=== PATIENT | female | born 1970 | race Caucasian/White ===

== ENCOUNTER 2020-10-09 19:38 | Emergency (ER) | payer MEDICAID ==
[2020-10-09 19:48] VITALS: BP 118/73
[2020-10-09] MEDS ORDERED: SULFAMETH/TRIMETH DS 800/160 MG TABLET PO STA (20:32)
[2020-10-09] MEDS ORDERED: CEPHALEXIN 250 MG Prepack 8 CAP BOTTLE PO STA (20:32)
[2020-10-09] MEDS ORDERED: HYDROcod/ACET 5/325 Prepack 4 PO STA (20:32)
--- NOTE | 2020-10-09 20:33 | ED Physician Documentation ---
PD HPI SKIN - Stated complaint Stated Complaint: OOZE/ITCH/PX/LT SIDE FACE - Chief complaint Chief Complaint: Wound - History obtained from History obtained from: Patient (50-year-old woman with history of eczema presents with 2 days of painful rash mostly on the head. 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 - Past Surgical History Past Surgical History: Yes General: Cholecystectomy, Other - Present Medications Home Medications: Ambulatory Orders Medication Instructions Recorded Confirmed Amitriptyline HCl 50 mg PO TID 10/09/20 10/09/20 Azelastine HCl 137 mcg NS TID 10/09/20 10/09/20 Fluticasone/Salmeterol [Advair 1 spr FABRICIO TID PRN 10/09/20 10/09/20 500-50 Diskus] Gabapentin [Neurontin] 800 mg PO TID 10/09/20 10/09/20 HYDROcod/ACETAM 5/325 [[place] 5/325] 1 - 2 tab PO Q6H PRN #15 tablet 10/09/20 Levothyroxine [Synthroid] 100 mcg PO QDAC 10/09/20 10/09/20 Loratadine/Pseudoephedrine 1 each PO DAILY 10/09/20 10/09/20 [Loratadine-D 24Hr Tablet] Montelukast [Singulair] 10 mg PO QPM 10/09/20 10/09/20 Sulfamethox/Trimeth 800/160 1 each PO BID #14 tablet 10/09/20 [Bactrim Ds 800/160] Tiotropium [place] [Spiriva] 1 puffs INH DAILY 10/09/20 10/09/20 Triamcinolone 0.1% Cream [Kenalog 1 applic TOP BID 10/09/20 10/09/20 0.1% Cream] cephALEXin [Keflex] 500 mg PO Q6H #28 cap 10/09/20 - Allergies Allergies/Adverse Reactions: Allergies Allergy/AdvReac Type Severity Reaction Status Date / Time Penicillins Allergy Unknown Verified 10/09/20 19:46 - Social History Does the pt smoke?: No Smoking Status: Never smoker Does the pt drink ETOH?: No Does the pt have substance abuse?: No - Immunizations Immunizations are current?: Yes - POLST Patient has POLST: No PD ED PE NORMAL - Vitals Vital signs reviewed: Yes - General General: Alert and oriented X 3, No acute distress - HEENT HEENT: PERRL, EOMI - Derm Derm: Other (She has diffuse impetiginous changes of the face with some pustular lesions. One on the right side of the neck was expressed and sent for culture.) - Neuro Neuro: Alert and oriented X 3, Normal speech Results - Vitals Vitals: Vital Signs - 24 hr 10/09/20 19:44 Temperature 36.6 C Heart Rate 113 H Respiratory 16 Rate Blood Pressure 118/73 O2 Saturation 92 Oxygen O2 Source Room air Departure - Departure Disposition: 01 Home, Self Care Clinical Impression: Impetigo Condition: Good Record reviewed to determine appropriate education?: Yes Instructions: ED Staph Infec Abx Tx Only Prescriptions: Sulfamethox/Trimeth 800/160 [Bactrim Ds 800/160] 1 each PO BID #14 tablet cephALEXin [Keflex] 500 mg PO Q6H #28 cap HYDROcod/ACETAM 5/325 [[place] 5/325] 1 - 2 tab PO Q6H PRN #15 tablet PRN Reason: Pain Comments: We are performing a wound culture, the results should be done in 48-72 hours. If antibiotic change is necessary we will call you. Return if worse in the meantime, especially if you develop increased pain, fevers, cannot keep down the medication. Otherwise follow-up with your physician in approximately 2-3 days.
== END 2020-10-09 20:47 | disposition home or self-care (01) ==
LOC: ED 19:38
DX: L01.00 Impetigo, unspecified (principal)
CPT/HCPCS: 87070; 87077; 87205; 99283; A9270

== ENCOUNTER 2021-10-01 06:21 | Observation (INO) | payer MEDICARE, MEDICAID ==
[2021-10-01] MEDS ORDERED: IPRATROPIUM/ALBUTEROL 3 ML NEB INH STA ×2 (06:43→08:34)
--- NOTE | 2021-10-01 06:44 | ED Physician Documentation ---
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 HEENT: None Psych: Depression, Anxiety, Panic attacks Musculoskeletal: None Derm: Eczema - Past Surgical History Past Surgical History: Yes General: Cholecystectomy, Other - Present Medications Home Medications: Ambulatory Orders Medication Instructions Recorded Confirmed Amitriptyline HCl 50 mg PO TID 10/09/20 10/09/20 Azelastine HCl 137 mcg NS TID 10/09/20 10/09/20 Fluticasone/Salmeterol [Advair 1 spr FABRICIO TID PRN 10/09/20 10/09/20 500-50 Diskus] Gabapentin [Neurontin] 800 mg PO TID 10/09/20 10/09/20 HYDROcod/ACETAM 5/325 [[place] 5/325] 1 - 2 tab PO Q6H PRN #15 tablet 10/09/20 Levothyroxine [Synthroid] 100 mcg PO QDAC 10/09/20 10/09/20 Loratadine/Pseudoephedrine 1 each PO DAILY 10/09/20 10/09/20 [Loratadine-D 24Hr Tablet] Montelukast [Singulair] 10 mg PO QPM 10/09/20 10/09/20 Sulfamethox/Trimeth 800/160 1 each PO BID #14 tablet 10/09/20 [Bactrim Ds 800/160] Tiotropium [place] [Spiriva] 1 puffs INH DAILY 10/09/20 10/09/20 Triamcinolone 0.1% Cream [Kenalog 1 applic TOP BID 10/09/20 10/09/20 0.1% Cream] cephALEXin [Keflex] 500 mg PO Q6H #28 cap 10/09/20 - Allergies Allergies/Adverse Reactions: Allergies Allergy/AdvReac Type Severity Reaction Status Date / Time Penicillins Allergy Unknown Verified 10/01/21 06:35 - Social History Does the pt smoke?: No Smoking Status: Never smoker Does the pt drink ETOH?: No Does the pt have substance abuse?: No - Immunizations Immunizations are current?: Yes - POLST Patient has POLST: No Results - Vitals Vitals: Vital Signs - 24 hr 10/01/21 06:32 Temperature 36.4 C L Heart Rate 96 Respiratory 18 Rate Blood Pressure 124/92 H O2 Saturation 89 L Oxygen O2 Source Room air
--- NOTE | 2021-10-01 07:28 | ED Physician Documentation ---
PD HPI DYSPNEA - Stated complaint Stated Complaint: SOA - Chief complaint Chief Complaint: Resp - History obtained from History obtained from: Patient - History of Present Illness Timing - onset: How many days ago (4-5) Timing - onset during: Rest (for the past day), Light activity Timing - duration: Days (4-5) Timing - details: Abrupt onset, Still present, Waxing and waning Inciting event(s): Exposure (ie smoke) (she states she was around her daughters new pet dog and developed wheezing and dyspnea that has not improved, but actually worse despite home albuterol MDI use.). No: Out of meds, URI Improved by: No: Inhaler/neb Worsened by: Exertion, Coughing Associated symptoms: Cough, Wheezing, Chest pain / discomfort (tightness). No: Fever, Hemoptysis, Palpitations, Bilateral edema Similar symptoms before: Diagnosis (COPD and asthma. No history of CHF.) Recently seen: Not recently seen Review of Systems Constitutional: reports: Myalgias. denies: Fever, Chills Nose: reports: Congestion. denies: Rhinorrhea / runny nose Throat: denies: Sore throat Respiratory: reports: Dyspnea, Cough GI: denies: Abdominal Pain, Nausea, Vomiting, Diarrhea : denies: Dysuria, Frequency Skin: denies: Rash, Lesions Musculoskeletal: denies: Extremity swelling Neurologic: reports: Generalized weakness. 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 : None HEENT: None Psych: Depression, Anxiety, Panic attacks Musculoskeletal: None Derm: Eczema - Past Surgical History Past Surgical History: Yes General: Cholecystectomy, Other - Present Medications Home Medications: Ambulatory Orders Medication Instructions Recorded Confirmed Amitriptyline HCl 50 mg PO BID 10/09/20 10/01/21 Azelastine HCl 2 sprays NS BID 10/09/20 10/01/21 Gabapentin [Neurontin] 600 mg PO BID 10/09/20 10/01/21 Levothyroxine [Synthroid] 100 mcg PO QDAC 10/09/20 10/01/21 Montelukast [Singulair] 10 mg PO QPM 10/09/20 10/01/21 Triamcinolone 0.1% Cream [Kenalog 1 applic TOP BID 10/09/20 10/01/21 0.1% Cream] Albuterol Sulfate [Proair 1 - 2 puffs INH QID PRN 10/01/21 10/01/21 Respiclick] Budesonide/Formoterol Fumarate 2 puffs IH BID 10/01/21 10/01/21 [Symbicort 160-4.5 Mcg Inhaler] Ferrous Gluconate 324 mg PO DAILY 10/01/21 10/01/21 Loratadine [Claritin] 20 mg PO BID 10/01/21 10/01/21 Tiotropium [place] [Spiriva] 18 mcg INH DAILY 10/01/21 10/01/21 Triamcinolone Acetonide [Nasacort] 2 spr NS BID 10/01/21 10/01/21 hydrOXYzine HCL [Hydroxyzine HCl] 50 mg PO BID 10/01/21 10/01/21 - Allergies Allergies/Adverse Reactions: Allergies Allergy/AdvReac Type Severity Reaction Status Date / Time peanut Allergy Severe Anaphylaxis Verified 10/01/21 15:13 shellfish derived Allergy Severe Anaphylaxis Verified 10/01/21 15:14 Penicillins Allergy Unknown Verified 10/01/21 06:35 - Living Situation Living Situation: reports: Alone Living Arrangement: reports: At home - Social History Does the pt smoke?: No Smoking Status: Never smoker Does the pt drink ETOH?: No Does the pt have substance abuse?: No - Immunizations Immunizations are current?: Yes - POLST Patient has POLST: No PD ED PE NORMAL - Vitals Vital signs reviewed: Yes (sats 87% RA) - General General: Alert and oriented X 3, Well developed/nourished - HEENT HEENT: Ears normal, Moist mucous membranes, Pharynx benign - Neck Neck: Supple, no meningeal sign, No adenopathy - Cardiac Cardiac: RRR, No murmur - Respiratory Respiratory: No: No respiratory distress (some partial sentence dyspnea. ), Clear bilaterally (difffuse moderate wheezes and decreased tidal volume. no coarse sounds nor fine crackles. ) - Abdomen Abdomen: Soft, Non tender - Back Back: No CVA TTP - Derm Derm: Normal color, Warm and dry - Extremities Extremities: Normal ROM s pain, No edema, No calf tenderness / cord - Neuro Neuro: Alert and oriented X 3, No motor deficit, Normal speech Eye Opening: Spontaneous Motor: Obeys Commands Verbal: Oriented GCS Score: 15 Results - Vitals Vitals: Vital Signs - 24 hr 10/01/21 10/01/21 10/01/21 06:32 07:06 07:20 Temperature 36.4 C L Heart Rate 96 90 86 Respiratory 18 24 18 Rate Blood Pressure 124/92 H 109/82 H O2 Saturation 89 L 86 L 10/01/21 10/01/21 10/01/21 07:21 07:52 09:00 Temperature Heart Rate 87 80 80 Respiratory 19 12 13 Rate Blood Pressure 109/82 H 111/71 O2 Saturation 92 94 10/01/21 10/01/21 09:13 10:10 Temperature 36.7 C Heart Rate 81 85 Respiratory 14 14 Rate Blood Pressure O2 Saturation 93 97 Oxygen O2 Source Nasal cannula Oxygen Flow Rate 2 - Labs Labs: Laboratory Tests 10/01/21 10/01/21 10/01/21 08:03 08:03 08:03 WBC 6.3 RBC 4.30 Hgb 13.4 Hct 41.7 MCV 97.0 MCH 31.2 H MCHC 32.1 RDW 13.5 Plt Count 296 MPV 9.6 Neut # (Auto) 3.8 Lymph # (Auto) 0.9 L O'Brien # (Auto) 0.6 Eos # (Auto) 0.8 H Baso # (Auto) 0.1 Absolute Nucleated RBC 0.00 Nucleated RBC % 0.0 Sodium 136 Potassium 3.6 Chloride 99 L Carbon Dioxide 27 Anion Gap 10.0 BUN 12 Creatinine 0.7 Estimated GFR (MDRD) 88 L Glucose 103 H Calcium 8.9 Total Bilirubin 0.5 AST 20 ALT 23 Alkaline Phosphatase 79 B-Natriuretic Peptide 9 Total Protein 6.8 Albumin 3.7 Globulin 3.1 Albumin/Globulin Ratio 1.2 Lipase 25 TSH Nasal Adenovirus (PCR) Nasal B. parapertussis DNA (PCR) Nasal Coronavir 229E PCR Nasal Coronavir HKU1 PCR Nasal Coronavir NL63 PCR Nasal Coronavir OC43 PCR Nasal Enterovir/Rhinovir PCR Nasal Influenza B PCR Nasal Influenza A PCR Nasal Parainfluen 1 PCR Nasal Parainfluen 2 PCR Nasal Parainfluen 3 PCR Nasal Parainfluen 4 PCR Nasal RSV (PCR) Nasal B.pertussis DNA PCR Nasal C.pneumoniae (PCR) Cleve Human Metapneumo PCR Nasal M.pneumoniae (PCR) Nasal SARS-CoV-2 (PCR) 10/01/21 10/01/21 08:03 08:10 WBC RBC Hgb Hct MCV MCH MCHC RDW Plt Count MPV Neut # (Auto) Lymph # (Auto) O'Brien # (Auto) Eos # (Auto) Baso # (Auto) Absolute Nucleated RBC Nucleated RBC % Sodium Potassium Chloride Carbon Dioxide Anion Gap BUN Creatinine Estimated GFR (MDRD) Glucose Calcium Total Bilirubin AST ALT Alkaline Phosphatase B-Natriuretic Peptide Total Protein Albumin Globulin Albumin/Globulin Ratio Lipase TSH 21.08 H Nasal Adenovirus (PCR) NOT DETECTED Nasal B. parapertussis DNA (PCR) NOT DETECTED Nasal Coronavir 229E PCR NOT DETECTED Nasal Coronavir HKU1 PCR NOT DETECTED Nasal Coronavir NL63 PCR NOT DETECTED Nasal Coronavir OC43 PCR NOT DETECTED Nasal Enterovir/Rhinovir PCR NOT DETECTED Nasal Influenza B PCR NOT DETECTED Nasal Influenza A PCR NOT DETECTED Nasal Parainfluen 1 PCR NOT DETECTED Nasal Parainfluen 2 PCR NOT DETECTED Nasal Parainfluen 3 PCR NOT DETECTED Nasal Parainfluen 4 PCR NOT DETECTED Nasal RSV (PCR) NOT DETECTED Nasal B.pertussis DNA PCR NOT DETECTED Nasal C.pneumoniae (PCR) NOT DETECTED Cleve Human Metapneumo PCR NOT DETECTED Nasal M.pneumoniae (PCR) NOT DETECTED Nasal SARS-CoV-2 (PCR) NOT DETECTED - Rads (name of study) chest xray Radiology: Prelim report reviewed (no acute cardiopulmonary abnormality), EMP read contemporaneously (hyperinflated c/w COPD. ), See rad report PD MEDICAL DECISION MAKING - ED course Complexity details: reviewed results (cxr without infiltrates nor CHF. ), re- evaluated patient (feeling improved breathing, but still dyspnea with slight activity to bathroom. In cart, without oxygen, still down to 87-88% RA, good sats 95% with just 2 lpm NC. ), considered differential (seems COPD exac due to exposure to daughters new dog. Not having infectious symptoms per se. ), d/w patient, d/w internal audit consultant (hospitalist) Departure - Departure Disposition: ED Place in Observation Clinical Impression: Acute exacerbation of COPD with asthma, Hypoxia Condition: Stable Discharge Date/Time: 10/01/21 11:14
[2021-10-01] MEDS ORDERED: ALBUTEROL NEB 2.5 MG/3 ML INH STA ×2 (07:38→11:01)
[2021-10-01] MEDS ORDERED: DEXAMETHASONE 10 MG/ML VIAL IVP STA (07:38)
[2021-10-01] MEDS ORDERED: SODIUM CHLORIDE 0.9% 1,000 ML IV STA (07:38)
[2021-10-01 08:13] LABS: BASOPHILS # (AUTO) 0.1 10^3/uL (0.0-0.1); BASOPHILS % (AUTO) 0.8 %; EOSINOPHILS # (AUTO) 0.8 10^3/uL (0.0-0.7); EOSINOPHILS % (AUTO) 12.8 %; HCT - HEMATOCRIT 41.7 % (37.0-47.0); HGB - HEMOGLOBIN 13.4 g/dL (12.0-16.0); LYMPHOCYTES # (AUTO) 0.9 10^3/uL (1.5-3.5); MEAN CORPUSCULAR HEMOGLOBIN 31.2 pg (27.0-31.0); MEAN CORPUSCULAR HGB CONC 32.1 g/dL (32.0-36.0); MEAN PLATELET VOLUME 9.6 fL (7.9-10.8); MONOCYTES # (AUTO) 0.6 10^3/uL (0.0-1.0); MONOCYTES % (AUTO) 9.3 %; NEUTROPHILS # (AUTO) 3.8 10^3/uL (1.5-6.6); NEUTROPHILS % (AUTO) 61.3 %; PLT - PLATELET COUNT 296 10^3/uL (130-450); RED CELL DISTRIBUTION WIDTH 13.5 % (12.0-15.0); WHITE BLOOD COUNT 6.3 x10^3/uL (4.8-10.8)
[2021-10-01 08:30] LABS: ALBUMIN 3.7 g/dL (3.2-5.5); ALBUMIN/GLOBULIN RATIO 1.2 (1.0-2.2); BILIRUBIN,TOTAL 0.5 mg/dL (0.2-1.0); CALCIUM 8.9 mg/dL (8.5-10.3); CREATININE 0.7 mg/dL (0.4-1.0); POTASSIUM 3.6 mmol/L (3.5-5.0); TOTAL PROTEIN 6.8 g/dL (6.7-8.2)
--- NOTE | 2021-10-01 09:14 | XRAY Report ---
PROCEDURE: Chest 1 View X-Ray INDICATIONS: dyspnea/wheezing TECHNIQUE: One view of the chest was acquired. COMPARISON: None. FINDINGS: SUPPORT DEVICES: None. LUNGS/PLEURA: Bibasilar atelectasis/scarring. Coarsened interstitial markings. No focal consolidation , pleural effusion or space-occupying pneumothorax. MEDIASTINUM: The cardiomediastinal silhouette is within normal limits. BONES/SOFT TISSUES: No acute abnormality. IMPRESSION: 1.No acute cardiopulmonary abnormality. Reviewed by: Zhang Mckoy MD on 10/01/2021 9:12 AM PDT Approved by: Zhang Mckoy MD on 10/01/2021 9:12 AM PDT Station ID: [id number]
[2021-10-01 09:33] LABS: B. PARAPERTUSSIS- RESP PCR PAN NOT DETECTED; B. PERTUSSIS- RESP PCR PANEL NOT DETECTED; C. PNEUMONIAE- RESP PCR PANEL NOT DETECTED; CORONAVIRUS 229E-RESP PCR NOT DETECTED; CORONAVIRUS HKU1-RESP PCR NOT DETECTED; CORONAVIRUS NL63-RESP PCR NOT DETECTED; CORONAVIRUS OC43-RESP PCR NOT DETECTED; HUMAN METAPNEUMOVIRUS NOT DETECTED; INFLUENZA A- RESP PCR PANEL NOT DETECTED; INFLUENZA B - RESP PCR PANEL NOT DETECTED; M. PNEUMONIAE- RESP PCR PANEL NOT DETECTED; PARAINFLUENZA VIRUS 1 NOT DETECTED; PARAINFLUENZA VIRUS 2 NOT DETECTED; PARAINFLUENZA VIRUS 3 NOT DETECTED; PARAINFLUENZA VIRUS 4 NOT DETECTED; RHINOVIRUS/ENTEROVIRUS NOT DETECTED; RSV- RESP PCR PANEL NOT DETECTED; SARS-CoV-2 -RESP PCR PANEL NOT DETECTED
[2021-10-01] MEDS ORDERED: ONDANSETRON 4 MG/2 ML VIAL IVP PRN (10:40)
--- NOTE | 2021-10-01 10:48 | HISTORY & PHYSICAL EXAMINATION ---
Chief Complaint - Chief Complaint Chief Complaint: shortness of breath History of Present Illness - Admitted From Admitted From:: medical floor - History Obtained From Records Reviewed: [facility], ER notes History obtained from: pt Exam Limitations: no - History of Present Illness HPI Comment/Other: This is a 51-years old female with a past medical history significant for asthma, COPD, hypothyroidism, anxiety, depression, panic attack, who present ER complain of shortness of breath. Pt reports her shortness of breath has increased since last Thursday. Neb for breathing treatment at her home was ineffective on today morning. she usually did not take O2 at home.Pt Denies CP and sick exposure, fever, chill. She denies smoking history. she report she had COVID19 vaccinated. Chest x-ray show no cardiopulmonary abnormality. D-dimer is at normal range. Routine laboratory tests show her test was unremarkable. COVID- 19 test is negative. Patient was afebrile, patient had 86% oxygen saturation on room air in the ER. Given above pt's medical conditions, Medical team was consulted for admission. 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 : reports: None HEENT: reports: None Psych: reports: Depression, Anxiety, Panic attacks Musculoskeletal: reports: None Derm: reports: Eczema MRSA Hx?: No - Past Surgical History General: reports: Cholecystectomy, Other - Family & Social History Family History: Mother: , Father: Family History Comment/Other: Per patient report, her father from lung cancer, her mother from skin cancer at age 50 Social History Notes: pt denies history of cigarette smoking, alcohol and drug issue - POLST Patient has POLST: No Meds/Allgy - Home Medications Home Medications: Ambulatory Orders Medication Instructions Recorded Confirmed Amitriptyline HCl 50 mg PO BID 10/09/20 10/01/21 Azelastine HCl 2 sprays NS BID 10/09/20 10/01/21 Gabapentin [Neurontin] 600 mg PO BID 10/09/20 10/01/21 Levothyroxine [Synthroid] 100 mcg PO QDAC 10/09/20 10/01/21 Montelukast [Singulair] 10 mg PO QPM 10/09/20 10/01/21 Triamcinolone 0.1% Cream [Kenalog 1 applic TOP BID 10/09/20 10/01/21 0.1% Cream] Albuterol Sulfate [Proair 1 - 2 puffs INH QID PRN 10/01/21 10/01/21 Respiclick] Budesonide/Formoterol Fumarate 2 puffs IH BID 10/01/21 10/01/21 [Symbicort 160-4.5 Mcg Inhaler] Ferrous Gluconate 324 mg PO DAILY 10/01/21 10/01/21 Loratadine [Claritin] 20 mg PO BID 10/01/21 10/01/21 Tiotropium [place] [Spiriva] 18 mcg INH DAILY 10/01/21 10/01/21 Triamcinolone Acetonide [Nasacort] 2 spr NS BID 10/01/21 10/01/21 hydrOXYzine HCL [Hydroxyzine HCl] 50 mg PO BID 10/01/21 10/01/21 - Allergies Allergies/Adverse Reactions: Allergies Allergy/AdvReac Type Severity Reaction Status Date / Time Penicillins Allergy Unknown Verified 10/01/21 06:35 Review of Systems - Constitutional Constitutional: denies: Fever, Chills - Eyes Eyes: denies: Pain - Cardiovascular Cariovascular: reports: Exertional dyspnea, Decr. exercise tolerance. denies: Palpitations, Chest pain - Respiratory Respiratory: reports: Wheezing, SOB with exertion. denies: Cough, Sputum production, SOB at rest - Gastrointestinal Gastrointestinal: denies: Abdominal pain, Diarrhea, Nausea, Vomiting - Neurological Neurological: denies: General weakness, Focal weakness, Dizziness, Numbness, Abnormal gait, Seizures, Incoordination, Slurred speech Exam - Vital Signs Vital Signs: Vital Signs x48h Temp Pulse Resp BP Pulse Ox 10/01/21 10:10 36.7 C 85 14 97 10/01/21 09:13 81 14 93 10/01/21 09:00 80 13 111/71 94 10/01/21 07:52 77 12 10/01/21 07:21 87 19 109/82 H 92 10/01/21 07:20 86 18 109/82 H 86 L 10/01/21 07:06 90 24 10/01/21 06:32 36.4 C L 96 18 124/92 H 89 L - Physical Exam General Appearance: positive: Alert, Mild distress. negative: Lethargic Eyes Bilateral: positive: Normal inspection, No lid inflammation ENT: positive: ENT inspection nml, No signs of dehydration. negative: Purulent nasal drainage Neck: positive: Nml inspection, Trachea midline. negative: Tracheal deviation Respiratory: positive: Chest non-tender, Wheezes (at left upper lobe of lung) Cardiovascular: positive: Regular rate & rhythm. negative: Tachycardia, Bradycardia, Systolic murmur Peripheral Pulses: positive: 2+ Abdomen: positive: Non-tender, Nml bowel sounds, No distention. negative: Te nderness Back: positive: Nml inspection Skin: positive: Color nml, Warm, Dry. negative: Cyanosis Extremities: positive: Non-tender, Full ROM, Nml appearance Neurologic/Psychiatric: positive: Oriented x3, Motor nml, Sensation nml. negative: Weakness, Sensory loss, Facial droop, Slurred/abnml speech, Depressed mood/affect Sepsis Event Note (H) - Evaluation Current Stage of Sepsis: Ruled out Conclusion/Plan - Problem List (1) Hypoxia Conclusion/Plan: Patient had 86% oxygen saturation on room air at ER. Now patient had 93% oxygen saturation on 2 L of oxygen. Patient did not take oxygen in the home. Patient has history of asthma and COPD. Patient has no fever or chill. , COVID-19 test is negative. Chest x-ray is unremarkable, WBCs are normal range. D-dimer is at normal arrange. It is likely secondary to the patient's COPD with asthma on exacerbation. Supplemental oxygen for patient, we will treat for COPD and asthma on exacerbation (2) Acute exacerbation of COPD with asthma Conclusion/Plan: It is likely the cause for patient's acute hypoxia and shortness breathing. We will order albuterol, Duoneb schedule, Pulmicort schedule for pt, and order patient for Solu-Medrol, Supplemental oxygen as needed. (3) Hypothyroidism Conclusion/Plan: TSH is elevated, we will test free T4. We will resume patient home Synthroid. (4) Anxiety Conclusion/Plan: Patient has a history of anxiety, patient present some anxiety, we will order Ativan as needed, morphine as needed. - Lab Results Fish Bones: 10/01/21 08:03 10/01/21 08:03 Core Measures - Anticipated LOS I expect patient to be DC'd or transferred within 96 hours.: Yes - DVT/VTE - Prophylaxis VTE/DVT Device ordered at admit?: Yes VTE/DVT Prophylaxis med ordered at admit?: Yes
[2021-10-01] MEDS: BUDESONIDE 0.5 MG/2 ML NEB INH SCH ×2 (10:54→17:35)
[2021-10-01] MEDS: ALBUTEROL NEB 2.5 MG/3 ML INH PRN (11:47)
[2021-10-01] MEDS: IPRATROPIUM/ALBUTEROL 3 ML NEB INH SCH ×3 (11:47→17:35)
--- NOTE | 2021-10-01 12:45 | PHARMACY PROGRESS NOTE ---
- Best Possible Medication History Admit Date and Time: 10/01/21 1040 Processed by: Pharmacy Medication History completed: Yes Patient Interview: Completed Secondary Source(s): Prescription bottles, Pharmacy records, Insurance records As the person ultimately responsible for medication therapy, providers are able to order a medication from an existing home medication list in [facility] via the "Reconcile Routine" prior to Confirmation of that medication by cad application support specialist. Such practice is discouraged except when the physician, in their clinical judgment, deems that a medical need exists for a medication without regard to previous use.
[2021-10-01] MEDS: GABAPENTIN 300 MG CAPSULE PO SCH ×2 (13:27→21:37)
[2021-10-01] MEDS: AMITRIPTYLINE 25 MG TABLET PO SCH ×2 (13:27→21:38)
[2021-10-01] MEDS: methylPREDNISolone SUCCINATE 40 MG/ML VIAL IVP SCH ×2 (13:28→21:38)
[2021-10-01] MEDS: LORATADINE 10 MG TABLET PO SCH (13:28)
[2021-10-01] MEDS: AZELASTINE HCL 137 MCG/0.137 ML NAS SCH ×2 (13:28→21:34)
[2021-10-01] MEDS: PUMP NAS SCH ×2 (13:28→21:34)
[2021-10-01] MEDS ORDERED: GABAPENTIN 400 MG CAPSULE PO SCH (14:00)
[2021-10-01] MEDS ORDERED: MORPHINE 2 MG/ML CARPUJECT IVP PRN (14:12)
[2021-10-01] MEDS ORDERED: diphenhydrAMINE 25 MG CAPSULE PO PRN (14:13)
[2021-10-01] MEDS: LORazepam 0.5 MG TABLET PO PRN (14:24)
[2021-10-01 19:53] LABS: MUDS CUTOFF CONCENTRATIONS CUTOFF CONC BELOW:
[2021-10-01 20:18] LABS: AMPHETAMINE SCREEN,URINE NEGATIVE (NEGATIVE); BARBITURATE SCREEN,UR NEGATIVE (NEGATIVE); BENZODIAZEPINES SCREEN, URINE NEGATIVE (NEGATIVE); COCAINE SCREEN URINE NEGATIVE (NEGATIVE); METHADONE SCREEN, URINE NEGATIVE (NEGATIVE); METHAMPHETAMINES SCREEN, URINE NEGATIVE (NEGATIVE); OPIATE SCREEN, URINE NEGATIVE (NEGATIVE); OXYCODONE SCREEN, URINE NEGATIVE (NEGATIVE); PROPOXYPHENE SCREEN, URINE NEGATIVE (NEGATIVE); THC CANNABINOID SCREEN, URINE NEGATIVE (NEGATIVE); TRICYCLIC ANTIDEPRESSANT,URINE POSITIVE (NEGATIVE)
[2021-10-01] MEDS: SODIUM CHLORIDE FLUSH 0.9% 10 ML SYRINGE IVP SCH ×2 (21:00→23:42)
[2021-10-01] MEDS: ACETAMINOPHEN 325 MG TABLET PO PRN (21:36)
[2021-10-01] MEDS: MONTELUKAST 10 MG TABLET PO SCH (21:37)
[2021-10-01] MEDS: SODIUM CHLORIDE FLUSH 0.9% 10 ML SYRINGE IVP PRN (21:37)
[2021-10-02] MEDS: ACETAMINOPHEN 325 MG TABLET PO PRN (05:19)
[2021-10-02] MEDS: methylPREDNISolone SUCCINATE 40 MG/ML VIAL IVP SCH ×3 (05:19→21:35)
[2021-10-02] MEDS ORDERED: PSEUDOEPHEDRINE 30 MG TABLET PO SCH (06:00)
[2021-10-02 06:11] LABS: BASOPHILS % (AUTO) 0.2 %; HCT - HEMATOCRIT 40.5 % (37.0-47.0); HGB - HEMOGLOBIN 12.9 g/dL (12.0-16.0); LYMPHOCYTES # (AUTO) 0.6 10^3/uL (1.5-3.5); LYMPHOCYTES % (AUTO) 4.9 %; MEAN CORPUSCULAR HEMOGLOBIN 31.3 pg (27.0-31.0); MEAN CORPUSCULAR HGB CONC 31.9 g/dL (32.0-36.0); MEAN CORPUSCULAR VOLUME 98.3 fL (81.0-99.0); MONOCYTES # (AUTO) 0.6 10^3/uL (0.0-1.0); MONOCYTES % (AUTO) 5.1 %; NEUTROPHILS # (AUTO) 10.8 10^3/uL (1.5-6.6); NEUTROPHILS % (AUTO) 89.1 %; PLT - PLATELET COUNT 337 10^3/uL (130-450); RED BLOOD COUNT 4.12 10^6/uL (4.20-5.40); RED CELL DISTRIBUTION WIDTH 13.7 % (12.0-15.0); WHITE BLOOD COUNT 12.2 x10^3/uL (4.8-10.8)
[2021-10-02 06:15] LABS: CALCIUM 8.7 mg/dL (8.5-10.3); CREATININE 0.6 mg/dL (0.4-1.0); POTASSIUM 4.2 mmol/L (3.5-5.0)
[2021-10-02] MEDS ORDERED: LEVOTHYROXINE 100 MCG TABLET PO SCH (07:00)
[2021-10-02] MEDS: BUDESONIDE 0.5 MG/2 ML NEB INH SCH ×2 (07:46→20:34)
[2021-10-02] MEDS: IPRATROPIUM/ALBUTEROL 3 ML NEB INH SCH ×4 (07:46→20:34)
[2021-10-02] MEDS: AMITRIPTYLINE 25 MG TABLET PO SCH ×2 (08:56→21:26)
[2021-10-02] MEDS: ENOXAPARIN 40 MG/0.4 ML SYRINGE SUBQ SCH (08:56)
[2021-10-02] MEDS: PUMP NAS SCH ×2 (08:56→21:27)
[2021-10-02] MEDS: AZELASTINE HCL 137 MCG/0.137 ML NAS SCH ×2 (08:56→21:27)
[2021-10-02] MEDS: LORATADINE 10 MG TABLET PO SCH (08:56)
[2021-10-02] MEDS: GABAPENTIN 300 MG CAPSULE PO SCH ×2 (08:56→21:26)
[2021-10-02] MEDS: SODIUM CHLORIDE FLUSH 0.9% 10 ML SYRINGE IVP SCH ×3 (08:57→23:21)
[2021-10-02] MEDS ORDERED: LORATADINE 10 MG TABLET PO SCH (09:00)
--- NOTE | 2021-10-02 11:00 | PROVIDER PROGRESS NOTE ---
Assessment/Plan - Problem List (1) Hypoxia Assessment/Plan: 10/02 pt report she feel better for her breathing. she had 91% O2 sat on one liter of O2 now. pt has not taken O2 at home and we just started treatment on yesterday. we will continue treatment for her exacerbation of Asthma and COPD with IV steroid, albuterol, Duoneb, Pulmicort. Patient had 86% oxygen saturation on room air at ER. Now patient had 93% oxygen saturation on 2 L of oxygen. Patient did not take oxygen in the home. Patient has history of asthma and COPD. Patient has no fever or chill. , COVID-19 test is negative. Chest x-ray is unremarkable, WBCs are normal range. D-dimer is at normal arrange. It is likely secondary to the patient's COPD with asthma on exacerbation. Supplemental oxygen for patient, we will treat for COPD and asthma on exacerbation (2) Acute exacerbation of COPD with asthma Conclusion/Plan: 10/02 improved. we IV steroid, albuterol, Duoneb, Pulmicort. resume home Singular and claritin It is likely the cause for patient's acute hypoxia and shortness breathing. We w ill order albuterol, Duoneb schedule, Pulmicort schedule for pt, and order patient for Solu-Medrol, Supplemental oxygen as needed. (3) Hypothyroidism Conclusion/Plan: 10/02 slight increased synthroid dosage and followup with her PCP management. TSH is elevated, we will test free T4. We will resume patient home Synthroid. (4) Anxiety Conclusion/Plan: 10/02 improved. continue Ativan as needed, morphine PRN Patient has a history of anxiety, patient present some anxiety, we will order Ativan as needed, morphine as needed. - Current Meds Current Meds: Current Medications Generic Name Dose Route Start Last Admin Trade Name Freq PRN Reason Stop Dose Admin Acetaminophen 650 mg 10/01/21 10:40 10/02/21 05:19 Acetaminophen 325 Mg Tablet PO 650 mg Q4HR PRN Administration Pain 1 to 4 Albuterol 2.5 mg 10/01/21 10:43 10/01/21 11:47 Albuterol Neb 2.5 Mg/3 Ml INH 2.5 mg RTQ4H PRN Administration Wheezing Albuterol/Ipratropium 3 ml 10/01/21 11:00 10/02/21 07:46 Ipratropium/Albuterol 3 Ml Neb INH 3 ml RTQID DEBBI Administration Amitriptyline HCl 50 mg 10/01/21 14:00 10/02/21 08:56 Amitriptyline 25 Mg Tablet PO 50 mg BID DEBBI Administration Budesonide 0.5 mg 10/01/21 10:44 10/02/21 07:46 Budesonide 0.5 Mg/2 Ml Neb INH 0.5 mg RTBID DEBBI Administration Enoxaparin Sodium 40 mg 10/02/21 09:00 10/02/21 08:56 Enoxaparin 40 Mg/0.4 Ml Syringe SUBQ 40 mg DAILY DEBBI Administration Gabapentin 600 mg 10/01/21 14:00 10/02/21 08:56 Gabapentin 300 Mg Capsule PO 600 mg BID DEBBI Administration Loratadine 10 mg 10/01/21 14:00 10/02/21 08:56 Loratadine 10 Mg Tablet PO 10 mg DAILY DEBBI Administration Lorazepam 0.5 mg 10/01/21 14:12 10/01/21 14:24 Lorazepam 0.5 Mg Tablet PO 0.5 mg Q12H PRN Administration Anxiety Methylprednisolone 40 mg 10/01/21 14:00 10/02/21 05:19 Methylprednisolone Succinate 40 Mg/Ml Vial IVP 40 mg TID DEBBI Administration Montelukast Sodium 10 mg 10/01/21 21:00 10/01/21 21:37 Montelukast 10 Mg Tablet PO 10 mg QPM DEBBI Administration Azelastine Hcl [ 2 each 10/01/21 14:00 10/02/21 08:56 Azelastine Hcl] 137 FABRICIO 2 each Mcg/0.137 Ml [place]. BID DEBBI Administration Pump Sodium Chloride 10 ml 10/01/21 10:40 10/01/21 21:37 Sodium Chloride Flush 0.9% 10 Ml Syringe IVP 10 ml PRN PRN Administration NEEDED PER PROVIDER ORDERS Sodium Chloride 10 ml 10/01/21 17:00 10/02/21 08:57 Sodium Chloride Flush 0.9% 10 Ml Syringe IVP 10 ml 0100,0900,1700 DEBBI Administration - Lab Result [place] Diagrams: 10/02/21 05:28 10/02/21 05:28 - Additional Planning My Orders: My Active Orders 10/01/21 10:40 Activity Orders [RC] Q2HR IO [RC] IOSHIFT Initiate Bowel Care Protocol [RC] .protocol Initiate Line Care Protocol [RC] QSHIFT Initiate Personal Care Protoco [RC] .protocol Vital Signs [RC] Q4HR Acetaminophen [Tylenol] 650 mg PO Q4HR PRN Ondansetron Inj [Zofran Inj] 4 mg IVP Q6HR PRN Sodium Chloride Flush 0.9% [Normal Saline Flush 0.9%] 10 ml IVP PRN PRN Code Status [OTHERS] Routine Condition of Patient [OTHERS] Routine DVT Prophylaxis [OTHERS] Routine 10/01/21 10:41 IV Insert [RC] .ONCE 10/01/21 10:42 SCDs [RC] QSHIFT 10/01/21 10:43 Albuterol 2.5 mg INH RTQ4H PRN 10/01/21 10:44 Budesonide [Pulmicort] 0.5 mg INH RTBID 10/01/21 11:00 Ipratropium/Albuterol [Duoneb] 3 ml INH RTQID 10/01/21 Lunch Regular Diet [DIET] 10/01/21 11:51 RT [Nebulizer/MDI Tx.] [RC] .QID 10/01/21 14:00 Amitriptyline [Elavil] 50 mg PO BID Gabapentin [Neurontin] 600 mg PO BID Loratadine [Claritin] 10 mg PO DAILY Patient Own Med [Patient Own Medication] 2 each FABRICIO BID methylPREDNISolone SUCCINATE [SOLU-Medrol (40MG VIAL)] 40 mg IVP TID 10/01/21 14:12 LORazepam [Ativan] 0.5 mg PO Q12H PRN Morphine Inj (Carpuject) [Morphine (Carpuject)] 2 mg IVP Q2HR PRN 10/01/21 14:13 diphenhydrAMINE [Benadryl] 25 mg PO Q4HR PRN 10/01/21 17:00 Sodium Chloride Flush 0.9% [Normal Saline Flush 0.9%] 10 ml IVP 0100,0900,1700 10/01/21 18:25 RT [Oxygen Therapy] [RC] .PRN 10/01/21 21:00 Montelukast [Singulair] 10 mg PO QPM 10/02/21 09:00 Enoxaparin [Lovenox] 40 mg SUBQ DAILY 10/03/21 05:00 BMP - BASIC METABOLIC PANEL [CHEM] DAILYLAB CBC - COMP BLD CT W/AUTO DIFF [HEME] DAILYLAB 10/03/21 07:00 Levothyroxine [Synthroid] 125 mcg PO QDAC 10/04/21 05:00 BMP - BASIC METABOLIC PANEL [CHEM] DAILYLAB CBC - COMP BLD CT W/AUTO DIFF [HEME] DAILYLAB 10/05/21 05:00 BMP - BASIC METABOLIC PANEL [CHEM] DAILYLAB CBC - COMP BLD CT W/AUTO DIFF [HEME] DAILYLAB 10/06/21 05:00 BMP - BASIC METABOLIC PANEL [CHEM] DAILYLAB CBC - COMP BLD CT W/AUTO DIFF [HEME] DAILYLAB 10/07/21 05:00 BMP - BASIC METABOLIC PANEL [CHEM] DAILYLAB CBC - COMP BLD CT W/AUTO DIFF [HEME] DAILYLAB Subjective - Subjective Patient Reports: Feeling Better, Resting Comfortably Objective Vital Signs: Vital Signs - 24 hr 10/01/21 10/01/21 10/01/21 11:20 11:52 14:18 Temperature 36.4 C L Heart Rate 85 100 Heart Rate [ 94 Brachial] Respiratory 18 14 16 Rate Blood Pressure 119/73 [Left Brachial artery] Blood Pressure [Right Brachial artery] O2 Saturation 93 10/01/21 10/01/21 10/01/21 15:28 17:36 20:07 Temperature 36.4 C L 36.3 C L Heart Rate 90 Heart Rate [ 94 85 Brachial] Respiratory 16 14 15 Rate Blood Pressure [Left Brachial artery] Blood Pressure 98/63 102/58 L [Right Brachial artery] O2 Saturation 92 92 10/01/21 10/02/21 10/02/21 23:15 05:13 07:40 Temperature 36.7 C 36.6 C 36.2 C L Heart Rate Heart Rate [ 75 80 80 Brachial] Respiratory 16 16 16 Rate Blood Pressure [Left Brachial artery] Blood Pressure 109/59 L 110/68 103/60 [Right Brachial artery] O2 Saturation 94 96 90 L 10/02/21 10/02/21 10/02/21 07:45 08:59 09:00 Temperature Heart Rate 90 Heart Rate [ Brachial] Respiratory 16 18 Rate Blood Pressure [Left Brachial artery] Blood Pressure [Right Brachial artery] O2 Saturation 96 86 L 10/02/21 09:15 Temperature Heart Rate Heart Rate [ Brachial] Respiratory Rate Blood Pressure [Left Brachial artery] Blood Pressure [Right Brachial artery] O2 Saturation 91 L Oxygen O2 Source Nasal cannula Oxygen Flow Rate 2 I&O (Last 24 Hrs): Intake and Output Totals x24h 09/30/21 10/01/21 10/02/21 23:59 23:59 23:59 Intake Total 2060 240 Output Total 350 Balance 1710 240 General: Alert, Oriented x3, Cooperative, No acute distress HEENT: Atraumatic Neck: Supple Lymphatic: no adenopathy Neuro: Alert, Non Focal, Oriented Times 3 Cardiovascular: Regular rate, Normal S1, Normal S2 Respiratory: Chest non-tender, No respiratory distress, Wheezes (left upper lobe wheezes is reduced.) Abdomen: Normal bowel sounds, Soft Extremities: Normal pulses - Results Results: Laboratory Results WBC 12.2 x10^3/uL (4.8-10.8) H 10/02/21 05:28 RBC 4.12 10^6/uL (4.20-5.40) L 10/02/21 05:28 Hgb 12.9 g/dL (12.0-16.0) 10/02/21 05:28 Hct 40.5 % (37.0-47.0) 10/02/21 05:28 MCV 98.3 fL (81.0-99.0) 10/02/21 05:28 MCH 31.3 pg (27.0-31.0) H 10/02/21 05:28 MCHC 31.9 g/dL (32.0-36.0) L 10/02/21 05:28 RDW 13.7 % (12.0-15.0) 10/02/21 05:28 Plt Count 337 10^3/uL (130-450) 10/02/21 05:28 MPV 10.0 fL (7.9-10.8) 10/02/21 05:28 Neut # (Auto) 10.8 10^3/uL (1.5-6.6) H 10/02/21 05:28 Lymph # (Auto) 0.6 10^3/uL (1.5-3.5) L 10/02/21 05:28 [place] # (Auto) 0.6 10^3/uL (0.0-1.0) 10/02/21 05:28 Eos # (Auto) 0.0 10^3/uL (0.0-0.7) 10/02/21 05:28 Baso # (Auto) 0.0 10^3/uL (0.0-0.1) 10/02/21 05:28 Absolute Nucleated RBC 0.00 x10^3/uL 10/02/21 05:28 Nucleated RBC % 0.0 /100WBC 10/02/21 05:28 D-Dimer 242.7 ng/mL (200.0-255.0) 10/01/21 13:24 Sodium 140 mmol/L (135-145) 10/02/21 05:28 Potassium 4.2 mmol/L (3.5-5.0) 10/02/21 05:28 Chloride 103 mmol/L (101-111) 10/02/21 05:28 Carbon Dioxide 25 mmol/L (21-32) 10/02/21 05:28 Anion Gap 12.0 (6-13) 10/02/21 05:28 BUN 15 mg/dL (6-20) 10/02/21 05:28 Creatinine 0.6 mg/dL (0.4-1.0) 10/02/21 05:28 Estimated GFR (MDRD) 105 (>89) 10/02/21 05:28 Glucose 141 mg/dL (70-100) H 10/02/21 05:28 Calcium 8.7 mg/dL (8.5-10.3) 10/02/21 05:28 Total Bilirubin 0.5 mg/dL (0.2-1.0) 10/01/21 08:03 AST 20 IU/L (10-42) 10/01/21 08:03 ALT 23 IU/L (10-60) 10/01/21 08:03 Alkaline Phosphatase 79 IU/L (42-121) 10/01/21 08:03 B-Natriuretic Peptide 9 pg/mL (5-100) 10/01/21 08:03 Total Protein 6.8 g/dL (6.7-8.2) 10/01/21 08:03 Albumin 3.7 g/dL (3.2-5.5) 10/01/21 08:03 Globulin 3.1 g/dL (2.1-4.2) 10/01/21 08:03 Albumin/Globulin Ratio 1.2 (1.0-2.2) 10/01/21 08:03 Lipase 25 U/L (22-51) 10/01/21 08:03 TSH 21.08 uIU/mL (0.34-5.60) H 10/01/21 08:03 Free T4 0.89 ng/dL (0.58-1.64) 10/01/21 10:46 Nasal Adenovirus (PCR) NOT DETECTED 10/01/21 08:10 Nasal B. parapertussis DNA (PCR) NOT DETECTED 10/01/21 08:10 Nasal Coronavir 229E PCR NOT DETECTED 10/01/21 08:10 Nasal Coronavir HKU1 PCR NOT DETECTED 10/01/21 08:10 Nasal Coronavir NL63 PCR NOT DETECTED 10/01/21 08:10 Nasal Coronavir OC43 PCR NOT DETECTED 10/01/21 08:10 Nasal Enterovir/Rhinovir PCR NOT DETECTED 10/01/21 08:10 Nasal Influenza B PCR NOT DETECTED 10/01/21 08:10 Nasal Influenza A PCR NOT DETECTED 10/01/21 08:10 Nasal Parainfluen 1 PCR NOT DETECTED 10/01/21 08:10 Nasal Parainfluen 2 PCR NOT DETECTED 10/01/21 08:10 Nasal Parainfluen 3 PCR NOT DETECTED 10/01/21 08:10 Nasal Parainfluen 4 PCR NOT DETECTED 10/01/21 08:10 Nasal RSV (PCR) NOT DETECTED 10/01/21 08:10 Nasal B.pertussis DNA PCR NOT DETECTED 10/01/21 08:10 Nasal C.pneumoniae (PCR) NOT DETECTED 10/01/21 08:10 Fabricio Human Metapneumo PCR NOT DETECTED 10/01/21 08:10 Nasal M.pneumoniae (PCR) NOT DETECTED 10/01/21 08:10 Nasal SARS-CoV-2 (PCR) NOT DETECTED 10/01/21 08:10 Urine Opiates Screen NEGATIVE (NEGATIVE) 10/01/21 19:48 Ur Oxycodone Screen NEGATIVE (NEGATIVE) 10/01/21 19:48 Urine Methadone Screen NEGATIVE (NEGATIVE) 10/01/21 19:48 Ur Propoxyphene Screen NEGATIVE (NEGATIVE) 10/01/21 19:48 Ur Barbiturates Screen NEGATIVE (NEGATIVE) 10/01/21 19:48 Ur Tricyclics Screen POSITIVE (NEGATIVE) H 10/01/21 19:48 Ur Phencyclidine Scrn NEGATIVE (NEGATIVE) 10/01/21 19:48 Ur Amphetamine Screen NEGATIVE (NEGATIVE) 10/01/21 19:48 U Methamphetamines Scrn NEGATIVE (NEGATIVE) 10/01/21 19:48 U Benzodiazepines Scrn NEGATIVE (NEGATIVE) 10/01/21 19:48 Urine Cocaine Screen NEGATIVE (NEGATIVE) 10/01/21 19:48 U Cannabinoids Screen NEGATIVE (NEGATIVE) 10/01/21 19:48 Sepsis Event Note (H) - Evaluation Current Stage of Sepsis: Ruled out ABX Reporting Has patient been on IV antibiotics over the past 48 hours?: No Current Medications - Current Medications Current Medications: Active Medications Acetaminophen (Acetaminophen 325 Mg Tablet) 650 mg PO Q4HR PRN PRN Reason: Pain 1 to 4 Last Admin: 10/02/21 05:19 Dose: 650 mg Albuterol (Albuterol Neb 2.5 Mg/3 Ml) 2.5 mg INH RTQ4H PRN PRN Reason: Wheezing Last Admin: 10/01/21 11:47 Dose: 2.5 mg Albuterol/Ipratropium (Ipratropium/Albuterol 3 Ml Neb) 3 ml INH RTQID [facility] Last Admin: 10/02/21 11:04 Dose: 3 ml Amitriptyline HCl (Amitriptyline 25 Mg Tablet) 50 mg PO BID [facility] Last Admin: 10/02/21 08:56 Dose: 50 mg Budesonide (Budesonide 0.5 Mg/2 Ml Neb) 0.5 mg INH RTBID [facility] Last Admin: 10/02/21 07:46 Dose: 0.5 mg Diphenhydramine HCl (Diphenhydramine 25 Mg Capsule) 25 mg PO Q4HR PRN PRN Reason: Allergy Symptoms Enoxaparin Sodium (Enoxaparin 40 Mg/0.4 Ml Syringe) 40 mg SUBQ DAILY [facility] Last Admin: 10/02/21 08:56 Dose: 40 mg Gabapentin (Gabapentin 300 Mg Capsule) 600 mg PO BID [facility] Last Admin: 10/02/21 08:56 Dose: 600 mg Levothyroxine Sodium (Levothyroxine 125 Mcg Tablet) 125 mcg PO QDAC [facility] Loratadine (Loratadine 10 Mg Tablet) 10 mg PO DAILY [facility] Last Admin: 10/02/21 08:56 Dose: 10 mg Lorazepam (Lorazepam 0.5 Mg Tablet) 0.5 mg PO Q12H PRN PRN Reason: Anxiety Last Admin: 10/01/21 14:24 Dose: 0.5 mg Methylprednisolone (Methylprednisolone Succinate 40 Mg/Ml Vial) 40 mg IVP TID [facility] Last Admin: 10/02/21 05:19 Dose: 40 mg Montelukast Sodium (Montelukast 10 Mg Tablet) 10 mg PO QPM [facility] Last Admin: 10/01/21 21:37 Dose: 10 mg Morphine Sulfate (Morphine 2 Mg/Ml Carpuject) 2 mg IVP Q2HR PRN PRN Reason: PAIN Ondansetron HCl (Ondansetron 4 Mg/2 Ml Vial) 4 mg IVP Q6HR PRN PRN Reason: Nausea / Vomiting Azelastine Hcl [ Azelastine Hcl] 137 Mcg/0.137 Ml [place]. Pump 2 each FABRICIO BID [facility] Last Admin: 10/02/21 08:56 Dose: 2 each Sodium Chloride (Sodium Chloride Flush 0.9% 10 Ml Syringe) 10 ml IVP PRN PRN PRN Reason: NEEDED PER PROVIDER ORDERS Last Admin: 10/01/21 21:37 Dose: 10 ml Sodium Chloride (Sodium Chloride Flush 0.9% 10 Ml Syringe) 10 ml IVP 0100,0900,1700 [facility] Last Admin: 10/02/21 08:57 Dose: 10 ml Amitriptyline HCl 50 mg PO BID 10/09/20 Azelastine HCl 2 sprays NS BID 10/09/20 Gabapentin [Neurontin] 600 mg PO BID 10/09/20 Levothyroxine [Synthroid] 100 mcg PO QDAC 10/09/20 Montelukast [Singulair] 10 mg PO QPM 10/09/20 Triamcinolone 0.1% Cream [Kenalog 0.1% Cream] 1 applic TOP BID 10/09/20 Albuterol Sulfate [Proair [place]] 1 - 2 puffs INH QID PRN 10/01/21 Budesonide/Formoterol Fumarate [Symbicort 160-4.5 Mcg Inhaler] 2 puffs IH BID 10/01/21 Ferrous Gluconate 324 mg PO DAILY 10/01/21 Loratadine [Claritin] 20 mg PO BID 10/01/21 Tiotropium [place] [Spiriva] 18 mcg INH DAILY 10/01/21 Triamcinolone Acetonide [Nasacort] 2 spr NS BID 10/01/21 hydrOXYzine HCL [Hydroxyzine HCl] 50 mg PO BID 10/01/21
[2021-10-02] MEDS ORDERED: PETROLATUM WHITE 5 GM PACKET TOP PRN (11:50)
[2021-10-02] MEDS: SODIUM CHLORIDE FLUSH 0.9% 10 ML SYRINGE IVP PRN (13:12)
[2021-10-02] MEDS: LORazepam 0.5 MG TABLET PO PRN ×2 (13:12→21:35)
[2021-10-02] MEDS: ALBUTEROL NEB 2.5 MG/3 ML INH PRN (20:35)
[2021-10-02] MEDS: MONTELUKAST 10 MG TABLET PO SCH (21:26)
[2021-10-03] MEDS: ALBUTEROL NEB 2.5 MG/3 ML INH PRN (04:25)
[2021-10-03] MEDS: methylPREDNISolone SUCCINATE 40 MG/ML VIAL IVP SCH ×2 (06:04→13:13)
[2021-10-03 06:10] LABS: BASOPHILS % (AUTO) 0.2 %; HCT - HEMATOCRIT 39.7 % (37.0-47.0); HGB - HEMOGLOBIN 12.7 g/dL (12.0-16.0); LYMPHOCYTES # (AUTO) 0.6 10^3/uL (1.5-3.5); LYMPHOCYTES % (AUTO) 5.5 %; MEAN CORPUSCULAR HEMOGLOBIN 31.4 pg (27.0-31.0); MEAN PLATELET VOLUME 10.1 fL (7.9-10.8); MONOCYTES # (AUTO) 0.5 10^3/uL (0.0-1.0); MONOCYTES % (AUTO) 4.5 %; NEUTROPHILS # (AUTO) 10.3 10^3/uL (1.5-6.6); PLT - PLATELET COUNT 335 10^3/uL (130-450); RED BLOOD COUNT 4.05 10^6/uL (4.20-5.40); RED CELL DISTRIBUTION WIDTH 14.1 % (12.0-15.0); WHITE BLOOD COUNT 11.6 x10^3/uL (4.8-10.8)
[2021-10-03 06:23] LABS: CREATININE 0.7 mg/dL (0.4-1.0); POTASSIUM 4.2 mmol/L (3.5-5.0)
[2021-10-03] MEDS ORDERED: LEVOTHYROXINE 125 MCG TABLET PO SCH (07:00)
[2021-10-03] MEDS: ENOXAPARIN 40 MG/0.4 ML SYRINGE SUBQ SCH (08:52)
[2021-10-03] MEDS: PUMP NAS SCH (08:53)
[2021-10-03] MEDS: AZELASTINE HCL 137 MCG/0.137 ML NAS SCH (08:53)
[2021-10-03] MEDS: LORATADINE 10 MG TABLET PO SCH (08:53)
[2021-10-03] MEDS: AMITRIPTYLINE 25 MG TABLET PO SCH (08:53)
[2021-10-03] MEDS: SODIUM CHLORIDE FLUSH 0.9% 10 ML SYRINGE IVP SCH (08:53)
[2021-10-03] MEDS: GABAPENTIN 300 MG CAPSULE PO SCH (08:53)
[2021-10-03] MEDS: IPRATROPIUM/ALBUTEROL 3 ML NEB INH SCH (09:03)
[2021-10-03] MEDS: BUDESONIDE 0.5 MG/2 ML NEB INH SCH (09:03)
--- NOTE | 2021-10-03 09:12 | Discharge Plan ---
Discharge Plan Problem Reviewed?: Yes Disposition: Home, Self Care Condition: Stable Prescriptions: predniSONE [Deltasone] 20 mg PO [id number] #11 tab Levothyroxine [Synthroid] 125 mcg PO QDAC #30 tablet Benzonatate [Tessalon] 100 mg PO TID PRN #10 cap PRN Reason: Cough Diet: Regular Activity Restrictions: Activity as Tolerated Shower Restrictions: No (fall precaution) Instruction Topics: Prednisone tablets, Asthma, COPD, ED Hypothyroidism, Oxygen Home Use Health Concerns: COPD/Asthma exacerbation, home O2 usage Plan of Treatment: After you are treated in hospital, You are hemodynamic stable, he has no respiratory distress. You are prescribed taper of prednisone. At this time you need home oxygen to support your oxygen saturation. You are prescribed 2 LPM of O2 for your rest and exertion. Please follow-up with respiratory therapist instruction for safely usage of oxygen at home. Your TSH is high, Your synthroid dosage increased now, you may followup with your PCP management of your hypothyroidism. You may resume your home medications. Care Goals: Stabilization and improvement of your medical conditions Assessment: Discussed the care plan with you, answered your questions, you understood and agreed Additional Instructions or Follow Up instructions: You may Follow-up with your PCP in 1 week, you may followup with volleyball assembler As outpatient. should your symptoms return or worse, you may present to the ER or call 911 for help. No Smoking: If you smoke, Please STOP! Call for help. Follow-up with: Provider,Other [Primary Care Provider] -
[2021-10-03] MEDS: BENZONATATE 100 MG CAPSULE PO PRN ×2 (10:29→13:13)
--- NOTE | 2021-10-03 12:25 | DISCHARGE SUMMARY ---
Discharge Summary Admit Date: 10/01/21 Discharge Date: 10/03/21 Discharging Provider: Dominick Mckinnon Condition at Discharge: Stable Discharge Disposition: 01 Home, Self Care Discharge Facility Name: home - DIAGNOSES Discharge Diagnoses with Status of Each Condition: (1) Hypoxia Patient has no acute respiratory distress. she report she feel much better. pt Had oxygen desaturation study. On rest, patient had 87% oxygen saturation, On 1 LPM of O2, patient had 88% sats. 2 LPM of oxygen, patient had 91% oxygen saturation. Patient had 90% oxygen saturation on 2 LPM of oxygen with ambulation. I am ordering 2 LPM of oxygen for patient at rest and ambulation. (2) Acute exacerbation of COPD with asthma pt has no acute respiratory distress and resolved on acute exacerbation of COPD/Asthma. Patient is prescribed taper of prednisone and home oxygen. (3) Hypothyroidism Patient's TSH is high, patient home Synthroid dosage increases to 125 mcg daily, patient may follow-up her PCP to continue management of her patient's hypothyroidism - HPI History of Present Illness: This is a 51-years old female with a past medical history significant for asthma, COPD, hypothyroidism, anxiety, depression, panic attack, who present ER complain of shortness of breath. Pt reports her shortness of breath has increased since last Thursday. Neb for breathing treatment at her home was ineffective on today morning. she usually did not take O2 at home.Pt Denies CP and sick exposure, fever, chill. She denies smoking history. she report she had COVID19 vaccinated. Chest x-ray show no cardiopulmonary abnormality. D-dimer is at normal range. Routine laboratory tests show her test was unremarkable. COVID- 19 test is negative. Patient was afebrile, patient had 86% oxygen saturation on room air in the ER. Given above pt's medical conditions, Medical team was consulted for admission. Discussed the care goal with the patient, patient hope to have full code - ALLERGIES Allergies/Adverse Reactions: Allergies Allergy/AdvReac Type Severity Reaction Status Date / Time cephalexin Allergy Severe Rash Verified 10/02/21 08:57 peanut Allergy Severe Anaphylaxis Verified 10/01/21 15:13 shellfish derived Allergy Severe Anaphylaxis Verified 10/01/21 15:14 Penicillins Allergy Unknown Verified 10/01/21 06:35 - MEDICATIONS Home Medications: Ambulatory Orders Medication Instructions Recorded Confirmed Amitriptyline HCl 50 mg PO BID 10/09/20 10/01/21 Azelastine HCl 2 sprays NS BID 10/09/20 10/01/21 Gabapentin [Neurontin] 600 mg PO BID 10/09/20 10/01/21 Montelukast [Singulair] 10 mg PO QPM 10/09/20 10/01/21 Triamcinolone 0.1% Cream [Kenalog 1 applic TOP BID 10/09/20 10/01/21 0.1% Cream] Albuterol Sulfate [Proair 1 - 2 puffs INH QID PRN 10/01/21 10/01/21 Respiclick] Budesonide/Formoterol Fumarate 2 puffs IH BID 10/01/21 10/01/21 [Symbicort 160-4.5 Mcg Inhaler] Ferrous Gluconate 324 mg PO DAILY 10/01/21 10/01/21 Loratadine [Claritin] 20 mg PO BID 10/01/21 10/01/21 Tiotropium [place] [Spiriva] 18 mcg INH DAILY 10/01/21 10/01/21 Triamcinolone Acetonide [Nasacort] 2 spr NS BID 10/01/21 10/01/21 hydrOXYzine HCL [Hydroxyzine HCl] 50 mg PO BID 10/01/21 10/01/21 Benzonatate [Tessalon] 100 mg PO TID PRN #10 cap 10/03/21 Levothyroxine [Synthroid] 125 mcg PO QDAC #30 tablet 10/03/21 predniSONE [Deltasone] 20 mg PO [id number] #[id number] tab 10/03/21 - PHYSICAL EXAM AT DISCHARGE General Appearance: positive: No acute distress, Alert. negative: Lethargic Eyes Bilateral: positive: Normal inspection, No lid inflammation ENT: positive: ENT inspection nml, No signs of dehydration. negative: Purulent nasal drainage Neck: positive: Nml inspection, Trachea midline. negative: Tracheal deviation Respiratory: positive: Chest non-tender, No respiratory distress. negative: Wheezes Cardiovascular: positive: Regular rate & rhythm. negative: Tachycardia, Bradycardia, Systolic murmur Peripheral Pulses: positive: 2+ Abdomen: positive: Non-tender, Nml bowel sounds, No distention. negative: Tenderness Back: positive: Nml inspection Skin: positive: Color nml, Warm, Dry. negative: Cyanosis Extremities: positive: Non-tender, Full ROM, Nml appearance Neurologic/Psychiatric: positive: Oriented x3, Motor nml, Sensation nml, Mood/ affect nml. negative: Weakness, Sensory loss, Facial droop, Slurred/abnml speech, Depressed mood/affect - LABS Result Diagrams: 10/03/21 05:13 10/03/21 05:13 - SEPSIS Current Stage of Sepsis: Ruled out - FOLLOW UP Follow Up: After you are treated in hospital, You are hemodynamic stable, he has no respiratory distress. You are prescribed taper of prednisone. At this time you need home oxygen to support your oxygen saturation. You are prescribed 2 LPM of O2 for your rest and exertion. Please follow-up with respiratory therapist instruction for safely usage of oxygen at home. Your TSH is high, Your synthroid dosage increased now, you may followup with your PCP management of your hypothyroidism. You may resume your home medications. You may Follow-up with your PCP in 1 week, you may followup with utilization review nurse As outpatient. should your symptoms return or worse, you may present to the ER or call 911 for help. - TIME SPENT Time Spent in Discharge (Minutes): 30
[2021-10-03 13:25] VITALS: BP 118/54
== END 2021-10-03 13:56 | disposition home or self-care (01) ==
LOC: ED 06:21 → MS2 10:40
PROVIDERS: ADMIT Nurse Practitioner Gerontology; ATTEND Nurse Practitioner Gerontology
DX: J44.1 Chronic obstructive pulmonary disease with (acute) exacerbation (principal); E03.9 Hypothyroidism, unspecified; F32.A Depression, unspecified; F41.9 Anxiety disorder, unspecified; L30.9 Dermatitis, unspecified; R09.02 Hypoxemia; Z20.822 Contact with and (suspected) exposure to COVID-19; Z79.52 Long term (current) use of systemic steroids; Z79.890 Hormone replacement therapy; Z79.899 Other long term (current) drug therapy; Z80.1 Family history of malignant neoplasm of trachea, bronchus and lung; Z80.8 Family history of malignant neoplasm of other organs or systems; Z88.0 Allergy status to penicillin; Z88.8 Allergy status to other drugs, medicaments and biological substances; Z90.49 Acquired absence of other specified parts of digestive tract; Z91.010 Allergy to peanuts; Z91.013 Allergy to seafood; Z99.81 Dependence on supplemental oxygen
CPT/HCPCS: 36415; 71045; 80048; 80053; 80306; 83690; 83880; 84439; 84443; 85025; 85379; 87631; 94640; 94761; 96372; 96374; 96375; 96376; 99284; 99285; A9270; G0378; J1650; J7626; 0202U

== ENCOUNTER 2022-03-15 08:20 | Outpatient (CLI) | payer MEDICARE, MEDICAID | END 2022-03-15 08:21 | disposition critical access hospital (66) | LOC: EMS 08:20 | DX: J44.1 Chronic obstructive pulmonary disease with (acute) exacerbation (principal) | CPT/HCPCS: A0425; A0427 ==

== ENCOUNTER 2022-03-15 08:29 | Inpatient (IN) | payer MEDICARE, MEDICAID ==
[2022-03-15] MEDS ORDERED: ALBUTEROL NEB 2.5 MG/3 ML INH STA ×2 (08:41→08:44)
[2022-03-15] MEDS ORDERED: methylPREDNISolone SUCCINATE 125 MG/2 ML VIAL IVP STA (08:41)
--- NOTE | 2022-03-15 08:42 | ED Physician Documentation ---
PD HPI DYSPNEA - Stated complaint Stated Complaint: COPD - History obtained from History obtained from: Patient - History of Present Illness Timing - duration: Days (2) Timing - details: Gradual onset Pain level max: 0 Pain level now: 0 - Additional information Additional information: Patient is a 51-year-old female who presents to the emergency department with dyspnea. Has a longstanding history of COPD. She is on 50 mg of prednisone daily at home. She is on 5 L of home oxygen. Uses nebulizers 3 times per day. Increased dyspnea over the past 2 days. Received 2 DuoNeb treatments with EMS. Patient states she has had gradually increasing shortness of breath over the past 2 days. No fevers. No cough. No chills. She is scheduled for pulmonary rehab. Sees Dr. Azra Rehman, pulmonology in [place]. 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 : None HEENT: None Psych: Depression, Anxiety, Panic attacks Musculoskeletal: None Derm: Eczema - Past Surgical History Past Surgical History: Yes General: Cholecystectomy, Other - Present Medications Home Medications: Ambulatory Orders Medication Instructions Recorded Confirmed Amitriptyline HCl 50 mg PO BID 10/09/20 10/01/21 Azelastine HCl 2 sprays NS BID 10/09/20 10/01/21 Montelukast [Singulair] 10 mg PO QPM 10/09/20 10/01/21 Albuterol Sulfate [Proair 1 - 2 puffs INH QID PRN 10/01/21 10/01/21 Respiclick] Tiotropium Turner [Spiriva 18 mcg INH DAILY 10/01/21 10/01/21 Handihaler] hydrOXYzine HCL [Hydroxyzine HCl] 50 mg PO BID 10/01/21 10/01/21 Alendronate [Fosamax] 70 mg PO Q7D 03/15/22 Budesonide [Pulmicort] 1 mg INH BID 03/15/22 Budesonide/Formoterol Fumarate 2 puffs INH BID 03/15/22 [Symbicort 160-4.5 Mcg Inhaler] DULoxetine [Cymbalta] 60 mg PO DAILY 03/15/22 Levothyroxine [Synthroid] 100 mcg PO QDAC 03/15/22 Mepolizumab [Nucala] 300 mg SUBQ Q28D 03/15/22 PARoxetine HCl [Paxil] 30 mg PO DAILY 03/15/22 predniSONE [Deltasone] 30 mg PO DAILY 03/15/22 - Allergies Allergies/Adverse Reactions: Allergies Allergy/AdvReac Type Severity Reaction Status Date / Time cephalexin Allergy Severe Rash Verified 03/15/22 08:41 peanut Allergy Severe Anaphylaxis Verified 03/15/22 08:41 shellfish derived Allergy Severe Anaphylaxis Verified 03/15/22 08:41 Penicillins Allergy Unknown Verified 03/15/22 08:41 - Social History Does the pt smoke?: No Smoking Status: Never smoker Does the pt drink ETOH?: No Does the pt have substance abuse?: No - Immunizations Immunizations are current?: Yes - POLST Patient has POLST: No PD ED PE NORMAL - Vitals Vital signs reviewed: Yes - General General: Alert and oriented X 3, Other (Respiratory distress, tripoding, nonrebreather on the patient's face) - HEENT HEENT: Moist mucous membranes - Neck Neck: Supple, no meningeal sign - Cardiac Cardiac: Other (Tachycardic) - Respiratory Respiratory: Other (Tachypneic, very diminished breath sounds bilaterally) - Abdomen Abdomen: Soft, Non tender, Non distended - Derm Derm: Warm and dry - Extremities Extremities: No edema, No calf tenderness / cord - Neuro Neuro: Alert and oriented X 3 Results - Vitals Vitals: Vital Signs - 24 hr 03/15/22 03/15/22 03/15/22 08:42 08:57 09:14 Temperature 37.2 C Heart Rate 124 H 126 H 128 H Respiratory 31 H 30 H 36 H Rate Blood Pressure 148/101 H 184/94 H O2 Saturation 100 99 03/15/22 03/15/22 03/15/22 09:30 09:31 09:43 Temperature Heart Rate 131 H 126 H 128 H Respiratory 34 H 30 H Rate Blood Pressure 160/97 H O2 Saturation 96 03/15/22 03/15/22 03/15/22 10:00 10:30 10:54 Temperature Heart Rate 130 H 124 H 126 H Respiratory 31 H 31 H 30 H Rate Blood Pressure 158/73 H 156/83 H O2 Saturation 97 97 03/15/22 03/15/22 11:00 11:30 Temperature 37.9 C Heart Rate 117 H 115 H Respiratory 29 H 29 H Rate Blood Pressure 139/77 H 122/88 H O2 Saturation 98 97 Oxygen O2 Source BIPAP - Labs Labs: Laboratory Tests 03/15/22 03/15/22 03/15/22 08:57 08:57 09:11 WBC 10.2 RBC 4.29 Hgb 13.7 Hct 43.2 MCV 100.7 H MCH 31.9 H MCHC 31.7 L RDW 12.9 Plt Count 289 MPV 10.4 Neut # (Auto) 7.5 H Lymph # (Auto) 1.2 L [place]atham # (Auto) 1.2 H Eos # (Auto) 0.1 Baso # (Auto) 0.0 Absolute Nucleated RBC 0.00 Nucleated RBC % 0.0 Manual Slide Review Indicated WBC Morphology Platelet Estimate NORMAL (130-450,000) Platelet Morphology NORMAL APPEARANCE RBC Morph Micro Appear NORMAL APPEARANCE Bld Gas Analysis Time Sample Site ABG pH ABG pCO2 ABG pO2 ABG HCO3 ABG Total CO2 ABG O2 Saturation ABG Base Excess Flo Test O2 Delivery Device FiO2 EPAP IPAP Sodium 140 Potassium 4.0 Chloride 99 L Carbon Dioxide 30 Anion Gap 11.0 BUN 12 Creatinine 0.7 Estimated GFR (MDRD) 88 L Glucose 127 H Calcium 9.3 Total Bilirubin 0.6 AST 37 ALT 41 Alkaline Phosphatase 72 Total Protein 7.0 Albumin 3.4 Globulin 3.6 Albumin/Globulin Ratio 0.9 L Lipase 22 Nasal Adenovirus (PCR) NOT DETECTED Nasal B. parapertussis DNA (PCR) NOT DETECTED Nasal Coronavir 229E PCR NOT DETECTED Nasal Coronavir HKU1 PCR NOT DETECTED Nasal Coronavir NL63 PCR NOT DETECTED Nasal Coronavir OC43 PCR NOT DETECTED Nasal Enterovir/Rhinovir PCR NOT DETECTED Nasal Influenza B PCR NOT DETECTED Nasal Influenza A PCR NOT DETECTED Nasal Parainfluen 1 PCR NOT DETECTED Nasal Parainfluen 2 PCR NOT DETECTED Nasal Parainfluen 3 PCR NOT DETECTED Nasal Parainfluen 4 PCR NOT DETECTED Nasal RSV (PCR) NOT DETECTED Nasal B.pertussis DNA PCR NOT DETECTED Nasal C.pneumoniae (PCR) NOT DETECTED Cleve Human Metapneumo PCR NOT DETECTED Nasal M.pneumoniae (PCR) NOT DETECTED Nasal SARS-CoV-2 (PCR) NOT DETECTED 03/15/22 10:00 WBC RBC Hgb Hct MCV MCH MCHC RDW Plt Count MPV Neut # (Auto) Lymph # (Auto) Cheatham # (Auto) Eos # (Auto) Baso # (Auto) Absolute Nucleated RBC Nucleated RBC % Manual Slide Review WBC Morphology Platelet Estimate Platelet Morphology RBC Morph Micro Appear Bld Gas Analysis Time 1000 Sample Site RIGHT RADIAL ABG pH 7.42 ABG pCO2 50 H ABG pO2 133 H ABG HCO3 32.2 H ABG Total CO2 34.0 H ABG O2 Saturation 99 H ABG Base Excess 8.0 H Flo Test POSITIVE O2 Delivery Device BiPAP FiO2 35.00 EPAP 5 IPAP 16 Sodium Potassium Chloride Carbon Dioxide Anion Gap BUN Creatinine Estimated GFR (MDRD) Glucose Calcium Total Bilirubin AST ALT Alkaline Phosphatase Total Protein Albumin Globulin Albumin/Globulin Ratio Lipase Nasal Adenovirus (PCR) Nasal B. parapertussis DNA (PCR) Nasal Coronavir 229E PCR Nasal Coronavir HKU1 PCR Nasal Coronavir NL63 PCR Nasal Coronavir OC43 PCR Nasal Enterovir/Rhinovir PCR Nasal Influenza B PCR Nasal Influenza A PCR Nasal Parainfluen 1 PCR Nasal Parainfluen 2 PCR Nasal Parainfluen 3 PCR Nasal Parainfluen 4 PCR Nasal RSV (PCR) Nasal B.pertussis DNA PCR Nasal C.pneumoniae (PCR) Cleve Human Metapneumo PCR Nasal M.pneumoniae (PCR) Nasal SARS-CoV-2 (PCR) - Rads (name of study) cxr Radiology: Final report received, EMP read contemporaneously, See rad report (Hyperexpansion consistent with COPD. No effusions or consolidations. ) PD MEDICAL DECISION MAKING - ED course Complexity details: reviewed results, re-evaluated patient, considered bg julio, d/w patient, d/w surgical consultant ED course: 51-year-old female with a severe COPD exacerbation. Came in actively tripoding, sweaty, diaphoretic. She had received 2 DuoNeb treatments with EMS. She felt that she was still declining. Given Solu-Medrol here as well as Ativan to help with anxiety and air hunger. The patient continued to decompensate despite a continuous albuterol nebulizer. The patient received a subdissociative dose of ketamine as well as epinephrine and magnesium. This did seem to help her symptoms. She was placed on BiPAP. After about an hour on BiPAP, her respiratory rate has decreased, she is able to speak in short sentences. Her heart rate has decreased as well. Discussed the case at length with her family. The patient was not on any oxygen less than 6 months ago and is now requiring 5 L of home oxygen as well as 50 mg of prednisone and is still having severe exacerbations. I recommend strongly that they discuss her prognosis with her vegetable tester to get a realistic expectation of her disease course. Appears to have severe and rapidly progressing COPD. The patient will be admitted to the ICU for further care. Discussed the case with Dr. Willams, hospitalist who accepts This document was made in part using voice recognition software. While efforts are made to proofread this document, sound alike and grammatical errors may occur. - Critical Care Time(min): 65 Time Includes: Direct patient care, Review records, Reassess patient, Document care, Coordinate care, See progress note Data interpretation: See progress note Procedures included in critical care time: See progress note Procedures excluded from critical care time: See progress note Departure - Departure Disposition: 66 [facility] DC/Xfer Clinical Impression: Hypoxia, COPD with acute exacerbation, COPD, severe Condition: Serious Discharge Date/Time: 03/15/22 12:22
[2022-03-15] MEDS ORDERED: PROMETHAZINE INJ 25 MG in SODIUM CHLORIDE 0.9% 50 ML IV STA (08:58)
[2022-03-15] MEDS ORDERED: LORazepam 2 MG/ML VIAL IVP STA (08:58)
[2022-03-15 09:04] LABS: BASOPHILS % (AUTO) 0.4 %; EOSINOPHILS # (AUTO) 0.1 10^3/uL (0.0-0.7); EOSINOPHILS % (AUTO) 0.6 %; HCT - HEMATOCRIT 43.2 % (37.0-47.0); HGB - HEMOGLOBIN 13.7 g/dL (12.0-16.0); LYMPHOCYTES # (AUTO) 1.2 10^3/uL (1.5-3.5); LYMPHOCYTES % (AUTO) 12.1 %; MEAN CORPUSCULAR HEMOGLOBIN 31.9 pg (27.0-31.0); MEAN CORPUSCULAR HGB CONC 31.7 g/dL (32.0-36.0); MEAN CORPUSCULAR VOLUME 100.7 fL (81.0-99.0); MEAN PLATELET VOLUME 10.4 fL (7.9-10.8); MONOCYTES # (AUTO) 1.2 10^3/uL (0.0-1.0); MONOCYTES % (AUTO) 11.7 %; NEUTROPHILS # (AUTO) 7.5 10^3/uL (1.5-6.6); NEUTROPHILS % (AUTO) 73.8 %; PLT - PLATELET COUNT 289 10^3/uL (130-450); RED BLOOD COUNT 4.29 10^6/uL (4.20-5.40); RED CELL DISTRIBUTION WIDTH 12.9 % (12.0-15.0); WHITE BLOOD COUNT 10.2 x10^3/uL (4.8-10.8)
[2022-03-15] MEDS ORDERED: MAGNESIUM SULFATE 2 GRAM 2 GM/50 ML BAG IV ONE (09:06)
[2022-03-15] MEDS ORDERED: SODIUM CHLORIDE INHALATION 3 ML NEB INH STA (09:10)
[2022-03-15] MEDS ORDERED: RACEPINEPHRINE 2.25% NEB INH STA (09:10)
--- NOTE | 2022-03-15 09:14 | XRAY Report ---
PROCEDURE: Chest 1 View X-Ray INDICATIONS: dyspnea,copd TECHNIQUE: One view of the chest was acquired. COMPARISON: Chest x-ray 10/01/2021 FINDINGS: Surgical changes and devices: None. Lungs and pleura: No pleural effusions or pneumothorax. Lungs are clear. Lungs are hyperexpanded s uggestive COPD. Mediastinum: Mediastinal contours appear normal. Heart size is normal. Bones and chest wall: No suspicious bony lesions. Overlying soft tissues appear unremarkable. IMPRESSION: Hyperexpansion consistent with COPD. No effusions or consolidations. Reviewed by: Jaclyn Lundberg MD on 03/15/2022 9:13 AM PDT Approved by: Jaclyn Lundberg MD on 03/15/2022 9:13 AM PDT Station ID: [id number]
[2022-03-15] MEDS ORDERED: KETAMINE 500 MG/10 ML VIAL IV STA (09:19)
[2022-03-15 09:20] LABS: ALBUMIN 3.4 g/dL (3.2-5.5); ALBUMIN/GLOBULIN RATIO 0.9 (1.0-2.2); BILIRUBIN,TOTAL 0.6 mg/dL (0.2-1.0); CALCIUM 9.3 mg/dL (8.5-10.3); CREATININE 0.7 mg/dL (0.4-1.0)
[2022-03-15] MEDS ORDERED: EPINEPHrine 1 MG/ML AMP IM STA (09:21)
[2022-03-15 09:23] LABS: PLATELET ESTIMATE, MANUAL NORMAL (130-450,000) (NORMAL); PLATELET MORPHOLOGY NORMAL APPEARANCE (NORMAL); RBC MORPHOLOGY (MULTIPLE) NORMAL APPEARANCE (NORMAL); SLIDE REVIEW? Indicated
[2022-03-15] MEDS ORDERED: EPINEPHrine 1 MG/ML AMP ONE (09:36)
[2022-03-15] MEDS ORDERED: MORPHINE 2 MG/ML CARPUJECT IVP STA (10:06)
[2022-03-15 10:15] LABS: ABG PH 7.42 (7.35-7.45)
[2022-03-15 10:15] LABS: B. PARAPERTUSSIS- RESP PCR PAN NOT DETECTED; B. PERTUSSIS- RESP PCR PANEL NOT DETECTED; C. PNEUMONIAE- RESP PCR PANEL NOT DETECTED; CORONAVIRUS 229E-RESP PCR NOT DETECTED; CORONAVIRUS HKU1-RESP PCR NOT DETECTED; CORONAVIRUS NL63-RESP PCR NOT DETECTED; CORONAVIRUS OC43-RESP PCR NOT DETECTED; HUMAN METAPNEUMOVIRUS NOT DETECTED; INFLUENZA A- RESP PCR PANEL NOT DETECTED; INFLUENZA B - RESP PCR PANEL NOT DETECTED; M. PNEUMONIAE- RESP PCR PANEL NOT DETECTED; PARAINFLUENZA VIRUS 1 NOT DETECTED; PARAINFLUENZA VIRUS 2 NOT DETECTED; PARAINFLUENZA VIRUS 3 NOT DETECTED; PARAINFLUENZA VIRUS 4 NOT DETECTED; RHINOVIRUS/ENTEROVIRUS NOT DETECTED; RSV- RESP PCR PANEL NOT DETECTED; SARS-CoV-2 -RESP PCR PANEL NOT DETECTED
[2022-03-15 10:16] LABS: ABG HCO3 32.2 mmol/L (22.0-26.0); ABG OXYGEN SATURATION 99 % (94-98); ABG PCO2 50 mmHg (34-45); ABG PO2 133 mmHg (80-100); ALLEN TEST POSITIVE
[2022-03-15] MEDS ORDERED: IPRATROPIUM/ALBUTEROL 3 ML NEB INH STA (10:38)
[2022-03-15] MEDS ORDERED: ONDANSETRON 4 MG/2 ML VIAL IVP PRN (11:33)
[2022-03-15] MEDS ORDERED: ZOLPIDEM 5 MG TABLET PO PRN (11:33)
[2022-03-15] MEDS ORDERED: ONDANSETRON ODT 4 MG TABLET TL PRN (11:33)
[2022-03-15] MEDS ORDERED: SODIUM CHLORIDE 0.9% 1,000 ML IV SCH (12:00)
[2022-03-15] MEDS: ACETAMINOPHEN 325 MG TABLET PO PRN ×2 (12:40→19:55)
[2022-03-15] MEDS: SODIUM CHLORIDE FLUSH 0.9% 10 ML SYRINGE IVP PRN (12:47)
[2022-03-15] MEDS: ENOXAPARIN 40 MG/0.4 ML SYRINGE SUBQ SCH (12:54)
--- NOTE | 2022-03-15 13:55 | HISTORY & PHYSICAL EXAMINATION ---
Chief Complaint - Chief Complaint Chief Complaint: severe sob and wheezing History of Present Illness - Admitted From Admitted From:: home - History Obtained From Records Reviewed: [facility] History obtained from: and Sister Exam Limitations: she is on BiPAP - History of Present Illness HPI Comment/Other: She has had asthma and eczema all of her life. Since childhood. She is never really been free of it and she has been on high-dose steroids for very long time. She cannot be around pets. 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 Nevertheless they moved into houses over 100 years old and the previous owners has tremendous amount of pets. In September of this year her had cleaned out their fireplace and turned around the blower full power. A lot of dust flew into the house and she became ill. She came to our emergency room and was admitted with COPD exacerbation. Ever since then, she is never really improved. She was discharged on 2 L nasal cannula. She is followed by Azra Rehman MD pulmonology at [facility], [place]. She is currently on 50 mg of steroids that are being tapered. Slowly she has increased her oxygen requirement to 5 L from the 2 L we discharged her on. She has also been on mepolizumab/Nucala for about 5 months without improvement. In the last month, her daughter, that lives with her, got a new kitten as a service animal. And about a week ago the patient decided to do "spring cleaning" in her house. Lots of dust, lots of rugs and floor cleaning. Her asthma, which was already tenuous at best, became much worse. Increased wheezing, shortness of breath, increased use of nebulizers. The and his sister both state that there is been no fever, no chills. No one else is sick in the house. The patient is vaccinated for COVID. The patient does not have birds in the house. She does not work around farm animals or in an outdoor setting such as a barn. She is not around logging areas that cut wood. Today, this morning, she was so bad in trying to breathe that they called EMS. The patient presented to the emergency room tripoding, diffuse sweats with her effort to breathe, drooling and unable to swallow her own secretions. She was pale, tachypneic with severe respiratory distress. She was immediately placed on BiPAP, given steroids, nebulizers. She also received ketamine, morphine, magnesium, epinephrine. Blood gas after all of this showed a pH of 7.42, PCO2 5 0, PO2 133, bicarb 32, base excess 8. This is an FiO2 of 35%. Chest x-ray is without infiltrate. White cell count is normal. She is slightly macrocytic at 100. Chemistries are essentially normal except for mildly elevated glucose of 127. It is noted that in September of this year her TSH was 21. She is on 100 mcg of Synthroid. The patient is now placed in observation in the ICU to see if she will improve overnight. History - Past Medical History Cardiovascular: reports: None Respiratory: reports: Asthma, COPD Neuro: reports: Tremors, Other (Right upper quadrant neuropathic pain which is resulted in the gallbladder being taken out, and being seen by neurology for possible ablation) Endocrine/Autoimmune: reports: HyPOthyroidism GI: reports: None ICT SUPPORT AND TEST ENGINEERS: reports: Other () : reports: None HEENT: reports: None Psych: reports: Depression, Anxiety, Panic attacks, Obsessive compulsive disorder Musculoskeletal: reports: None Derm: reports: Eczema MRSA Hx?: No - Past Surgical History General: reports: Cholecystectomy, Other - Family & Social History Family History: Mother: , Father: Family History Comment/Other: Father from lung cancer. Mother from skin cancer at age 50, also had severe allergies and asthma. 5 sibs: 1 dies of complication of trisomy 21, one of MVA, others healthy. 2 children: no allergies and asthma Living arrangement: At home Living Situation: With spouse/s.o., With family Social History Notes: From the [facility]. 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 On disability because of the right upper quadrant neuropathic pain and asthma. . 2 children. 1 child still lives with them and is moving up because of the cat. No history of recreational substance abuse. Never smoked, rarely drank alcohol. She and her have been living on [facility] about 3 years. - Substance History Use: Uses substance without health or social issues: NONE Abuse: Recurrent use of substance despite neg consequences: NONE Dependence: Experiences withdrawal or developed tolerances: NONE - POLST Patient has POLST: No POLST Status: Full Code Meds/Allgy - Home Medications Home Medications: Ambulatory Orders Medication Instructions Recorded Confirmed Amitriptyline HCl 50 mg PO BID 10/09/20 10/01/21 Azelastine HCl 2 sprays NS BID 10/09/20 10/01/21 Montelukast [Singulair] 10 mg PO QPM 10/09/20 10/01/21 Albuterol Sulfate [Proair 1 - 2 puffs INH QID PRN 10/01/21 10/01/21 Respiclick] Tiotropium Jewell [Spiriva 18 mcg INH DAILY 10/01/21 10/01/21 Handihaler] hydrOXYzine HCL [Hydroxyzine HCl] 50 mg PO BID 10/01/21 10/01/21 Alendronate [Fosamax] 70 mg PO Q7D 03/15/22 Budesonide [Pulmicort] 1 mg INH BID 03/15/22 Budesonide/Formoterol Fumarate 2 puffs INH BID 03/15/22 [Symbicort 160-4.5 Mcg Inhaler] DULoxetine [Cymbalta] 60 mg PO DAILY 03/15/22 Levothyroxine [Synthroid] 100 mcg PO QDAC 03/15/22 Mepolizumab [Nucala] 300 mg SUBQ Q28D 03/15/22 PARoxetine HCl [Paxil] 30 mg PO DAILY 03/15/22 predniSONE [Deltasone] 30 mg PO DAILY 03/15/22 - Allergies Allergies/Adverse Reactions: Allergies Allergy/AdvReac Type Severity Reaction Status Date / Time cephalexin Allergy Severe Rash Verified 03/15/22 08:41 peanut Allergy Severe Anaphylaxis Verified 03/15/22 08:41 shellfish derived Allergy Severe Anaphylaxis Verified 03/15/22 08:41 Penicillins Allergy Unknown Verified 03/15/22 08:41 Review of Systems - Other Findings Other Findings: She is on BiPAP, and even removing the mask for simple things such as drinking a glass of water dropped her O2 sats, unable to do complete review of systems. 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, and no use of durable medical equipment except for her nebulizer machine and oxygen equipment Exam - Vital Signs Reviewed Vital Signs: Yes Vital Signs: Vital Signs x48h Temp Pulse Pulse Resp BP BP Pulse Ox 03/15/22 13:04 36.3 C L 105 H 27 H 124/83 H 96 03/15/22 12:21 112 H 03/15/22 11:30 37.9 C 115 H 29 H 122/88 H 97 03/15/22 11:00 117 H 29 H 139/77 H 98 03/15/22 10:54 126 H 30 H 03/15/22 10:30 124 H 31 H 156/83 H 97 03/15/22 10:00 130 H 31 H 158/73 H 97 03/15/22 09:43 128 H 30 H 03/15/22 09:31 126 H 03/15/22 09:30 131 H 34 H 160/97 H 96 03/15/22 09:14 128 H 36 H 184/94 H 99 03/15/22 08:57 126 H 30 H 03/15/22 08:42 37.2 C 124 H 31 H 148/101 H 100 - Physical Exam General Appearance: positive: Lethargic, Other (Morbidly obese white female, sleepy and exhausted, head tilted over to right shoulder with BiPAP mask on. Able to lay back at about 40 degrees and is comfortable) Eyes Bilateral: positive: PERRL, EOMI ENT: positive: No signs of dehydration Neck: positive: No JVD. negative: Stiff neck Respiratory: positive: Wheezes (But very faint, and that an exhalation. Overall lung exam is in a very, very quiet lungs), Rhonchi. negative: Rales Cardiovascular: positive: Regular rate & rhythm. negative: Gallop/S4, Friction rub Peripheral Pulses: positive: 1+ Abdomen: positive: Non-tender, Nml bowel sounds, No distention Skin: positive: Warm, Dry, Diaphoresis Extremities: positive: Full ROM, No pedal edema Neurologic/Psychiatric: positive: Oriented x3, CN's nml (2-12), Motor nml, Other (Very tired and sleepy) Conclusion/Plan - Problem List (1) Acute exacerbation of COPD with asthma Conclusion/Plan: Placed in observation status and continue IV steroids, nebulizers, BiPAP. Transition to high flow nasal cannula in the next few hours if she is able to tolerate it and keep her O2 sats up. No empiric antibiotic at this time since chest x-ray is clear. She is a full code and they do wish intubation if necessary (2) Anxiety Conclusion/Plan: A predominant component of her everyday life according to sister and . At home she is on amitriptyline, Cymbalta, Paxil but no benzodiazepine. Will have pharmacy verify these medications and resume them. I still may order a benzodiazepine as needed while she is here. (3) Hypothyroidism Conclusion/Plan: On Synthroid. Recheck TSH since last visit. - Lab Results Lab results reviewed: Yes Fish Bones: 03/15/22 08:57 03/15/22 08:57
[2022-03-15] MEDS: methylPREDNISolone SUCCINATE 40 MG/ML VIAL IVP SCH ×2 (14:53→21:16)
[2022-03-15] MEDS: IPRATROPIUM/ALBUTEROL 3 ML NEB INH SCH ×2 (15:27→19:50)
[2022-03-15] MEDS: LORazepam 2 MG/ML VIAL IVP PRN (15:46)
[2022-03-15] MEDS: SODIUM CHLORIDE FLUSH 0.9% 10 ML SYRINGE IVP SCH ×2 (16:04→23:58)
[2022-03-15] MEDS: oxyCODONE 5 MG TABLET PO PRN ×2 (16:07→19:55)
[2022-03-15] MEDS: MONTELUKAST 10 MG TABLET PO SCH (21:12)
[2022-03-15] MEDS: CHLORHEXIDINE GLUCONATE 15 ML UDC PO SCH (21:12)
[2022-03-16] MEDS: ALBUTEROL NEB 2.5 MG/3 ML INH PRN ×2 (04:28→13:45)
[2022-03-16 04:50] LABS: BASOPHILS % (AUTO) 0.7 %; HCT - HEMATOCRIT 38.2 % (37.0-47.0); LYMPHOCYTES % (AUTO) 6.2 %; MEAN CORPUSCULAR HEMOGLOBIN 31.9 pg (27.0-31.0); MEAN CORPUSCULAR HGB CONC 31.4 g/dL (32.0-36.0); MEAN CORPUSCULAR VOLUME 101.6 fL (81.0-99.0); MEAN PLATELET VOLUME 10.5 fL (7.9-10.8); MONOCYTES % (AUTO) 12.2 %; NEUTROPHILS % (AUTO) 79.7 %; PLT - PLATELET COUNT 232 10^3/uL (130-450); RED BLOOD COUNT 3.76 10^6/uL (4.20-5.40); RED CELL DISTRIBUTION WIDTH 13.1 % (12.0-15.0); WHITE BLOOD COUNT 5.7 x10^3/uL (4.8-10.8)
[2022-03-16 04:55] LABS: ABNORMAL LYMPHS % (MANUAL) 0 %
[2022-03-16 05:02] LABS: CALCIUM 8.6 mg/dL (8.5-10.3); CREATININE 0.5 mg/dL (0.4-1.0); POTASSIUM 4.6 mmol/L (3.5-5.0)
[2022-03-16 05:10] LABS: BAND NEUTROPHILS % (MANUAL) 23 %; DIFFERENTIAL COMMENT MANUAL DIFFERENTIAL; LYMPHOCYTES # (MANUAL) 0.3 10^3/uL (1.5-3.5); LYMPHOCYTES % (MANUAL) 6 %; MONOCYTES # (MANUAL) 0.2 10^3/uL (0.0-1.0); NEUTROPHILS # (MANUAL) 5.2 10^3/uL (1.5-6.6); PLATELET ESTIMATE, MANUAL NORMAL (130-450,000) (NORMAL); RBC MORPHOLOGY (MULTIPLE) NORMAL APPEARANCE (NORMAL)
[2022-03-16] MEDS: SODIUM CHLORIDE FLUSH 0.9% 10 ML SYRINGE IVP PRN (06:24)
[2022-03-16] MEDS: methylPREDNISolone SUCCINATE 40 MG/ML VIAL IVP SCH ×3 (06:24→21:10)
[2022-03-16] MEDS: ACETAMINOPHEN 325 MG TABLET PO PRN ×3 (06:31→21:39)
[2022-03-16] MEDS: oxyCODONE 5 MG TABLET PO PRN ×3 (06:31→21:38)
[2022-03-16] MEDS: IPRATROPIUM/ALBUTEROL 3 ML NEB INH SCH ×4 (07:25→20:48)
[2022-03-16] MEDS: CHLORHEXIDINE GLUCONATE 15 ML UDC PO SCH ×2 (09:10→21:09)
[2022-03-16] MEDS: ENOXAPARIN 40 MG/0.4 ML SYRINGE SUBQ SCH (09:11)
[2022-03-16] MEDS: SODIUM CHLORIDE FLUSH 0.9% 10 ML SYRINGE IVP SCH ×3 (09:11→21:17)
--- NOTE | 2022-03-16 09:15 | PROVIDER PROGRESS NOTE ---
Subjective - Prog Note Date Prog Note Date: 03/16/22 Prog Note Time: 09:14 - Subjective Pt reports feeling: Improved Subjective: She has been able to come off the BiPAP and is on high flow nasal cannula and maintaining O2 sats. Significant anxiety yesterday requiring Ativan but is doing well. She is still using accessory muscles and struggling by observation of her rib cage status. But she is not tripoding. Is laying back at about 45 or 50 degrees. Able to eat her breakfast. Nursing reports that she has a left pupil that is dilated minimally reactive. Patient is slow, slightly lethargic but there is no focal deficits. Current Medications - Current Medications Current Medications: Active Medications Acetaminophen (Acetaminophen 325 Mg Tablet) 650 mg PO Q4HR PRN PRN Reason: Pain 1 to 4, or Fever Last Admin: 03/16/22 06:31 Dose: 650 mg Albuterol (Albuterol Neb 2.5 Mg/3 Ml) 2.5 mg INH RTQ4H PRN PRN Reason: Wheezing Last Admin: 03/16/22 04:28 Dose: 2.5 mg Albuterol/Ipratropium (Ipratropium/Albuterol 3 Ml Neb) 3 ml INH RTQID DEBBI Last Admin: 03/16/22 07:25 Dose: 3 ml Budesonide (Budesonide 0.5 Mg/2 Ml Neb) 0.5 mg INH RTBID [facility] Chlorhexidine Gluconate (Chlorhexidine Gluconate 15 Ml Udc) 15 ml PO BID [facility] Last Admin: 03/16/22 09:10 Dose: 15 ml Duloxetine HCl (Duloxetine 30 Mg Capsule) 60 mg PO DAILY [facility] Enoxaparin Sodium (Enoxaparin 40 Mg/0.4 Ml Syringe) 40 mg SUBQ DAILY [facility] Last Admin: 03/16/22 09:11 Dose: 40 mg Formoterol Fumarate (Formoterol Fumarate Neb 20 Mcg/2 Ml) 20 mcg INH RTBID [facility] Loratadine (Loratadine 10 Mg Tablet) 40 mg PO BID [facility] Lorazepam (Lorazepam 2 Mg/Ml Vial) 0.5 mg IVP Q2H PRN PRN Reason: Anxiety Last Admin: 03/15/22 15:46 Dose: 0.5 mg Methylprednisolone (Methylprednisolone Succinate 40 Mg/Ml Vial) 40 mg IVP TID [facility] Last Admin: 03/16/22 06:24 Dose: 40 mg Montelukast Sodium (Montelukast 10 Mg Tablet) 10 mg PO QPM [facility] Last Admin: 03/15/22 21:12 Dose: 10 mg Non-Formulary Medication (Calcium Carbonate/Vitamin D3) 1 each PO DAILY [facility] Non-Formulary Medication (Gabapentin [Neurontin]) 600 mg PO BID [facility] Ondansetron HCl (Ondansetron Odt 4 Mg Tablet) 4 mg TL Q6HR PRN PRN Reason: Nausea / Vomiting Ondansetron HCl (Ondansetron 4 Mg/2 Ml Vial) 4 mg IVP Q6HR PRN PRN Reason: Nausea / Vomiting Oxycodone HCl (Oxycodone 5 Mg Tablet) 5 mg PO Q4HR PRN PRN Reason: Pain 5 to 7 Last Admin: 03/16/22 06:31 Dose: 5 mg Sodium Chloride (Sodium Chloride Flush 0.9% 10 Ml Syringe) 10 ml IVP PRN PRN PRN Reason: NEEDED PER PROVIDER ORDERS Last Admin: 03/16/22 06:24 Dose: 10 ml Sodium Chloride (Sodium Chloride Flush 0.9% 10 Ml Syringe) 10 ml IVP 0100,0900,1700 [facility] Last Admin: 03/16/22 09:11 Dose: 10 ml Zolpidem Tartrate (Zolpidem 5 Mg Tablet) 5 mg PO QPM PRN PRN Reason: Insomnia Azelastine HCl 2 sprays NS BID 10/09/20 Montelukast [Singulair] 10 mg PO QPM 10/09/20 Albuterol Sulfate [Proair Respiclick] 1 - 2 puffs INH QID PRN 10/01/21 Tiotropium Liberal [Spiriva Handihaler] 18 mcg INH DAILY 10/01/21 Alendronate [Fosamax] 70 mg PO Q7D 03/15/22 Budesonide/Formoterol Fumarate [Symbicort 160-4.5 Mcg Inhaler] 2 puffs INH BID 03/15/22 Calcium Carbonate/Vitamin D3 [Caltrate 600 Plus D3 Tablet] 1 each PO DAILY 03/15/22 DULoxetine [Cymbalta] 60 mg PO DAILY 03/15/22 Gabapentin [Neurontin] 600 mg PO BID 03/15/22 Levothyroxine [Synthroid] 125 mcg PO QDAC 03/15/22 Loratadine [Claritin] 40 mg PO BID 03/15/22 Mepolizumab [Nucala] 300 mg SUBQ Q28D 03/15/22 SULFAM/TRIM 800/160 Prepack 2 [BACTRIM DS 800/160 Prepack 2] 1 tab PO MOWEFR 03/15/22 predniSONE [Deltasone] 50 mg PO DAILY 03/15/22 Objective - Vital Signs/Intake & Output Reviewed Vital Signs: Yes Vital Signs: Vital Signs x48h Temp Pulse Pulse Resp BP Pulse Ox 03/16/22 09:00 103 H 19 123/78 95 03/16/22 08:00 36.8 C 103 H 18 118/86 H 98 03/16/22 07:26 88 20 03/16/22 07:00 103 H 23 134/88 H 97 03/16/22 06:00 102 H 21 129/89 H 96 03/16/22 05:00 101 H 22 127/88 H 96 03/16/22 04:47 98 03/16/22 04:00 36.3 C L 74 23 113/76 97 03/16/22 03:00 72 18 116/71 98 03/16/22 02:00 96 03/16/22 01:58 81 19 114/72 98 Intake & Output: Intake & Output 03/13/22 03/14/22 03/15/22 03/16/22 23:59 23:59 23:59 23:59 Intake Total 1100.000 250 Output Total 300 225 Balance 800.000 25 - Objective General Appearance: positive: No acute distress, Lethargic, Other (Daughter is at bedside and spent the night. is just leaving the room. She is upright, slight use of accessory muscles for rib cage but no tripod, no drooling and able to answer yes no) Eyes Bilateral: positive: EOMI, Other (Left is dilated) ENT: positive: No signs of dehydration Neck: positive: No JVD. negative: Stiff neck Respiratory: positive: Other (Respiratory rate is 18 this morning. Very quiet lung sounds almost inaudible. Use of accessory muscles is mild. No wheezing, and rhonchi has improved from yesterday) Cardiovascular: positive: Regular rate & rhythm (Tachycardia to 103. Has been present all morning long since getting off BiPAP. Prior to that, overnight, she was in the 70s). negative: Gallop/S4 Abdomen: positive: No organomegaly, Nml bowel sounds, No distention Skin: positive: Warm, Dry Extremities: positive: Full ROM, Pedal edema Neurologic/Psychiatric: positive: CN's nml (2-12), Motor nml, Disoriented to time - Lab Results Fish Bones: 03/16/22 04:15 03/16/22 04:15 Other Labs: Lab Results x24hrs 03/16/22 03/16/22 03/16/22 Range/Units 04:15 04:15 04:15 WBC 5.7 (4.8-10.8) x10^3/uL RBC 3.76 L (4.20-5.40) 10^6/uL Hgb 12.0 (12.0-16.0) g/dL Hct 38.2 (37.0-47.0) % MCV 101.6 H (81.0-99.0) fL MCH 31.9 H (27.0-31.0) pg MCHC 31.4 L (32.0-36.0) g/dL RDW 13.1 (12.0-15.0) % Plt Count 232 (130-450) 10^3/uL MPV 10.5 (7.9-10.8) fL Neut # (Auto) Not Reportable Lymph # (Auto) Not Reportable [place] # (Auto) Not Reportable Eos # (Auto) Not Reportable Baso # (Auto) Not Reportable Absolute Nucleated RBC Not Reportable Total Counted 100 Band Neuts % (Manual) 23 H (0 - 10) % Abnorm Lymph % (Manual) 0 % Nucleated RBC % Not Reportable Neutrophils # (Manual) 5.2 (1.5-6.6) 10^3/uL Lymphocytes # (Manual) 0.3 L (1.5-3.5) 10^3/uL Monocytes # (Manual) 0.2 (0.0-1.0) 10^3/uL Eosinophils # (Manual) 0.0 (0-0.7) 10^3/uL Basophils # (Manual) 0.0 (0-0.1) 10^3/uL Differential Comment MANUAL DIFFERENTIAL Manual Slide Review WBC Morphology (NORMAL) Platelet Estimate NORMAL (130-450,000) (NORMAL) Platelet Morphology (NORMAL) RBC Morph Micro Appear NORMAL APPEARANCE (NORMAL) Bld Gas Analysis Time Sample Site ABG pH (7.35-7.45) ABG pCO2 (34-45) mmHg ABG pO2 (80-100) mmHg ABG HCO3 (22.0-26.0) mmol/L ABG Total CO2 (21.0-29.0) MMOL/L ABG O2 Saturation (94-98) % ABG Base Excess (-2.0-3.0) mmol/L Flo Test O2 Delivery Device FiO2 EPAP cmH2O IPAP cmH2O Sodium 142 (135-145) mmol/L Potassium 4.6 (3.5-5.0) mmol/L Chloride 102 (101-111) mmol/L Carbon Dioxide 29 (21-32) mmol/L Anion Gap 11.0 (6-13) BUN 17 (6-20) mg/dL Creatinine 0.5 (0.4-1.0) mg/dL Estimated GFR (MDRD) 130 (>89) Glucose 121 H (70-100) mg/dL Calcium 8.6 (8.5-10.3) mg/dL Total Bilirubin (0.2-1.0) mg/dL AST (10-42) IU/L ALT (10-60) IU/L Alkaline Phosphatase (42-121) IU/L Total Protein (6.7-8.2) g/dL Albumin (3.2-5.5) g/dL Globulin (2.1-4.2) g/dL Albumin/Globulin Ratio (1.0-2.2) Lipase (22-51) U/L TSH 0.13 L (0.34-5.60) uIU/mL Nasal Adenovirus (PCR) Nasal B. parapertussis DNA (PCR) Nasal Coronavir 229E PCR Nasal Coronavir HKU1 PCR Nasal Coronavir NL63 PCR Nasal Coronavir OC43 PCR Nasal Enterovir/Rhinovir PCR Nasal Influenza B PCR Nasal Influenza A PCR Nasal Parainfluen 1 PCR Nasal Parainfluen 2 PCR Nasal Parainfluen 3 PCR Nasal Parainfluen 4 PCR Nasal RSV (PCR) Nasal Screen MRSA (PCR) (NEGATIVE) Nasal B.pertussis DNA PCR Nasal C.pneumoniae (PCR) Cleve Human Metapneumo PCR Nasal M.pneumoniae (PCR) Nasal SARS-CoV-2 (PCR) 03/15/22 03/15/22 03/15/22 Range/Units 14:00 10:00 09:11 WBC (4.8-10.8) x10^3/uL RBC (4.20-5.40) 10^6/uL Hgb (12.0-16.0) g/dL Hct (37.0-47.0) % MCV (81.0-99.0) fL MCH (27.0-31.0) pg MCHC (32.0-36.0) g/dL RDW (12.0-15.0) % Plt Count (130-450) 10^3/uL MPV (7.9-10.8) fL Neut # (Auto) Lymph # (Auto) [place] # (Auto) Eos # (Auto) Baso # (Auto) Absolute Nucleated RBC Total Counted Band Neuts % (Manual) (0 - 10) % Abnorm Lymph % (Manual) % Nucleated RBC % Neutrophils # (Manual) (1.5-6.6) 10^3/uL Lymphocytes # (Manual) (1.5-3.5) 10^3/uL Monocytes # (Manual) (0.0-1.0) 10^3/uL Eosinophils # (Manual) (0-0.7) 10^3/uL Basophils # (Manual) (0-0.1) 10^3/uL Differential Comment Manual Slide Review WBC Morphology (NORMAL) Platelet Estimate (NORMAL) Platelet Morphology (NORMAL) RBC Morph Micro Appear (NORMAL) Bld Gas Analysis Time 1000 Sample Site RIGHT RADIAL ABG pH 7.42 (7.35-7.45) ABG pCO2 50 H (34-45) mmHg ABG pO2 133 H (80-100) mmHg ABG HCO3 32.2 H (22.0-26.0) mmol/L ABG Total CO2 34.0 H (21.0-29.0) MMOL/L ABG O2 Saturation 99 H (94-98) % ABG Base Excess 8.0 H (-2.0-3.0) mmol/L Flo Test POSITIVE O2 Delivery Device BiPAP FiO2 35.00 EPAP 5 cmH2O IPAP 16 cmH2O Sodium (135-145) mmol/L Potassium (3.5-5.0) mmol/L Chloride (101-111) mmol/L Carbon Dioxide (21-32) mmol/L Anion Gap (6-13) BUN (6-20) mg/dL Creatinine (0.4-1.0) mg/dL Estimated GFR (MDRD) (>89) Glucose (70-100) mg/dL Calcium (8.5-10.3) mg/dL Total Bilirubin (0.2-1.0) mg/dL AST (10-42) IU/L ALT (10-60) IU/L Alkaline Phosphatase (42-121) IU/L Total Protein (6.7-8.2) g/dL Albumin (3.2-5.5) g/dL Globulin (2.1-4.2) g/dL Albumin/Globulin Ratio (1.0-2.2) Lipase (22-51) U/L TSH (0.34-5.60) uIU/mL Nasal Adenovirus (PCR) NOT DETECTED Nasal B. parapertussis DNA (PCR) NOT DETECTED Nasal Coronavir 229E PCR NOT DETECTED Nasal Coronavir HKU1 PCR NOT DETECTED Nasal Coronavir NL63 PCR NOT DETECTED Nasal Coronavir OC43 PCR NOT DETECTED Nasal Enterovir/Rhinovir PCR NOT DETECTED Nasal Influenza B PCR NOT DETECTED Nasal Influenza A PCR NOT DETECTED Nasal Parainfluen 1 PCR NOT DETECTED Nasal Parainfluen 2 PCR NOT DETECTED Nasal Parainfluen 3 PCR NOT DETECTED Nasal Parainfluen 4 PCR NOT DETECTED Nasal RSV (PCR) NOT DETECTED Nasal Screen MRSA (PCR) NEGATIVE (NEGATIVE) Nasal B.pertussis DNA PCR NOT DETECTED Nasal C.pneumoniae (PCR) NOT DETECTED Cleve Human Metapneumo PCR NOT DETECTED Nasal M.pneumoniae (PCR) NOT DETECTED Nasal SARS-CoV-2 (PCR) NOT DETECTED 03/15/22 03/15/22 Range/Units 08:57 08:57 WBC (4.8-10.8) x10^3/uL RBC (4.20-5.40) 10^6/uL Hgb (12.0-16.0) g/dL Hct (37.0-47.0) % MCV (81.0-99.0) fL MCH (27.0-31.0) pg MCHC (32.0-36.0) g/dL RDW (12.0-15.0) % Plt Count (130-450) 10^3/uL MPV (7.9-10.8) fL Neut # (Auto) Lymph # (Auto) [place] # (Auto) Eos # (Auto) Baso # (Auto) Absolute Nucleated RBC Total Counted Band Neuts % (Manual) (0 - 10) % Abnorm Lymph % (Manual) % Nucleated RBC % Neutrophils # (Manual) (1.5-6.6) 10^3/uL Lymphocytes # (Manual) (1.5-3.5) 10^3/uL Monocytes # (Manual) (0.0-1.0) 10^3/uL Eosinophils # (Manual) (0-0.7) 10^3/uL Basophils # (Manual) (0-0.1) 10^3/uL Differential Comment Manual Slide Review Indicated WBC Morphology (NORMAL) Platelet Estimate NORMAL (130-450,000) (NORMAL) Platelet Morphology NORMAL APPEARANCE (NORMAL) RBC Morph Micro Appear NORMAL APPEARANCE (NORMAL) Bld Gas Analysis Time Sample Site ABG pH (7.35-7.45) ABG pCO2 (34-45) mmHg ABG pO2 (80-100) mmHg ABG HCO3 (22.0-26.0) mmol/L ABG Total CO2 (21.0-29.0) MMOL/L ABG O2 Saturation (94-98) % ABG Base Excess (-2.0-3.0) mmol/L Flo Test O2 Delivery Device FiO2 EPAP cmH2O IPAP cmH2O Sodium 140 (135-145) mmol/L Potassium 4.0 (3.5-5.0) mmol/L Chloride 99 L (101-111) mmol/L Carbon Dioxide 30 (21-32) mmol/L Anion Gap 11.0 (6-13) BUN 12 (6-20) mg/dL Creatinine 0.7 (0.4-1.0) mg/dL Estimated GFR (MDRD) 88 L (>89) Glucose 127 H (70-100) mg/dL Calcium 9.3 (8.5-10.3) mg/dL Total Bilirubin 0.6 (0.2-1.0) mg/dL AST 37 (10-42) IU/L ALT 41 (10-60) IU/L Alkaline Phosphatase 72 (42-121) IU/L Total Protein 7.0 (6.7-8.2) g/dL Albumin 3.4 (3.2-5.5) g/dL Globulin 3.6 (2.1-4.2) g/dL Albumin/Globulin Ratio 0.9 L (1.0-2.2) Lipase 22 (22-51) U/L TSH (0.34-5.60) uIU/mL Nasal Adenovirus (PCR) Nasal B. parapertussis DNA (PCR) Nasal Coronavir 229E PCR Nasal Coronavir HKU1 PCR Nasal Coronavir NL63 PCR Nasal Coronavir OC43 PCR Nasal Enterovir/Rhinovir PCR Nasal Influenza B PCR Nasal Influenza A PCR Nasal Parainfluen 1 PCR Nasal Parainfluen 2 PCR Nasal Parainfluen 3 PCR Nasal Parainfluen 4 PCR Nasal RSV (PCR) Nasal Screen MRSA (PCR) (NEGATIVE) Nasal B.pertussis DNA PCR Nasal C.pneumoniae (PCR) Cleve Human Metapneumo PCR Nasal M.pneumoniae (PCR) Nasal SARS-CoV-2 (PCR) Assessment/Plan - Problem List (1) Anisocoria Impression: Not seen yesterday. Patient is lethargic. No discrete facial droop or hemiplegia. We will check CT head and CT angiogram of head (2) Acute on chronic respiratory failure with hypoxia and hypercapnia Impression: Is slowly appears to be improving on the BiPAP. We were able to take her off BiPAP this morning and she is now on high flow nasal cannula. We will do that during the day. At night she may need to go back on BiPAP or CPAP. She is awake, following commands, but still using her accessory muscles.She is tachycardic. Still tenuous stability. Plan: Keep her in ICU Changed to inpatient status (3) Acute exacerbation of COPD with asthma Impression: Changed to inpatient status and continue IV steroids, nebulizers,But change BiPAP To as needed. High flow nasal cannula For now and go back on BiPAP if she needs it. I am choosing not to give her empiric antibiotics since her chest x- ray is clear. She is a full code. Add budesonide and Perforomist from her home meds. (3) Anxiety Conclusion/Plan: A predominant component of her everyday life according to sister and . A t home she is on amitriptyline, Cymbalta, Paxil but no benzodiazepine. Pharmacy has verified her home med list and I will resume her usual home meds. I have also started Ativan 0.5 mg IV every 2 hours as needed that was started yesterday. (4) Hypothyroidism Conclusion/Plan: On Synthroid.On her current dose her TSH is over suppressed. We will hold Synthroid for couple of days and then reduce dose for the future.
[2022-03-16] MEDS ORDERED: diphenhydrAMINE INJ 50 MG/ML VIAL IVP STA (09:31)
--- NOTE | 2022-03-16 10:44 | CT Report ---
PROCEDURE: ANGIO HEAD W/WO INDICATIONS: LEFT PUPIL DILATED, RT IS RACTIVE CONTRAST: IV CONTRAST: Optiray 320 ml: 80 PO CONTRAST: *NO PO CONTRAST TECHNIQUE: Precontrast 4.5 mm thick angled axial sections acquired from the foramen magnum to the vertex. Afte r the administration of intravenous contrast, 1 mm thick sections acquired through the [place] of Will is. Postcontrast 4.5 mm thick sections then re-acquired from the foramen magnum to the vertex. 3-di mensional [id number] (MIP) and/or volume rendering reformats were acquired of the c entral intracranial vasculature. For radiation dose reduction, the following was used: automated ex posure control, adjustment of mA and/or kV according to patient size. COMPARISON: None FINDINGS: Image quality: Excellent. Anterior circulation: Intracranial internal carotid arteries are normal in size and flow. The flow within the paired anterior cerebral arteries is normal and symmetric. The flow within the middle cer ebral arteries is normal and symmetric. The anterior communicating artery is seen. No aneurysms are seen. Posterior circulation: There is a right vertebral artery dominance. Visualized portions of the verteb ral arteries demonstrate normal caliber, and join to form a normal appearing basilar artery. Flow wi thin the posterior cerebral arteries is normal and symmetric. No aneurysms are seen. CSF spaces: Ventricles are normal in size and shape. Basal cisterns are patent. No extra-axial flu id collections. Brain: No midline shift. There is a calcified mass within the anterior right frontal lobe measuring 1.8 x 1.8 cm. There is no mass effect.. Larry-white matter interface appears intact. Skull and face: Calvarium and facial bones appear intact, without suspicious lesions. Sinuses: Visualized sinuses and mastoids are clear. IMPRESSION: Calcified mass within the right frontal lobe. This could represent a large calcified meningioma. No p riors are available for comparison. Further evaluation with MRI is recommended. No areas of hemodynamically significant stenosis, vascular occlusion or aneurysmal dilation within th e anterior or posterior circulation. Reviewed by: Jaclyn Lundberg MD on 03/16/2022 10:43 AM PDT Approved by: Jaclyn Lundberg MD on 03/16/2022 10:43 AM PDT Station ID: [id number]
[2022-03-16] MEDS: LORazepam 2 MG/ML VIAL IVP PRN (10:45)
[2022-03-16] MEDS: GABAPENTIN 300 MG CAPSULE PO SCH ×2 (10:45→21:08)
[2022-03-16] MEDS: DULoxetine 30 MG CAPSULE PO SCH (10:45)
[2022-03-16 10:48] LABS: ESTIMATED AVERAGE GLUCOSE 154 mg/dL (70-100)
--- NOTE | 2022-03-16 11:10 | PHARMACY PROGRESS NOTE ---
- Best Possible Medication History Admit Date and Time: 03/16/22908 Processed by: Pharmacy Medication History completed: Yes Patient Interview: Pt unable to participate Secondary Source(s): Prescription bottles, Other family member, Pharmacy eunice rds, Insurance records As the person ultimately responsible for medication therapy, providers are able to order a medication from an existing home medication list in [facility] via the "Reconcile Routine" prior to Confirmation of that medication by collection support specialist. Such practice is discouraged except when the physician, in their clinical judgment, deems that a medical need exists for a medication without regard to previous use.
[2022-03-16] MEDS: INSULIN LISPRO 300 UNIT/3 ML PEN SUBQ SCH ×2 (16:48→21:18)
[2022-03-16] MEDS: FORMOTEROL FUMARATE NEB 20 MCG/2 ML INH SCH (20:49)
[2022-03-16] MEDS: BUDESONIDE 0.5 MG/2 ML NEB INH SCH (20:49)
[2022-03-16] MEDS: MONTELUKAST 10 MG TABLET PO SCH (21:08)
[2022-03-16] MEDS: LORATADINE 10 MG TABLET PO SCH (21:08)
[2022-03-17] MEDS: LORazepam 2 MG/ML VIAL IVP PRN (04:48)
[2022-03-17] MEDS: SODIUM CHLORIDE FLUSH 0.9% 10 ML SYRINGE IVP PRN ×3 (04:48→21:20)
[2022-03-17] MEDS: ALBUTEROL NEB 2.5 MG/3 ML INH PRN (04:48)
[2022-03-17] MEDS: ACETAMINOPHEN 325 MG TABLET PO PRN ×3 (04:54→19:27)
[2022-03-17] MEDS: oxyCODONE 5 MG TABLET PO PRN ×3 (04:54→19:27)
[2022-03-17] MEDS: methylPREDNISolone SUCCINATE 40 MG/ML VIAL IVP SCH ×3 (05:57→21:35)
[2022-03-17] MEDS: BUDESONIDE 0.5 MG/2 ML NEB INH SCH ×2 (07:31→19:11)
[2022-03-17] MEDS: IPRATROPIUM/ALBUTEROL 3 ML NEB INH SCH ×4 (07:31→19:11)
[2022-03-17] MEDS: FORMOTEROL FUMARATE NEB 20 MCG/2 ML INH SCH ×2 (07:31→19:11)
[2022-03-17] MEDS: INSULIN LISPRO 300 UNIT/3 ML PEN SUBQ SCH ×4 (08:00→21:19)
[2022-03-17] MEDS: CHLORHEXIDINE GLUCONATE 15 ML UDC PO SCH ×2 (08:01→21:18)
[2022-03-17] MEDS: GABAPENTIN 300 MG CAPSULE PO SCH ×2 (08:01→21:18)
[2022-03-17] MEDS: ENOXAPARIN 40 MG/0.4 ML SYRINGE SUBQ SCH (08:01)
[2022-03-17] MEDS: DULoxetine 30 MG CAPSULE PO SCH (08:01)
[2022-03-17] MEDS: CALCIUM CARBONATE CHEW 500 MG TABLET PO SCH (08:01)
[2022-03-17] MEDS: CHOLECALCIFEROL 400 UNIT TABLET PO SCH (08:02)
[2022-03-17] MEDS: LORATADINE 10 MG TABLET PO SCH ×2 (08:02→21:19)
[2022-03-17 08:13] LABS: BASOPHILS % (AUTO) 0.1 %; HCT - HEMATOCRIT 42.8 % (37.0-47.0); HGB - HEMOGLOBIN 13.2 g/dL (12.0-16.0); LYMPHOCYTES % (AUTO) 6.8 %; MEAN CORPUSCULAR HEMOGLOBIN 31.7 pg (27.0-31.0); MEAN CORPUSCULAR HGB CONC 30.8 g/dL (32.0-36.0); MEAN CORPUSCULAR VOLUME 102.9 fL (81.0-99.0); MEAN PLATELET VOLUME 10.1 fL (7.9-10.8); MONOCYTES % (AUTO) 10.8 %; NEUTROPHILS % (AUTO) 78.4 %; PLT - PLATELET COUNT 285 10^3/uL (130-450); RED BLOOD COUNT 4.16 10^6/uL (4.20-5.40); RED CELL DISTRIBUTION WIDTH 12.9 % (12.0-15.0); WHITE BLOOD COUNT 8.8 x10^3/uL (4.8-10.8)
[2022-03-17 08:19] LABS: ABSOLUTE RETICS # AUTO 0.059 10^6/uL (0.020-0.110); RED BLOOD COUNT 4.11 10^6/uL (4.20-5.40); RETICULOCYTE COUNT % (AUTO) 1.43 % (0.5-2.3)
[2022-03-17 08:20] LABS: ABNORMAL LYMPHS % (MANUAL) 0 %
[2022-03-17 08:22] LABS: CALCIUM 9.4 mg/dL (8.5-10.3); CREATININE 0.6 mg/dL (0.4-1.0); POTASSIUM 4.4 mmol/L (3.5-5.0)
[2022-03-17 08:46] LABS: FERRITIN 348.2 ng/mL (11.0-306.8)
[2022-03-17] MEDS: SODIUM CHLORIDE FLUSH 0.9% 10 ML SYRINGE IVP SCH ×2 (08:51→15:02)
[2022-03-17 08:58] LABS: BAND NEUTROPHILS % (MANUAL) 5 %; DIFFERENTIAL COMMENT MANUAL DIFFERENTIAL; EOSINOPHILS # (MANUAL) 0.1 10^3/uL (0-0.7); LYMPHOCYTES # (MANUAL) 0.7 10^3/uL (1.5-3.5); LYMPHOCYTES % (MANUAL) 8 %; MONOCYTES # (MANUAL) 1.1 10^3/uL (0.0-1.0); PLATELET ESTIMATE, MANUAL NORMAL (130-450,000) (NORMAL); PLATELET MORPHOLOGY NORMAL APPEARANCE (NORMAL); RBC MORPHOLOGY (MULTIPLE) NORMAL APPEARANCE (NORMAL)
[2022-03-17 09:00] LABS: % IRON SATURATION 18 % (20-50); IRON 45 ug/dL (28-170); TOTAL IRON BINDING CAPACITY 256 ug/dL (250-450); TRANSFERRIN 183 mg/dL (192-382)
[2022-03-17] MEDS ORDERED: CALCIUM CARB (OYSTER SHELL) 500 MG TABLET PO SCH (09:00)
--- NOTE | 2022-03-17 11:20 | PROVIDER PROGRESS NOTE ---
Subjective - Prog Note Date Prog Note Date: 03/17/22 Prog Note Time: 11:17 - Subjective Pt reports feeling: Improved Subjective: She had to go back on BiPAP by yesterday afternoon. Exhausted with all of her visitors. Was on BiPAP overnight and back down to nasal cannula. She is sitting up eating breakfast. has brought her some watermelon. and son at the bedside. She says she feels much better than even yesterday. Current Medications - Current Medications Current Medications: Active Medications Acetaminophen (Acetaminophen 325 Mg Tablet) 650 mg PO Q4HR PRN PRN Reason: Pain 1 to 4, or Fever Last Admin: 03/17/22 11:00 Dose: 650 mg Albuterol (Albuterol Neb 2.5 Mg/3 Ml) 2.5 mg INH RTQ4H PRN PRN Reason: Wheezing Last Admin: 03/17/22 04:48 Dose: 2.5 mg Albuterol/Ipratropium (Ipratropium/Albuterol 3 Ml Neb) 3 ml INH RTQID DEBBI Last Admin: 03/17/22 10:47 Dose: 3 ml Budesonide (Budesonide 0.5 Mg/2 Ml Neb) 0.5 mg INH RTBID DEBBI Last Admin: 03/17/22 07:31 Dose: 0.5 mg Calcium Carbonate/Glycine (Calcium Carbonate Chew 500 Mg Tablet) 500 mg PO DAILY [facility] Last Admin: 03/17/22 08:01 Dose: 500 mg Chlorhexidine Gluconate (Chlorhexidine Gluconate 15 Ml Udc) 15 ml PO BID DEBBI Last Admin: 03/17/22 08:01 Dose: 15 ml Cholecalciferol (Cholecalciferol 400 Unit Tablet) 400 unit PO DAILY DEBBI Last Admin: 03/17/22 08:02 Dose: 400 unit Duloxetine HCl (Duloxetine 30 Mg Capsule) 60 mg PO DAILY [facility] Last Admin: 03/17/22 08:01 Dose: 60 mg Enoxaparin Sodium (Enoxaparin 40 Mg/0.4 Ml Syringe) 40 mg SUBQ DAILY [facility] Last Admin: 03/17/22 08:01 Dose: 40 mg Formoterol Fumarate (Formoterol Fumarate Neb 20 Mcg/2 Ml) 20 mcg INH RTBID DEBBI Last Admin: 03/17/22 07:31 Dose: 20 mcg Gabapentin (Gabapentin 300 Mg Capsule) 600 mg PO BID [facility] Last Admin: 03/17/22 08:01 Dose: 600 mg Insulin Human Lispro (Insulin Lispro 300 Unit/3 Ml Pen) 1 - 9 unit SUBQ 0800,1200,1700,2100 [facility]; Protocol Last Admin: 03/17/22 08:00 Dose: 1 unit Loratadine (Loratadine 10 Mg Tablet) 40 mg PO BID [facility] Last Admin: 03/17/22 08:02 Dose: 40 mg Lorazepam (Lorazepam 0.5 Mg Tablet) 0.5 mg PO Q2H PRN PRN Reason: Anxiety Methylprednisolone (Methylprednisolone Succinate 40 Mg/Ml Vial) 40 mg IVP TID S Last Admin: 03/17/22 05:57 Dose: 40 mg Montelukast Sodium (Montelukast 10 Mg Tablet) 10 mg PO QPM [facility] Last Admin: 03/16/22 21:08 Dose: 10 mg Ondansetron HCl (Ondansetron Odt 4 Mg Tablet) 4 mg TL Q6HR PRN PRN Reason: Nausea / Vomiting Ondansetron HCl (Ondansetron 4 Mg/2 Ml Vial) 4 mg IVP Q6HR PRN PRN Reason: Nausea / Vomiting Oxycodone HCl (Oxycodone 5 Mg Tablet) 5 mg PO Q4HR PRN PRN Reason: Pain 5 to 7 Last Admin: 03/17/22 10:59 Dose: 5 mg Sodium Chloride (Sodium Chloride Flush 0.9% 10 Ml Syringe) 10 ml IVP PRN PRN PRN Reason: NEEDED PER PROVIDER ORDERS Last Admin: 03/17/22 05:57 Dose: 10 ml Sodium Chloride (Sodium Chloride Flush 0.9% 10 Ml Syringe) 10 ml IVP 0100,0900,1700 [facility] Last Admin: 03/17/22 08:51 Dose: 10 ml Zolpidem Tartrate (Zolpidem 5 Mg Tablet) 5 mg PO QPM PRN PRN Reason: Insomnia Azelastine HCl 2 sprays NS BID 10/09/20 Montelukast [Singulair] 10 mg PO QPM 10/09/20 Albuterol Sulfate [Proair Respiclick] 1 - 2 puffs INH QID PRN 10/01/21 Tiotropium [place] [Spiriva Handihaler] 18 mcg INH DAILY 10/01/21 Alendronate [Fosamax] 70 mg PO Q7D 03/15/22 Budesonide/Formoterol Fumarate [Symbicort 160-4.5 Mcg Inhaler] 2 puffs INH BID 03/15/22 Calcium Carbonate/Vitamin D3 [Caltrate 600 Plus D3 Tablet] 1 each PO DAILY 03/15/22 DULoxetine [Cymbalta] 60 mg PO DAILY 03/15/22 Gabapentin [Neurontin] 600 mg PO BID 03/15/22 Levothyroxine [Synthroid] 125 mcg PO QDAC 03/15/22 Loratadine [Claritin] 40 mg PO BID 03/15/22 Mepolizumab [Nucala] 300 mg SUBQ Q28D 03/15/22 SULFAM/TRIM 800/160 Prepack 2 [BACTRIM DS 800/160 Prepack 2] 1 tab PO MOWEFR 03/15/22 predniSONE [Deltasone] 50 mg PO DAILY 03/15/22 Objective - Vital Signs/Intake & Output Reviewed Vital Signs: Yes Vital Signs: Vital Signs x48h Temp Pulse Pulse Resp BP Pulse Ox 03/17/22 11:00 126 H 21 168/97 H 90 L 03/17/22 10:48 123 H 19 03/17/22 10:00 116 H 20 142/97 H 90 L 03/17/22 09:00 115 H 23 136/94 H 94 03/17/22 08:00 36.3 C L 125 H 21 149/91 H 90 L 03/17/22 07:33 104 H 23 03/17/22 07:28 101 H 03/17/22 07:00 96 17 141/91 H 95 03/17/22 06:00 104 H 22 134/87 H 97 03/17/22 05:58 93 03/17/22 05:00 94 119 H 23 142/103 H 96 03/17/22 04:00 36.1 C L 75 20 134/88 H 96 Intake & Output: Intake & Output 03/14/22 03/15/22 03/16/22 03/17/22 23:59 23:59 23:59 23:59 Intake Total 1100.000 930 Output Total 300 625 300 Balance 800.000 305 -300 - Objective General Appearance: positive: No acute distress, Alert, Other (Sitting up in bed, 90 degrees. Not tripoding. Able to eat a watermelon. I have asked her to please not to speak very much and she smiles and just nods her head yes) Eyes Bilateral: positive: EOMI ENT: positive: No signs of dehydration Neck: positive: No JVD. negative: Stiff neck Respiratory: positive: Wheezes (Better air movement. The last few days her lungs have been silent. Today I can actually hear faint wheezing), Other (RN reports coughing spasms and swallows phlegm since so hard to bring up). negative: Rales, Rhonchi Cardiovascular: positive: Regular rate & rhythm Abdomen: positive: Non-tender, No organomegaly, Nml bowel sounds, No distention Skin: positive: Warm, Dry Extremities: positive: Full ROM, No pedal edema Neurologic/Psychiatric: positive: Oriented x3, CN's nml (2-12), Motor nml - Lab Results Fish Bones: 03/17/22 08:06 03/17/22 08:06 Other Labs: Lab Results x24hrs 03/17/22 03/17/22 03/17/22 Range/Units 08:06 08:06 08:06 WBC (4.8-10.8) x10^3/uL RBC 4.11 L (4.20-5.40) 10^6/uL Hgb (12.0-16.0) g/dL Hct (37.0-47.0) % MCV (81.0-99.0) fL MCH (27.0-31.0) pg MCHC (32.0-36.0) g/dL RDW (12.0-15.0) % Plt Count (130-450) 10^3/uL MPV (7.9-10.8) fL Reticulocyte % (Auto) 1.43 (0.5-2.3) % Neut # (Auto) Lymph # (Auto) [place] # (Auto) Eos # (Auto) Baso # (Auto) Absolute Nucleated RBC Total Counted Band Neuts % (Manual) (0 - 10) % Abnorm Lymph % (Manual) % Nucleated RBC % Neutrophils # (Manual) (1.5-6.6) 10^3/uL Lymphocytes # (Manual) (1.5-3.5) 10^3/uL Monocytes # (Manual) (0.0-1.0) 10^3/uL Eosinophils # (Manual) (0-0.7) 10^3/uL Basophils # (Manual) (0-0.1) 10^3/uL Differential Comment Platelet Estimate (NORMAL) Platelet Morphology (NORMAL) RBC Morph Micro Appear (NORMAL) Absolute Retic 0.059 (0.020-0.110) 10^6/uL Sodium (135-145) mmol/L Potassium (3.5-5.0) mmol/L Chloride (101-111) mmol/L Carbon Dioxide (21-32) mmol/L Anion Gap (6-13) BUN (6-20) mg/dL Creatinine (0.4-1.0) mg/dL Estimated GFR (MDRD) (>89) Glucose (70-100) mg/dL Calcium (8.5-10.3) mg/dL Iron (28-170) ug/dL TIBC (250-450) ug/dL % Saturation (20-50) % Transferrin (192-382) mg/dL Ferritin 348.2 H (11.0-306.8) ng/mL Lactate Dehydrogenase 178 (91-225) IU/L Vitamin B12 1507 H (180-914) pg/mL 03/17/22 03/17/22 03/17/22 Range/Units 08:06 08:06 07:56 WBC 8.8 (4.8-10.8) x10^3/uL RBC 4.16 L (4.20-5.40) 10^6/uL Hgb 13.2 (12.0-16.0) g/dL Hct 42.8 (37.0-47.0) % MCV 102.9 H (81.0-99.0) fL MCH 31.7 H (27.0-31.0) pg MCHC 30.8 L (32.0-36.0) g/dL RDW 12.9 (12.0-15.0) % Plt Count 285 (130-450) 10^3/uL MPV 10.1 (7.9-10.8) fL Reticulocyte % (Auto) (0.5-2.3) % Neut # (Auto) Not Reportable Lymph # (Auto) Not Reportable [place] # (Auto) Not Reportable Eos # (Auto) Not Reportable Baso # (Auto) Not Reportable Absolute Nucleated RBC Not Reportable Total Counted 100 Band Neuts % (Manual) 5 (0 - 10) % Abnorm Lymph % (Manual) 0 % Nucleated RBC % Not Reportable Neutrophils # (Manual) 7.0 H (1.5-6.6) 10^3/uL Lymphocytes # (Manual) 0.7 L (1.5-3.5) 10^3/uL Monocytes # (Manual) 1.1 H (0.0-1.0) 10^3/uL Eosinophils # (Manual) 0.1 (0-0.7) 10^3/uL Basophils # (Manual) 0.0 (0-0.1) 10^3/uL Differential Comment MANUAL DIFFERENTIAL Platelet Estimate NORMAL (130-450,000) (NORMAL) Platelet Morphology NORMAL APPEARANCE (NORMAL) RBC Morph Micro Appear NORMAL APPEARANCE (NORMAL) Absolute Retic (0.020-0.110) 10^6/uL Sodium 143 (135-145) mmol/L Potassium 4.4 (3.5-5.0) mmol/L Chloride 102 (101-111) mmol/L Carbon Dioxide 31 (21-32) mmol/L Anion Gap 10.0 (6-13) BUN 28 H (6-20) mg/dL Creatinine 0.6 (0.4-1.0) mg/dL Estimated GFR (MDRD) 105 (>89) Glucose 160 H (70-100) mg/dL Calcium 9.4 (8.5-10.3) mg/dL Iron 45 (28-170) ug/dL TIBC 256 (250-450) ug/dL % Saturation 18 L (20-50) % Transferrin 183 L (192-382) mg/dL Ferritin (11.0-306.8) ng/mL Lactate Dehydrogenase (91-225) IU/L Vitamin B12 (180-914) pg/mL Assessment/Plan - Problem List (1) Anisocoria Impression: Head CT with angiogram was done yesterday for this. She has a calcified mass within the anterior right frontal lobe measuring 1.8 x 1.8 cm. No mass-effect. The jo-white matter interface appears intact. This is most likely a calcified meningioma. There were no other priors for evaluation. The rest of her CT of head is negative. (2) Acute on chronic respiratory failure with hypoxia and hypercapnia Impression: Still not completely at baseline. She has been on and off BiPAP for the last 2 days. Was exceedingly fatigued yesterday and had to go back on BiPAP overnight. This morning off BiPAP. I can hear wheezing today so that is an improvement. Plan: Keep her in ICU Changed to inpatient status (3) Acute exacerbation of COPD with asthma Impression: Changed to inpatient status and continue IV steroids, nebulizers,. Budesonide and Perforomist added March 16. No empiric antibiotics at this time. We will add Robitussin for expectorant. Patient is a full code. Slowly improving. Not nearly at baseline however. (3) Anxiety Conclusion/Plan: A predominant component of her everyday life according to sister and . At home she is on amitriptyline, Cymbalta, Paxil but no benzodiazepine. Pharmacy has verified her home med list and I resumed her usual home meds. There is a nationwide shortage of Ativan IV. As such pharmacy per policy change to p.o. yesterday. (4) Hypothyroidism Conclusion/Plan: On Synthroid.On her current dose her TSH is over suppressed. We will hold Synthroid for couple of days and then reduce dose for the future.
[2022-03-17] MEDS: guaiFENesin 100 MG/5 ML UDC PO PRN (15:02)
[2022-03-17] MEDS: MONTELUKAST 10 MG TABLET PO SCH (21:19)
[2022-03-18] MEDS: SODIUM CHLORIDE FLUSH 0.9% 10 ML SYRINGE IVP SCH ×4 (00:16→20:01)
[2022-03-18] MEDS: ALBUTEROL NEB 2.5 MG/3 ML INH PRN ×2 (00:52→09:43)
[2022-03-18] MEDS: ACETAMINOPHEN 325 MG TABLET PO PRN ×2 (00:57→12:49)
[2022-03-18] MEDS: oxyCODONE 5 MG TABLET PO PRN ×2 (00:57→12:48)
[2022-03-18] MEDS: LORazepam 0.5 MG TABLET PO PRN (00:57)
[2022-03-18] MEDS: SODIUM CHLORIDE FLUSH 0.9% 10 ML SYRINGE IVP PRN ×2 (02:26→21:15)
[2022-03-18] MEDS ORDERED: MORPHINE 2 MG/ML CARPUJECT IVP SCH (03:00)
[2022-03-18 04:53] LABS: BASOPHILS % (AUTO) 0.1 %; EOSINOPHILS % (AUTO) 0.1 %; HCT - HEMATOCRIT 38.5 % (37.0-47.0); LYMPHOCYTES % (AUTO) 7.2 %; MEAN CORPUSCULAR HEMOGLOBIN 31.6 pg (27.0-31.0); MEAN CORPUSCULAR HGB CONC 31.2 g/dL (32.0-36.0); MEAN CORPUSCULAR VOLUME 101.3 fL (81.0-99.0); MEAN PLATELET VOLUME 10.4 fL (7.9-10.8); MONOCYTES % (AUTO) 8.9 %; NEUTROPHILS % (AUTO) 76.5 %; PLT - PLATELET COUNT 260 10^3/uL (130-450); WHITE BLOOD COUNT 8.8 x10^3/uL (4.8-10.8)
[2022-03-18 04:56] LABS: ABNORMAL LYMPHS % (MANUAL) 0 %
[2022-03-18 05:02] LABS: CALCIUM 9.1 mg/dL (8.5-10.3); CREATININE 0.5 mg/dL (0.4-1.0); POTASSIUM 4.3 mmol/L (3.5-5.0)
[2022-03-18 05:18] LABS: BAND NEUTROPHILS % (MANUAL) 6 %; DIFFERENTIAL COMMENT MANUAL DIFFERENTIAL; LYMPHOCYTES # (MANUAL) 0.7 10^3/uL (1.5-3.5); LYMPHOCYTES % (MANUAL) 8 %; MONOCYTES # (MANUAL) 0.8 10^3/uL (0.0-1.0); MYELOCYTES % (MANUAL) 2 %; NEUTROPHILS # (MANUAL) 7.1 10^3/uL (1.5-6.6); PLATELET ESTIMATE, MANUAL NORMAL (130-450,000) (NORMAL); PLATELET MORPHOLOGY NORMAL APPEARANCE (NORMAL); RBC MORPHOLOGY (MULTIPLE) NORMAL APPEARANCE (NORMAL); WBC MORPHOLOGY (MULTIPLE) NORMAL APPEARANCE (NORMAL)
[2022-03-18] MEDS: methylPREDNISolone SUCCINATE 40 MG/ML VIAL IVP SCH ×3 (06:50→21:10)
[2022-03-18] MEDS: BUDESONIDE 0.5 MG/2 ML NEB INH SCH ×2 (07:13→19:38)
[2022-03-18] MEDS: FORMOTEROL FUMARATE NEB 20 MCG/2 ML INH SCH ×2 (07:13→19:38)
[2022-03-18] MEDS: IPRATROPIUM/ALBUTEROL 3 ML NEB INH SCH ×4 (07:13→19:38)
[2022-03-18] MEDS: INSULIN LISPRO 300 UNIT/3 ML PEN SUBQ SCH ×4 (07:45→20:45)
[2022-03-18] MEDS: polyethylene glycoL 3350 17 GM PACKET PO SCH (08:24)
[2022-03-18] MEDS: CALCIUM CARBONATE CHEW 500 MG TABLET PO SCH ×2 (08:26→12:30)
[2022-03-18] MEDS: DULoxetine 30 MG CAPSULE PO SCH (08:27)
[2022-03-18] MEDS: CHOLECALCIFEROL 400 UNIT TABLET PO SCH (08:27)
[2022-03-18] MEDS: LORATADINE 10 MG TABLET PO SCH ×2 (08:28→20:44)
[2022-03-18] MEDS: GABAPENTIN 300 MG CAPSULE PO SCH ×2 (08:32→20:45)
[2022-03-18] MEDS ORDERED: AZITHROMYCIN 250 MG TABLET PO ONE (09:02)
--- NOTE | 2022-03-18 09:02 | PROVIDER PROGRESS NOTE ---
Subjective - Subjective Pt reports feeling: Improved (She is about the same as yesterday, but had little sleep over night) Objective - Vital Signs/Intake & Output Reviewed Vital Signs: Yes Vital Signs: Vital Signs Temp Pulse Pulse Resp BP Pulse Ox 03/18/22 08:00 83 18 152/88 H 92 03/18/22 07:20 98 19 03/18/22 07:00 36.5 C 87 19 152/88 H 100 03/18/22 05:20 88 03/18/22 05:00 77 18 132/87 H 97 Intake & Output: Intake & Output 03/15/22 03/16/22 03/17/22 03/18/22 23:59 23:59 23:59 23:59 Intake Total 1100.000 930 240 Output Total 300 625 800 Balance 800.000 305 -560 - Objective General Appearance: positive: Severe distress (On BIPAP when I saw her in a.m, was on n.c. when I saw her in afternoon, using pursed lip beathing) Eyes Bilateral: positive: Normal inspection ENT: positive: Dry mucous membranes Neck: positive: Nml inspection Respiratory: positive: Wheezes (diffusely) Cardiovascular: positive: Regular rate & rhythm, No murmur Abdomen: positive: Non-tender, Nml bowel sounds, No distention Skin: positive: Warm, Dry Extremities: positive: Non-tender, No pedal edema Neurologic/Psychiatric: positive: Oriented x3 (Non-focal) - Lab Results Fish Bones: 03/18/22 04:26 03/18/22 04:26 Other Labs: Lab Results x24hrs 03/18/22 03/18/22 03/18/22 Range/Units 07:19 04:26 04:26 WBC 8.8 (4.8-10.8) x10^3/uL RBC 3.80 L (4.20-5.40) 10^6/uL Hgb 12.0 (12.0-16.0) g/dL Hct 38.5 (37.0-47.0) % MCV 101.3 H (81.0-99.0) fL MCH 31.6 H (27.0-31.0) pg MCHC 31.2 L (32.0-36.0) g/dL RDW 13.0 (12.0-15.0) % Plt Count 260 (130-450) 10^3/uL MPV 10.4 (7.9-10.8) fL Neut # (Auto) Not Reportable Lymph # (Auto) Not Reportable [place] # (Auto) Not Reportable Eos # (Auto) Not Reportable Baso # (Auto) Not Reportable Absolute Nucleated RBC Not Reportable Total Counted 100 Band Neuts % (Manual) 6 (0 - 10) % Abnorm Lymph % (Manual) 0 % Myelocytes % 2 H ( - 0) % Nucleated RBC % Not Reportable Neutrophils # (Manual) 7.1 H (1.5-6.6) 10^3/uL Lymphocytes # (Manual) 0.7 L (1.5-3.5) 10^3/uL Monocytes # (Manual) 0.8 (0.0-1.0) 10^3/uL Eosinophils # (Manual) 0.0 (0-0.7) 10^3/uL Basophils # (Manual) 0.0 (0-0.1) 10^3/uL Differential Comment MANUAL DIFFERENTIAL WBC Morphology NORMAL APPEARANCE (NORMAL) Platelet Estimate NORMAL (130-450,000) (NORMAL) Platelet Morphology NORMAL APPEARANCE (NORMAL) RBC Morph Micro Appear NORMAL APPEARANCE (NORMAL) Sodium 139 (135-145) mmol/L Potassium 4.3 (3.5-5.0) mmol/L Chloride 98 L (101-111) mmol/L Carbon Dioxide 32 (21-32) mmol/L Anion Gap 9.0 (6-13) BUN 22 H (6-20) mg/dL Creatinine 0.5 (0.4-1.0) mg/dL Estimated GFR (MDRD) 130 (>89) Glucose 185 H (70-100) mg/dL POC Whole Bld Glucose 150 H (70 - 100) mg/dL Calcium 9.1 (8.5-10.3) mg/dL Iron (28-170) ug/dL TIBC (250-450) ug/dL % Saturation (20-50) % Transferrin (192-382) mg/dL 03/17/22 03/17/22 03/17/22 Range/Units 20:59 16:21 11:45 WBC (4.8-10.8) x10^3/uL RBC (4.20-5.40) 10^6/uL Hgb (12.0-16.0) g/dL Hct (37.0-47.0) % MCV (81.0-99.0) fL MCH (27.0-31.0) pg MCHC (32.0-36.0) g/dL RDW (12.0-15.0) % Plt Count (130-450) 10^3/uL MPV (7.9-10.8) fL Neut # (Auto) Lymph # (Auto) [place] # (Auto) Eos # (Auto) Baso # (Auto) Absolute Nucleated RBC Total Counted Band Neuts % (Manual) (0 - 10) % Abnorm Lymph % (Manual) % Myelocytes % ( - 0) % Nucleated RBC % Neutrophils # (Manual) (1.5-6.6) 10^3/uL Lymphocytes # (Manual) (1.5-3.5) 10^3/uL Monocytes # (Manual) (0.0-1.0) 10^3/uL Eosinophils # (Manual) (0-0.7) 10^3/uL Basophils # (Manual) (0-0.1) 10^3/uL Differential Comment WBC Morphology (NORMAL) Platelet Estimate (NORMAL) Platelet Morphology (NORMAL) RBC Morph Micro Appear (NORMAL) Sodium (135-145) mmol/L Potassium (3.5-5.0) mmol/L Chloride (101-111) mmol/L Carbon Dioxide (21-32) mmol/L Anion Gap (6-13) BUN (6-20) mg/dL Creatinine (0.4-1.0) mg/dL Estimated GFR (MDRD) (>89) Glucose (70-100) mg/dL POC Whole Bld Glucose 153 H 105 H 235 H (70 - 100) mg/dL Calcium (8.5-10.3) mg/dL Iron (28-170) ug/dL TIBC (250-450) ug/dL % Saturation (20-50) % Transferrin (192-382) mg/dL 03/17/22 03/17/22 03/17/22 Range/Units 08:06 07:56 07:52 WBC (4.8-10.8) x10^3/uL RBC (4.20-5.40) 10^6/uL Hgb (12.0-16.0) g/dL Hct (37.0-47.0) % MCV (81.0-99.0) fL MCH (27.0-31.0) pg MCHC (32.0-36.0) g/dL RDW (12.0-15.0) % Plt Count (130-450) 10^3/uL MPV (7.9-10.8) fL Neut # (Auto) Not Reportable Lymph # (Auto) Not Reportable [place] # (Auto) Not Reportable Eos # (Auto) Not Reportable Baso # (Auto) Not Reportable Absolute Nucleated RBC Not Reportable Total Counted 100 Band Neuts % (Manual) 5 (0 - 10) % Abnorm Lymph % (Manual) 0 % Myelocytes % ( - 0) % Nucleated RBC % Not Reportable Neutrophils # (Manual) 7.0 H (1.5-6.6) 10^3/uL Lymphocytes # (Manual) 0.7 L (1.5-3.5) 10^3/uL Monocytes # (Manual) 1.1 H (0.0-1.0) 10^3/uL Eosinophils # (Manual) 0.1 (0-0.7) 10^3/uL Basophils # (Manual) 0.0 (0-0.1) 10^3/uL Differential Comment MANUAL DIFFERENTIAL WBC Morphology (NORMAL) Platelet Estimate NORMAL (130-450,000) (NORMAL) Platelet Morphology NORMAL APPEARANCE (NORMAL) RBC Morph Micro Appear NORMAL APPEARANCE (NORMAL) Sodium (135-145) mmol/L Potassium (3.5-5.0) mmol/L Chloride (101-111) mmol/L Carbon Dioxide (21-32) mmol/L Anion Gap (6-13) BUN (6-20) mg/dL Creatinine (0.4-1.0) mg/dL Estimated GFR (MDRD) (>89) Glucose (70-100) mg/dL POC Whole Bld Glucose 150 H (70 - 100) mg/dL Calcium (8.5-10.3) mg/dL Iron 45 (28-170) ug/dL TIBC 256 (250-450) ug/dL % Saturation 18 L (20-50) % Transferrin 183 L (192-382) mg/dL 03/16/22 03/16/22 Range/Units 20:49 16:42 WBC (4.8-10.8) x10^3/uL RBC (4.20-5.40) 10^6/uL Hgb (12.0-16.0) g/dL Hct (37.0-47.0) % MCV (81.0-99.0) fL MCH (27.0-31.0) pg MCHC (32.0-36.0) g/dL RDW (12.0-15.0) % Plt Count (130-450) 10^3/uL MPV (7.9-10.8) fL Neut # (Auto) Lymph # (Auto) [place] # (Auto) Eos # (Auto) Baso # (Auto) Absolute Nucleated RBC Total Counted Band Neuts % (Manual) (0 - 10) % Abnorm Lymph % (Manual) % Myelocytes % ( - 0) % Nucleated RBC % Neutrophils # (Manual) (1.5-6.6) 10^3/uL Lymphocytes # (Manual) (1.5-3.5) 10^3/uL Monocytes # (Manual) (0.0-1.0) 10^3/uL Eosinophils # (Manual) (0-0.7) 10^3/uL Basophils # (Manual) (0-0.1) 10^3/uL Differential Comment WBC Morphology (NORMAL) Platelet Estimate (NORMAL) Platelet Morphology (NORMAL) RBC Morph Micro Appear (NORMAL) Sodium (135-145) mmol/L Potassium (3.5-5.0) mmol/L Chloride (101-111) mmol/L Carbon Dioxide (21-32) mmol/L Anion Gap (6-13) BUN (6-20) mg/dL Creatinine (0.4-1.0) mg/dL Estimated GFR (MDRD) (>89) Glucose (70-100) mg/dL POC Whole Bld Glucose 150 H 167 H (70 - 100) mg/dL Calcium (8.5-10.3) mg/dL Iron (28-170) ug/dL TIBC (250-450) ug/dL % Saturation (20-50) % Transferrin (192-382) mg/dL Assessment/Plan - Problem List (1) Acute on chronic respiratory failure with hypoxia and hypercapnia Impression: She has been on and off BiPAP for the last severtal days. I continue to hear wheezing, which was an improvement starting yesterday, over no air movement on auscultation.. Keep her in ICU Continue BIPAP and suppl O2, keeping sats > 88%. (2) Acute exacerbation of COPD with asthma Impression: Slowly improving. Not nearly at baseline however. She was changed to inpatient status several days ago and continued IV steroids, nebulizers, Budesonide and Perforomist were added March 16. Robitussin for expectorant. Today, I resumed her Montelukast Will also add empiric Zithromax antibiotic at this time. (3) Anxiety Conclusion/Plan: A predominant component of her everyday life according to sister and . At home she is on amitriptyline, Cymbalta, Paxil but no benzodiazepine. Pharmacy has verified her home med list and we resumed her usual home meds. There is a nationwide shortage of Ativan IV. As such pharmacy per policy change to p.o. yesterday. (4) Hypothyroidism Conclusion/Plan: At home, she was on Synthroid 125 mcg daily. On her current dose her TSH is over suppressed. We held Synthroid for couple of days and will restart tomorrow at 0700 at a reduced dose of 100 mcg for the future. (5) Anisocoria Impression: This was noticed by previpous Hospitalist and a Head CT with angiogram was done to evaluate this for a poss stroke. Findings were that she has a calcified mass within the anterior right frontal lobe measuring 1.8 x 1.8 cm. No mass-effect. The jo-white matter interface appears intact. This is most likely a calcified meningioma. There were no other priors for evaluation. The rest of her CT of head is negative.
[2022-03-18] MEDS: ENOXAPARIN 40 MG/0.4 ML SYRINGE SUBQ SCH (10:00)
[2022-03-18] MEDS: CHLORHEXIDINE GLUCONATE 15 ML UDC PO SCH ×2 (10:00→20:44)
[2022-03-18] MEDS ORDERED: MULTIVITAMIN 10 ML, THIAMINE INJ 100 MG, MAGNESIUM SULFATE 2 GM, FOLIC ACID INJ 1 MG in... IV SCH ×5 (11:00)
[2022-03-18] MEDS: PANTOPRAZOLE 40 MG VIAL IV SCH (12:50)
[2022-03-18] MEDS: MORPHINE 2 MG/ML CARPUJECT IVP PRN (20:01)
[2022-03-18] MEDS: MONTELUKAST 10 MG TABLET PO SCH (20:45)
[2022-03-18] MEDS ORDERED: MONTELUKAST 10 MG TABLET PO SCH (21:00)
[2022-03-18] MEDS: guaiFENesin 100 MG/5 ML UDC PO PRN (21:10)
[2022-03-19] MEDS: MORPHINE 2 MG/ML CARPUJECT IVP PRN ×3 (00:13→22:47)
[2022-03-19] MEDS: SODIUM CHLORIDE FLUSH 0.9% 10 ML SYRINGE IVP PRN ×6 (00:13→22:25)
[2022-03-19] MEDS: ALBUTEROL NEB 2.5 MG/3 ML INH PRN (03:38)
[2022-03-19] MEDS: ACETAMINOPHEN 325 MG TABLET PO PRN ×2 (03:53→08:58)
[2022-03-19 05:15] LABS: BASOPHILS % (AUTO) 0.1 %; HCT - HEMATOCRIT 38.4 % (37.0-47.0); HGB - HEMOGLOBIN 12.1 g/dL (12.0-16.0); LYMPHOCYTES % (AUTO) 12.5 %; MEAN CORPUSCULAR HEMOGLOBIN 31.8 pg (27.0-31.0); MEAN CORPUSCULAR HGB CONC 31.5 g/dL (32.0-36.0); MEAN CORPUSCULAR VOLUME 101.1 fL (81.0-99.0); MEAN PLATELET VOLUME 10.7 fL (7.9-10.8); MONOCYTES % (AUTO) 6.1 %; NEUTROPHILS % (AUTO) 67.5 %; PLT - PLATELET COUNT 251 10^3/uL (130-450); RED CELL DISTRIBUTION WIDTH 12.8 % (12.0-15.0); WHITE BLOOD COUNT 10.6 x10^3/uL (4.8-10.8)
[2022-03-19 05:31] LABS: CALCIUM 9.2 mg/dL (8.5-10.3); CREATININE 0.5 mg/dL (0.4-1.0); POTASSIUM 4.4 mmol/L (3.5-5.0)
[2022-03-19 05:46] LABS: ABNORMAL LYMPHS % (MANUAL) 3 %; BAND NEUTROPHILS % (MANUAL) 3 %; DIFFERENTIAL COMMENT MANUAL DIFFERENTIAL; LYMPHOCYTES # (MANUAL) 1.9 10^3/uL (1.5-3.5); LYMPHOCYTES % (MANUAL) 15 %; MONOCYTES # (MANUAL) 1.2 10^3/uL (0.0-1.0); MYELOCYTES % (MANUAL) 3 %; NEUTROPHILS # (MANUAL) 7.2 10^3/uL (1.5-6.6); PLATELET ESTIMATE, MANUAL NORMAL (130-450,000) (NORMAL); PLATELET MORPHOLOGY NORMAL APPEARANCE (NORMAL); RBC MORPHOLOGY (MULTIPLE) NORMAL APPEARANCE (NORMAL); WBC MORPHOLOGY (MULTIPLE) NORMAL APPEARANCE (NORMAL)
[2022-03-19] MEDS: methylPREDNISolone SUCCINATE 40 MG/ML VIAL IVP SCH ×3 (06:18→22:25)
[2022-03-19] MEDS: LEVOTHYROXINE 100 MCG TABLET PO SCH (06:18)
[2022-03-19] MEDS: BUDESONIDE 0.5 MG/2 ML NEB INH SCH ×2 (08:36→20:00)
[2022-03-19] MEDS: FORMOTEROL FUMARATE NEB 20 MCG/2 ML INH SCH ×2 (08:36→20:00)
[2022-03-19] MEDS: IPRATROPIUM/ALBUTEROL 3 ML NEB INH SCH ×4 (08:36→22:21)
[2022-03-19] MEDS: LORATADINE 10 MG TABLET PO SCH ×2 (08:58→20:26)
[2022-03-19] MEDS: CHOLECALCIFEROL 400 UNIT TABLET PO SCH (08:59)
[2022-03-19] MEDS: DULoxetine 30 MG CAPSULE PO SCH (09:10)
[2022-03-19] MEDS: AZITHROMYCIN 250 MG TABLET PO SCH (09:10)
[2022-03-19] MEDS: GABAPENTIN 300 MG CAPSULE PO SCH ×2 (09:13→20:26)
[2022-03-19] MEDS: DOCUSATE SODIUM 250 MG CAPSULE PO SCH (09:15)
[2022-03-19] MEDS: CHLORHEXIDINE GLUCONATE 15 ML UDC PO SCH ×2 (09:15→20:26)
[2022-03-19] MEDS: SENNA 8.6 MG TABLET PO SCH (09:15)
[2022-03-19] MEDS: INSULIN LISPRO 300 UNIT/3 ML PEN SUBQ SCH ×4 (09:16→20:33)
[2022-03-19] MEDS: guaiFENesin 100 MG/5 ML UDC PO PRN (09:18)
[2022-03-19] MEDS: PANTOPRAZOLE 40 MG VIAL IV SCH (09:23)
[2022-03-19] MEDS: polyethylene glycoL 3350 17 GM PACKET PO SCH (09:25)
[2022-03-19] MEDS: SODIUM CHLORIDE FLUSH 0.9% 10 ML SYRINGE IVP SCH ×3 (09:26→22:47)
[2022-03-19] MEDS: ENOXAPARIN 40 MG/0.4 ML SYRINGE SUBQ SCH (09:56)
[2022-03-19] MEDS: CALCIUM CARBONATE CHEW 500 MG TABLET PO SCH (12:19)
[2022-03-19] MEDS: oxyCODONE 5 MG TABLET PO PRN (12:27)
[2022-03-19] MEDS ORDERED: PANTOPRAZOLE 40 MG TABLET PO SCH (13:00)
--- NOTE | 2022-03-19 14:40 | PROVIDER PROGRESS NOTE ---
Objective - Vital Signs/Intake & Output Reviewed Vital Signs: Yes Vital Signs: Vital Signs Temp Pulse Pulse Resp BP Pulse Ox 03/19/22 14:00 103 H 16 132/88 H 93 03/19/22 13:03 88 16 03/19/22 13:00 36.8 C 90 18 133/88 H 96 03/19/22 12:00 83 15 141/98 H 92 03/19/22 11:32 22 100 03/19/22 11:00 77 22 146/97 H 92 Intake & Output: Intake & Output 03/16/22 03/17/22 03/18/22 03/19/22 23:59 23:59 23:59 23:59 Intake Total 930 240 510 510 Output Total 625 800 900 Balance 305 560 -170 510 - Objective General Appearance: positive: No acute distress, Alert Eyes Bilateral: positive: Normal inspection ENT: positive: Other (Hoarse voice, mucosa moist, wearing O2 pern.c.) Neck: positive: Nml inspection, No JVD Respiratory: positive: Wheezes (scattered, and prolonged expir phase) Cardiovascular: positive: Regular rate & rhythm Abdomen: positive: No distention Skin: positive: Warm, Dry Extremities: positive: Non-tender, No pedal edema Neurologic/Psychiatric: positive: Oriented x3 (Non-focal) - Lab Results Fish Bones: 03/19/22 04:25 03/19/22 04:25 Other Labs: Lab Results x24hrs 03/19/22 03/19/22 03/19/22 Range/Units 11:43 07:38 04:25 WBC (4.8-10.8) x10^3/uL RBC (4.20-5.40) 10^6/uL Hgb (12.0-16.0) g/dL Hct (37.0-47.0) % MCV (81.0-99.0) fL MCH (27.0-31.0) pg MCHC (32.0-36.0) g/dL RDW (12.0-15.0) % Plt Count (130-450) 10^3/uL MPV (7.9-10.8) fL Neut # (Auto) Lymph # (Auto) [place] # (Auto) Eos # (Auto) Baso # (Auto) Absolute Nucleated RBC Total Counted Band Neuts % (Manual) (0 - 10) % Abnorm Lymph % (Manual) % Myelocytes % ( - 0) % Nucleated RBC % Neutrophils # (Manual) (1.5-6.6) 10^3/uL Lymphocytes # (Manual) (1.5-3.5) 10^3/uL Monocytes # (Manual) (0.0-1.0) 10^3/uL Eosinophils # (Manual) (0-0.7) 10^3/uL Basophils # (Manual) (0-0.1) 10^3/uL Differential Comment WBC Morphology (NORMAL) Platelet Estimate (NORMAL) Platelet Morphology (NORMAL) RBC Morph Micro Appear (NORMAL) Sodium 142 (135-145) mmol/L Potassium 4.4 (3.5-5.0) mmol/L Chloride 100 L (101-111) mmol/L Carbon Dioxide 34 H (21-32) mmol/L Anion Gap 8.0 (6-13) BUN 22 H (6-20) mg/dL Creatinine 0.5 (0.4-1.0) mg/dL Estimated GFR (MDRD) 130 (>89) Glucose 136 H (70-100) mg/dL POC Whole Bld Glucose 140 H 110 H (70 - 100) mg/dL Calcium 9.2 (8.5-10.3) mg/dL 03/19/22 03/18/22 03/18/22 Range/Units 04:25 20:39 16:42 WBC 10.6 (4.8-10.8) x10^3/uL RBC 3.80 L (4.20-5.40) 10^6/uL Hgb 12.1 (12.0-16.0) g/dL Hct 38.4 (37.0-47.0) % MCV 101.1 H (81.0-99.0) fL MCH 31.8 H (27.0-31.0) pg MCHC 31.5 L (32.0-36.0) g/dL RDW 12.8 (12.0-15.0) % Plt Count 251 (130-450) 10^3/uL MPV 10.7 (7.9-10.8) fL Neut # (Auto) Not Reportable Lymph # (Auto) Not Reportable [place] # (Auto) Not Reportable Eos # (Auto) Not Reportable Baso # (Auto) Not Reportable Absolute Nucleated RBC Not Reportable Total Counted 100 Band Neuts % (Manual) 3 (0 - 10) % Abnorm Lymph % (Manual) 3 % Myelocytes % 3 H ( - 0) % Nucleated RBC % Not Reportable Neutrophils # (Manual) 7.2 H (1.5-6.6) 10^3/uL Lymphocytes # (Manual) 1.9 (1.5-3.5) 10^3/uL Monocytes # (Manual) 1.2 H (0.0-1.0) 10^3/uL Eosinophils # (Manual) 0.0 (0-0.7) 10^3/uL Basophils # (Manual) 0.0 (0-0.1) 10^3/uL Differential Comment MANUAL DIFFERENTIAL WBC Morphology NORMAL APPEARANCE (NORMAL) Platelet Estimate NORMAL (130-450,000) (NORMAL) Platelet Morphology NORMAL APPEARANCE (NORMAL) RBC Morph Micro Appear NORMAL APPEARANCE (NORMAL) Sodium (135-145) mmol/L Potassium (3.5-5.0) mmol/L Chloride (101-111) mmol/L Carbon Dioxide (21-32) mmol/L Anion Gap (6-13) BUN (6-20) mg/dL Creatinine (0.4-1.0) mg/dL Estimated GFR (MDRD) (>89) Glucose (70-100) mg/dL POC Whole Bld Glucose 189 H 134 H (70 - 100) mg/dL Calcium (8.5-10.3) mg/dL Assessment/Plan - Problem List (1) Acute on chronic respiratory failure with hypoxia and hypercapnia Impression: She has not needed BiPAP for the last 24 hrs. She is on O2 per n.c. Keep her in ICU for one more midnite, in case she requires BIPAP tonite. Cont suppl O2, keeping sats > 88%. (2) Acute exacerbation of COPD with asthma Impression: Slowly improving. Not nearly at baseline however. She was changed to inpatient status several days ago and continued IV steroids, nebulizers, Budesonide and Perforomist were added March 16. Robitussin for expectorant. We resumed her Montelukast We also added empiric Zithromax antibiotic starting yesterday. (3) Anxiety Conclusion/Plan: A predominant component of her everyday life according to sister and . At home she is on amitriptyline, Cymbalta, Paxil but no benzodiazepine. Pharmacy has verified her home med list and we resumed her usual home meds. There is a nationwide shortage of Ativan IV. As such pharmacy per policy change to p.o. yesterday. (4) Hypothyroidism Conclusion/Plan: At home, she was on Synthroid 125 mcg daily. On her current dose her TSH is over suppressed. We held Synthroid for couple of days and we restarted it today at a reduced dose of 100 mcg for the future. (5) Anisocoria Impression: This was noticed by the last Hospitalist and a Head CT with angiogram was done to evaluate this for a poss stroke. Findings were that she has a calcified mass within the anterior right frontal lobe measuring 1.8 x 1.8 cm. No mass-effect. The jo-white matter interface appears intact. This is most likely a calcified meningioma. There were no other priors for evaluation. The rest of her CT of head is negative.
[2022-03-19] MEDS: MONTELUKAST 10 MG TABLET PO SCH (20:27)
[2022-03-19] MEDS: LORazepam 0.5 MG TABLET PO PRN (20:27)
[2022-03-20 04:54] LABS: BASOPHILS % (AUTO) 0.9 %; HCT - HEMATOCRIT 37.8 % (37.0-47.0); LYMPHOCYTES % (AUTO) 7.9 %; MEAN CORPUSCULAR HEMOGLOBIN 31.7 pg (27.0-31.0); MEAN CORPUSCULAR HGB CONC 31.7 g/dL (32.0-36.0); MEAN PLATELET VOLUME 10.4 fL (7.9-10.8); MONOCYTES % (AUTO) 5.3 %; NEUTROPHILS % (AUTO) 72.1 %; PLT - PLATELET COUNT 244 10^3/uL (130-450); RED BLOOD COUNT 3.78 10^6/uL (4.20-5.40); RED CELL DISTRIBUTION WIDTH 12.3 % (12.0-15.0); WHITE BLOOD COUNT 12.7 x10^3/uL (4.8-10.8)
[2022-03-20 05:03] LABS: CALCIUM 8.9 mg/dL (8.5-10.3); CREATININE 0.5 mg/dL (0.4-1.0); POTASSIUM 4.3 mmol/L (3.5-5.0)
[2022-03-20 05:11] LABS: ABNORMAL LYMPHS % (MANUAL) 1 %; BAND NEUTROPHILS % (MANUAL) 1 %; LYMPHOCYTES % (MANUAL) 15 %; METAMYELOCYTES % (MANUAL) 1 %; MONOCYTES # (MANUAL) 0.5 10^3/uL (0.0-1.0); MYELOCYTES % (MANUAL) 2 %; NEUTROPHILS # (MANUAL) 9.8 10^3/uL (1.5-6.6)
[2022-03-20 05:12] LABS: DIFFERENTIAL COMMENT MANUAL DIFFERENTIAL; PLATELET ESTIMATE, MANUAL NORMAL (130-450,000) (NORMAL); PLATELET MORPHOLOGY NORMAL APPEARANCE (NORMAL); RBC MORPHOLOGY (MULTIPLE) NORMAL APPEARANCE (NORMAL); WBC MORPHOLOGY (MULTIPLE) NORMAL APPEARANCE (NORMAL)
[2022-03-20] MEDS: ALBUTEROL NEB 2.5 MG/3 ML INH PRN (05:31)
[2022-03-20] MEDS: methylPREDNISolone SUCCINATE 40 MG/ML VIAL IVP SCH ×3 (05:38→21:31)
[2022-03-20] MEDS: guaiFENesin 100 MG/5 ML UDC PO PRN (05:38)
[2022-03-20] MEDS: oxyCODONE 5 MG TABLET PO PRN ×2 (05:38→18:58)
[2022-03-20] MEDS: LEVOTHYROXINE 100 MCG TABLET PO SCH (05:38)
[2022-03-20] MEDS: MORPHINE 2 MG/ML CARPUJECT IVP PRN ×4 (05:42→22:47)
[2022-03-20] MEDS: SODIUM CHLORIDE FLUSH 0.9% 10 ML SYRINGE IVP PRN ×3 (05:43→14:46)
[2022-03-20] MEDS: BUDESONIDE 0.5 MG/2 ML NEB INH SCH ×2 (07:28→19:00)
[2022-03-20] MEDS: IPRATROPIUM/ALBUTEROL 3 ML NEB INH SCH ×4 (07:28→19:00)
[2022-03-20] MEDS: DULoxetine 30 MG CAPSULE PO SCH (08:03)
[2022-03-20] MEDS: ENOXAPARIN 40 MG/0.4 ML SYRINGE SUBQ SCH (08:04)
[2022-03-20] MEDS: LORATADINE 10 MG TABLET PO SCH ×2 (08:04→20:39)
[2022-03-20] MEDS: SENNA 8.6 MG TABLET PO SCH (08:04)
[2022-03-20] MEDS: AZITHROMYCIN 250 MG TABLET PO SCH (08:05)
[2022-03-20] MEDS: CHOLECALCIFEROL 400 UNIT TABLET PO SCH (08:05)
[2022-03-20] MEDS: GABAPENTIN 300 MG CAPSULE PO SCH ×2 (08:05→20:38)
[2022-03-20] MEDS: PANTOPRAZOLE 40 MG TABLET PO SCH (08:05)
[2022-03-20] MEDS: polyethylene glycoL 3350 17 GM PACKET PO SCH (08:05)
[2022-03-20] MEDS: CHLORHEXIDINE GLUCONATE 15 ML UDC PO SCH ×2 (08:06→20:38)
[2022-03-20] MEDS: INSULIN LISPRO 300 UNIT/3 ML PEN SUBQ SCH ×4 (08:11→20:40)
[2022-03-20] MEDS: DOCUSATE SODIUM 250 MG CAPSULE PO SCH (08:12)
[2022-03-20] MEDS: SODIUM CHLORIDE FLUSH 0.9% 10 ML SYRINGE IVP SCH ×2 (08:25→17:06)
--- NOTE | 2022-03-20 09:25 | PROVIDER PROGRESS NOTE ---
Assessment/Plan - Problem List (1) Acute on chronic respiratory failure with hypoxia and hypercapnia Assessment/Plan: She has not needed BiPAP for the last 48 hrs. She is on O2 per n.c. Will transfer pt out of ICU into Med/Surg status Cont suppl O2, keeping sats > 88%. (2) Acute exacerbation of COPD with asthma Impression: Slowly improving. She says this is the worst asthma exacerbation she has ever had. She has had asthma attacks since childhood. She is still not nearly at baseline however. Continue IV steroids, bronchodilator and steroid nebulizers, Montelukast and expectorant. We also added empiric Zithromax antibiotic A very slow oral steroid taper is planned and also after DCh, qid not tid bronchodilator nebs are recommended and bid not just daily steroid nebs. (3) Anxiety Conclusion/Plan: A predominant component of her everyday life according to sister and . At home she is on amitriptyline, Cymbalta, Paxil but no benzodiazepine. We resumed her usual home meds. There is a nationwide shortage of Ativan IV. As such pharmacy per policy change to p.o. yesterday. (4) Hypothyroidism Conclusion/Plan: At home, she was on Synthroid 125 mcg daily. On her current dose her TSH is over suppressed. We held Synthroid for couple of days and we restarted it at a reduced dose of 100 mcg for the future. (5) Anisocoria Impression: Stable/chronic. This was noticed by the last Hospitalist and a Head CT with angiogram was done to evaluate this for a poss stroke. Findings were that she has a calcified mass within the anterior right frontal lobe measuring 1.8 x 1.8 cm. No mass-effect. The jo-white matter interface appears intact. This is most likely a calcified meningioma. There were no other priors for evaluation. The rest of her CT of head is negative. - Current Meds Current Meds: Current Medications Generic Name Dose Route Start Last Admin Trade Name Freq PRN Reason Stop Dose Admin Acetaminophen 650 mg 03/15/22 11:33 03/19/22 08:58 Acetaminophen 325 Mg Tablet PO 650 mg Q4HR PRN Administration Pain 1 to 4, or Fever Albuterol 2.5 mg 03/15/22 14:13 03/20/22 05:31 Albuterol Neb 2.5 Mg/3 Ml INH 2.5 mg RTQ4H PRN Administration Wheezing Albuterol/Ipratropium 3 ml 03/15/22 15:00 03/20/22 07:28 Ipratropium/Albuterol 3 Ml Neb INH 3 ml RTQID DEBBI Administration Azithromycin 250 mg 03/19/22 09:00 03/20/22 08:05 Azithromycin 250 Mg Tablet PO 03/23/22 00:01 250 mg DAILY DEBBI Administration Budesonide 0.5 mg 03/16/22 19:00 03/20/22 07:28 Budesonide 0.5 Mg/2 Ml Neb INH 0.5 mg RTBID DEBBI Administration Calcium Carbonate/Glycine 500 mg 03/18/22 07:51 03/19/22 12:19 Calcium Carbonate Chew 500 Mg Tablet PO 500 mg QDLUNCH DEBBI Administration Chlorhexidine Gluconate 15 ml 03/15/22 21:00 03/20/22 08:06 Chlorhexidine Gluconate 15 Ml Udc PO 15 ml BID DEBBI Administration Cholecalciferol 400 unit 03/17/22 09:00 03/20/22 08:05 Cholecalciferol 400 Unit Tablet PO 400 unit DAILY DEBBI Administration Docusate Sodium 250 - 500 mg 03/19/22 09:00 03/20/22 08:12 Docusate Sodium 250 Mg Capsule PO Not Given DAILY [facility] Duloxetine HCl 60 mg 03/16/22 10:00 03/20/22 08:03 Duloxetine 30 Mg Capsule PO 60 mg DAILY DEBBI Administration Enoxaparin Sodium 40 mg 03/15/22 12:00 03/20/22 08:04 Enoxaparin 40 Mg/0.4 Ml Syringe SUBQ 40 mg DAILY DEBBI Administration Gabapentin 600 mg 03/16/22 10:00 03/20/22 08:05 Gabapentin 300 Mg Capsule PO 600 mg BID DEBBI Administration Guaifenesin 200 mg 03/17/22 11:20 03/20/22 05:38 Guaifenesin 100 Mg/5 Ml Udc PO 200 mg Q4H PRN Administration Cough Insulin Human Lispro 1 - 9 unit 03/16/22 17:00 03/20/22 08:11 Insulin Lispro 300 Unit/3 Ml Pen SUBQ Not Given 0800,1200,1700,2100 [facility] Protocol Levothyroxine Sodium 100 mcg 03/19/22 07:00 03/20/22 05:38 Levothyroxine 100 Mcg Tablet PO 100 mcg QDAC DEBBI Administration Loratadine 40 mg 03/16/22 21:00 03/20/22 08:04 Loratadine 10 Mg Tablet PO 40 mg BID DEBBI Administration Lorazepam 0.5 mg 03/17/22 07:53 03/19/22 20:27 Lorazepam 0.5 Mg Tablet PO 0.5 mg Q2H PRN Administration Anxiety Methylprednisolone 40 mg 03/15/22 15:00 03/20/22 05:38 Methylprednisolone Succinate 40 Mg/Ml Vial IVP 40 mg TID DEBBI Administration Montelukast Sodium 10 mg 03/15/22 21:00 03/19/22 20:27 Montelukast 10 Mg Tablet PO 10 mg QPM DEBBI Administration Morphine Sulfate 2 mg 03/18/22 12:44 03/20/22 05:42 Morphine 2 Mg/Ml Carpuject IVP 2 mg Q4HR PRN Administration Dyspnea Oxycodone HCl 5 mg 03/15/22 11:33 03/20/22 05:38 Oxycodone 5 Mg Tablet PO 5 mg Q4HR PRN Administration Pain 5 to 7 Pantoprazole Sodium 40 mg 03/20/22 07:00 03/20/22 08:05 Pantoprazole 40 Mg Tablet PO 40 mg QDAC DEBBI Administration Polyethylene Glycol 17 gm 03/18/22 09:00 03/20/22 08:05 Polyethylene Glycol 3350 17 Gm Packet PO 17 gm DAILY DEBBI Administration Senna 8.6 - 17.2 mg 03/19/22 09:00 03/20/22 08:04 Senna 8.6 Mg Tablet PO 8.6 mg DAILY DEBBI Administration Sodium Chloride 10 ml 03/15/22 11:33 03/20/22 05:43 Sodium Chloride Flush 0.9% 10 Ml Syringe IVP 10 ml PRN PRN Administration NEEDED PER PROVIDER ORDERS Sodium Chloride 10 ml 03/15/22 17:00 03/20/22 08:25 Sodium Chloride Flush 0.9% 10 Ml Syringe IVP 10 ml 0100,0900,1700 DEBBI Administration Zolpidem Tartrate 5 mg 03/15/22 11:33 03/18/22 21:22 Zolpidem 5 Mg Tablet PO 5 mg QPM PRN Administration Insomnia - Lab Result Fish Bone Diagrams: 03/20/22 04:16 03/20/22 04:16 - Additional Planning My Orders: My Active Orders 03/19/22 09:00 Azithromycin [Zithromax] 250 mg PO DAILY Docusate Sodium 250Mg Capsule [Colace 250Mg Capsule] 250 - 500 mg PO DAILY Senna [Senokot] 8.6 - 17.2 mg PO DAILY 03/19/22 16:27 FOLATE RBC [REFLAB] Routine 03/20/22 07:00 Pantoprazole [Protonix] 40 mg PO QDAC 03/20/22 09:15 Telemetry- [RC] Q4HR Transfer [Admit \ Transfer \ Status] [RC] .ONCE Subjective - Subjective Patient Reports: Feeling Better (Sitting biolt upright, able to speak in sentences without taking breaks.) Objective Vital Signs: Vital Signs - 24 hr 03/19/22 03/19/22 03/19/22 10:00 11:00 11:32 Temperature Heart Rate Heart Rate [ 79 77 Monitoring electrodes] Respiratory 15 22 Rate Blood Pressure 126/80 146/97 H [Left Brachial artery] O2 Saturation 96 92 100 03/19/22 03/19/22 03/19/22 12:00 13:00 13:03 Temperature 36.8 C Heart Rate 88 Heart Rate [ 83 90 Monitoring electrodes] Respiratory 15 18 16 Rate Blood Pressure 141/98 H 133/88 H [Left Brachial artery] O2 Saturation 92 96 03/19/22 03/19/22 03/19/22 14:00 15:00 15:42 Temperature 36.9 C Heart Rate Heart Rate [ 103 H 95 Monitoring electrodes] Respiratory 16 13 Rate Blood Pressure 132/88 H 130/86 H [Left Brachial artery] O2 Saturation 93 93 03/19/22 03/19/22 03/19/22 16:00 17:00 17:43 Temperature Heart Rate 90 Heart Rate [ 80 103 H Monitoring electrodes] Respiratory 12 15 16 Rate Blood Pressure 142/85 H 159/111 H [Left Brachial artery] O2 Saturation 97 93 03/19/22 03/19/22 03/19/22 18:00 19:00 20:00 Temperature Heart Rate Heart Rate [ 105 H 83 82 Monitoring electrodes] Respiratory 17 17 19 Rate Blood Pressure 142/99 H 141/93 H 136/94 H [Left Brachial artery] O2 Saturation 95 95 96 03/19/22 03/19/22 03/19/22 20:01 21:00 22:00 Temperature Heart Rate 81 Heart Rate [ 76 77 Monitoring electrodes] Respiratory 21 21 16 Rate Blood Pressure 145/91 H 141/88 H [Left Brachial artery] O2 Saturation 97 96 03/19/22 03/19/22 03/20/22 22:22 23:00 00:00 Temperature 36.7 C Heart Rate 80 Heart Rate [ 80 81 Monitoring electrodes] Respiratory 17 16 16 Rate Blood Pressure 133/80 H 135/91 H [Left Brachial artery] O2 Saturation 97 97 03/20/22 03/20/22 03/20/22 01:00 01:52 03:00 Temperature Heart Rate Heart Rate [ 77 73 71 Monitoring electrodes] Respiratory 17 17 17 Rate Blood Pressure 133/89 H 130/84 H 139/88 H [Left Brachial artery] O2 Saturation 95 92 94 03/20/22 03/20/22 03/20/22 03:52 05:00 05:55 Temperature Heart Rate Heart Rate [ 72 93 82 Monitoring electrodes] Respiratory 17 17 17 Rate Blood Pressure 128/87 H 140/98 H 131/82 H [Left Brachial artery] O2 Saturation 92 95 92 03/20/22 03/20/22 03/20/22 07:00 07:28 08:00 Temperature 36.7 C Heart Rate 85 Heart Rate [ 67 98 Monitoring electrodes] Respiratory 14 16 22 Rate Blood Pressure 140/92 H 128/84 H [Left Brachial artery] O2 Saturation 97 91 L 03/20/22 09:00 Temperature Heart Rate Heart Rate [ 110 H Monitoring electrodes] Respiratory 14 Rate Blood Pressure 142/20 H [Left Brachial artery] O2 Saturation 90 L Oxygen O2 Source Nasal cannula I&O (Last 24 Hrs): Intake and Output Totals x24h 03/18/22 03/19/22 03/20/22 23:59 23:59 23:59 Intake Total 510 990 120 Output Total 900 0 0 Balance -390 990 120 General: Alert, Oriented x3 HEENT: Mucous membr. moist/pink, Other (on O2 per n.c.) Neck: Supple, No JVD Neuro: Alert, Non Focal Cardiovascular: Regular rate, No murmurs Respiratory: Wheezes (Prolonged exp phase and wheezing in all lung [place] anteriorly and posteriorly are heard) Abdomen: Normal bowel sounds, Soft Extremities: No clubbing, No edema - Results Results: Laboratory Results WBC 12.7 x10^3/uL (4.8-10.8) H 03/20/22 04:16 RBC 3.78 10^6/uL (4.20-5.40) L 03/20/22 04:16 Hgb 12.0 g/dL (12.0-16.0) 03/20/22 04:16 Hct 37.8 % (37.0-47.0) 03/20/22 04:16 MCV 100.0 fL (81.0-99.0) H 03/20/22 04:16 MCH 31.7 pg (27.0-31.0) H 03/20/22 04:16 MCHC 31.7 g/dL (32.0-36.0) L 03/20/22 04:16 RDW 12.3 % (12.0-15.0) 03/20/22 04:16 Plt Count 244 10^3/uL (130-450) 03/20/22 04:16 MPV 10.4 fL (7.9-10.8) 03/20/22 04:16 Reticulocyte % (Auto) 1.43 % (0.5-2.3) 03/17/22 08:06 Neut # (Auto) Not Reportable 03/20/22 04:16 Lymph # (Auto) Not Reportable 03/20/22 04:16 Kleberg # (Auto) Not Reportable 03/20/22 04:16 Eos # (Auto) Not Reportable 03/20/22 04:16 Baso # (Auto) Not Reportable 03/20/22 04:16 Absolute Nucleated RBC Not Reportable 03/20/22 04:16 Total Counted 100 03/20/22 04:16 Band Neuts % (Manual) 1 % (0-10) 03/20/22 04:16 Abnorm Lymph % (Manual) 1 % 03/20/22 04:16 Metamyelocytes % 1 % (-0) H 03/20/22 04:16 Myelocytes % 2 % (-0) H 03/20/22 04:16 Nucleated RBC % Not Reportable 03/20/22 04:16 Neutrophils # (Manual) 9.8 10^3/uL (1.5-6.6) H 03/20/22 04:16 Lymphocytes # (Manual) 2.0 10^3/uL (1.5-3.5) 03/20/22 04:16 Monocytes # (Manual) 0.5 10^3/uL (0.0-1.0) 03/20/22 04:16 Eosinophils # (Manual) 0.0 10^3/uL (0-0.7) 03/20/22 04:16 Basophils # (Manual) 0.0 10^3/uL (0-0.1) 03/20/22 04:16 Differential Comment MANUAL DIFFERENTIAL 03/20/22 04:16 Manual Slide Review Indicated 03/15/22 08:57 WBC Morphology NORMAL APPEARANCE (NORMAL) 03/20/22 04:16 Platelet Estimate NORMAL (130-450,000) (NORMAL) 03/20/22 04:16 Platelet Morphology NORMAL APPEARANCE (NORMAL) 03/20/22 04:16 RBC Morph Micro Appear NORMAL APPEARANCE (NORMAL) 03/20/22 04:16 Absolute Retic 0.059 10^6/uL (0.020-0.110) 03/17/22 08:06 Bld Gas Analysis Time 1000 03/15/22 10:00 Sample Site RIGHT RADIAL 03/15/22 10:00 ABG pH 7.42 (7.35-7.45) 03/15/22 10:00 ABG pCO2 50 mmHg (34-45) H 03/15/22 10:00 ABG pO2 133 mmHg (80-100) H 03/15/22 10:00 ABG HCO3 32.2 mmol/L (22.0-26.0) H 03/15/22 10:00 ABG Total CO2 34.0 MMOL/L (21.0-29.0) H 03/15/22 10:00 ABG O2 Saturation 99 % (94-98) H 03/15/22 10:00 ABG Base Excess 8.0 mmol/L (-2.0-3.0) H 03/15/22 10:00 Flo Test POSITIVE 03/15/22 10:00 O2 Delivery Device BiPAP 03/15/22 10:00 FiO2 35.00 03/15/22 10:00 EPAP 5 cmH2O 03/15/22 10:00 IPAP 16 cmH2O 03/15/22 10:00 Sodium 136 mmol/L (135-145) 03/20/22 04:16 Potassium 4.3 mmol/L (3.5-5.0) 03/20/22 04:16 Chloride 99 mmol/L (101-111) L 03/20/22 04:16 Carbon Dioxide 34 mmol/L (21-32) H 03/20/22 04:16 Anion Gap 3.0 (6-13) L 03/20/22 04:16 BUN 17 mg/dL (6-20) 03/20/22 04:16 Creatinine 0.5 mg/dL (0.4-1.0) 03/20/22 04:16 Estimated GFR (MDRD) 130 (>89) 03/20/22 04:16 Glucose 158 mg/dL (70-100) H 03/20/22 04:16 POC Whole Bld Glucose 119 mg/dL (70 - 100) H 03/20/22 07:56 Estimat Average Glucose 154 mg/dL (70-100) H 03/16/22 04:15 Hemoglobin A1c % 7.0 % (4.27-6.07) H 03/16/22 04:15 Calcium 8.9 mg/dL (8.5-10.3) 03/20/22 04:16 Iron 45 ug/dL (28-170) 03/17/22 07:56 TIBC 256 ug/dL (250-450) 03/17/22 07:56 % Saturation 18 % (20-50) L 03/17/22 07:56 Transferrin 183 mg/dL (192-382) L 03/17/22 07:56 Ferritin 348.2 ng/mL (11.0-306.8) H 03/17/22 08:06 Total Bilirubin 0.6 mg/dL (0.2-1.0) 03/15/22 08:57 AST 37 IU/L (10-42) 03/15/22 08:57 ALT 41 IU/L (10-60) 03/15/22 08:57 Alkaline Phosphatase 72 IU/L (42-121) 03/15/22 08:57 Lactate Dehydrogenase 178 IU/L (91-225) 03/17/22 08:06 Total Protein 7.0 g/dL (6.7-8.2) 03/15/22 08:57 Albumin 3.4 g/dL (3.2-5.5) 03/15/22 08:57 Globulin 3.6 g/dL (2.1-4.2) 03/15/22 08:57 Albumin/Globulin Ratio 0.9 (1.0-2.2) L 03/15/22 08:57 Lipase 22 U/L (22-51) 03/15/22 08:57 Vitamin B12 1507 pg/mL (180-914) H 03/17/22 08:06 Folate 12.31 ng/mL (5.90 - >24.8) 03/19/22 16:27 TSH 0.13 uIU/mL (0.34-5.60) L 03/16/22 04:15 Nasal Adenovirus (PCR) NOT DETECTED 03/15/22 09:11 Nasal B. parapertussis DNA (PCR) NOT DETECTED 03/15/22 09:11 Nasal Coronavir 229E PCR NOT DETECTED 03/15/22 09:11 Nasal Coronavir HKU1 PCR NOT DETECTED 03/15/22 09:11 Nasal Coronavir NL63 PCR NOT DETECTED 03/15/22 09:11 Nasal Coronavir OC43 PCR NOT DETECTED 03/15/22 09:11 Nasal Enterovir/Rhinovir PCR NOT DETECTED 03/15/22 09:11 Nasal Influenza B PCR NOT DETECTED 03/15/22 09:11 Nasal Influenza A PCR NOT DETECTED 03/15/22 09:11 Nasal Parainfluen 1 PCR NOT DETECTED 03/15/22 09:11 Nasal Parainfluen 2 PCR NOT DETECTED 03/15/22 09:11 Nasal Parainfluen 3 PCR NOT DETECTED 03/15/22 09:11 Nasal Parainfluen 4 PCR NOT DETECTED 03/15/22 09:11 Nasal RSV (PCR) NOT DETECTED 03/15/22 09:11 Nasal Screen MRSA (PCR) NEGATIVE (NEGATIVE) 03/15/22 14:00 Nasal B.pertussis DNA PCR NOT DETECTED 03/15/22 09:11 Nasal C.pneumoniae (PCR) NOT DETECTED 03/15/22 09:11 Cleve Human Metapneumo PCR NOT DETECTED 03/15/22 09:11 Nasal M.pneumoniae (PCR) NOT DETECTED 03/15/22 09:11 Nasal SARS-CoV-2 (PCR) NOT DETECTED 03/15/22 09:11
[2022-03-20] MEDS: SACCHAROMYCES BOULARDII 250 MG CAPSULE PO SCH ×2 (11:56→17:06)
[2022-03-20] MEDS: CALCIUM CARBONATE CHEW 500 MG TABLET PO SCH (12:10)
[2022-03-20] MEDS: MONTELUKAST 10 MG TABLET PO SCH (20:39)
[2022-03-21] MEDS: oxyCODONE 5 MG TABLET PO PRN ×4 (00:51→23:55)
[2022-03-21] MEDS: SODIUM CHLORIDE FLUSH 0.9% 10 ML SYRINGE IVP SCH ×4 (00:52→23:56)
[2022-03-21] MEDS: ALBUTEROL NEB 2.5 MG/3 ML INH PRN ×2 (00:58→23:57)
[2022-03-21 05:03] LABS: BASOPHILS % (AUTO) 0.8 %; EOSINOPHILS % (AUTO) 0.1 %; HCT - HEMATOCRIT 40.2 % (37.0-47.0); HGB - HEMOGLOBIN 12.7 g/dL (12.0-16.0); LYMPHOCYTES % (AUTO) 5.6 %; MEAN CORPUSCULAR HEMOGLOBIN 31.9 pg (27.0-31.0); MEAN CORPUSCULAR HGB CONC 31.6 g/dL (32.0-36.0); MEAN PLATELET VOLUME 10.3 fL (7.9-10.8); NEUTROPHILS % (AUTO) 80.4 %; PLT - PLATELET COUNT 242 10^3/uL (130-450); RED BLOOD COUNT 3.98 10^6/uL (4.20-5.40); RED CELL DISTRIBUTION WIDTH 12.5 % (12.0-15.0); WHITE BLOOD COUNT 13.2 x10^3/uL (4.8-10.8)
[2022-03-21 05:11] LABS: ABNORMAL LYMPHS % (MANUAL) 0 %
[2022-03-21 05:15] LABS: CALCIUM 9.5 mg/dL (8.5-10.3); CREATININE 0.5 mg/dL (0.4-1.0); POTASSIUM 4.6 mmol/L (3.5-5.0)
[2022-03-21 05:47] LABS: BAND NEUTROPHILS % (MANUAL) 6 %; DIFFERENTIAL COMMENT MANUAL DIFFERENTIAL; LYMPHOCYTES # (MANUAL) 1.1 10^3/uL (1.5-3.5); LYMPHOCYTES % (MANUAL) 8 %; MONOCYTES # (MANUAL) 0.7 10^3/uL (0.0-1.0); NEUTROPHILS # (MANUAL) 11.5 10^3/uL (1.5-6.6); PLATELET ESTIMATE, MANUAL NORMAL (130-450,000) (NORMAL); RBC MORPHOLOGY (MULTIPLE) NORMAL APPEARANCE (NORMAL)
[2022-03-21] MEDS: PANTOPRAZOLE 40 MG TABLET PO SCH (06:28)
[2022-03-21] MEDS: LEVOTHYROXINE 100 MCG TABLET PO SCH (06:28)
[2022-03-21] MEDS: methylPREDNISolone SUCCINATE 40 MG/ML VIAL IVP SCH ×3 (06:30→21:55)
[2022-03-21] MEDS: SODIUM CHLORIDE FLUSH 0.9% 10 ML SYRINGE IVP PRN (06:30)
[2022-03-21] MEDS: INSULIN LISPRO 300 UNIT/3 ML PEN SUBQ SCH ×4 (08:07→21:53)
[2022-03-21] MEDS: DULoxetine 30 MG CAPSULE PO SCH (08:08)
[2022-03-21] MEDS: ENOXAPARIN 40 MG/0.4 ML SYRINGE SUBQ SCH (08:08)
[2022-03-21] MEDS: SENNA 8.6 MG TABLET PO SCH (08:08)
[2022-03-21] MEDS: LORATADINE 10 MG TABLET PO SCH ×2 (08:08→21:51)
[2022-03-21] MEDS: GABAPENTIN 300 MG CAPSULE PO SCH ×2 (08:09→21:51)
[2022-03-21] MEDS: DOCUSATE SODIUM 250 MG CAPSULE PO SCH (08:09)
[2022-03-21] MEDS: SACCHAROMYCES BOULARDII 250 MG CAPSULE PO SCH ×2 (08:09→16:56)
[2022-03-21] MEDS: AZITHROMYCIN 250 MG TABLET PO SCH (08:09)
[2022-03-21] MEDS: CHLORHEXIDINE GLUCONATE 15 ML UDC PO SCH ×2 (08:09→21:54)
[2022-03-21] MEDS: polyethylene glycoL 3350 17 GM PACKET PO SCH (08:09)
[2022-03-21] MEDS: CHOLECALCIFEROL 400 UNIT TABLET PO SCH (08:09)
[2022-03-21] MEDS: BUDESONIDE 0.5 MG/2 ML NEB INH SCH ×2 (11:35→19:00)
[2022-03-21] MEDS: IPRATROPIUM/ALBUTEROL 3 ML NEB INH SCH ×3 (11:36→19:00)
[2022-03-21] MEDS: CALCIUM CARBONATE CHEW 500 MG TABLET PO SCH (12:15)
[2022-03-21] MEDS: MORPHINE 2 MG/ML CARPUJECT IVP PRN ×2 (14:10→21:58)
--- NOTE | 2022-03-21 16:26 | PROVIDER PROGRESS NOTE ---
Assessment/Plan - Problem List (1) Acute on chronic respiratory failure with hypoxia and hypercapnia Assessment/Plan: She has not needed BiPAP and has been out of the ICU for 2 days. She is ambulating in her room. She is on O2 per n.c. Cont suppl O2, keeping sats > 88%. (2) Acute exacerbation of COPD with asthma Impression: Slowly improving. She says this is the worst asthma exacerbation she has ever had. She has had asthma attacks since childhood. She is still not at baseline And the lung sounds are the same as yesterday. Continue IV steroids, bronchodilator and steroid nebulizers, Montelukast and expectorant. We also added empiric Zithromax antibiotic A very slow oral steroid taper is planned and also after DCh, qid not tid bronchodilator nebs are recommended and bid not just daily steroid nebs. This was discussed with her yesterday (and was in the room), and discussed today (with her sister and [id number] were at bedside). She would also qualify for and benefit from pulmonary rehab, which she has done in the past. (3) Anxiety Conclusion/Plan: A predominant component of her everyday life according to sister and . At home she is on amitriptyline, Cymbalta, Paxil but no benzodiazepine. We resumed her usual home meds. There is a nationwide shortage of Ativan IV. As such pharmacy per policy change to p.o. (4) Hypothyroidism Conclusion/Plan: At home, she was on Synthroid 125 mcg daily. On her current dose her TSH is over suppressed. We held Synthroid for couple of days and we restarted it at a reduced dose of 100 mcg for the future. (5) Anisocoria Impression: Stable/chronic. This was noticed by the last Hospitalist and a Head CT with angiogram was done to evaluate this for a poss stroke. Findings were that she has a calcified mass within the anterior right frontal lobe measuring 1.8 x 1.8 cm. No mass-effect. The jo-white matter interface appears intact. This is most likely a calcified meningioma. There were no other priors for evaluation. The rest of her CT of head is negative. - Current Meds Current Meds: Current Medications Generic Name Dose Route Start Last Admin Trade Name Freq PRN Reason Stop Dose Admin Acetaminophen 650 mg 03/15/22 11:33 03/19/22 08:58 Acetaminophen 325 Mg Tablet PO 650 mg Q4HR PRN Administration Pain 1 to 4, or Fever Albuterol 2.5 mg 03/15/22 14:13 03/21/22 00:58 Albuterol Neb 2.5 Mg/3 Ml INH 2.5 mg RTQ4H PRN Administration Wheezing Albuterol/Ipratropium 3 ml 03/15/22 15:00 03/21/22 15:19 Ipratropium/Albuterol 3 Ml Neb INH 3 ml RTQID DEBBI Administration Azithromycin 250 mg 03/19/22 09:00 03/21/22 08:09 Azithromycin 250 Mg Tablet PO 03/23/22 00:01 250 mg DAILY DEBBI Administration Budesonide 0.5 mg 03/16/22 19:00 03/21/22 11:35 Budesonide 0.5 Mg/2 Ml Neb INH 0.5 mg RTBID DEBBI Administration Calcium Carbonate/Glycine 500 mg 03/18/22 07:51 03/21/22 12:15 Calcium Carbonate Chew 500 Mg Tablet PO 500 mg QDLUNCH DEBBI Administration Chlorhexidine Gluconate 15 ml 03/15/22 21:00 03/21/22 08:09 Chlorhexidine Gluconate 15 Ml Udc PO 15 ml BID DEBIB Administration Cholecalciferol 400 unit 03/17/22 09:00 03/21/22 08:09 Cholecalciferol 400 Unit Tablet PO 400 unit DAILY DEBBI Administration Docusate Sodium 250 - 500 mg 03/19/22 09:00 03/21/22 08:09 Docusate Sodium 250 Mg Capsule PO 250 mg DAILY DEBBI Administration Duloxetine HCl 60 mg 03/16/22 10:00 03/21/22 08:08 Duloxetine 30 Mg Capsule PO 60 mg DAILY DEBBI Administration Enoxaparin Sodium 40 mg 03/15/22 12:00 03/21/22 08:08 Enoxaparin 40 Mg/0.4 Ml Syringe SUBQ 40 mg DAILY DEBBI Administration Gabapentin 600 mg 03/16/22 10:00 03/21/22 08:09 Gabapentin 300 Mg Capsule PO 600 mg BID DEBBI Administration Guaifenesin 200 mg 03/17/22 11:20 03/20/22 05:38 Guaifenesin 100 Mg/5 Ml Udc PO 200 mg Q4H PRN Administration Cough Insulin Human Lispro 1 - 9 unit 03/16/22 17:00 03/21/22 11:54 Insulin Lispro 300 Unit/3 Ml Pen SUBQ 3 unit 0800,1200,1700,2100 DEBBI Administration Protocol Levothyroxine Sodium 100 mcg 03/19/22 07:00 03/21/22 06:28 Levothyroxine 100 Mcg Tablet PO 100 mcg QDAC DEBBI Administration Loratadine 40 mg 03/16/22 21:00 03/21/22 08:08 Loratadine 10 Mg Tablet PO 40 mg BID DEBBI Administration Lorazepam 0.5 mg 03/17/22 07:53 03/19/22 20:27 Lorazepam 0.5 Mg Tablet PO 0.5 mg Q2H PRN Administration Anxiety Methylprednisolone 40 mg 03/15/22 15:00 03/21/22 14:10 Methylprednisolone Succinate 40 Mg/Ml Vial IVP 40 mg TID DEBBI Administration Montelukast Sodium 10 mg 03/15/22 21:00 03/20/22 20:39 Montelukast 10 Mg Tablet PO 10 mg QPM DEBBI Administration Morphine Sulfate 2 mg 03/18/22 12:44 03/21/22 14:10 Morphine 2 Mg/Ml Carpuject IVP 2 mg Q4HR PRN Administration Dyspnea Oxycodone HCl 5 mg 03/15/22 11:33 03/21/22 06:28 Oxycodone 5 Mg Tablet PO 5 mg Q4HR PRN Administration Pain 5 to 7 Pantoprazole Sodium 40 mg 03/20/22 07:00 03/21/22 06:28 Pantoprazole 40 Mg Tablet PO 40 mg QDAC DEBBI Administration Polyethylene Glycol 17 gm 03/18/22 09:00 03/21/22 08:09 Polyethylene Glycol 3350 17 Gm Packet PO 17 gm DAILY DEBBI Administration Saccharomyces Boulardii 250 mg 03/20/22 10:16 03/21/22 08:09 Saccharomyces Boulardii 250 Mg Capsule PO 250 mg BIDWM DEBBI Administration Senna 8.6 - 17.2 mg 03/19/22 09:00 03/21/22 08:08 Senna 8.6 Mg Tablet PO 8.6 mg DAILY DEBBI Administration Sodium Chloride 10 ml 03/15/22 11:33 03/21/22 06:30 Sodium Chloride Flush 0.9% 10 Ml Syringe IVP 10 ml PRN PRN Administration NEEDED PER PROVIDER ORDERS Sodium Chloride 10 ml 03/15/22 17:00 03/21/22 08:10 Sodium Chloride Flush 0.9% 10 Ml Syringe IVP 10 ml 0100,0900,1700 DEBBI Administration Zolpidem Tartrate 5 mg 03/15/22 11:33 03/18/22 21:22 Zolpidem 5 Mg Tablet PO 5 mg QPM PRN Administration Insomnia - Lab Result Fish Bone Diagrams: 03/21/22 04:22 03/21/22 04:22 Subjective - Subjective Patient Reports: Other (zable to take a shower today, but was very SOB afterwards) Objective Vital Signs: Vital Signs - 24 hr 03/20/22 03/20/22 03/21/22 19:00 20:37 00:51 Temperature 36.8 C 36.6 C Heart Rate 78 Heart Rate [ 76 Brachial] Heart Rate [ 94 Monitoring electrodes] Respiratory 18 18 16 Rate Blood Pressure 133/74 H 138/86 H [Left Brachial artery] O2 Saturation 94 96 03/21/22 03/21/22 03/21/22 01:01 04:27 07:30 Temperature 36.4 C L 36.5 C Heart Rate 78 Heart Rate [ 73 96 Brachial] Heart Rate [ Monitoring electrodes] Respiratory 16 16 18 Rate Blood Pressure 133/85 H 127/79 [Left Brachial artery] O2 Saturation 96 93 03/21/22 03/21/22 03/21/22 11:30 11:36 15:19 Temperature 36.5 C Heart Rate 80 89 Heart Rate [ 110 H Brachial] Heart Rate [ Monitoring electrodes] Respiratory 19 18 20 Rate Blood Pressure 128/97 H [Left Brachial artery] O2 Saturation 92 Oxygen O2 Source [With Activity] Nasal cannula O2 Source Nasal cannula I&O (Last 24 Hrs): Intake and Output Totals x24h 03/19/22 03/20/22 03/21/22 23:59 23:59 23:59 Intake Total 990 1190 650 Output Total 0 0 Balance 990 1190 650 General: Alert, Oriented x3 HEENT: Mucous membr. moist/pink, Other (wearing O2 per n.c.) Neck: Supple Neuro: Alert, Non Focal Cardiovascular: Regular rate, No murmurs Respiratory: Wheezes (Scattered but prolonged expir phase) Abdomen: Normal bowel sounds, Soft Extremities: No edema - Results Results: Laboratory Results WBC 13.2 x10^3/uL (4.8-10.8) H 03/21/22 04:22 RBC 3.98 10^6/uL (4.20-5.40) L 03/21/22 04:22 Hgb 12.7 g/dL (12.0-16.0) 03/21/22 04:22 Hct 40.2 % (37.0-47.0) 03/21/22 04:22 MCV 101.0 fL (81.0-99.0) H 03/21/22 04:22 MCH 31.9 pg (27.0-31.0) H 03/21/22 04:22 MCHC 31.6 g/dL (32.0-36.0) L 03/21/22 04:22 RDW 12.5 % (12.0-15.0) 03/21/22 04:22 Plt Count 242 10^3/uL (130-450) 03/21/22 04:22 MPV 10.3 fL (7.9-10.8) 03/21/22 04:22 Reticulocyte % (Auto) 1.43 % (0.5-2.3) 03/17/22 08:06 Neut # (Auto) Not Reportable 03/21/22 04:22 Lymph # (Auto) Not Reportable 03/21/22 04:22 Burnet # (Auto) Not Reportable 03/21/22 04:22 Eos # (Auto) Not Reportable 03/21/22 04:22 Baso # (Auto) Not Reportable 03/21/22 04:22 Absolute Nucleated RBC Not Reportable 03/21/22 04:22 Total Counted 100 03/21/22 04:22 Band Neuts % (Manual) 6 % (0-10) 03/21/22 04:22 Abnorm Lymph % (Manual) 0 % 03/21/22 04:22 Metamyelocytes % 1 % (-0) H 03/20/22 04:16 Myelocytes % 2 % (-0) H 03/20/22 04:16 Nucleated RBC % Not Reportable 03/21/22 04:22 Neutrophils # (Manual) 11.5 10^3/uL (1.5-6.6) H 03/21/22 04:22 Lymphocytes # (Manual) 1.1 10^3/uL (1.5-3.5) L 03/21/22 04:22 Monocytes # (Manual) 0.7 10^3/uL (0.0-1.0) 03/21/22 04:22 Eosinophils # (Manual) 0.0 10^3/uL (0-0.7) 03/21/22 04:22 Basophils # (Manual) 0.0 10^3/uL (0-0.1) 03/21/22 04:22 Differential Comment MANUAL DIFFERENTIAL 03/21/22 04:22 Manual Slide Review Indicated 03/15/22 08:57 WBC Morphology NORMAL APPEARANCE (NORMAL) 03/20/22 04:16 Platelet Estimate NORMAL (130-450,000) (NORMAL) 03/21/22 04:22 Platelet Morphology NORMAL APPEARANCE (NORMAL) 03/20/22 04:16 RBC Morph Micro Appear NORMAL APPEARANCE (NORMAL) 03/21/22 04:22 Absolute Retic 0.059 10^6/uL (0.020-0.110) 03/17/22 08:06 Bld Gas Analysis Time 1000 03/15/22 10:00 Sample Site RIGHT RADIAL 03/15/22 10:00 ABG pH 7.42 (7.35-7.45) 03/15/22 10:00 ABG pCO2 50 mmHg (34-45) H 03/15/22 10:00 ABG pO2 133 mmHg (80-100) H 03/15/22 10:00 ABG HCO3 32.2 mmol/L (22.0-26.0) H 03/15/22 10:00 ABG Total CO2 34.0 MMOL/L (21.0-29.0) H 03/15/22 10:00 ABG O2 Saturation 99 % (94-98) H 03/15/22 10:00 ABG Base Excess 8.0 mmol/L (-2.0-3.0) H 03/15/22 10:00 Flo Test POSITIVE 03/15/22 10:00 O2 Delivery Device BiPAP 03/15/22 10:00 FiO2 35.00 03/15/22 10:00 EPAP 5 cmH2O 03/15/22 10:00 IPAP 16 cmH2O 03/15/22 10:00 Sodium 142 mmol/L (135-145) 03/21/22 04:22 Potassium 4.6 mmol/L (3.5-5.0) 03/21/22 04:22 Chloride 98 mmol/L (101-111) L 03/21/22 04:22 Carbon Dioxide 34 mmol/L (21-32) H 03/21/22 04:22 Anion Gap 10.0 (6-13) 03/21/22 04:22 BUN 21 mg/dL (6-20) H 03/21/22 04:22 Creatinine 0.5 mg/dL (0.4-1.0) 03/21/22 04:22 Estimated GFR (MDRD) 130 (>89) 03/21/22 04:22 Glucose 174 mg/dL (70-100) H 03/21/22 04:22 POC Whole Bld Glucose 217 mg/dL (70 - 100) H 03/21/22 11:48 Estimat Average Glucose 154 mg/dL (70-100) H 03/16/22 04:15 Hemoglobin A1c % 7.0 % (4.27-6.07) H 03/16/22 04:15 Calcium 9.5 mg/dL (8.5-10.3) 03/21/22 04:22 Iron 45 ug/dL (28-170) 03/17/22 07:56 TIBC 256 ug/dL (250-450) 03/17/22 07:56 % Saturation 18 % (20-50) L 03/17/22 07:56 Transferrin 183 mg/dL (192-382) L 03/17/22 07:56 Ferritin 348.2 ng/mL (11.0-306.8) H 03/17/22 08:06 Total Bilirubin 0.6 mg/dL (0.2-1.0) 03/15/22 08:57 AST 37 IU/L (10-42) 03/15/22 08:57 ALT 41 IU/L (10-60) 03/15/22 08:57 Alkaline Phosphatase 72 IU/L (42-121) 03/15/22 08:57 Lactate Dehydrogenase 178 IU/L (91-225) 03/17/22 08:06 Total Protein 7.0 g/dL (6.7-8.2) 03/15/22 08:57 Albumin 3.4 g/dL (3.2-5.5) 03/15/22 08:57 Globulin 3.6 g/dL (2.1-4.2) 03/15/22 08:57 Albumin/Globulin Ratio 0.9 (1.0-2.2) L 03/15/22 08:57 Lipase 22 U/L (22-51) 03/15/22 08:57 Vitamin B12 1507 pg/mL (180-914) H 03/17/22 08:06 Folate 12.31 ng/mL (5.90 - >24.8) 03/19/22 16:27 TSH 0.13 uIU/mL (0.34-5.60) L 03/16/22 04:15 Nasal Adenovirus (PCR) NOT DETECTED 03/15/22 09:11 Nasal B. parapertussis DNA (PCR) NOT DETECTED 03/15/22 09:11 Nasal Coronavir 229E PCR NOT DETECTED 03/15/22 09:11 Nasal Coronavir HKU1 PCR NOT DETECTED 03/15/22 09:11 Nasal Coronavir NL63 PCR NOT DETECTED 03/15/22 09:11 Nasal Coronavir OC43 PCR NOT DETECTED 03/15/22 09:11 Nasal Enterovir/Rhinovir PCR NOT DETECTED 03/15/22 09:11 Nasal Influenza B PCR NOT DETECTED 03/15/22 09:11 Nasal Influenza A PCR NOT DETECTED 03/15/22 09:11 Nasal Parainfluen 1 PCR NOT DETECTED 03/15/22 09:11 Nasal Parainfluen 2 PCR NOT DETECTED 03/15/22 09:11 Nasal Parainfluen 3 PCR NOT DETECTED 03/15/22 09:11 Nasal Parainfluen 4 PCR NOT DETECTED 03/15/22 09:11 Nasal RSV (PCR) NOT DETECTED 03/15/22 09:11 Nasal Screen MRSA (PCR) NEGATIVE (NEGATIVE) 03/15/22 14:00 Nasal B.pertussis DNA PCR NOT DETECTED 03/15/22 09:11 Nasal C.pneumoniae (PCR) NOT DETECTED 03/15/22 09:11 Cleve Human Metapneumo PCR NOT DETECTED 03/15/22 09:11 Nasal M.pneumoniae (PCR) NOT DETECTED 03/15/22 09:11 Nasal SARS-CoV-2 (PCR) NOT DETECTED 03/15/22 09:11
[2022-03-21] MEDS: MONTELUKAST 10 MG TABLET PO SCH (21:51)
[2022-03-22 00:07] LABS: HEMATOCRIT 37.3 % (34.0-46.6)
[2022-03-22] MEDS: ACETAMINOPHEN 325 MG TABLET PO PRN ×2 (02:49→08:29)
[2022-03-22] MEDS: methylPREDNISolone SUCCINATE 40 MG/ML VIAL IVP SCH ×2 (06:09→14:10)
[2022-03-22] MEDS: SODIUM CHLORIDE FLUSH 0.9% 10 ML SYRINGE IVP PRN (06:09)
[2022-03-22] MEDS: LEVOTHYROXINE 100 MCG TABLET PO SCH (06:09)
[2022-03-22] MEDS: PANTOPRAZOLE 40 MG TABLET PO SCH (06:09)
[2022-03-22] MEDS: BUDESONIDE 0.5 MG/2 ML NEB INH SCH (07:17)
[2022-03-22] MEDS: IPRATROPIUM/ALBUTEROL 3 ML NEB INH SCH ×3 (07:17→15:41)
[2022-03-22] MEDS: INSULIN LISPRO 300 UNIT/3 ML PEN SUBQ SCH ×2 (07:50→11:51)
[2022-03-22] MEDS: SACCHAROMYCES BOULARDII 250 MG CAPSULE PO SCH (07:50)
[2022-03-22] MEDS: oxyCODONE 5 MG TABLET PO PRN (08:30)
--- NOTE | 2022-03-22 08:31 | Discharge Plan ---
Discharge Plan Problem Reviewed?: Yes Disposition: Home, Self Care Condition: Stable Prescriptions: Zolpidem [Ambien] 5 mg PO HS PRN #7 tablet PRN Reason: Insomnia predniSONE [Deltasone] 40 tablet PO 0800 #112 tablet Ipratropium/Albuterol [Duoneb] 3 ml INH RTQID #60 pkt levoFLOXacin [Levaquin] 750 mg PO DAILY #6 tablet Morphine Sulfate [Ms Contin] 15 mg PO Q12H PRN #8 tab PRN Reason: As Needed Per Provider Orders Budesonide [Pulmicort] 0.5 mg INH RTBID #60 packet Levothyroxine [Synthroid] 100 mcg PO QDAC #30 tablet Diet: Regular (Low starch and low sweet diet) Activity Restrictions: Activity as Tolerated Shower Restrictions: No Driving Restrictions: No Health Concerns: You were hospitalized, and in critical condition in the ICU for several days on a BiPAP mask, to treat an asthma and COPD exacerbation. You mentioned that this is the worst attack you have ever had. You are being discharged home with several new nebulizer prescriptions to manage your asthma and COPD. There is also a prescription for a VERY SLOW taper of Prednisone, and a prescription for 2 more days of antibiotic (Levaquin). We also found, from blood testing, that your thyroid dose was excessive, therefore the dose is now lowered and a new prescription has been ordered. There are also new prescriptions for a sleeping pill, to use as needed, and a prescription for oral morphine, to use only for severe air hunger or severe pain. All new prescriptions were electronically sent to your [facility] pharmacy in [place]. Please resume all your other pre-hospital medications and management, including resuming pulmonary rehab when you can tolerate it. You were retested to see if your supplemental oxygen settings need to be different and the O2 should be at: 3L/min, via nasal cannula continuously (at rest and with activity). DO NOT GO OUTSIDE OR BREATH OUTDOOR AIR WHEN THE WEATHER IS SMOKEY. Having an air purifier is a very good idea. An old musty house may have mold that could be making your lungs worse. Please have a follow-up visit with your primary care provider or [employer] Super[employer], in 1 to 2 weeks. Please discuss with your doctor ([employer] Supervisor, preferrably) if you were ever tested for ALPHA-1 ANTI-TRYPSIN DEFICIENCY, and if not please get that tested. Also, please ask to be tested for rare lung organisms like Fungi and Atypical Bacteria, to be treated for these if you have them. Plan of Treatment: As above. Care Goals: Improvement in symptoms and stabilization are the goals. Assessment: Patient understands and is agreeable with the plan. Additional Instructions or Follow Up instructions: If you have new or worsening symptoms, call your PCP or [employer] Supervisor for advice or come to the ER. Follow-Up Care: [facility] - Pulmonary No Smoking: If you smoke, Please STOP! Call for help. Follow-up with: HAYDER TYSON MD [Physician No Access] -
[2022-03-22] MEDS: DULoxetine 30 MG CAPSULE PO SCH (09:18)
[2022-03-22] MEDS: DOCUSATE SODIUM 250 MG CAPSULE PO SCH (09:19)
[2022-03-22] MEDS: CHOLECALCIFEROL 400 UNIT TABLET PO SCH (09:19)
[2022-03-22] MEDS: GABAPENTIN 300 MG CAPSULE PO SCH (09:20)
[2022-03-22] MEDS: polyethylene glycoL 3350 17 GM PACKET PO SCH (09:20)
[2022-03-22] MEDS: AZITHROMYCIN 250 MG TABLET PO SCH (09:20)
[2022-03-22] MEDS: LORATADINE 10 MG TABLET PO SCH (09:21)
[2022-03-22] MEDS: SENNA 8.6 MG TABLET PO SCH (09:22)
[2022-03-22] MEDS: ENOXAPARIN 40 MG/0.4 ML SYRINGE SUBQ SCH (09:24)
[2022-03-22] MEDS: SODIUM CHLORIDE FLUSH 0.9% 10 ML SYRINGE IVP SCH (09:25)
[2022-03-22] MEDS: CHLORHEXIDINE GLUCONATE 15 ML UDC PO SCH (09:32)
[2022-03-22] MEDS: CALCIUM CARBONATE CHEW 500 MG TABLET PO SCH (11:52)
--- NOTE | 2022-03-22 11:54 | DISCHARGE SUMMARY ---
Discharge Summary Admit Date: 03/15/22 Discharge Date: 03/22/22 Discharging Provider: Dr Rylie De La Cruz Primary Care Provider: Dr Meagan Castorena (PCP), and Dr Azra Rehman (Transfer Coordinator at [place]) Code Status: Attempt Resuscitation Condition at Discharge: Fair Discharge Disposition: 01 Home, Self Care - HPI History of Present Illness: From the admission H&P of Dr Nelly Willams: This is a 51 y/o WF who has had asthma and eczema all of her life, since ch ildhood. She is never really been free of it and she has been on high-dose steroids for very long time. She cannot be around pets. 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 Nevertheless they moved into houses that were over 100 years old and the previous owners has tremendous amount of pets. In September of this year her had cleaned out their fireplace and turned around the blower full power. A lot of dust flew into the house and she became ill. She came to our emergency room and was admitted with COPD exacerbation. Ever since then, she is never really improved. She was discharged on 2 L nasal cannula. She is followed by Azra Rehman MD Pulmonology at [facility]. She was recently on 50 mg of Prednisone that was being tapered. Slowly she has increased her oxygen requirement up to 5 L from the 2 L we discharged her on this spring. She has also been on mepolizumab/Nucala for about 5 months without improvement. In the last month, her daughter, that lives with her, got a new kitten as a service animal. And about a week ago the patient decided to do "spring cleaning" in her house, producing lots of dust, lots of rugs and floor cleaning. Her asthma, which was already tenuous at best, became much worse. She got increased wheezing, shortness of breath, increased use of nebulizers. The and his sister both state that she has had no fever, no chills, no one else is sick in the house. The patient is vaccinated for COVID. The patient does not have birds in the house. She does not work around farm animals or in an outdoor setting such as a barn. She is not around logging areas that cut wood. Today, this morning, she was so bad in trying to breathe that they called EMS. The patient presented to the emergency room tripoding, diffuse sweats with her effort to breathe, drooling and unable to swallow her own secretions. She was pale, tachypneic in severe respiratory distress. She was immediately placed on BiPAP, given steroids, nebulizers. She also received ketamine, morphine, magnesium, epinephrine. Blood gas after all of this showed a pH of 7.42, PCO2 5 0, PO2 133, bicarb 32, base excess 8. This was on an FiO2 of 35%. Chest x-ray is without infiltrate. White cell count is normal. She is slightly macrocytic at 100. Chemistries are essentially normal except for mildly elevated glucose of 127. It is noted that in September of this year her TSH was 21. She is on 112 mcg of Synthroid. The patient is now being placed in the ICU to see if she will improve overnight as Observation or possibly need an Inpatient stay. - HOSPITAL COURSE Hospital Course: (1) Acute on chronic respiratory failure with hypoxia and hypercapnia She needed a longer inpatient hospital stay than Observation status. She required several days and nights on BiPAP in the , which was slowly decreased and she was put on O2 per n.c., keeping sats > 88%. Her FiO2 was decreased from 5 L down to 3 L. On the day of discharge she had oximetry test done with rest & activity and this showed that she had adequate saturations of 90-93% on 3 L/min continuously, at rest and with activity. She was already on home O2 and her Aupix was advised of these settings. (2) Acute exacerbation of COPD with asthma She said this was the worst asthma exacerbation she has ever had, and she has had asthma attacks since childhood. She herself described worsened and frequent asthma attacks ever since living in the current old house. She was treated here with IV steroids, bronchodilator nebs and inhaled steroid nebs, Montelukast and Mucinex. We also gave empiric Zithromax antibiotic. She needed supl oxygen. At discharge, a very slow (several month) oral steroid taper was ordered and also qid not tid bronchodilator nebs were recommended and bid not just daily steroid nebs. She may return to and would benefit from pulmonary rehab, which she has done in the past. (3) Anxiety This is a predominant component of her everyday life, according to sister and . At home she is on Amitriptyline, Cymbalta, Paxil but no benzodiazepine. We ordered her usual home meds. (4) Hypothyroidism At home, she was on Synthroid 125 mcg daily. On her current dose, her TSH is over suppressed. We held Synthroid for a few days and then restarted it at a reduced dose of 100 mcg for the future. (5) Anisocoria This was noticed and a Head CT with angiogram was done to evaluate for a possible stroke. Findings were that she has a calcified mass within the anterior right frontal lobe measuring 1.8 x 1.8 cm. No mass-effect. The jo- white matter interface appears intact. This is most likely a calcified meningioma. There were no other prior images for comparison. The rest of her CT of head was negative. - ALLERGIES Allergies/Adverse Reactions: Allergies Allergy/AdvReac Type Severity Reaction Status Date / Time cephalexin Allergy Severe Rash Verified 03/15/22 08:41 peanut Allergy Severe Anaphylaxis Verified 03/15/22 08:41 shellfish derived Allergy Severe Anaphylaxis Verified 03/15/22 08:41 Penicillins Allergy Unknown Verified 03/15/22 08:41 - MEDICATIONS Home Medications: Ambulatory Orders Medication Instructions Recorded Confirmed Azelastine HCl 2 sprays NS BID 10/09/20 03/15/22 Montelukast [Singulair] 10 mg PO QPM 10/09/20 03/15/22 Albuterol Sulfate [Proair 1 - 2 puffs INH QID PRN 10/01/21 03/15/22 Respiclick] Tiotropium [place] [Spiriva 18 mcg INH DAILY 10/01/21 03/15/22 Handihaler] Alendronate [Fosamax] 70 mg PO Q7D 03/15/22 Budesonide/Formoterol Fumarate 2 puffs INH BID 03/15/22 03/15/22 [Symbicort 160-4.5 Mcg Inhaler] Calcium Carbonate/Vitamin D3 1 each PO DAILY 03/15/22 03/15/22 [Caltrate 600 Plus D3 Tablet] DULoxetine [Cymbalta] 60 mg PO DAILY 03/15/22 03/15/22 Gabapentin [Neurontin] 600 mg PO BID 03/15/22 03/15/22 Loratadine [Claritin] 40 mg PO BID 03/15/22 03/15/22 Mepolizumab [Nucala] 300 mg SUBQ Q28D 03/15/22 03/15/22 SULFAM/TRIM 800/160 Prepack 2 1 tab PO MOWEFR 03/15/22 03/15/22 [BACTRIM DS 800/160 Prepack 2] Budesonide [Pulmicort] 0.5 mg INH RTBID #60 packet 03/22/22 Ipratropium/Albuterol [Duoneb] 3 ml INH RTQID #60 pkt 03/22/22 Levothyroxine [Synthroid] 100 mcg PO QDAC #30 tablet 03/22/22 Morphine Sulfate [Ms Contin] 15 mg PO Q12H PRN #8 tab 03/22/22 Zolpidem [Ambien] 5 mg PO HS PRN #7 tablet 03/22/22 levoFLOXacin [Levaquin] 750 mg PO DAILY #6 tablet 03/22/22 predniSONE [Deltasone] 40 tablet PO 0800 #112 tablet 03/22/22 - PHYSICAL EXAM AT DISCHARGE General Appearance: positive: No acute distress, Other (Thin white female, appears older than her stated age, with thinning hair, wearing O2 n.c.) Eyes Bilateral: positive: Normal inspection, EOMI ENT: positive: Other (Hoarse voice, mucosa moist, lips dark.) Neck: positive: Nml inspection, No JVD Respiratory: positive: Wheezes (Scattered fine wheezes) Cardiovascular: positive: Regular rate & rhythm, No murmur Abdomen: positive: Non-tender, Nml bowel sounds, No distention Skin: positive: Warm, Dry Extremities: positive: Non-tender, No pedal edema Neurologic/Psychiatric: positive: Oriented x3 (Non-focal) - LABS Result Diagrams: 03/21/22 04:22 03/21/22 04:22 - FOLLOW UP Follow Up: See PCP in 1-2 weeks. See Transfer Coordinator as per plan. - TIME SPENT Time Spent in Discharge (Minutes): 50
[2022-03-22 12:38] VITALS: BP 137/81
[2022-03-24 17:08] LABS: 25-HYDROXY VITAMIN D 37 ng/mL (.); 25-HYDROXY VITAMIN D-2 <1.0 ng/mL (.); 25-HYDROXY VITAMIN D-3 37 ng/mL (.)
== END 2022-03-22 14:16 | disposition home or self-care (01) | DRG 189 ==
LOC: EDUNIT# → ED 08:29 → ICU 11:33 → OBSVTOIN 03-16 09:09 → MS2 03-20 10:48
PROVIDERS: ADMIT Specialist; ATTEND Internal Medicine
DX: J96.22 Acute and chronic respiratory failure with hypercapnia (principal); J44.1 Chronic obstructive pulmonary disease with (acute) exacerbation; J96.21 Acute and chronic respiratory failure with hypoxia; F41.9 Anxiety disorder, unspecified; M79.2 Neuralgia and neuritis, unspecified; E03.9 Hypothyroidism, unspecified; H57.02 Anisocoria; D32.0 Benign neoplasm of cerebral meninges; F32.A Depression, unspecified; D75.89 Other specified diseases of blood and blood-forming organs; Z79.51 Long term (current) use of inhaled steroids; Z79.52 Long term (current) use of systemic steroids; Z79.890 Hormone replacement therapy; Z79.899 Other long term (current) drug therapy; Z88.0 Allergy status to penicillin; Z91.010 Allergy to peanuts; Z91.013 Allergy to seafood
CPT/HCPCS: 36415; 36600; 70496; 71045; 80048; 80053; 82306; 82607; 82728; 82746; 82803; 83036; 83540; 83615; 83690; 84443; 84466; 85014; 85025; 85045; 87150; 87633; 94640; 94660; 96365; 96372; 96375; 96376; 97161; 97166; 99285; 99291; A9270; J1200; J1650; J2060; J7040; J7626; Q9967; 82747

== ENCOUNTER 2023-08-15 17:52 | Emergency (ER) | payer MEDICARE, MEDICAID ==
[2023-08-15 18:19] LABS: BASOPHILS # (AUTO) 0.1 10^3/uL (0.0-0.1); BASOPHILS % (AUTO) 0.6 %; EOSINOPHILS % (AUTO) 0.1 %; HGB - HEMOGLOBIN 17.9 g/dL (12.0-16.0); LYMPHOCYTES # (AUTO) 1.5 10^3/uL (1.5-3.5); LYMPHOCYTES % (AUTO) 8.2 %; MEAN CORPUSCULAR HEMOGLOBIN 31.9 pg (27.0-31.0); MEAN CORPUSCULAR HGB CONC 31.4 g/dL (32.0-36.0); MEAN CORPUSCULAR VOLUME 101.6 fL (81.0-99.0); MEAN PLATELET VOLUME 10.2 fL (7.9-10.8); MONOCYTES # (AUTO) 1.3 10^3/uL (0.0-1.0); MONOCYTES % (AUTO) 6.7 %; NEUTROPHILS # (AUTO) 15.5 10^3/uL (1.5-6.6); NEUTROPHILS % (AUTO) 82.9 %; PLT - PLATELET COUNT 451 10^3/uL (130-450); RED BLOOD COUNT 5.61 10^6/uL (4.20-5.40); RED CELL DISTRIBUTION WIDTH 12.6 % (12.0-15.0); WHITE BLOOD COUNT 18.7 x10^3/uL (4.8-10.8)
[2023-08-15 18:35] LABS: ALBUMIN 4.7 g/dL (3.2-5.5); ALBUMIN/GLOBULIN RATIO 1.5 (1.0-2.2); BILIRUBIN,TOTAL 0.5 mg/dL (0.2-1.0); CALCIUM 10.1 mg/dL (8.5-10.3); CREATININE 1.3 mg/dL (0.6-1.3); POTASSIUM 5.1 mmol/L (3.5-4.5); TOTAL PROTEIN 7.8 g/dL (6.4-8.9)
--- NOTE | 2023-08-15 19:16 | ED Physician Documentation ---
History of Present Illness - Stated complaint Stated Complaint: NAUSEA/DEHYDRATED - Chief complaint Chief Complaint: Abd Pain - History obtained from History obtained from: Patient, Family - History of Present Illness Timing: Today Pain level max: 0 Pain level now: 0 - Additonal information Additional information: 53-year-old female with nausea, vomiting, diarrhea. Has abdominal cramping and pain. No fevers. No chills. No recent antibiotics. No recent travel. No recent surgery. Has not been able to keep anything down all day. She has been around other people that been sick as well. Accompanied by her here. No blood in the emesis. No blood in the stool. Review of Systems Constitutional: denies: Fever, Chills Respiratory: denies: Cough GI: reports: Abdominal Pain (Diffuse, crampy), Nausea, Vomiting, Diarrhea Skin: denies: Rash Musculoskeletal: denies: Neck pain, Back pain PD PAST MEDICAL HISTORY - Past Medical History Past Medical History: Yes Cardiovascular: None Respiratory: Asthma, COPD Neuro: Tremors, Other Endocrine/Autoimmune: HyPOthyroidism GI: None [employer]: Other : None HEENT: None Psych: Depression, Anxiety, Panic attacks, Obsessive compulsive disorder Musculoskeletal: None Derm: Eczema - Past Surgical History Past Surgical History: Yes General: Cholecystectomy - Present Medications Home Medications: Ambulatory Orders Medication Instructions Recorded Confirmed Azelastine HCl 2 sprays NS BID 10/09/20 02/22/23 Montelukast [Singulair] 10 mg PO QPM 10/09/20 02/22/23 Albuterol Sulfate [Proair 1 - 2 puffs INH QID PRN 10/01/21 02/22/23 Respiclick] Tiotropium Mallory [Spiriva 18 mcg INH DAILY 10/01/21 02/22/23 Handihaler] Alendronate [Fosamax] 70 mg PO Q7D 03/15/22 02/22/23 Budesonide/Formoterol Fumarate 2 puffs INH BID 03/15/22 02/22/23 [Symbicort 160-4.5 Mcg Inhaler] Calcium Carbonate/Vitamin D3 1 each PO DAILY 03/15/22 02/22/23 [Caltrate 600 Plus D3 Tablet] Gabapentin [Neurontin] 600 mg PO BID 03/15/22 02/22/23 Loratadine [Claritin] 40 mg PO BID 03/15/22 02/22/23 Mepolizumab [Nucala] 300 mg SUBQ Q28D 03/15/22 02/22/23 Budesonide [Pulmicort] 0.5 mg INH RTBID #60 packet 03/22/22 02/22/23 Ipratropium/Albuterol [Duoneb] 3 ml INH RTQID #60 pkt 03/22/22 02/22/23 Levothyroxine [Synthroid] 100 mcg PO QDAC #30 tablet 03/22/22 02/22/23 Azithromycin [Zithromax] 1 tab ORAL DAILY 02/22/23 02/22/23 SULFAM/TRIM 800/160 Prepack 2 1 tab ORAL ONCE 02/22/23 02/22/23 [BACTRIM DS 800/160 Prepack 2] buPROPion HCL [Bupropion HCl] 150 mg PO DAILY 02/22/23 02/22/23 predniSONE [Deltasone] 10 mg PO ONCE #26 tablet 02/22/23 predniSONE [Deltasone] 40 tablet PO DAILY 02/22/23 02/22/23 - Allergies Allergies/Adverse Reactions: Allergies Allergy/AdvReac Type Severity Reaction Status Date / Time cephalexin Allergy Severe Rash Verified 08/15/23 18:06 peanut Allergy Severe Anaphylaxis Verified 08/15/23 18:06 shellfish derived Allergy Severe Anaphylaxis Verified 08/15/23 18:06 Penicillins Allergy Unknown Verified 08/15/23 18:06 - Social History Does the pt smoke?: No Smoking Status: Never smoker Does the pt drink ETOH?: No Does the pt have substance abuse?: Yes - Immunizations Immunizations are current?: Yes - POLST Patient has POLST: No POLST Status: Full Code PD ED PE NORMAL - Vitals Vital signs reviewed: Yes - General General: Alert and oriented X 3, No acute distress, Well developed/nourished - HEENT HEENT: PERRL, Other (Dry lips and tongue) - Neck Neck: Supple, no meningeal sign - Cardiac Cardiac: RRR, Strong equal pulses - Respiratory Respiratory: No respiratory distress, Clear bilaterally - Abdomen Abdomen: Soft, Non tender, Non distended - Derm Derm: Warm and dry - Extremities Extremities: No edema - Neuro Neuro: Alert and oriented X 3 - Psych Psych: Normal mood, Normal affect Results - Vitals Vitals: Vital Signs - 24 hr 08/15/23 08/15/23 18:04 20:06 Temperature 37.2 C Heart Rate 103 H 88 Respiratory 18 16 Rate Blood Pressure 120/88 H 151/91 H O2 Saturation 98 93 Oxygen O2 Source [With Activity] Nasal cannula O2 Source Nasal cannula - Labs Labs: Laboratory Tests 08/15/23 08/15/23 08/15/23 18:15 18:15 21:54 WBC 18.7 H 15.2 H RBC 5.61 H 5.15 Hgb 17.9 H 16.5 H Hct 57.0 H 53.2 H MCV 101.6 H 103.3 H MCH 31.9 H 32.0 H MCHC 31.4 L 31.0 L RDW 12.6 12.6 Plt Count 451 H 338 MPV 10.2 10.4 Neut # (Auto) 15.5 H 13.3 H Lymph # (Auto) 1.5 0.7 L [place] # (Auto) 1.3 H 0.9 Eos # (Auto) 0.0 0.0 Baso # (Auto) 0.1 0.1 Absolute Nucleated RBC 0.00 0.00 Nucleated RBC % 0.0 0.0 Sodium 135 Potassium 5.1 H Chloride 98 L Carbon Dioxide 16 L Anion Gap 21.0 H BUN 40 H Creatinine 1.3 Estimated GFR (MDRD) 43 L Glucose 115 H Calcium 10.1 Total Bilirubin 0.5 AST 28 ALT 31 Alkaline Phosphatase 70 Total Protein 7.8 Albumin 4.7 Globulin 3.1 Albumin/Globulin Ratio 1.5 Lipase 24 08/15/23 21:54 WBC RBC Hgb Hct MCV MCH MCHC RDW Plt Count MPV Neut # (Auto) Lymph # (Auto) [place] # (Auto) Eos # (Auto) Baso # (Auto) Absolute Nucleated RBC Nucleated RBC % Sodium 135 Potassium 4.4 Chloride 102 Carbon Dioxide 16 L Anion Gap 17.0 H BUN 35 H Creatinine 1.0 Estimated GFR (MDRD) 58 L Glucose 98 Calcium 8.4 L Total Bilirubin AST ALT Alkaline Phosphatase Total Protein Albumin Globulin Albumin/Globulin Ratio Lipase PD Medical Decision Making - ED course Complexity details: reviewed results, re-evaluated patient, considered differential, d/w patient ED course: 53-year-old female with nausea vomiting and diarrhea. Appears significantly dehydrated on laboratory testing. Given 2 L of IV fluids. She feels much better after IV Dilaudid as well. Likely a viral gastroenteritis. The patient will be p.o. challenged and if she is tolerating p.o. without difficulty and abdomen remains soft, nontender nondistended, can likely be discharged home with antiemetics. Patient signed out to Dr. South. Departure - Departure Clinical Impression: Dehydration, Gastroenteritis Condition: Good Forms: PCP List
[2023-08-15] MEDS: ELECTROLYTE-A SOLUTION 1,000 ML IV ONE (19:24)
[2023-08-15] MEDS: HYDROmorphone 1 MG/ML CARPUJECT IVP STA (20:19)
[2023-08-15] MEDS: SODIUM CHLORIDE 0.9% 1,000 ML IV STA ×2 (21:13→23:55)
[2023-08-15 22:01] LABS: BASOPHILS # (AUTO) 0.1 10^3/uL (0.0-0.1); BASOPHILS % (AUTO) 0.5 %; EOSINOPHILS % (AUTO) 0.1 %; HCT - HEMATOCRIT 53.2 % (37.0-47.0); HGB - HEMOGLOBIN 16.5 g/dL (12.0-16.0); LYMPHOCYTES # (AUTO) 0.7 10^3/uL (1.5-3.5); LYMPHOCYTES % (AUTO) 4.7 %; MEAN CORPUSCULAR VOLUME 103.3 fL (81.0-99.0); MEAN PLATELET VOLUME 10.4 fL (7.9-10.8); MONOCYTES # (AUTO) 0.9 10^3/uL (0.0-1.0); MONOCYTES % (AUTO) 6.1 %; NEUTROPHILS # (AUTO) 13.3 10^3/uL (1.5-6.6); NEUTROPHILS % (AUTO) 87.3 %; PLT - PLATELET COUNT 338 10^3/uL (130-450); RED BLOOD COUNT 5.15 10^6/uL (4.20-5.40); RED CELL DISTRIBUTION WIDTH 12.6 % (12.0-15.0); WHITE BLOOD COUNT 15.2 x10^3/uL (4.8-10.8)
[2023-08-15 22:23] LABS: CALCIUM 8.4 mg/dL (8.5-10.3); POTASSIUM 4.4 mmol/L (3.5-4.5)
[2023-08-15 23:22] LABS: BILIRUBIN,URINE SMALL (NEGATIVE); GLUCOSE, URINE (UA) NEGATIVE (NEGATIVE); KETONES,URINE (UA) >=80 mg/dL (NEGATIVE); LEUKOCYTE ESTERASE, URINE SMALL (NEGATIVE); NITRITE,URINE NEGATIVE (NEGATIVE); OCCULT BLOOD,URINE TRACE-LYSE (NEGATIVE); PROTEIN,URINE 30 mg/dL (NEGATIVE); UROBILINOGEN,URINE 0.2 (NORMAL) E.U./dL (NORMAL)
[2023-08-15 23:26] LABS: CLARITY,URINE CLEAR (CLEAR)
[2023-08-15 23:34] LABS: BACTERIA,URINE Moderate /HPF (None Seen); CASTS, URINE 3-5 Hyaline Casts /LPF; MUCUS,URINE Moderate Strands; RBC,URINE 0-5 /HPF (0-5); SQUAMOUS EPITHELIAL CELL,UR FEW Squamous (<= Few)
[2023-08-15] MEDS: DROPERIDOL 5 MG/2 ML VIAL IVP STA (23:55)
[2023-08-16] MEDS ORDERED: iohexoL-300 100 ML VIAL ONE (00:09)
[2023-08-16] MEDS: iohexoL-300 100 ML VIAL IVP ONE (00:59)
--- NOTE | 2023-08-16 01:43 | CT Report ---
PROCEDURE: Abdomen/Pelvis W INDICATIONS: N/V/INTRACTABLE ABD PAIN TECHNIQUE: Helical axial CT of the abdomen and pelvis was obtained after intravenous contrast adminis tration and reformatted in multiple planes. Radiation dose reduction was achieved using automated exp osure control or adjustment of mA and/or kV according to patient size. COMPARISON: None FINDINGS: Lower thorax: The lung bases are clear. Heart size normal. No hiatal hernia. Liver: Normal in size and attenuation. No contour deformity present. Multiple hepatic cysts measure up to 2.2 cm Biliary system: No calcified cholelithiasis or pericholecystic inflammation. No evidence of bile du ct dilatation. Pancreas: Unremarkable without mass or inflammation evident. Spleen: Normal in size and density. Adrenals: Normal morphology and density. Reproductive system: Unremarkable as visualized. Urinary system: Normal renal size and attenuation. No renal calculi, hydronephrosis, or solid mass p resent. Urinary bladder unremarkable. Gastrointestinal system: The bowel appears unremarkable with no evidence of bowel obstruction or inf lammation. The stomach appears unremarkable. Multiple diverticula arise from the sigmoid colon withou t evidence of diverticulitis. Appendix: Normal-appearing appendix Peritoneal spaces: No mesenteric or retroperitoneal adenopathy. No free air. No free fluid. Vasculature: The IVC, aorta and iliac vasculature are unremarkable. Abdominal wall: Abdominal wall is intact without evidence of ventral or inguinal hernias. Musculoskeletal: Normal bone mineralization. No acute fractures. Degenerative disc disease and arth ropathy lumbar spine IMPRESSION: No acute CT findings in the abdomen and pelvis Reviewed by: Yang Cullen MD on 08/16/2023 12:42 AM [facility] Approved by: Yang Cullen MD on 08/16/2023 12:42 AM [facility] Station ID: [id number]
--- NOTE | 2023-08-16 02:39 | ED Physician Documentation ---
ED Addendum - Addendum Addendum: 08/16/23 02:38 Care of patient signed to me by Dr. Shields. Patient had complained again of nausea with some cramping after trying p.o. fluids and so droperidol was ordered as well as a CT negative for acute findings. After droperidol patient reported feeling much better, she was subsequently able to tolerate p.o. and eager for discharge. Antiemetics sent to pharmacy of choice.
[2023-08-16 03:26] VITALS: BP 145/98; O2SAT 93
== END 2023-08-16 03:16 | disposition home or self-care (01) ==
LOC: ED 17:52
DX: K52.9 Noninfective gastroenteritis and colitis, unspecified (principal); E86.0 Dehydration; J44.9 Chronic obstructive pulmonary disease, unspecified; E03.9 Hypothyroidism, unspecified; Z79.899 Other long term (current) drug therapy; Z79.51 Long term (current) use of inhaled steroids
CPT/HCPCS: 36415; 80048; 80053; 81001; 81003; 83690; 85025; 87086; 96361; 96374; 96375; 99284

== ENCOUNTER 2024-07-11 22:25 | Observation (INO) ==
--- NOTE | 2024-07-11 22:41 | ED Physician Documentation ---
PD HPI DYSPNEA Stated complaint Stated Complaint: SOA,COPD,FEVER,AMS Chief complaint Chief Complaint: Resp History obtained from History obtained from: Patient, Family (daughter) and EMS (noted hypoxic in 70s initially, improved with FM.) History of Present Illness Timing - onset: How many days ago (Patient has had fevers congestion and increasing cough with dyspnea for 3 to 4 days.) Timing - onset during: Light activity Timing - duration: Days (much worse today with confusion, work of breathing and low sats. ) Timing - details: Gradual onset Inciting event(s): URI (her spouse has had URI and cough symptoms for 5-6 days but not as severe. ) Improved by: Inhaler/neb Worsened by: Exertion and Coughing Associated symptoms: Fever, Cough and Wheezing; No Hemoptysis or Bilateral edema Similar symptoms before: Has not had sx before (COPD with daily meds but has not had exacerbation to this degree. ) Meds/Allgy Home Medications Ambulatory Orders Medication Instructions Recorded Confirmed azelastine 137 mcg (0.1 %) nasal 2 sprays NS BID 10/09/20 02/22/23 spray montelukast 10 mg tablet 10 mg PO QPM 10/09/20 02/22/23 albuterol sulfate 90 mcg/actuation 1 - 2 puff inhalation QID PRN 10/01/21 02/22/23 breath activated powder inhaler Shortness Of Air/Wheezing (ProAir RespiClick) tiotropium bromide 18 mcg capsule 18 mcg inhalation DAILY 10/01/21 02/22/23 with inhalation device (Spiriva with HandiHaler) alendronate 70 mg tablet 70 mg PO Q7D 03/15/22 02/22/23 budesonide-formoterol HFA 160 2 puff inhalation BID 03/15/22 02/22/23 mcg-4.5 mcg/actuation aerosol inhaler (Symbicort) calcium 600 mg (as 1 ea PO DAILY 03/15/22 02/22/23 carbonate)-vitamin D3 20 mcg (800 unit) tablet (Caltrate with Vitamin D3) gabapentin 600 mg tablet 600 mg PO BID 03/15/22 02/22/23 (Neurontin) loratadine 10 mg tablet 40 mg PO BID 03/15/22 02/22/23 mepolizumab 100 mg/mL subcutaneous 300 mg subcut Q28D 03/15/22 02/22/23 syringe (Nucala) budesonide 0.5 mg/2 mL suspension 0.5 mg (2 mL) inhalation RTBID #60 03/22/22 02/22/23 for nebulization packets ipratropium 0.5 mg-albuterol 3 mg 3 ml inhalation RTQID ##60 03/22/22 02/22/23 (2.5 mg base)/3 mL nebulization soln levothyroxine 100 mcg tablet 100 mcg PO QDAC #30 tabs 03/22/22 02/22/23 azithromycin 250 mg tablet 1 tab ORAL DAILY 02/22/23 02/22/23 bupropion HCl 75 mg tablet 150 mg PO DAILY 02/22/23 02/22/23 prednisone 10 mg tablet 10 mg PO ONCE #26 tabs 02/22/23 prednisone 10 mg tablet 40 tab PO DAILY 02/22/23 02/22/23 sulfamethoxazole 800 1 tab ORAL ONCE 02/22/23 02/22/23 mg-trimethoprim 160 mg tablet ondansetron 4 mg disintegrating 4 mg translingual Q6H PRN Nausea / 08/16/23 tablet Vomiting #30 tabs promethazine 25 mg tablet 25 mg PO Q6H PRN Nausea / Vomiting 08/16/23 #10 tabs Allergies Allergies Allergy/AdvReac Type Severity Reaction Status Date / Time cephalexin Allergy Severe Rash Verified 07/11/24 22:34 peanut Allergy Severe Anaphylaxis Verified 07/11/24 22:34 shellfish derived Allergy Severe Anaphylaxis Verified 07/11/24 22:34 Penicillins Allergy Unknown Verified 07/11/24 22:34 PFSH Social History Social History Smoking Status: Never smoker If you are a former smoker, when did you quit? (Date/Year): 2001 Number of Years Smoked: 9 Do you dip or chew tobacco?: No Do you vape?: No Living arrangement: At home Living Condition: With spouse/s.o. and With family Relationship: Do you feel safe in your home environment?: Yes Suffered physical, verbal, emotional, or financial abuse?: No History of Abuse: No POLST Patient has POLST: No POLST Status: Full Code Exam Constitutional normal general appearance, distress noted (respiratory) (some work of breathing, dazed and sluggish to answer questions. Wheezing. ) and average body habitus [facility] normocephalic and oropharynx normal Neck/C-Spine supple and no meningeal signs Lymph no lymphadenopathy noted Respiratory breath sounds unequal (diminished both sides.), abnormal respiratory effort (labored), wheezing noted (expiratory wheezes) and no rales Cardiovascular heart rate abnormal (tachycardic), regular rhythm noted and no edema Extremities no tenderness Psychiatry mental status grossly normal, orientation abnormal (disoriented to time), thought process abnormality noted (confused) and cooperative Skin skin color normal and no rash Results Vitals Vitals: Vital Signs - 24 hr 07/11/24 22:30 07/11/24 23:03 07/11/24 23:20 Temperature 37.4 C Temperature Source Oral Pulse Rate 119 H 114 H 60 Respiratory Rate 20 22 28 H Blood Pressure 106/88 105/78 O2 Saturation 86 L 93 O2 Source Room air Oxymask Oxymask If not protocol: Oxygen Flow, liters/minute 10 12 Pain Intensity 0 07/11/24 23:47 07/12/24 00:10 07/12/24 00:45 Temperature 98.5 C H Temperature Source Oral Pulse Rate 102 H 114 H Respiratory Rate 28 H 22 Blood Pressure 95/74 O2 Saturation 95 O2 Source Oxymask Oxymask If not protocol: Oxygen Flow, liters/minute 12 8 Pain Intensity 7 07/12/24 01:20 Temperature Temperature Source Pulse Rate 103 H Respiratory Rate 20 Blood Pressure 102/65 O2 Saturation 93 O2 Source Oxymask If not protocol: Oxygen Flow, liters/minute 10 Pain Intensity Oxygen O2 Source [With Activity] Nasal cannula O2 Source Oxymask Labs Labs: Laboratory Tests 07/11/24 07/11/24 07/11/24 22:30 23:00 23:00 WBC 12.8 H RBC 4.19 L Hgb 13.8 Hct 44.6 MCV 106.4 H MCH 32.9 H MCHC 30.9 L RDW 12.4 Plt Count 245 MPV 10.5 Neut # (Auto) 11.3 H Lymph # (Auto) 0.7 L [place] # (Auto) 0.3 Eos # (Auto) 0.2 Baso # (Auto) 0.1 Absolute Nucleated RBC 0.02 Nucleated RBC % 0.2 VBG pH VBG pCO2 VBG pO2 VBG HCO3 VBG Total CO2 VBG O2 Saturation VBG Base Excess Sodium 131 L Potassium 4.2 Chloride 98 L Carbon Dioxide 20 L Anion Gap 13.0 BUN 17 Creatinine 0.8 Estimated GFR (MDRD) 75 L Glucose 74 Lactic Acid Calcium 9.0 Magnesium 1.9 Total Bilirubin 0.8 AST 83 H ALT 71 H Alkaline Phosphatase 97 B-Natriuretic Peptide 34 Total Protein 6.3 L Albumin 3.9 Globulin 2.4 Albumin/Globulin Ratio 1.6 Triglycerides 145 Cholesterol 192 LDL Cholesterol, Calc 109 VLDL Cholesterol 29 HDL Cholesterol 54 L LDL/HDL Ratio 2.0 Cholesterol/HDL Ratio 3.6 Lipase 37 TSH 9.22 H Nasal Adenovirus (PCR) NOT DETECTED Nasal B. parapertussis DNA (PCR) NOT DETECTED Nasal Coronavir 229E PCR NOT DETECTED Nasal Coronavir HKU1 PCR NOT DETECTED Nasal Coronavir NL63 PCR NOT DETECTED Nasal Coronavir OC43 PCR NOT DETECTED Nasal Enterovir/Rhinovir PCR NOT DETECTED Nasal Influenza A PCR DETECTED A NOT DETECTED Nasal Influenza B PCR NOT DETECTED Nasal Parainfluen 1 PCR NOT DETECTED Nasal Parainfluen 2 PCR NOT DETECTED Nasal Parainfluen 3 PCR NOT DETECTED Nasal Parainfluen 4 PCR NOT DETECTED Nasal RSV (PCR) NOT DETECTED Nasal B.pertussis DNA PCR NOT DETECTED Nasal C.pneumoniae (PCR) NOT DETECTED Cleve Human Metapneumo PCR NOT DETECTED Nasal M.pneumoniae (PCR) NOT DETECTED Nasal SARS-CoV-2 (PCR) NOT DETECTED 07/11/24 07/12/24 23:08 00:20 WBC RBC Hgb Hct MCV MCH MCHC RDW Plt Count MPV Neut # (Auto) Lymph # (Auto) [place] # (Auto) Eos # (Auto) Baso # (Auto) Absolute Nucleated RBC Nucleated RBC % VBG pH 7.302 L VBG pCO2 31.7 L VBG pO2 57.6 H VBG HCO3 15.3 L VBG Total CO2 16.3 L VBG O2 Saturation 88.3 H VBG Base Excess -9.9 L Sodium Potassium Chloride Carbon Dioxide Anion Gap BUN Creatinine Estimated GFR (MDRD) Glucose Lactic Acid 0.8 Calcium Magnesium Total Bilirubin AST ALT Alkaline Phosphatase B-Natriuretic Peptide Total Protein Albumin Globulin Albumin/Globulin Ratio Triglycerides Cholesterol LDL Cholesterol, Calc VLDL Cholesterol HDL Cholesterol LDL/HDL Ratio Cholesterol/HDL Ratio Lipase TSH Nasal Adenovirus (PCR) Nasal B. parapertussis DNA (PCR) Nasal Coronavir 229E PCR Nasal Coronavir HKU1 PCR Nasal Coronavir NL63 PCR Nasal Coronavir OC43 PCR Nasal Enterovir/Rhinovir PCR Nasal Influenza A PCR Nasal Influenza B PCR Nasal Parainfluen 1 PCR Nasal Parainfluen 2 PCR Nasal Parainfluen 3 PCR Nasal Parainfluen 4 PCR Nasal RSV (PCR) Nasal B.pertussis DNA PCR Nasal C.pneumoniae (PCR) Cleve Human Metapneumo PCR Nasal M.pneumoniae (PCR) Nasal SARS-CoV-2 (PCR) Rads (name of study) chest xray: Relevant Findings:: Final report received and EMP independent interpretat ion of test (no pnoumonia nor PTX nor effusion.) PD Medical Decision Making ED course Complexity details: reviewed results (Chest x-ray did not show any pneumothorax effusions nor pneumonia. Enlarged lung [place] consistent with emphysema.), re- evaluated patient (Breathing more comfortably with nebulizer treatments. She is more briskly responsive and alert. Good color. She is still requiring oxygen supplementation to maintain above 90%.), considered differential (Onset and progression seems likely a viral pneumonitis. We will test for respiratory panel. Also consider pneumonia and get chest x-ray. She does have COPD and presumed exacerbation with this illness. Treat with steroids and nebulizers. Cover with antibiotic in case.), d/w patient and d/w consultant dietitian (hospitalist) Discharge Plan Discharge Patient Disposition: [facility] DC/Xfer Condition: Stable Clinical Impression: COPD with acute exacerbation, Acute upper respiratory infection, AMS (altered mental status), Hypoxemia
[2024-07-11 23:02] LABS: BASOPHILS # (AUTO) 0.1 10^3/uL (0.0-0.1); BASOPHILS % (AUTO) 0.7 %; EOSINOPHILS # (AUTO) 0.2 10^3/uL (0.0-0.7); EOSINOPHILS % (AUTO) 1.5 %; HCT - HEMATOCRIT 44.6 % (37.0-47.0); HGB - HEMOGLOBIN 13.8 g/dL (12.0-16.0); LYMPHOCYTES # (AUTO) 0.7 10^3/uL (1.5-3.5); LYMPHOCYTES % (AUTO) 5.5 %; MEAN CORPUSCULAR HEMOGLOBIN 32.9 pg (27.0-31.0); MEAN CORPUSCULAR HGB CONC 30.9 g/dL (32.0-36.0); MEAN CORPUSCULAR VOLUME 106.4 fL (81.0-99.0); MEAN PLATELET VOLUME 10.5 fL (7.9-10.8); MONOCYTES # (AUTO) 0.3 10^3/uL (0.0-1.0); MONOCYTES % (AUTO) 2.5 %; NEUTROPHILS # (AUTO) 11.3 10^3/uL (1.5-6.6); NEUTROPHILS % (AUTO) 88.5 %; NRBC ABSOLUTE COUNT (AUTO) 0.02 x10^3/uL; NUCLEATED RED BLOOD CELLS AUTO 0.2 /100WBC; PLT - PLATELET COUNT 245 10^3/uL (130-450); RED BLOOD COUNT 4.19 10^6/uL (4.20-5.40); RED CELL DISTRIBUTION WIDTH 12.4 % (12.0-15.0); WHITE BLOOD COUNT 12.8 x10^3/uL (4.8-10.8)
[2024-07-11] MEDS: IPRATROPIUM/ALBUTEROL 3 ML NEB INH STA (23:20)
[2024-07-11 23:25] LABS: ALBUMIN 3.9 g/dL (3.2-5.5); ALBUMIN/GLOBULIN RATIO 1.6 (1.0-2.2); BILIRUBIN,TOTAL 0.8 mg/dL (0.2-1.0); CREATININE 0.8 mg/dL (0.6-1.3); POTASSIUM 4.2 mmol/L (3.5-4.5); TOTAL PROTEIN 6.3 g/dL (6.4-8.9)
--- NOTE | 2024-07-11 23:38 | XRAY Report ---
PROCEDURE: XR Chest 1V INDICATIONS: dyspnea, cough TECHNIQUE: One view of the chest was acquired. COMPARISON: Chest radiograph 02/22/2023, 03/15/2022. FINDINGS: Surgical changes and devices: None. Lungs and pleura: No pleural effusions or pneumothorax. No consolidation. Emphysematous changes. Mediastinum: Mediastinal contours appear normal. Heart size is normal. Bones and chest wall: No suspicious bony lesions. Overlying soft tissues appear unremarkable. IMPRESSION: Emphysematous changes without focal airspace consolidation. Reviewed by: Samia August MD, PhD on 07/11/2024 11:37 PM PST Approved by: Samia August MD, PhD on 07/11/2024 11:37 PM PST Station ID: [id number]
[2024-07-11] MEDS: levoFLOXacin 500 MG/100 ML 500 MG/100 ML BAG IV STA (23:46)
[2024-07-11] MEDS: DEXAMETHASONE 10 MG/ML VIAL IVP STA (23:47)
[2024-07-11] MEDS: KETOROLAC 15 MG/ML VIAL IVP STA (23:47)
[2024-07-12 00:06] LABS: CORONAVIRUS 229E-RESP PCR NOT DETECTED; CORONAVIRUS HKU1-RESP PCR NOT DETECTED; CORONAVIRUS NL63-RESP PCR NOT DETECTED; CORONAVIRUS OC43-RESP PCR NOT DETECTED; HUMAN METAPNEUMOVIRUS NOT DETECTED; INFLUENZA A NO SUB- RESP PCR DETECTED; INFLUENZA A- RESP PCR PANEL NOT DETECTED; RHINOVIRUS/ENTEROVIRUS NOT DETECTED; SARS-CoV-2 -RESP PCR PANEL NOT DETECTED
[2024-07-12 00:07] LABS: B. PARAPERTUSSIS- RESP PCR PAN NOT DETECTED; B. PERTUSSIS- RESP PCR PANEL NOT DETECTED; C. PNEUMONIAE- RESP PCR PANEL NOT DETECTED; INFLUENZA B - RESP PCR PANEL NOT DETECTED; M. PNEUMONIAE- RESP PCR PANEL NOT DETECTED; PARAINFLUENZA VIRUS 1 NOT DETECTED; PARAINFLUENZA VIRUS 2 NOT DETECTED; PARAINFLUENZA VIRUS 4 NOT DETECTED; RSV- RESP PCR PANEL NOT DETECTED
[2024-07-12] MEDS: ALBUTEROL NEB 2.5 MG/3 ML INH STA (00:10)
[2024-07-12 00:28] LABS: VBG BASE EXCESS -9.9 mmol/L (-2 - +2); VBG HCO3 15.3 mmol/L (23-28); VBG OXYGEN SATURATION 88.3 % (60-80); VBG PCO2 31.7 mmHg (41-51); VBG PH 7.302 (7.31-7.41); VBG PO2 57.6 mmHg (25-47); VBG TOTAL CO2 16.3 mmol/L (24-29)
--- NOTE | 2024-07-12 00:45 | CT Report ---
PROCEDURE: CT Head WO INDICATIONS: dyapnea, confused TECHNIQUE: Noncontrast 4.5 mm thick angled axial sections acquired from the foramen magnum to the vertex. For r adiation dose reduction, the following was used: automated exposure control, adjustment of mA and/or kV according to patient size. COMPARISON: CT had angiogram 03/16/2022. FINDINGS: Image quality: Degraded by patient motion artifact. CSF spaces: Basal cisterns are patent. No extra-axial fluid collections. Ventricles are normal in size and shape. Brain: No midline shift. No acute intracranial hemorrhage. Redemonstration of anterior right frontal calcified mass measuring 1.9 cm, not significantly changed since 03/16/2022.. Larry-white matter inter face is normal. Skull and face: Calvarium and visualized facial bones are intact, without suspicious lesions. Sinuses: Visualized sinuses and mastoids are clear. IMPRESSION: Motion degraded exam. No acute intracranial pathology. No significant change in calcified anterior right frontal mass since March 2022. Finding may repr esent calcified meningioma. Reviewed by: Samia August MD, PhD on 07/12/2024 12:44 AM PST Approved by: Samia August MD, PhD on 07/12/2024 12:44 AM PST Station ID: [id number]
[2024-07-12] MEDS ORDERED: PROMETHAZINE 25 MG TABLET PO PRN (01:20)
[2024-07-12] MEDS ORDERED: MELATONIN 3 MG TABLET PO PRN (01:24)
[2024-07-12] MEDS: SODIUM CHLORIDE 0.9% 1,000 ML IV STA (01:29)
--- NOTE | 2024-07-12 01:52 | HISTORY & PHYSICAL EXAMINATION ---
Chief Complaint Chief Complaint Chief Complaint: sob, fatigue History of Present Illness History of Present Illness HPI Comment/Other: pt with ams, weakness, sob, cough that developed in last 24 hours. sick contact is with similar symptoms. pt is vaccinated against covid but not flu. pt did vomit x 1 at home, per daughter. no abd pain. no falls. no seizures. no recent travel. no swelling. no head injuries reported. pt used to smoke in her 30s. no dysuria or hematuria. Review of Systems Status of ROS: 10 or more systems reviewed and unremarkable except as noted in history and below PFSH Social History Social History Smoking Status: Never smoker If you are a former smoker, when did you quit? (Date/Year): 2001 Number of Years Smoked: 9 Do you dip or chew tobacco?: No Do you vape?: No Living arrangement: At home Living Condition: With spouse/s.o. and With family Relationship: Do you feel safe in your home environment?: Yes Suffered physical, verbal, emotional, or financial abuse?: No History of Abuse: No POLST Patient has POLST: No POLST Status: Full Code Meds/Allgy Home Medications Ambulatory Orders Medication Instructions Recorded Confirmed azelastine 137 mcg (0.1 %) nasal 2 sprays NS BID 10/09/20 02/22/23 spray montelukast 10 mg tablet 10 mg PO QPM 10/09/20 02/22/23 albuterol sulfate 90 mcg/actuation 1 - 2 puff inhalation QID PRN 10/01/21 02/22/23 breath activated powder inhaler Shortness Of Air/Wheezing (ProAir RespiClick) tiotropium bromide 18 mcg capsule 18 mcg inhalation DAILY 10/01/21 02/22/23 with inhalation device (Spiriva with HandiHaler) alendronate 70 mg tablet 70 mg PO Q7D 03/15/22 02/22/23 budesonide-formoterol HFA 160 2 puff inhalation BID 03/15/22 02/22/23 mcg-4.5 mcg/actuation aerosol inhaler (Symbicort) calcium 600 mg (as 1 ea PO DAILY 03/15/22 02/22/23 carbonate)-vitamin D3 20 mcg (800 unit) tablet (Caltrate with Vitamin D3) gabapentin 600 mg tablet 600 mg PO BID 03/15/22 02/22/23 (Neurontin) loratadine 10 mg tablet 40 mg PO BID 03/15/22 02/22/23 mepolizumab 100 mg/mL subcutaneous 300 mg subcut Q28D 03/15/22 02/22/23 syringe (Nucala) budesonide 0.5 mg/2 mL suspension 0.5 mg (2 mL) inhalation RTBID #60 03/22/22 02/22/23 for nebulization packets ipratropium 0.5 mg-albuterol 3 mg 3 ml inhalation RTQID ##60 03/22/22 02/22/23 (2.5 mg base)/3 mL nebulization soln levothyroxine 100 mcg tablet 100 mcg PO QDAC #30 tabs 03/22/22 02/22/23 azithromycin 250 mg tablet 1 tab ORAL DAILY 02/22/23 02/22/23 bupropion HCl 75 mg tablet 150 mg PO DAILY 02/22/23 02/22/23 prednisone 10 mg tablet 10 mg PO ONCE #26 tabs 02/22/23 prednisone 10 mg tablet 40 tab PO DAILY 02/22/23 02/22/23 sulfamethoxazole 800 1 tab ORAL ONCE 02/22/23 02/22/23 mg-trimethoprim 160 mg tablet ondansetron 4 mg disintegrating 4 mg translingual Q6H PRN Nausea / 08/16/23 tablet Vomiting #30 tabs promethazine 25 mg tablet 25 mg PO Q6H PRN Nausea / Vomiting 08/16/23 #10 tabs Allergies Allergies Allergy/AdvReac Type Severity Reaction Status Date / Time cephalexin Allergy Severe Rash Verified 07/11/24 22:34 peanut Allergy Severe Anaphylaxis Verified 07/11/24 22:34 shellfish derived Allergy Severe Anaphylaxis Verified 07/11/24 22:34 Penicillins Allergy Unknown Verified 07/11/24 22:34 Exam Constitutional normal general appearance and no apparent distress HENMT normocephalic, head/scalp atraumatic and hearing grossly normal bilaterally Eyes EOMs intact bilaterally Neck/C-Spine visual inspection normal Respiratory per ed charting Cardiovascular no edema details per ed charting Gastrointestinal nondistended Neurology rn tele II-XII intact and no focal motor deficit noted Conclusion/Plan Problem List (1) Hypoxemia: Plan pt with - - acute hypoxemic resp failure in setting of copd exacerbation d/t influenza o2, nebs, steroid, tamiflu cxr without infiltrate pt received x 1 dose of levaquin in ED - toxic metabolic encephalopathy able to answer questions but fatigued ams d/t hypoxia above monitor - hypotension in setting of above encourage po intake, continue IVF - transaminitis unclear etiology, but may be d/t current presentation check hepatitis panel, abd us f/u labs, replete electrolytes further orders per clinical course Lab Results 07/11/24 22:30 07/11/24 22:30
[2024-07-12 02:15] LABS: CHOL/HDL RATIO 3.6 (<4.4); CHOLESTEROL 192 mg/dL; HDL CHOLESTEROL 54 mg/dL; LDL CHOLESTEROL,CALCULATED 109 mg/dL; TRIGLYCERIDES 145 mg/dL; VLDL CHOLESTEROL 29 mg/dL
[2024-07-12] MEDS ORDERED: ALBUTEROL NEB 2.5 MG/3 ML INH PRN (02:26)
[2024-07-12 02:30] LABS: THYROID STIMULATING HORMONE 9.22 uIU/mL (0.34-5.60)
[2024-07-12] MEDS: LACTATED RINGERS 1,000 ML IV SCH (03:07)
[2024-07-12] MEDS: OSELTAMIVIR 75 MG CAPSULE PO SCH (03:13)
[2024-07-12] MEDS: IPRATROPIUM/ALBUTEROL 3 ML NEB INH SCH (04:03)
[2024-07-12 05:57] LABS: BASOPHILS % (AUTO) 0.4 %; HCT - HEMATOCRIT 43.1 % (37.0-47.0); HGB - HEMOGLOBIN 12.7 g/dL (12.0-16.0); LYMPHOCYTES # (AUTO) 0.3 10^3/uL (1.5-3.5); LYMPHOCYTES % (AUTO) 3.2 %; MEAN CORPUSCULAR HEMOGLOBIN 32.4 pg (27.0-31.0); MEAN CORPUSCULAR HGB CONC 29.5 g/dL (32.0-36.0); MEAN CORPUSCULAR VOLUME 109.9 fL (81.0-99.0); MEAN PLATELET VOLUME 10.2 fL (7.9-10.8); MONOCYTES # (AUTO) 0.2 10^3/uL (0.0-1.0); MONOCYTES % (AUTO) 1.9 %; NEUTROPHILS # (AUTO) 9.5 10^3/uL (1.5-6.6); NEUTROPHILS % (AUTO) 92.6 %; PLT - PLATELET COUNT 196 10^3/uL (130-450); RED BLOOD COUNT 3.92 10^6/uL (4.20-5.40); RED CELL DISTRIBUTION WIDTH 12.7 % (12.0-15.0); WHITE BLOOD COUNT 10.3 x10^3/uL (4.8-10.8)
[2024-07-12 06:12] LABS: ALBUMIN 3.4 g/dL (3.2-5.5); ALBUMIN/GLOBULIN RATIO 1.4 (1.0-2.2); BILIRUBIN,TOTAL 0.5 mg/dL (0.2-1.0); CALCIUM 7.6 mg/dL (8.5-10.3); CREATININE 0.8 mg/dL (0.6-1.3); MAGNESIUM 2.1 mg/dL (1.7-2.3); POTASSIUM 4.4 mmol/L (3.5-4.5); TOTAL PROTEIN 5.8 g/dL (6.4-8.9)
[2024-07-12] MEDS: IBUPROFEN 400 MG TABLET PO PRN (06:46)
[2024-07-12] MEDS: LEVOTHYROXINE 100 MCG TABLET PO SCH (06:47)
[2024-07-12] MEDS ORDERED: IPRATROPIUM 0.2 MG/ML NEB INH SCH (07:00)
--- NOTE | 2024-07-12 07:23 | PROVIDER PROGRESS NOTE ---
Subjective Prog Note Date Prog Note Date: 07/12/24 Prog Note Time: 07:21 Subjective Subjective: She feels better than she did at the time of admission. she still is tired and short of breath. As the day progresses, she is able to wean from 10L oxy mask down to 2L NC. she is getting tamiflu and neb treatments. These are helping. Current Medications Current Medications Current Medications: Current Medications Generic Name Dose Route Start Last Admin Trade Name Freq PRN Reason Stop Dose Admin Albuterol 2.5 mg 07/12/24 02:26 Albuterol Neb 2.5 Mg/3 Ml INH RTQ6H PRN Shortness Of Air/Wheezing Albuterol/Ipratropium 3 ml 07/12/24 02:00 07/12/24 04:03 Ipratropium/Albuterol 3 Ml Neb INH Not Given RTQID DEBBI Alendronate Sodium 70 mg 07/12/24 02:00 Alendronate 70 Mg Tablet PO Q7D DEBBI Ascorbic Acid 500 mg 07/12/24 09:00 Ascorbic Acid 500 Mg Tablet PO DAILY DEBBI Budesonide 0.5 mg 07/12/24 07:00 Budesonide 0.5 Mg/2 Ml Neb INH RTBID DEBBI Bupropion HCl 150 mg 07/12/24 09:00 Bupropion Xl 150 Mg Tablet PO DAILY DEBBI Calcium Carbonate/Glycine 500 mg 07/12/24 09:00 Calcium Carbonate Chew 500 Mg Tablet PO DAILY DEBBI Cholecalciferol 200 unit 07/12/24 09:00 Cholecalciferol 400 Unit Tablet PO DAILY DEBBI Enoxaparin Sodium 40 mg 07/12/24 09:00 Enoxaparin 40 Mg/0.4 Ml Syringe SUBQ DAILY DEBBI Formoterol Fumarate 20 mcg 07/12/24 07:00 Formoterol Fumarate Neb 20 Mcg/2 Ml INH RTBID DEBBI Gabapentin 600 mg 07/12/24 09:00 Gabapentin 300 Mg Capsule PO BID DEBBI Lactated Ringer's 1,000 mls @ 75 mls/hr 07/12/24 02:00 07/12/24 03:07 Lr IV 75 mls/hr .[id number] DEBBI Administration Ibuprofen 400 mg 07/12/24 05:31 07/12/24 06:46 Ibuprofen 400 Mg Tablet PO 400 mg Q8H PRN Administration Mild Pain or Fever>38C(100.4F) Levothyroxine Sodium 100 mcg 07/12/24 07:00 07/12/24 06:47 Levothyroxine 100 Mcg Tablet PO 100 mcg QDAC DEBBI Administration Melatonin 3 mg 07/12/24 01:24 Melatonin 3 Mg Tablet PO QPM PRN sleep Montelukast Sodium 10 mg 07/12/24 21:00 Montelukast 10 Mg Tablet PO QPM DEBBI Morphine Sulfate 2 mg 07/12/24 01:24 Morphine 10 Mg/Ml Vial IVP Q4H PRN Pain Non-Formulary Medication 2 sprays 07/12/24 09:00 Azelastine INH BID DEBBI Oseltamivir Phosphate 75 mg 07/12/24 02:00 07/12/24 03:13 Oseltamivir 75 Mg Capsule PO 07/17/24 01:59 75 mg BID DEBBI Administration Prednisone 20 mg 07/12/24 09:00 Prednisone 20 Mg Tablet PO DAILY DEBBI Promethazine HCl 25 mg 07/12/24 01:20 Promethazine 25 Mg Tablet PO Q6H PRN Nausea / Vomiting Objective Vital Signs/Intake & Output Reviewed Vital Signs: Yes Vital Signs: Vital Signs x48h Temp Pulse Pulse Resp BP BP Pulse Ox 07/12/24 02:57 07/12/24 02:55 37.2 C 105 H 20 96/67 97 07/12/24 02:15 92 20 118/67 98 07/12/24 01:20 103 H 20 102/65 93 07/12/24 00:45 98.5 C H 114 H 22 95/74 95 07/12/24 00:10 102 H 28 H O2 Flow Rate 07/12/24 02:57 10 07/12/24 02:55 10 07/12/24 02:15 10 07/12/24 01:20 10 07/12/24 00:45 8 07/12/24 00:10 12 Intake & Output: Intake & Output 07/09/24 07/10/24 07/11/24 07/12/24 23:59 23:59 23:59 23:59 Weight (kg) 48 kg 46.5 kg Objective General Appearance: positive No acute distress and Alert Eyes Bilateral: positive Normal inspection ENT: positive ENT inspection nml Neck: positive Nml inspection Respiratory: positive Chest non-tender, No respiratory distress and Breath sounds nml; negative Wheezes or Rhonchi Cardiovascular: positive Regular rate & rhythm Abdomen: positive Non-tender and No distention Back: positive Nml inspection Skin: positive Color nml Extremities: positive Non-tender, No pedal edema and Other (nails are clubbed. ) Neurologic/Psychiatric: positive Oriented x3 Lab Results 07/12/24 05:13 07/12/24 05:13 Other Labs: Lab Results x24hrs 07/12/24 07/12/24 07/11/24 Range/Units 05:13 00:20 23:08 WBC 10.3 (4.8-10.8) x10^3/uL RBC 3.92 L (4.20-5.40) 10^6/uL Hgb 12.7 (12.0-16.0) g/dL Hct 43.1 (37.0-47.0) % MCV 109.9 H (81.0-99.0) fL MCH 32.4 H (27.0-31.0) pg MCHC 29.5 L (32.0-36.0) g/dL RDW 12.7 (12.0-15.0) % Plt Count 196 (130-450) 10^3/uL MPV 10.2 (7.9-10.8) fL Neut # (Auto) 9.5 H (1.5-6.6) 10^3/uL Lymph # (Auto) 0.3 L (1.5-3.5) 10^3/uL Kemper # (Auto) 0.2 (0.0-1.0) 10^3/uL Eos # (Auto) 0.0 (0.0-0.7) 10^3/uL Baso # (Auto) 0.0 (0.0-0.1) 10^3/uL Absolute Nucleated RBC 0.00 x10^3/uL Nucleated RBC % 0.0 /100WBC VBG pH 7.302 L (7.31-7.41) VBG pCO2 31.7 L (41-51) mmHg VBG pO2 57.6 H (25-47) mmHg VBG HCO3 15.3 L (23-28) mmol/L VBG Total CO2 16.3 L (24-29) mmol/L VBG O2 Saturation 88.3 H (60-80) % VBG Base Excess -9.9 L (-2 - +2) mmol/L Sodium 136 (135-145) mmol/L Potassium 4.4 (3.5-4.5) mmol/L Chloride 106 (101-111) mmol/L Carbon Dioxide 21 (21-32) mmol/L Anion Gap 9.0 (6-13) BUN 15 (6-20) mg/dL Creatinine 0.8 (0.6-1.3) mg/dL Estimated GFR (MDRD) 75 L (>89) Glucose 99 (74-104) mg/dL Lactic Acid 0.8 (0.5-2.2) mmol/L Calcium 7.6 L (8.5-10.3) mg/dL Magnesium 2.1 (1.7-2.3) mg/dL Total Bilirubin 0.5 (0.2-1.0) mg/dL AST 65 H (10-42) IU/L ALT 58 (10-60) IU/L Alkaline Phosphatase 84 (42-121) IU/L B-Natriuretic Peptide (5-100) pg/mL Total Protein 5.8 L (6.4-8.9) g/dL Albumin 3.4 (3.2-5.5) g/dL Globulin 2.4 (2.1-4.2) g/dL Albumin/Globulin Ratio 1.4 (1.0-2.2) Triglycerides mg/dL Cholesterol ( - 200) mg/dL LDL Cholesterol, Calc ( - 129) mg/dL VLDL Cholesterol mg/dL HDL Cholesterol (60 - ) mg/dL LDL/HDL Ratio (<4.4) Cholesterol/HDL Ratio (<4.4) Lipase (11-82) U/L TSH (0.34-5.60) uIU/mL Nasal Adenovirus (PCR) Nasal B. parapertussis DNA (PCR) Nasal Coronavir 229E PCR Nasal Coronavir HKU1 PCR Nasal Coronavir NL63 PCR Nasal Coronavir OC43 PCR Nasal Enterovir/Rhinovir PCR Nasal Influenza A PCR Nasal Influenza B PCR Nasal Parainfluen 1 PCR Nasal Parainfluen 2 PCR Nasal Parainfluen 3 PCR Nasal Parainfluen 4 PCR Nasal RSV (PCR) Nasal B.pertussis DNA PCR Nasal C.pneumoniae (PCR) Cleve Human Metapneumo PCR Nasal M.pneumoniae (PCR) Nasal SARS-CoV-2 (PCR) 07/11/24 07/11/24 07/11/24 Range/Units 23:00 23:00 22:30 WBC 12.8 H (4.8-10.8) x10^3/uL RBC 4.19 L (4.20-5.40) 10^6/uL Hgb 13.8 (12.0-16.0) g/dL Hct 44.6 (37.0-47.0) % MCV 106.4 H (81.0-99.0) fL MCH 32.9 H (27.0-31.0) pg MCHC 30.9 L (32.0-36.0) g/dL RDW 12.4 (12.0-15.0) % Plt Count 245 (130-450) 10^3/uL MPV 10.5 (7.9-10.8) fL Neut # (Auto) 11.3 H (1.5-6.6) 10^3/uL Lymph # (Auto) 0.7 L (1.5-3.5) 10^3/uL Kemper # (Auto) 0.3 (0.0-1.0) 10^3/uL Eos # (Auto) 0.2 (0.0-0.7) 10^3/uL Baso # (Auto) 0.1 (0.0-0.1) 10^3/uL Absolute Nucleated RBC 0.02 x10^3/uL Nucleated RBC % 0.2 /100WBC VBG pH (7.31-7.41) VBG pCO2 (41-51) mmHg VBG pO2 (25-47) mmHg VBG HCO3 (23-28) mmol/L VBG Total CO2 (24-29) mmol/L VBG O2 Saturation (60-80) % VBG Base Excess (-2 - +2) mmol/L Sodium 131 L (135-145) mmol/L Potassium 4.2 (3.5-4.5) mmol/L Chloride 98 L (101-111) mmol/L Carbon Dioxide 20 L (21-32) mmol/L Anion Gap 13.0 (6-13) BUN 17 (6-20) mg/dL Creatinine 0.8 (0.6-1.3) mg/dL Estimated GFR (MDRD) 75 L (>89) Glucose 74 (74-104) mg/dL Lactic Acid (0.5-2.2) mmol/L Calcium 9.0 (8.5-10.3) mg/dL Magnesium 1.9 (1.7-2.3) mg/dL Total Bilirubin 0.8 (0.2-1.0) mg/dL AST 83 H (10-42) IU/L ALT 71 H (10-60) IU/L Alkaline Phosphatase 97 (42-121) IU/L B-Natriuretic Peptide 34 (5-100) pg/mL Total Protein 6.3 L (6.4-8.9) g/dL Albumin 3.9 (3.2-5.5) g/dL Globulin 2.4 (2.1-4.2) g/dL Albumin/Globulin Ratio 1.6 (1.0-2.2) Triglycerides 145 mg/dL Cholesterol 192 ( - 200) mg/dL LDL Cholesterol, Calc 109 ( - 129) mg/dL VLDL Cholesterol 29 mg/dL HDL Cholesterol 54 L (60 - ) mg/dL LDL/HDL Ratio 2.0 (<4.4) Cholesterol/HDL Ratio 3.6 (<4.4) Lipase 37 (11-82) U/L TSH 9.22 H (0.34-5.60) uIU/mL Nasal Adenovirus (PCR) NOT DETECTED Nasal B. parapertussis DNA (PCR) NOT DETECTED Nasal Coronavir 229E PCR NOT DETECTED Nasal Coronavir HKU1 PCR NOT DETECTED Nasal Coronavir NL63 PCR NOT DETECTED Nasal Coronavir OC43 PCR NOT DETECTED Nasal Enterovir/Rhinovir PCR NOT DETECTED Nasal Influenza A PCR NOT DETECTED DETECTED A Nasal Influenza B PCR NOT DETECTED Nasal Parainfluen 1 PCR NOT DETECTED Nasal Parainfluen 2 PCR NOT DETECTED Nasal Parainfluen 3 PCR NOT DETECTED Nasal Parainfluen 4 PCR NOT DETECTED Nasal RSV (PCR) NOT DETECTED Nasal B.pertussis DNA PCR NOT DETECTED Nasal C.pneumoniae (PCR) NOT DETECTED Cleve Human Metapneumo PCR NOT DETECTED Nasal M.pneumoniae (PCR) NOT DETECTED Nasal SARS-CoV-2 (PCR) NOT DETECTED Assessment/Plan Problem List (1) Acute hypoxic respiratory failure: Impression: This is due to COPD exacerbation, likely triggered by influenza infection. received decadron 10mg in the ED. She does not have a PNA on CXR- she is feeling better every hour. no indication for abx. She is weaning off oxygen as the day progressed. She is not on home oxygen. Review of records indicates she has been in and out of pulmonary rehab here at . 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 . (2) Acute exacerbation of COPD with asthma: Impression: received one dose of decadron in ED. I am treated underlying flu A with tamiflu. She is improving. (3) Influenza: Impression: treating w Tamiflu x 5 d (4) Transaminitis: Impression: improving. repeat CMP in AM (5) Hypotension: Impression: She is able to eat and drink. Will dc IVF after current bag. (6) Hypothyroidism: Impression: continue her home dose of synthroid. (7) Depression: Impression: continue home meds.
[2024-07-12] MEDS: FORMOTEROL FUMARATE NEB 20 MCG/2 ML INH SCH (08:15)
[2024-07-12] MEDS: BUDESONIDE 0.5 MG/2 ML NEB INH SCH (08:15)
[2024-07-12] MEDS: MORPHINE 10 MG/ML VIAL IVP PRN (08:56)
[2024-07-12] MEDS: ENOXAPARIN 40 MG/0.4 ML SYRINGE SUBQ SCH (08:56)
[2024-07-12] MEDS: ASCORBIC ACID 500 MG TABLET PO SCH (08:57)
[2024-07-12] MEDS: CALCIUM CARBONATE CHEW 500 MG TABLET PO SCH (08:57)
[2024-07-12] MEDS: buPROPion XL 150 MG TABLET PO SCH (08:57)
[2024-07-12] MEDS: predniSONE 20 MG TABLET PO SCH (08:57)
[2024-07-12] MEDS: CHOLECALCIFEROL 400 UNIT TABLET PO SCH (08:57)
[2024-07-12] MEDS: GABAPENTIN 300 MG CAPSULE PO SCH (08:57)
[2024-07-12 10:11] LABS: ESTIMATED AVERAGE GLUCOSE 128 mg/dL (70-100); HEMOGLOBIN A1c% 6.1 % (4.27-6.07)
[2024-07-12] MEDS: ALENDRONATE 70 MG TABLET PO SCH (10:40)
--- NOTE | 2024-07-12 11:00 | PHARMACY PROGRESS NOTE ---
Best Possible Medication History Admit Date and Time: 07/12/24 0124 Home Medications Medication Instructions Recorded Confirmed Type azelastine 137 mcg (0.1 %) nasal 2 sprays NS BID 10/09/20 07/12/24 History spray montelukast 10 mg tablet 10 mg PO QPM 10/09/20 07/12/24 History albuterol sulfate 90 mcg/actuation 1 - 2 puff inhalation QID PRN 10/01/21 07/12/24 History breath activated powder inhaler Shortness Of Air/Wheezing (ProAir RespiClick) tiotropium bromide 18 mcg capsule 18 mcg inhalation DAILY 10/01/21 07/12/24 History with inhalation device (Spiriva with HandiHaler) alendronate 70 mg tablet 70 mg PO Q7D 03/15/22 07/12/24 History budesonide-formoterol HFA 160 2 puff inhalation BID 03/15/22 07/12/24 History mcg-4.5 mcg/actuation aerosol inhaler (Symbicort) calcium 600 mg (as 1 ea PO DAILY 03/15/22 07/12/24 History carbonate)-vitamin D3 20 mcg (800 unit) tablet (Caltrate with Vitamin D3) gabapentin 600 mg tablet 1,200 mg PO BID 03/15/22 07/12/24 History (Neurontin) loratadine 10 mg tablet 10 mg PO BID 03/15/22 07/12/24 History mepolizumab 100 mg/mL subcutaneous 300 mg subcut Q28D 03/15/22 07/12/24 History syringe (Nucala) budesonide 0.5 mg/2 mL suspension 0.5 mg (2 mL) inhalation RTBID #60 03/22/22 07/12/24 Rx for nebulization packets ipratropium 0.5 mg-albuterol 3 mg 3 ml inhalation RTQID ##60 03/22/22 07/12/24 Rx (2.5 mg base)/3 mL nebulization soln levothyroxine 100 mcg tablet 100 mcg PO QDAC #30 tabs 03/22/22 07/12/24 Rx prednisone 10 mg tablet 20 mg PO DAILY 02/22/23 07/12/24 History bupropion HCl 150 mg 24 hr tablet, 150 mg PO ONCE 07/12/24 07/12/24 History extended release ciclopirox 8 % topical solution 1 applic topical ONCE 07/12/24 07/12/24 History hydroxyzine HCl 50 mg tablet 50 mg PO BID PRN sleep 07/12/24 07/12/24 History mycophenolate mofetil 500 mg tablet 1,000 mg PO BID 07/12/24 07/12/24 History Processed by: Pharmacy Medications reviewed in ED?: Yes Medication History completed: Yes Patient Interview: Completed Secondary Source(s): Insurance records [facility] Statement: As the person ultimately responsible for medication therapy, providers are able to order a medication from an existing home medication list in [facility] via the "Reconcile Routine" prior to Confirmation of that medication by field support specialist. Such practice is discouraged except when the physician, in their clinical judgment, deems that a medical need exists for a medication without regard to previous use.
[2024-07-12] MEDS ORDERED: hydrOXYzine PAMOATE 25 MG CAPSULE PO PRN (11:49)
[2024-07-12] MEDS ORDERED: buPROPion XL 150 MG TABLET PO SCH (12:00)
[2024-07-12] MEDS: LORATADINE 10 MG TABLET PO SCH (12:16)
[2024-07-12] MEDS ORDERED: BUDESONIDE 0.5 MG/2 ML NEB INH SCH (19:00)
[2024-07-12] MEDS: mycophenolate mofetiL 250 MG CAPSULE PO SCH (21:41)
[2024-07-12] MEDS: MONTELUKAST 10 MG TABLET PO SCH (21:41)
[2024-07-13] MEDS: MORPHINE 2 MG/ML CARPUJECT IVP PRN (01:13)
[2024-07-13 04:08] VITALS: TEMP 98.2
[2024-07-13 05:56] LABS: BASOPHILS % (AUTO) 0.2 %; EOSINOPHILS % (AUTO) 0.2 %; HGB - HEMOGLOBIN 11.4 g/dL (12.0-16.0); LYMPHOCYTES # (AUTO) 0.4 10^3/uL (1.5-3.5); LYMPHOCYTES % (AUTO) 7.5 %; MEAN CORPUSCULAR HEMOGLOBIN 33.2 pg (27.0-31.0); MEAN CORPUSCULAR HGB CONC 30.8 g/dL (32.0-36.0); MEAN CORPUSCULAR VOLUME 107.9 fL (81.0-99.0); MEAN PLATELET VOLUME 10.3 fL (7.9-10.8); MONOCYTES # (AUTO) 0.3 10^3/uL (0.0-1.0); MONOCYTES % (AUTO) 5.1 %; NEUTROPHILS # (AUTO) 4.6 10^3/uL (1.5-6.6); NEUTROPHILS % (AUTO) 86.2 %; PLT - PLATELET COUNT 167 10^3/uL (130-450); RED BLOOD COUNT 3.43 10^6/uL (4.20-5.40); RED CELL DISTRIBUTION WIDTH 12.5 % (12.0-15.0); WHITE BLOOD COUNT 5.3 x10^3/uL (4.8-10.8)
[2024-07-13 06:14] LABS: ALBUMIN 3.1 g/dL (3.2-5.5); ALBUMIN/GLOBULIN RATIO 1.5 (1.0-2.2); BILIRUBIN,TOTAL 0.3 mg/dL (0.2-1.0); CALCIUM 8.3 mg/dL (8.5-10.3); CREATININE 0.7 mg/dL (0.6-1.3); POTASSIUM 4.3 mmol/L (3.5-4.5); TOTAL PROTEIN 5.2 g/dL (6.4-8.9)
[2024-07-13] MEDS: FLUTICASONE NASAL SPRAY NAS SCH (08:33)
[2024-07-13] MEDS: KETOROLAC 15 MG/ML VIAL IVP STA ×2 (08:45→15:40)
[2024-07-13] MEDS: METOCLOPRAMIDE 10 MG TABLET PO ONE (09:37)
[2024-07-13] MEDS: dexAMETHasone 4 MG TABLET PO SCH (12:09)
[2024-07-13] MEDS: ACETAMINOPHEN 325 MG TABLET PO PRN (12:10)
[2024-07-13] MEDS: BUTALB/ACETAM/CAFF 50/325/40MG TABLET PO PRN (13:32)
[2024-07-13] MEDS ORDERED: dexAMETHasone 4 MG TABLET PO SCH (14:00)
[2024-07-13] MEDS: METOCLOPRAMIDE 10 MG/2 ML VIAL IVP ONE (15:40)
[2024-07-13] MEDS: diphenhydrAMINE INJ 50 MG/ML VIAL IVP ONE (15:45)
[2024-07-13 16:20] VITALS: BP 130/84; O2SAT 95
--- NOTE | 2024-07-13 16:48 | Discharge Summary ---
Discharge Summary Admit Date: 07/12/24 Discharge Date: 07/13/24 Discharging Provider: Alexandre Martines NP Primary Care Provider: Meagan Castorena Code Status: Attempt Resuscitation DIAGNOSES Admission Diagnoses: Acute hypoxemic respiratory failure Acute exacerbation of COPD with asthma Influenza Transaminitis Hypertension Hypothyroid Depression with anxiety Discharge Diagnoses with Status of Each Condition: Acute hypoxic respiratory failureactive Acute exacerbation of COPD with asthmaactive Influenzaactive Transaminitis Resolved Hypertensionchronic Hypothyroidchronic Depression with anxietychronic HPI History of Present Illness: pt with ams, weakness, sob, cough that developed in last 24 hours. sick contact is with similar symptoms. pt is vaccinated against covid but not flu. pt did vomit x 1 at home, per daughter. no abd pain. no falls. no seizures. no recent travel. no swelling. no head injuries reported. pt used to smoke in her 30s. no dysuria or hematuria. HOSPITAL COURSE Hospital Course: She was placed in observation, started on Tamiflu. Today, I increased her dose of steroid from her home dose of 20 mg prednisone to a 10 mg daily dose of Decadron. Her respiratory symptoms have improved greatly. She is still on oxygen, but has been on and off home O2 for the past year for her severe COPD. She received a dose of morphine last night for her headache, and received multimodal nonnarcotic management for her headache today. She is being sent home to finish out a 5-day course of steroid burst before being returned to her normal home dose of 20 mg prednisone. She needs to follow-up with her PCP within a week, and consider follow-up with pulmonology ALLERGIES Allergies Allergy/AdvReac Type Severity Reaction Status Date / Time cephalexin Allergy Severe Rash Verified 07/11/24 22:34 peanut Allergy Severe Anaphylaxis Verified 07/11/24 22:34 shellfish derived Allergy Severe Anaphylaxis Verified 07/11/24 22:34 Penicillins Allergy Unknown Verified 07/11/24 22:34 MEDICATIONS Ambulatory Orders Medication Instructions Recorded Confirmed azelastine 137 mcg (0.1 %) nasal 2 sprays NS BID 10/09/20 07/12/24 spray montelukast 10 mg tablet 10 mg PO QPM 10/09/20 07/12/24 albuterol sulfate 90 mcg/actuation 1 - 2 puff inhalation QID PRN 10/01/21 07/12/24 breath activated powder inhaler Shortness Of Air/Wheezing (ProAir RespiClick) tiotropium bromide 18 mcg capsule 18 mcg inhalation DAILY 10/01/21 07/12/24 with inhalation device (Spiriva with HandiHaler) alendronate 70 mg tablet 70 mg PO Q7D 03/15/22 07/12/24 budesonide-formoterol HFA 160 2 puff inhalation BID 03/15/22 07/12/24 mcg-4.5 mcg/actuation aerosol inhaler (Symbicort) calcium 600 mg (as 1 ea PO DAILY 03/15/22 07/12/24 carbonate)-vitamin D3 20 mcg (800 unit) tablet (Caltrate with Vitamin D3) gabapentin 600 mg tablet 1,200 mg PO BID 03/15/22 07/12/24 (Neurontin) loratadine 10 mg tablet 10 mg PO BID 03/15/22 07/12/24 mepolizumab 100 mg/mL subcutaneous 300 mg subcut Q28D 03/15/22 07/12/24 syringe (Nucala) budesonide 0.5 mg/2 mL suspension 0.5 mg (2 mL) inhalation RTBID #60 03/22/22 07/12/24 for nebulization packets ipratropium 0.5 mg-albuterol 3 mg 3 ml inhalation RTQID ##60 03/22/22 07/12/24 (2.5 mg base)/3 mL nebulization soln levothyroxine 100 mcg tablet 100 mcg PO QDAC #30 tabs 03/22/22 07/12/24 prednisone 10 mg tablet 20 mg PO DAILY 02/22/23 07/12/24 bupropion HCl 150 mg 24 hr tablet, 150 mg PO ONCE 07/12/24 07/12/24 extended release ciclopirox 8 % topical solution 1 applic topical ONCE 07/12/24 07/12/24 hydroxyzine HCl 50 mg tablet 50 mg PO BID PRN sleep 07/12/24 07/12/24 mycophenolate mofetil 500 mg tablet 1,000 mg PO BID 07/12/24 07/12/24 dexamethasone 4 mg tablet 10 mg (2.5 x 4 mg) PO DAILY 3 days 07/13/24 #8 tabs oseltamivir 75 mg capsule 75 mg PO BID 3 days #6 caps 07/13/24 PHYSICAL EXAM AT DISCHARGE General Appearance: positive No acute distress, Alert and Other (Chronically ill-appearing) Eyes Bilateral: positive Normal inspection and PERRL ENT: positive ENT inspection nml Neck: positive Nml inspection Respiratory: positive Chest non-tender and Other (Diminished) Cardiovascular: positive Regular rate & rhythm Peripheral Pulses: positive 2+ Abdomen: positive Non-tender Back: positive Nml inspection Skin: positive Color nml Extremities: positive Non-tender Neurologic/Psychiatric: positive Oriented x3 LABS 07/13/24 05:15 07/13/24 05:15 FOLLOW UP Follow Up: With PCP TIME SPENT Time Spent in Discharge (Minutes): 35 Discharge Plan Discharge Patient Disposition: Home, Self Care Condition: Stable Medically Cleared Date:: 07/13/24 Prescriptions: New oseltamivir 75 mg Capsule 75 mg PO BID 3 Days Qty: 6 0RF dexamethasone 4 mg Tablet 10 mg PO DAILY 3 Days Qty: 8 0RF Continued montelukast 10 MG tablet 10 mg PO QPM Patient Comments: take 1 tablet by mouth every evening azelastine 137 MCG/0.137 ML spray,non-aerosol 2 sprays NS BID Patient Comments: instill 1 spray into each nostril four times a day tiotropium bromide [Spiriva with HandiHaler] 18 MCG capsule, w/inhalation device 18 mcg inhalation DAILY Patient Comments: inhale contents of 1 capsule by mouth once daily ProAir RespiClick 90 MCG aerosol powdr breath activated 1 - 2 puff inhalation QID PRN (Reason: Shortness Of Air/Wheezing) alendronate 70 MG tablet 70 mg PO Q7D budesonide-formoterol [Symbicort] 10.2 GM HFA aerosol inhaler 2 puff inhalation BID Patient Comments: inhale 2 puffs by mouth twice a day Rinse mouth after use Nucala 100 MG/ML syringe 300 mg subcut Q28D gabapentin [Neurontin] 600 MG tablet 1,200 mg PO BID loratadine 10 MG tablet 10 mg PO BID calcium carbonate-vitamin D3 [Caltrate with Vitamin D3] 1 EACH tablet 1 ea PO DAILY ipratropium-albuterol 3 ML solution for nebulization 3 ml inhalation RTQID Qty: 60 0RF levothyroxine 100 MCG tablet 100 mcg PO QDAC Qty: 30 0RF budesonide 0.5 MG/2 ML suspension for nebulization 0.5 mg inhalation RTBID Qty: 60 0RF prednisone 10 MG tablet 20 mg PO DAILY bupropion HCl 150 mg tablet extended release 24 hr 150 mg PO ONCE Patient Comments: TAKE 1 TABLET BY MOUTH DAILY hydroxyzine HCl 50 mg tablet 50 mg PO BID PRN (Reason: sleep) Patient Comments: TAKE 1 TABLET BY MOUTH TWICE DAILY NEEDED FOR ANXIETY mycophenolate mofetil 500 mg tablet 1,000 mg PO BID Patient Comments: TAKE 1 TABLET BY MOUTH TWICE DAILY WITH FOOD FOR 1 MONTH THEN TAKE 2 TABLETS BY MOUTH TWICE DAILY THEREAFTER ciclopirox 8 % solution 1 applic TOPICAL ONCE Diet: Regular Health Concerns: You are a 53-year-old female with history of severe COPD, requiring home O2 in the past. You came in with an exacerbation of COPD brought on by viral pneumonia. You were placed in observation so that we can give you very high doses of steroid and start you on Tamiflu. You feel a lot better today, and are okay to discharge as long as you have home oxygen. I am prescribing another 3 days of Decadron 10 mg daily by mouth. Please take this instead of your prednisone until the bottle is empty. After the bottle is empty, you can resume your home dose of prednisone. I am also sending you home with Tamiflu. This will help with your flu symptoms. I would encourage you to follow-up with your PCP within a week, and with pulmonology when possible Care Plan Goals: Ambulate is much as possible to preserve lung function Finish course of steroid and Tamiflu Follow-up with PCP Assessment: You are able to walk around as long as you have oxygen on. I would encourage you to remain independent with your activities of daily living. Follow-up with PCP within a week Plan of Treatment: Tamiflu 75 mg p.o. twice daily Decadron 10 mg p.o. daily for 3 more days Print Language: Polish Patient Instructions: Chronic Lung Disease Be Active Stand Alone Forms: PCP List
== END 2024-07-13 18:10 | disposition home or self-care (01) ==
LOC: MS2 22:25 → ED 22:25 → MS2 07-12 02:58
PROVIDERS: ADMIT Student in an Organized Health Care Education/Training Program; ATTEND Student in an Organized Health Care Education/Training Program
DX: I10 Essential (primary) hypertension; J96.01 Acute respiratory failure with hypoxia; Z87.891 Personal history of nicotine dependence; R74.01 Elevation of levels of liver transaminase levels; G92.8 Other toxic encephalopathy; J44.1 Chronic obstructive pulmonary disease with (acute) exacerbation; F41.8 Other specified anxiety disorders; J11.1 Influenza due to unidentified influenza virus with other respiratory manifestations; E03.9 Hypothyroidism, unspecified; I95.9 Hypotension, unspecified

== ENCOUNTER 2024-10-07 12:39 | Inpatient (IN) ==
--- NOTE | 2024-10-07 12:54 | ED Physician Documentation ---
History of Present Illness Stated complaint Stated Complaint: SOA Chief complaint Chief Complaint: Resp History obtained from History obtained from: Patient Additonal information Additional information: 54-year-old woman with severe COPD, at baseline wears 2 L of oxygen and takes 20 mg of prednisone in addition to mycophenolate and inhalers for her COPD. 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 She has had a flare for the last 2 weeks. It started with a cold and a fever, she but she only had that for 2 days but has persistent shortness of breath. She is coughing but it is minimally productive without purulent sputum. No chest pain. No pedal edema. Meds/Allgy Home Medications Ambulatory Orders Medication Instructions Recorded Confirmed azelastine 137 mcg (0.1 %) nasal 2 sprays NS BID 10/09/20 07/12/24 spray montelukast 10 mg tablet 10 mg PO QPM 10/09/20 07/12/24 albuterol sulfate 90 mcg/actuation 1 - 2 puff inhalation QID PRN 10/01/21 07/12/24 breath activated powder inhaler Shortness Of Air/Wheezing (ProAir RespiClick) tiotropium bromide 18 mcg capsule 18 mcg inhalation DAILY 10/01/21 07/12/24 with inhalation device (Spiriva with HandiHaler) alendronate 70 mg tablet 70 mg PO Q7D 03/15/22 07/12/24 budesonide-formoterol HFA 160 2 puff inhalation BID 03/15/22 07/12/24 mcg-4.5 mcg/actuation aerosol inhaler (Symbicort) calcium 600 mg (as 1 ea PO DAILY 03/15/22 07/12/24 carbonate)-vitamin D3 20 mcg (800 unit) tablet (Caltrate with Vitamin D3) gabapentin 600 mg tablet 1,200 mg PO BID 03/15/22 07/12/24 (Neurontin) loratadine 10 mg tablet 10 mg PO BID 03/15/22 07/12/24 mepolizumab 100 mg/mL subcutaneous 300 mg subcut Q28D 03/15/22 07/12/24 syringe (Nucala) budesonide 0.5 mg/2 mL suspension 0.5 mg (2 mL) inhalation RTBID #60 03/22/22 07/12/24 for nebulization packets ipratropium 0.5 mg-albuterol 3 mg 3 ml inhalation RTQID ##60 03/22/22 07/12/24 (2.5 mg base)/3 mL nebulization soln levothyroxine 100 mcg tablet 100 mcg PO QDAC #30 tabs 03/22/22 07/12/24 prednisone 10 mg tablet 20 mg PO DAILY 02/22/23 07/12/24 bupropion HCl 150 mg 24 hr tablet, 150 mg PO ONCE 07/12/24 07/12/24 extended release ciclopirox 8 % topical solution 1 applic topical ONCE 07/12/24 07/12/24 hydroxyzine HCl 50 mg tablet 50 mg PO BID PRN sleep 07/12/24 07/12/24 mycophenolate mofetil 500 mg tablet 1,000 mg PO BID 07/12/24 07/12/24 dexamethasone 4 mg tablet 10 mg (2.5 x 4 mg) PO DAILY 3 days 07/13/24 #8 tabs oseltamivir 75 mg capsule 75 mg PO BID 3 days #6 caps 07/13/24 Allergies Allergies Allergy/AdvReac Type Severity Reaction Status Date / Time cephalexin Allergy Severe Rash Verified 10/07/24 12:47 peanut Allergy Severe Anaphylaxis Verified 10/07/24 12:47 shellfish derived Allergy Severe Anaphylaxis Verified 10/07/24 12:47 Penicillins Allergy Unknown Verified 10/07/24 12:47 PFSH Active Problems All Active Problems (Updated 10/07/24 @ 14:07 by Geovany Metz MD) Hypotension (Acute) Transaminitis (Acute) Influenza (Acute) Depression (Acute) Acute hypoxic respiratory failure (Acute) Anisocoria (Acute) Acute on chronic respiratory failure with hypoxia and hypercapnia (Acute) COPD, severe (Acute) Anxiety (Acute) Hypothyroidism (Acute) Hypoxia (Acute) Acute exacerbation of COPD with asthma (Acute) Medical History Medical History (Updated 10/07/24 @ 14:07 by Geovany Metz MD) Hypoxemia COPD with acute exacerbation Social History Social History Smoking Status: Former smoker If you are a former smoker, when did you quit? (Date/Year): 2001 Number of Years Smoked: 20 How many cigarettes a day do you smoke? (20 cigarettes=1 Pk): 20 Second hand tobacco smoke exposure: No Do you dip or chew tobacco?: No Do you vape?: No Patient requests smoking cessation consult: No Initiate information on smoking cessation: No Living arrangement: At home Living Condition: With spouse/s.o. and With family Relationship: Spouse Level: Assisted Do you feel safe in your home environment?: Yes Suffered physical, verbal, emotional, or financial abuse?: No History of Abuse: No Substance Use: cannabis (any form) Substance Use Details: edibles POLST Patient has POLST: No POLST Status: Full Code Exam Respiratory Somewhat labored breathing and speaking in short sentences. Breath sounds are almost absent throughout. Neurology GCS 15 Results Vitals Vitals: Vital Signs - 24 hr 10/07/24 12:43 10/07/24 13:00 10/07/24 13:02 Temperature 36.6 C Temperature Source Temporal Artery Scan Pulse Rate 124 H 125 H Respiratory Rate 30 H 22 Blood Pressure 148/105 H 140/100 H O2 Saturation 90 L 92 Oxygen Delivery Method Nasal Cannula O2 Source Nasal cannula Nasal cannula Oxygen Flow Rate If not protocol: Oxygen Flow, liters/minute 4 4 4 Pain Intensity 0 2 10/07/24 13:04 10/07/24 13:05 10/07/24 13:15 Temperature 36.8 C Temperature Source Tympanic Pulse Rate 125 H 120 H Respiratory Rate 22 18 Blood Pressure 133/100 H O2 Saturation 92 Oxygen Delivery Method Nasal Cannula O2 Source Simple Mask Oxygen Flow Rate 4 If not protocol: Oxygen Flow, liters/minute 6 Pain Intensity 2 10/07/24 13:30 10/07/24 13:45 10/07/24 14:02 Temperature 36.8 C 36.5 C 36.5 C Temperature Source Tympanic Tympanic Tympanic Pulse Rate 125 H 120 H 125 H Respiratory Rate 18 18 18 Blood Pressure 130/90 130/100 H 107/75 O2 Saturation 93 90 L 90 L Oxygen Delivery Method O2 Source Simple Mask Nasal cannula Nasal cannula Oxygen Flow Rate If not protocol: Oxygen Flow, liters/minute 6 6 6 Pain Intensity 2 2 2 Oxygen O2 Source [With Activity] Nasal cannula O2 Source Nasal cannula Oxygen Flow Rate 4 Labs Labs: Laboratory Tests 10/07/24 10/07/24 13:02 13:18 WBC 18.9 H RBC 4.24 Hgb 13.3 Hct 44.1 MCV 104.0 H MCH 31.4 H MCHC 30.2 L RDW 12.8 Plt Count 458 H MPV 9.9 Neut # (Auto) 17.5 H Lymph # (Auto) 0.8 L [place] # (Auto) 0.3 Eos # (Auto) 0.0 Baso # (Auto) 0.1 Absolute Nucleated RBC 0.00 Nucleated RBC % 0.0 VBG pH 7.334 VBG pCO2 54.8 H VBG pO2 37.5 VBG HCO3 29.5 H VBG Total CO2 31.1 H VBG O2 Saturation 50.0 L VBG Base Excess 3.4 H Sodium 138 Potassium 4.9 H Chloride 100 L Carbon Dioxide 29 Anion Gap 9.0 BUN 17 Creatinine 0.6 Estimated GFR (MDRD) 104 Glucose 175 H Calcium 10.0 Phosphorus 3.2 Total Bilirubin 0.3 AST 16 ALT 15 Alkaline Phosphatase 68 Total Protein 7.2 Albumin 4.3 Globulin 2.9 Albumin/Globulin Ratio 1.5 Rads (name of study) Single view chest x-ray demonstrates hyperinflation but no acute disease, no pneumonia.: Relevant Findings:: Final report received and EMP independent interpretation of test (nad) PD Medical Decision Making ED course ED course: She has pretty bad COPD at baseline with steroid dependence and oxygen dependence. She has been worse now with nonproductive cough and more shortness of breath. She received a continuous neb with DuoNeb and 4 doses of albuterol after which she was feeling somewhat better and she started develop some breath sounds (breath sounds were absent on initial evaluation). Her oxygen requirement went up though and she needed about 6 L, this is a comparison to 2 L at baseline and she was amenable to admission. Workup demonstrated a white count of 18,000 but clear chest x-ray, given her circumstances we will treat with antibiotics. Venous blood gas showing probably a chronic CO2 retention, CMP relatively unremarkable save mild hyperglycemia. Spoke with Dr. Mahmood for admission at 2:05 PM. Discharge Plan Discharge Patient Disposition: ED Place in Observation Condition: Stable Clinical Impression: Acute hypoxic respiratory failure, Acute exacerbation of COPD with asthma, COPD, severe Prescriptions: No Action montelukast 10 MG tablet 10 mg PO QPM Patient Comments: take 1 tablet by mouth every evening azelastine 137 MCG/0.137 ML spray,non-aerosol 2 sprays NS BID Patient Comments: instill 1 spray into each nostril four times a day tiotropium bromide [Spiriva with HandiHaler] 18 MCG capsule, w/inhalation device 18 mcg inhalation DAILY Patient Comments: inhale contents of 1 capsule by mouth once daily ProAir RespiClick 90 MCG aerosol powdr breath activated 1 - 2 puff inhalation QID PRN (Reason: Shortness Of Air/Wheezing) alendronate 70 MG tablet 70 mg PO Q7D budesonide-formoterol [Symbicort] 10.2 GM HFA aerosol inhaler 2 puff inhalation BID Patient Comments: inhale 2 puffs by mouth twice a day Rinse mouth after use Nucala 100 MG/ML syringe 300 mg subcut Q28D gabapentin [Neurontin] 600 MG tablet 1,200 mg PO BID loratadine 10 MG tablet 10 mg PO BID calcium carbonate-vitamin D3 [Caltrate with Vitamin D3] 1 EACH tablet 1 ea PO DAILY ipratropium-albuterol 3 ML solution for nebulization 3 ml inhalation RTQID Qty: 60 0RF levothyroxine 100 MCG tablet 100 mcg PO QDAC Qty: 30 0RF budesonide 0.5 MG/2 ML suspension for nebulization 0.5 mg inhalation RTBID Qty: 60 0RF prednisone 10 MG tablet 20 mg PO DAILY bupropion HCl 150 mg tablet extended release 24 hr 150 mg PO ONCE Patient Comments: TAKE 1 TABLET BY MOUTH DAILY hydroxyzine HCl 50 mg tablet 50 mg PO BID PRN (Reason: sleep) Patient Comments: TAKE 1 TABLET BY MOUTH TWICE DAILY NEEDED FOR ANXIETY mycophenolate mofetil 500 mg tablet 1,000 mg PO BID Patient Comments: TAKE 1 TABLET BY MOUTH TWICE DAILY WITH FOOD FOR 1 MONTH THEN TAKE 2 TABLETS BY MOUTH TWICE DAILY THEREAFTER ciclopirox 8 % solution 1 applic TOPICAL ONCE oseltamivir 75 mg Capsule 75 mg PO BID 3 Days Qty: 6 0RF dexamethasone 4 mg Tablet 10 mg PO DAILY 3 Days Qty: 8 0RF Print Language: Irish Stand Alone Forms: PCP List
[2024-10-07] MEDS: ALBUTEROL NEB 2.5 MG/3 ML INH STA (13:01)
[2024-10-07] MEDS: IPRATROPIUM/ALBUTEROL 3 ML NEB INH STA (13:03)
[2024-10-07 13:17] LABS: VBG PCO2 54.8 mmHg (41-51); VBG PH 7.334 (7.31-7.41)
[2024-10-07 13:18] LABS: VBG BASE EXCESS 3.4 mmol/L (-2 - +2); VBG PO2 37.5 mmHg (25-47); VBG TOTAL CO2 31.1 mmol/L (24-29)
--- NOTE | 2024-10-07 13:18 | XRAY Report ---
PROCEDURE: XR Chest 1V INDICATIONS: dyspnea TECHNIQUE: One view of the chest was acquired. COMPARISON: 07/11/2024 FINDINGS: Surgical changes and devices: None. Lungs and pleura: No pleural effusions or pneumothorax. No consolidation. Emphysema with overinflat ion. Mediastinum: Mediastinal contours appear normal. Heart size is normal. Bones and chest wall: No suspicious bony lesions. Overlying soft tissues appear unremarkable. IMPRESSION: No acute cardiopulmonary process. Reviewed by: Art Maurer MD on 10/07/2024 1:17 PM PDT Approved by: Art Maurer MD on 10/07/2024 1:17 PM PDT Station ID: [id number]
[2024-10-07] MEDS: MAGNESIUM SULFATE 2 GRAM 2 GM/50 ML BAG IV ONE (13:19)
[2024-10-07] MEDS: methylPREDNISolone SUCCINATE 125 MG/2 ML VIAL IVP STA (13:19)
[2024-10-07 13:27] LABS: BASOPHILS # (AUTO) 0.1 10^3/uL (0.0-0.1); BASOPHILS % (AUTO) 0.3 %; HCT - HEMATOCRIT 44.1 % (37.0-47.0); HGB - HEMOGLOBIN 13.3 g/dL (12.0-16.0); LYMPHOCYTES # (AUTO) 0.8 10^3/uL (1.5-3.5); LYMPHOCYTES % (AUTO) 4.1 %; MEAN CORPUSCULAR HEMOGLOBIN 31.4 pg (27.0-31.0); MEAN CORPUSCULAR HGB CONC 30.2 g/dL (32.0-36.0); MEAN PLATELET VOLUME 9.9 fL (7.9-10.8); MONOCYTES # (AUTO) 0.3 10^3/uL (0.0-1.0); MONOCYTES % (AUTO) 1.5 %; NEUTROPHILS # (AUTO) 17.5 10^3/uL (1.5-6.6); NEUTROPHILS % (AUTO) 92.9 %; PLT - PLATELET COUNT 458 10^3/uL (130-450); RED BLOOD COUNT 4.24 10^6/uL (4.20-5.40); RED CELL DISTRIBUTION WIDTH 12.8 % (12.0-15.0); WHITE BLOOD COUNT 18.9 x10^3/uL (4.8-10.8)
--- OUTSIDE RECORDS SUMMARY | 2024-10-07 13:40 | EXTERNAL MEDICAL SUMMARY RPT | Continuity of Care Document ---
Author Organization [facility] Address [address] [place] [id number] Phone Problems date description facility 2024-07-12 03:36 Hypoxemia [facility] 2024-07-12 08:32 Hypoxemia [facility] 2024-07-12 08:33 Hypoxemia [facility] 2024-07-13 16:39 Hypothyroidism, unspecified [facility] 2024-07-13 16:39 Depression, unspecified [facility] 2024-07-13 16:39 Hypotension, unspecified [facility] 2024-07-13 16:39 Influenza due to uni dentified influenza virus with other respiratory manifestations [facility] 2024-07-13 16:39 Chronic obstructive pulmonary disease with (acute) exacerbation [facility] 2024-07-13 16:39 Unspecified asthma with (acute) exacerbation [facility] 2024-07-13 16:39 Acute respiratory failure with hypoxia [facility] 2024-07-13 16:39 Hypoxemia [facility] 2024-07-13 16:39 Elevation of levels of liver tr ansaminase levels [facility] 2024-07-13 16:48 Hypothyroidism, unspecified [facility] 2024-07-13 16:48 Depression, unspecified [facility] 2024-07-13 16:48 Hypotension, unspecified [facility] 2024-07-13 16:48 Influenza due to uni dentified influenza virus with other respiratory manifestations [facility] 2024-07-13 16:48 Chronic obstructive pulmonary disease with (acute) exacerbation [facility] 2024-07-13 16:48 Unspecified asthma with (acute) exacerbation [facility] 2024-07-13 16:48 Acute respiratory failure with hypoxia [facility] 2024-07-13 16:48 Hypoxemia [facility] 2024-07-13 16:48 Elevation of levels of liver tr [facility]aminase levels [facility] 2024-07-13 16:54 Hypothyroidism, unspecified [facility] 2024-07-13 16:54 Depression, unspecified [facility] 2024-07-13 16:54 Hypotension, unspecified [facility] 2024-07-13 16:54 Influenza due to uni dentified influenza virus with other respiratory manifestations [facility] 2024-07-13 16:54 Chronic obstructive pulmonary disease with (acute) exacerbation [facility] 2024-07-13 16:54 Unspecified asthma with (acute) exacerbation [facility] 2024-07-13 16:54 Acute respiratory failure with hypoxia [facility] 2024-07-13 16:54 [facility] 2024-07-13 16:54 Elevation of levels of liver tr ansaminase levels [facility] 2024-07-13 18:20 Hypothyroidism, unspecified [facility] 2024-07-13 18:20 Depression, unspecified [facility] 2024-07-13 18:20 Hypotension, unspecified [facility] 2024-07-13 18:20 Influenza due to uni dentified influenza virus with other respiratory manifestations [facility] 2024-07-13 18:20 Chronic obstructive pulmonary disease with (acute) exacerbation [facility] 2024-07-13 18:20 Unspecified asthma with (acute) exacerbation [facility] 2024-07-13 18:20 Acute respiratory failure with hypoxia [facility] 2024-07-13 18:20 [facility]oxemia [facility] 2024-07-13 18:20 Elevation of levels of liver tr ansaminase levels [facility] 2024-07-19 15:12 Hypothyroidism, unspecified [facility] 2024-07-19 15:12 Depression, unspecified [facility] 2024-07-19 15:12 Hypotension, unspecified [facility] 2024-07-19 15:12 Influenza due to uni dentified influenza virus with other respiratory manifestations [facility] 2024-07-19 15:12 Chronic obstructive pulmonary disease with (acute) exacerbation [facility] 2024-07-19 15:12 Unspecified asthma with (acute) exacerbation [facility] 2024-07-19 15:12 [facility] 15:12 Cough, unspecified [facility] 2024-07-19 15:12 [facility]ness of breath [facility]24-07-19 15:12 [facility]24-07-[facility] 15:12 Fever, unspecified [facility] 2024-07-19 15:12 Elevation of levels of liver tr ansaminase levels [facility] 2024-07-20 09:01 Other specified symp toms and signs involving the circulatory and respiratory systems [facility] Results/Labs test date facility value unit notes Result panel 1 NRBC ABSOLUTE COUNT (AUTO) 2024-07-11 22[facility] 0.02 x10 3/ul (missing) BASOPHILS # (AUTO) 2024-07-11 22:30 [facility] 0.1 10 3/ul (missing) NUCLEATED RED BLOOD CELLS AUTO 2024-07-11 22:30 [facility] 0.2 /100wbc (missing) EOSINOPHILS # (AUTO) 2024-07-11 22:30 [facility] 0.2 10 3/ul (missing) MONOCYTES # (AUTO) 2024-07-11 22:30 [facility] 0.3 10 3/ul (missing) LYMPHOCYTES # (AUTO) 2024-07-11 22:30 [facility] 0.7 10 3/ul (missing) BILIRUBIN,TOTAL 2024-07-11 22:30 [facility] 0.8 mg /dl As of January 2023 testing method has changed, this may include reference ranges. CREATININE 2024-07-11 22:30 [facility] 0.8 mg/dl As of January 2023 testing method has changed, this may include reference ranges. ALBUMIN/GLOBULIN RATIO 2024-07-11 22:30 [facility] 1.6 (missing) (missing) MAGNESIUM 2024-07-11 22:30 [facility] 1.9 mg/dl As of January 2023 testing method has changed, this may include reference ranges. MEAN PLATELET VOLUME 2024-07-11 22:30 [facility] 10.5 fl (missing) MEAN CORPUSCULAR VOLUME 2024-07-11 22:30 [facility] 106.4 fl (missing) LDL CHOLESTEROL,CALCULAT ED 2024-07-11 22:30 [facility] 109 mg/dl Social History date description facility
[2024-10-07 13:53] LABS: ALBUMIN 4.3 g/dL (3.2-5.5); ALBUMIN/GLOBULIN RATIO 1.5 (1.0-2.2); BILIRUBIN,TOTAL 0.3 mg/dL (0.2-1.0); CREATININE 0.6 mg/dL (0.6-1.3); PHOSPHORUS 3.2 mg/dL (2.5-5.0); POTASSIUM 4.9 mmol/L (3.5-4.5); TOTAL PROTEIN 7.2 g/dL (6.4-8.9)
[2024-10-07 14:22] LABS: CORONAVIRUS 229E-RESP PCR NOT DETECTED; CORONAVIRUS HKU1-RESP PCR NOT DETECTED; CORONAVIRUS NL63-RESP PCR NOT DETECTED; CORONAVIRUS OC43-RESP PCR NOT DETECTED; HUMAN METAPNEUMOVIRUS NOT DETECTED; INFLUENZA A- RESP PCR PANEL NOT DETECTED; RHINOVIRUS/ENTEROVIRUS DETECTED; SARS-CoV-2 -RESP PCR PANEL NOT DETECTED
[2024-10-07 14:23] LABS: B. PARAPERTUSSIS- RESP PCR PAN NOT DETECTED; B. PERTUSSIS- RESP PCR PANEL NOT DETECTED; C. PNEUMONIAE- RESP PCR PANEL NOT DETECTED; INFLUENZA B - RESP PCR PANEL NOT DETECTED; M. PNEUMONIAE- RESP PCR PANEL NOT DETECTED; PARAINFLUENZA VIRUS 1 NOT DETECTED; PARAINFLUENZA VIRUS 2 NOT DETECTED; PARAINFLUENZA VIRUS 4 NOT DETECTED; RSV- RESP PCR PANEL NOT DETECTED
[2024-10-07] MEDS: cefTRIAXone 1 GM VIAL IVP STA (14:25)
[2024-10-07] MEDS: DOXYCYCLINE 100 MG TABLET PO STA (14:26)
--- NOTE | 2024-10-07 15:03 | HISTORY & PHYSICAL EXAMINATION ---
Chief Complaint Chief Complaint Chief Complaint: Dyspnea History of Present Illness Admitted From Admitted From:: Home History Obtained From History obtained from: Patient interview History of Present Illness HPI Comment/Other: 54-year-old female PMH significant for COPD on 2 L O2, who was recently admitted for acute on chronic hypoxic respiratory failure secondary to viral pneumonia and COPD exacerbation presents today with 2 weeks of worsening dyspnea and occasional productive cough. She reports 1 episode of chills and bodyaches, but says that the rest of her family did not get sick. She attempted increasing her dose of steroid and starting a Z-Robert with no effect. In the ER, chest x-ray was performed which showed no acute findings. Lab work reveals VBG 7.33/54.8/37.5/29.5 on 6 L O2. She had some improvement in symptoms after 125 mg Solu-Medrol as well as multiple nebs, but she still required 6 L O2 which is more than baseline. Hospitalist was contacted for observation Meds/Allgy Home Medications Ambulatory Orders Medication Instructions Recorded Confirmed azelastine 137 mcg (0.1 %) nasal 2 sprays NS BID 10/09/20 07/12/24 spray montelukast 10 mg tablet 10 mg PO QPM 10/09/20 07/12/24 albuterol sulfate 90 mcg/actuation 1 - 2 puff inhalation QID PRN 10/01/21 07/12/24 breath activated powder inhaler Shortness Of Air/Wheezing (ProAir RespiClick) tiotropium bromide 18 mcg capsule 18 mcg inhalation DAILY 10/01/21 07/12/24 with inhalation device (Spiriva with HandiHaler) alendronate 70 mg tablet 70 mg PO Q7D 03/15/22 07/12/24 budesonide-formoterol HFA 160 2 puff inhalation BID 03/15/22 07/12/24 mcg-4.5 mcg/actuation aerosol inhaler (Symbicort) calcium 600 mg (as 1 ea PO DAILY 03/15/22 07/12/24 carbonate)-vitamin D3 20 mcg (800 unit) tablet (Caltrate with Vitamin D3) gabapentin 600 mg tablet 1,200 mg PO BID 03/15/22 07/12/24 (Neurontin) loratadine 10 mg tablet 10 mg PO BID 03/15/22 07/12/24 mepolizumab 100 mg/mL subcutaneous 300 mg subcut Q28D 03/15/22 07/12/24 syringe (Nucala) budesonide 0.5 mg/2 mL suspension 0.5 mg (2 mL) inhalation RTBID #60 03/22/22 07/12/24 for nebulization packets ipratropium 0.5 mg-albuterol 3 mg 3 ml inhalation RTQID ##60 03/22/22 07/12/24 (2.5 mg base)/3 mL nebulization soln levothyroxine 100 mcg tablet 100 mcg PO QDAC #30 tabs 03/22/22 07/12/24 prednisone 10 mg tablet 20 mg PO DAILY 02/22/23 07/12/24 bupropion HCl 150 mg 24 hr tablet, 150 mg PO ONCE 07/12/24 07/12/24 extended release ciclopirox 8 % topical solution 1 applic topical ONCE 07/12/24 07/12/24 hydroxyzine HCl 50 mg tablet 50 mg PO BID PRN sleep 07/12/24 07/12/24 mycophenolate mofetil 500 mg tablet 1,000 mg PO BID 07/12/24 07/12/24 dexamethasone 4 mg tablet 10 mg (2.5 x 4 mg) PO DAILY 3 days 07/13/24 #8 tabs oseltamivir 75 mg capsule 75 mg PO BID 3 days #6 caps 07/13/24 Allergies Allergies Allergy/AdvReac Type Severity Reaction Status Date / Time cephalexin Allergy Severe Rash Verified 10/07/24 12:47 peanut Allergy Severe Anaphylaxis Verified 10/07/24 12:47 shellfish derived Allergy Severe Anaphylaxis Verified 10/07/24 12:47 Penicillins Allergy Unknown Verified 10/07/24 12:47 PFSH Active Problems All Active Problems (Updated 10/07/24 @ 14:07 by Geovany Metz MD) Hypotension (Acute) Transaminitis (Acute) Influenza (Acute) Depression (Acute) Acute hypoxic respiratory failure (Acute) Anisocoria (Acute) Acute on chronic respiratory failure with hypoxia and hypercapnia (Acute) COPD, severe (Acute) Anxiety (Acute) Hypothyroidism (Acute) Hypoxia (Acute) Acute exacerbation of COPD with asthma (Acute) Medical History Medical History (Updated 10/07/24 @ 14:07 by Geovany Metz MD) Hypoxemia COPD with acute exacerbation Social History Social History Smoking Status: Former smoker If you are a former smoker, when did you quit? (Date/Year): 2001 Number of Years Smoked: 20 How many cigarettes a day do you smoke? (20 cigarettes=1 Pk): 20 Second hand tobacco smoke exposure: No Do you dip or chew tobacco?: No Do you vape?: No Patient requests smoking cessation consult: No Initiate information on smoking cessation: No Living arrangement: At home Living Condition: With spouse/s.o. and With family Relationship: Spouse Level: Assisted Do you feel safe in your home environment?: Yes Suffered physical, verbal, emotional, or financial abuse?: No History of Abuse: No Substance Use: cannabis (any form) Substance Use Details: edibles POLST Patient has POLST: No POLST Status: Full Code Review of Systems Status of ROS: 10 or more systems reviewed and unremarkable except as noted in history and below Constitutional Reports: Chills and Malaise; Denies: Fever Ears, nose, mouth, and throat Reports: Nasal congestion Cardiovascular Reports: shortness of breath with exertion; Denies: Irregular heart rate, chest pain or palpitations Respiratory Reports: Shortness of breath, Cough and Sputum production Gastrointestinal Denies: Abdominal pain Genitourinary Denies: Painful urination Exam Constitutional normal general appearance Mild conversational dyspnea, Appears malnourished HENMT normocephalic and head/scalp atraumatic Eyes PERRL Neck/C-Spine visual inspection normal Lymph no lymphadenopathy noted Chest inspection of chest normal Respiratory breath sounds equal bilaterally Tight breath sounds with some expiratory wheeze Cardiovascular heart rate abnormal (tachycardic) and regular rhythm noted Gastrointestinal abdomen normal to inspection Extremities normal to inspection Neurology GCS 15 Psychiatry oriented x3 Skin skin color normal Conclusion/Plan Problem List (1) Acute on chronic respiratory failure with hypoxia and hypercapnia: Plan: Reported 1 episode of chills over the past 2 weeks with malaise, states nobody else around her got sick Respiratory viral panel pending She also reports sinus congestion This is likely acute exacerbation of COPD, manage as below (2) Acute exacerbation of COPD with asthma: Plan: DuoNeb RT 4 times daily scheduled until resolution of symptoms She received 1 to 25 mg Solu-Medrol in ER Additional 40 mg Solu-Medrol tonight, then prednisone burst in a.m. She was already on azithromycin before coming in. No infectious changes on chest x-ray. I am covering her with doxycycline out of an abundance of caution, if concern for superimposed bacterial pneumonia arises, we will start her on Levaquin given her penicillin and cephalosporin allergies This is her second admission this year with exacerbation of COPD, I will have advanced care planning discussion tomorrow and will refer her to palliative care Plan Placed in observation Full code Her is her surrogate decision maker She reports she does not have a POLST, I provided a POLST form for her to review and will follow-up on this tomorrow Lab Results Lab results reviewed: Yes 10/07/24 13:18 10/07/24 13:18 Core Measures Anticipated LOS I expect patient to be DC'd or transferred within 96 hours.: Yes DVT/VTE - Prophylaxis VTE/DVT Prophylaxis med ordered at admit?: Yes
[2024-10-07] MEDS ORDERED: SODIUM CHLORIDE FLUSH 0.9% 10 ML SYRINGE IVP PRN (15:52)
[2024-10-07] MEDS ORDERED: ONDANSETRON ODT 4 MG TABLET TL PRN (15:52)
[2024-10-07] MEDS ORDERED: ONDANSETRON 4 MG/2 ML VIAL IVP PRN (15:52)
[2024-10-07] MEDS: SODIUM CHLORIDE FLUSH 0.9% 10 ML SYRINGE IVP SCH (16:07)
[2024-10-07] MEDS ORDERED: ALBUTEROL NEB 2.5 MG/3 ML INH PRN (18:13)
[2024-10-07] MEDS: IPRATROPIUM/ALBUTEROL 3 ML NEB INH SCH (18:17)
--- NOTE | 2024-10-07 18:41 | PHARMACY PROGRESS NOTE ---
Best Possible Medication History Admit Date and Time: 10/07/24 289452 Home Medications Medication Instructions Recorded Confirmed Type azelastine 137 mcg (0.1 %) nasal 2 sprays NS BID 10/09/20 10/07/24 History spray montelukast 10 mg tablet 10 mg PO QPM 10/09/20 10/07/24 History tiotropium bromide 18 mcg capsule 18 mcg inhalation DAILY 10/01/21 10/07/24 History with inhalation device (Spiriva with HandiHaler) alendronate 70 mg tablet 70 mg PO Q7D 03/15/22 10/07/24 History budesonide-formoterol HFA 160 2 puff inhalation BID 03/15/22 10/07/24 History mcg-4.5 mcg/actuation aerosol inhaler (Symbicort) calcium 600 mg (as 1 ea PO DAILY 03/15/22 10/07/24 History carbonate)-vitamin D3 20 mcg (800 unit) tablet (Caltrate with Vitamin D3) mepolizumab 100 mg/mL subcutaneous 300 mg subcut Q28D 03/15/22 10/07/24 History syringe (Nucala) levothyroxine 100 mcg tablet 100 mcg PO QDAC #30 tabs 03/22/22 10/07/24 Rx prednisone 10 mg tablet 30 mg PO DAILY 02/22/23 10/07/24 History bupropion HCl 150 mg 24 hr tablet, 150 mg PO ONCE 07/12/24 10/07/24 History extended release mycophenolate mofetil 500 mg tablet 1,000 mg PO BID 07/12/24 10/07/24 History acetaminophen 500 mg tablet 500 mg PO Q4H PRN fever or pain 10/07/24 10/07/24 History albuterol sulfate 90 mcg/actuation 2 puff inhalation Q4H PRN 10/07/24 10/07/24 History aerosol inhaler shortness of breath or wheezing azithromycin 250 mg tablet 250 mg PO DAILY 10/07/24 10/07/24 History budesonide 0.5 mg/2 mL suspension 0.5 mg inhalation BID 10/07/24 10/07/24 History for nebulization sulfamethoxazole 800 1 tab PO UD 10/07/24 10/07/24 History mg-trimethoprim 160 mg tablet Processed by: Pharmacy Medications reviewed in ED?: No Medication History completed: Yes Patient Interview: Completed Secondary Source(s): Insurance records [facility] Statement: Per patient interview with [facility] and review of [facility] insurance records. As the person ultimately responsible for medication therapy, providers are able to order a medication from an existing home medication list in [facility] via the "Reconcile Routine" prior to Confirmation of that medication by account support rep. Such practice is discouraged except when the physician, in their clinical judgment, deems that a medical need exists for a medication without regard to previous use.
[2024-10-07] MEDS: ACETAMINOPHEN 325 MG TABLET PO PRN (21:52)
[2024-10-07] MEDS: methylPREDNISolone SUCCINATE 40 MG/ML VIAL IVP ONE (21:53)
[2024-10-07] MEDS: DOXYCYCLINE 100 MG TABLET PO SCH (22:02)
[2024-10-08 06:35] LABS: BASOPHILS % (AUTO) 0.2 %; HCT - HEMATOCRIT 36.9 % (37.0-47.0); HGB - HEMOGLOBIN 11.6 g/dL (12.0-16.0); LYMPHOCYTES # (AUTO) 0.5 10^3/uL (1.5-3.5); LYMPHOCYTES % (AUTO) 3.8 %; MEAN CORPUSCULAR HGB CONC 31.4 g/dL (32.0-36.0); MEAN CORPUSCULAR VOLUME 101.7 fL (81.0-99.0); MEAN PLATELET VOLUME 9.9 fL (7.9-10.8); MONOCYTES # (AUTO) 0.6 10^3/uL (0.0-1.0); MONOCYTES % (AUTO) 4.7 %; PLT - PLATELET COUNT 340 10^3/uL (130-450); RED BLOOD COUNT 3.63 10^6/uL (4.20-5.40); RED CELL DISTRIBUTION WIDTH 12.5 % (12.0-15.0); WHITE BLOOD COUNT 13.3 x10^3/uL (4.8-10.8)
[2024-10-08 06:53] LABS: CALCIUM 8.8 mg/dL (8.5-10.3); CREATININE 0.5 mg/dL (0.6-1.3); POTASSIUM 4.5 mmol/L (3.5-4.5)
[2024-10-08] MEDS: predniSONE 20 MG TABLET PO SCH (08:05)
[2024-10-08] MEDS: ENOXAPARIN 40 MG/0.4 ML SYRINGE SUBQ SCH (08:05)
--- NOTE | 2024-10-08 16:54 | ADVANCE CARE PLANNING NOTE ---
Advance Care Planning Planning Encounter Date: 10/08/24 Purpose: To set expectations for long-term care and to establish goals Parties in Attendance: Patient and at bedside Decisional Capacity of the Patient: Full Diagnosis for Encounter (1) Acute on chronic respiratory failure with hypoxia and hypercapnia: Summary: COPD requiring 2 L O2 at baseline. 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 She reports that she has a fulfilling life through interaction with her friends and family. Objective/Medical Story: She is a former smoker, and has a diagnosis of COPD. Until this year, she had been managed with inhaler regimen without the use of home O2. Earlier this year, she contracted a respiratory virus which caused a exacerbation of her COPD/asthma and she had to be discharged on home O2. She was initially doing well in her recovery, until she contracted a different respiratory virus and now she is admitted again for exacerbation of COPD Goals of Care: Patient wishes to continue aggressive management, she is expecting her first grandchild. She would like to return to the best level of function that she can. I discussed further use of long-term oxygen, she stated that she is open t o continued use of home oxygen as she is still able to leave the home and spend time with friends and family Plan: She will stay in the hospital until she improves to what will be a new baseline for her. She may discharge back home on 2 L or more if we cannot get her weaned down to 2 L Code Status: Attempt Resuscitation Time spent on advance care plannin
--- NOTE | 2024-10-08 16:58 | PROVIDER PROGRESS NOTE ---
Subjective Prog Note Date Prog Note Date: 10/08/24 Subjective Pt reports feeling: Improved Current Medications Current Medications Current Medications: Current Medications Generic Name Dose Route Start Last Admin Trade Name Freq PRN Reason Stop Dose Admin Acetaminophen 650 mg 10/07/24 15:52 10/08/24 08:04 Acetaminophen 325 Mg Tablet PO 650 mg Q4HR PRN Administration Pain 1 to 4, or Fever Albuterol 2.5 mg 10/07/24 18:13 Albuterol Neb 2.5 Mg/3 Ml INH RTQ4H PRN Wheezing Albuterol/Ipratropium 3 ml 10/07/24 19:00 10/08/24 15:56 Ipratropium/Albuterol 3 Ml Neb INH 3 ml RTQID DEBBI Administration Doxycycline Hyclate 100 mg 10/07/24 21:00 10/08/24 08:05 Doxycycline 100 Mg Tablet PO 100 mg BID DEBBI Administration Enoxaparin Sodium 40 mg 10/08/24 09:00 10/08/24 08:05 Enoxaparin 40 Mg/0.4 Ml Syringe SUBQ 40 mg DAILY DEBBI Administration Ondansetron HCl 4 mg 10/07/24 15:52 Ondansetron Odt 4 Mg Tablet TL Q6HR PRN Nausea / Vomiting Ondansetron HCl 4 mg 10/07/24 15:52 Ondansetron 4 Mg/2 Ml Vial IVP Q6HR PRN Nausea / Vomiting Prednisone 40 mg 10/08/24 08:00 10/08/24 08:05 Prednisone 20 Mg Tablet PO 40 mg DAILYWM DEBBI Administration Sodium Chloride 10 ml 10/07/24 15:52 Sodium Chloride Flush 0.9% 10 Ml Syringe IVP PRN PRN NEEDED PER PROVIDER ORDERS Sodium Chloride 10 ml 10/07/24 17:00 10/08/24 16:43 Sodium Chloride Flush 0.9% 10 Ml Syringe IVP 10 ml 0100,0900,1700 DEBBI Administration Objective Vital Signs/Intake & Output Reviewed Vital Signs: Yes Vital Signs: Vital Signs x48h Temp Pulse Pulse Resp BP Pulse Ox O2 Flow Rate 10/08/24 16:19 36.6 C 86 20 134/86 H 96 4 10/08/24 15:57 92 16 3.5 10/08/24 14:41 37.0 C 89 18 117/84 93 4 10/08/24 11:17 81 20 4 Intake & Output: Intake & Output 10/05/24 10/06/24 10/07/24 10/08/24 23:59 23:59 23:59 23:59 Intake Total 250 / 250 780 / 780 Balance 250 / 250 780 / 780 Weight (kg) 46.5 kg Objective General Appearance: positive No acute distress and Alert Eyes Bilateral: positive Normal inspection ENT: positive ENT inspection nml Neck: positive Nml inspection Respiratory: positive Chest non-tender and No respiratory distress; negative Breath sounds nml (Tight breath sounds, improved from yesterday) Cardiovascular: positive Regular rate & rhythm Abdomen: positive Non-tender and No distention Back: positive Nml inspection Skin: positive Color nml Extremities: positive Non-tender, No pedal edema and Other (nails are clubbed. ) Neurologic/Psychiatric: positive Oriented x3 Lab Results 10/08/24 06:13 10/08/24 06:13 Other Labs: Lab Results x24hrs 10/08/24 Range/Units 06:13 WBC 13.3 H (4.8-10.8) x10^3/uL RBC 3.63 L (4.20-5.40) 10^6/uL Hgb 11.6 L (12.0-16.0) g/dL Hct 36.9 L (37.0-47.0) % MCV 101.7 H (81.0-99.0) fL MCH 32.0 H (27.0-31.0) pg MCHC 31.4 L (32.0-36.0) g/dL RDW 12.5 (12.0-15.0) % Plt Count 340 (130-450) 10^3/uL MPV 9.9 (7.9-10.8) fL Neut # (Auto) 12.0 H (1.5-6.6) 10^3/uL Lymph # (Auto) 0.5 L (1.5-3.5) 10^3/uL [place] # (Auto) 0.6 (0.0-1.0) 10^3/uL Eos # (Auto) 0.0 (0.0-0.7) 10^3/uL Baso # (Auto) 0.0 (0.0-0.1) 10^3/uL Absolute Nucleated RBC 0.00 x10^3/uL Nucleated RBC % 0.0 /100WBC Sodium 138 (135-145) mmol/L Potassium 4.5 (3.5-4.5) mmol/L Chloride 104 (101-111) mmol/L Carbon Dioxide 29 (21-32) mmol/L Anion Gap 5.0 L (6-13) BUN 15 (6-20) mg/dL Creatinine 0.5 L (0.6-1.3) mg/dL Estimated GFR (MDRD) 128 (>89) Glucose 103 (74-104) mg/dL Calcium 8.8 (8.5-10.3) mg/dL Assessment/Plan Problem List (1) Acute on chronic respiratory failure with hypoxia and hypercapnia: Impression: Her respiratory viral panel is positive for rhinovirus Manage COPD as below She is now on 4 L O2, trending back towards her baseline. Has improvement in symptoms with steroid burst and neb treatment (2) Acute exacerbation of COPD with asthma: Impression: I am continuing her 40 mg p.o. prednisone. Today is day 2 of increased dose steroid Continue DuoNeb RT 4 times daily scheduled Continue additional albuterol Continuing doxycycline 100 mg p.o. twice daily for atypical pneumonia coverage Continue additional albuterol every 4 hours as needed wheezing This is her second admission this year for COPD exacerbation triggered by viral pneumonia. ACP discussion in a separate note
[2024-10-09 05:35] LABS: BASOPHILS % (AUTO) 0.3 %; EOSINOPHILS # (AUTO) 0.1 10^3/uL (0.0-0.7); EOSINOPHILS % (AUTO) 0.5 %; HCT - HEMATOCRIT 38.5 % (37.0-47.0); HGB - HEMOGLOBIN 11.8 g/dL (12.0-16.0); LYMPHOCYTES # (AUTO) 1.5 10^3/uL (1.5-3.5); LYMPHOCYTES % (AUTO) 12.7 %; MEAN CORPUSCULAR HEMOGLOBIN 31.7 pg (27.0-31.0); MEAN CORPUSCULAR HGB CONC 30.6 g/dL (32.0-36.0); MEAN CORPUSCULAR VOLUME 103.5 fL (81.0-99.0); MEAN PLATELET VOLUME 9.7 fL (7.9-10.8); MONOCYTES % (AUTO) 8.9 %; NEUTROPHILS # (AUTO) 8.7 10^3/uL (1.5-6.6); NEUTROPHILS % (AUTO) 75.9 %; PLT - PLATELET COUNT 359 10^3/uL (130-450); RED BLOOD COUNT 3.72 10^6/uL (4.20-5.40); RED CELL DISTRIBUTION WIDTH 12.6 % (12.0-15.0); WHITE BLOOD COUNT 11.5 x10^3/uL (4.8-10.8)
[2024-10-09 05:45] LABS: CALCIUM 9.1 mg/dL (8.5-10.3); CREATININE 0.7 mg/dL (0.6-1.3); POTASSIUM 4.3 mmol/L (3.5-4.5)
[2024-10-09] MEDS: predniSONE 20 MG TABLET PO STA (15:38)
--- NOTE | 2024-10-09 16:10 | PROVIDER PROGRESS NOTE ---
Subjective Prog Note Date Prog Note Date: 10/09/24 Subjective Pt reports feeling: No change Current Medications Current Medications Current Medications: Current Medications Generic Name Dose Route Start Last Admin Trade Name Freq PRN Reason Stop Dose Admin Acetaminophen 650 mg 10/07/24 15:52 10/09/24 08:05 Acetaminophen 325 Mg Tablet PO 650 mg Q4HR PRN Administration Pain 1 to 4, or Fever Albuterol 2.5 mg 10/07/24 18:13 Albuterol Neb 2.5 Mg/3 Ml INH RTQ4H PRN Wheezing Albuterol/Ipratropium 3 ml 10/07/24 19:00 10/09/24 15:21 Ipratropium/Albuterol 3 Ml Neb INH 3 ml RTQID DEBBI Administration Doxycycline Hyclate 100 mg 10/07/24 21:00 10/09/24 08:06 Doxycycline 100 Mg Tablet PO 100 mg BID DEBBI Administration Enoxaparin Sodium 40 mg 10/08/24 09:00 10/09/24 08:06 Enoxaparin 40 Mg/0.4 Ml Syringe SUBQ 40 mg DAILY DEBBI Administration Ondansetron HCl 4 mg 10/07/24 15:52 Ondansetron Odt 4 Mg Tablet TL Q6HR PRN Nausea / Vomiting Ondansetron HCl 4 mg 10/07/24 15:52 Ondansetron 4 Mg/2 Ml Vial IVP Q6HR PRN Nausea / Vomiting Prednisone 60 mg 10/10/24 08:00 Prednisone 20 Mg Tablet PO DAILYWM DEBBI Sodium Chloride 10 ml 10/07/24 15:52 Sodium Chloride Flush 0.9% 10 Ml Syringe IVP PRN PRN NEEDED PER PROVIDER ORDERS Sodium Chloride 10 ml 10/07/24 17:00 10/09/24 08:07 Sodium Chloride Flush 0.9% 10 Ml Syringe IVP 10 ml 0100,0900,1700 DEBBI Administration Objective Vital Signs/Intake & Output Reviewed Vital Signs: Yes Vital Signs: Vital Signs x48h Temp Pulse Pulse Resp BP Pulse Ox O2 Flow Rate 10/09/24 15:21 2 10/09/24 15:21 87 20 10/09/24 08:35 36.6 C 113 H 20 127/92 H 92 2 Intake & Output: Intake & Output 10/06/24 10/07/24 10/08/24 10/09/24 23:59 23:59 23:59 23:59 Intake Total 250 / 250 1570 / 1570 930 / 930 Balance 250 / 250 1570 / 1570 930 / 930 Weight (kg) 46.5 kg Objective General Appearance: positive No acute distress and Alert Eyes Bilateral: positive Normal inspection ENT: positive ENT inspection nml Neck: positive Nml inspection Respiratory: positive Chest non-tender and No respiratory distress; negative Breath sounds nml (Improved aeration, still tight. Minimal wheezing) Cardiovascular: positive Regular rate & rhythm Abdomen: positive Non-tender and No distention Back: positive Nml inspection Skin: positive Color nml Extremities: positive Non-tender, No pedal edema and Other (nails are clubbed. ) Neurologic/Psychiatric: positive Oriented x3 Lab Results 10/09/24 05:23 10/09/24 05:23 Other Labs: Lab Results x24hrs 10/09/24 Range/Units 05:23 WBC 11.5 H (4.8-10.8) x10^3/uL RBC 3.72 L (4.20-5.40) 10^6/uL Hgb 11.8 L (12.0-16.0) g/dL Hct 38.5 (37.0-47.0) % MCV 103.5 H (81.0-99.0) fL MCH 31.7 H (27.0-31.0) pg MCHC 30.6 L (32.0-36.0) g/dL RDW 12.6 (12.0-15.0) % Plt Count 359 (130-450) 10^3/uL MPV 9.7 (7.9-10.8) fL Neut # (Auto) 8.7 H (1.5-6.6) 10^3/uL Lymph # (Auto) 1.5 (1.5-3.5) 10^3/uL [place] # (Auto) 1.0 (0.0-1.0) 10^3/uL Eos # (Auto) 0.1 (0.0-0.7) 10^3/uL Baso # (Auto) 0.0 (0.0-0.1) 10^3/uL Absolute Nucleated RBC 0.00 x10^3/uL Nucleated RBC % 0.0 /100WBC Sodium 142 (135-145) mmol/L Potassium 4.3 (3.5-4.5) mmol/L Chloride 105 (101-111) mmol/L Carbon Dioxide 33 H (21-32) mmol/L Anion Gap 4.0 L (6-13) BUN 23 H (6-20) mg/dL Creatinine 0.7 (0.6-1.3) mg/dL Estimated GFR (MDRD) 87 L (>89) Glucose 73 L (74-104) mg/dL Calcium 9.1 (8.5-10.3) mg/dL Assessment/Plan Problem List (1) Acute on chronic respiratory failure with hypoxia and hypercapnia: Impression: Her respiratory viral panel is positive for rhinovirus Manage COPD as below She is now on 4 L O2, trending back towards her baseline. Has improvement in symptoms with steroid burst and neb treatment 10/09/2024: She is down to 2 L oxygen today, but desaturates with any kind of activity. She reports no improvement in symptoms. I am giving her an additional 20 mg of prednisone today, and will start 60 mg prednisone tomorrow (2) Acute exacerbation of COPD with asthma: Impression: Day 3 of her steroids, increased dose today Continue DuoNeb RT 4 times daily scheduled Continue additional albuterol Continuing doxycycline 100 mg p.o. twice daily for atypical pneumonia coverage Continue additional albuterol every 4 hours as needed wheezing This is her second admission this year for COPD exacerbation triggered by viral pneumonia. ACP discussion in a separate note
[2024-10-10 00:40] VITALS: O2SAT 95
[2024-10-10 05:19] LABS: BASOPHILS % (AUTO) 0.3 %; EOSINOPHILS # (AUTO) 0.1 10^3/uL (0.0-0.7); EOSINOPHILS % (AUTO) 0.5 %; HCT - HEMATOCRIT 38.4 % (37.0-47.0); HGB - HEMOGLOBIN 11.9 g/dL (12.0-16.0); LYMPHOCYTES # (AUTO) 1.2 10^3/uL (1.5-3.5); LYMPHOCYTES % (AUTO) 11.6 %; MEAN CORPUSCULAR HEMOGLOBIN 31.2 pg (27.0-31.0); MEAN CORPUSCULAR VOLUME 100.8 fL (81.0-99.0); MEAN PLATELET VOLUME 9.5 fL (7.9-10.8); MONOCYTES # (AUTO) 0.8 10^3/uL (0.0-1.0); MONOCYTES % (AUTO) 7.5 %; NEUTROPHILS # (AUTO) 7.8 10^3/uL (1.5-6.6); NEUTROPHILS % (AUTO) 78.3 %; PLT - PLATELET COUNT 316 10^3/uL (130-450); RED BLOOD COUNT 3.81 10^6/uL (4.20-5.40); RED CELL DISTRIBUTION WIDTH 12.7 % (12.0-15.0)
[2024-10-10 05:32] LABS: CALCIUM 9.2 mg/dL (8.5-10.3); CREATININE 0.7 mg/dL (0.6-1.3)
[2024-10-10] MEDS: predniSONE 20 MG TABLET PO SCH (08:39)
[2024-10-10 08:57] VITALS: BP 133/75; TEMP 98.1
--- NOTE | 2024-10-10 14:26 | Discharge Summary ---
Discharge Summary Admit Date: 10/07/24 Discharge Date: 10/10/24 Discharging Provider: Alexandre Martines NP Primary Care Provider: Kell Code Status: Attempt Resuscitation DIAGNOSES Admission Diagnoses: Acute on chronic respiratory failure with hypoxia Chronic obstructive pulmonary disease with acute exacerbation Discharge Diagnoses with Status of Each Condition: Acute on chronic respiratory failure with hypoxiaback to baseline O2 level COPD with acute exacerbationbeing discharged home on increased dose steroid HPI History of Present Illness: 54-year-old female PMH significant for COPD on 2 L O2, who was recently admitted for acute on chronic hypoxic respiratory failure secondary to viral pneumonia and COPD exacerbation presents today with 2 weeks of worsening dyspnea and occasional productive cough. She reports 1 episode of chills and bodyaches, but says that the rest of her family did not get sick. She attempted increasing her dose of steroid and starting a Z-Robert with no effect. In the ER, chest x-ray was performed which showed no acute findings. Lab work reveals VBG 7.33/54.8/37.5/29.5 on 6 L O2. She had some improvement in symptoms after 125 mg Solu-Medrol as well as multiple nebs, but she still required 6 L O2 which is more than baseline. Hospitalist was contacted for observation HOSPITAL COURSE Hospital Course: Patient was placed in the hospital and started on prednisone burst. Had improvement initially with IV steroid, could not tolerate standard 40 mg p.o. prednisone dose. I increased it to 60 mg p.o. daily, with good effect. Today, she is feeling much better, and her oxygen needs have decreased. Oxygen desaturation study was ordered to ensure appropriate amount of home O2 at discharge. POLST completed while inpatient, Full code ALLERGIES Allergies Allergy/AdvReac Type Severity Reaction Status Date / Time cephalexin Allergy Severe Rash Verified 10/07/24 12:47 peanut Allergy Severe Anaphylaxis Verified 10/07/24 12:47 shellfish derived Allergy Severe Anaphylaxis Verified 10/07/24 12:47 Fish Containing Products Allergy Unknown Unknown Unverified 10/07/24 17:11 Penicillins Allergy Unknown Verified 10/07/24 12:47 metoclopramide (From Reglan) AdvReac Unknown Unknown Verified 10/07/24 17:11 MEDICATIONS Ambulatory Orders Medication Instructions Recorded Confirmed azelastine 137 mcg (0.1 %) nasal 2 sprays NS BID 10/09/20 10/07/24 spray montelukast 10 mg tablet 10 mg PO QPM 10/09/20 10/07/24 tiotropium bromide 18 mcg capsule 18 mcg inhalation DAILY 10/01/21 10/07/24 with inhalation device (Spiriva with HandiHaler) alendronate 70 mg tablet 70 mg PO Q7D 03/15/22 10/07/24 budesonide-formoterol HFA 160 2 puff inhalation BID 03/15/22 10/07/24 mcg-4.5 mcg/actuation aerosol inhaler (Symbicort) calcium 600 mg (as 1 ea PO DAILY 03/15/22 10/07/24 carbonate)-vitamin D3 20 mcg (800 unit) tablet (Caltrate with Vitamin D3) mepolizumab 100 mg/mL subcutaneous 300 mg subcut Q28D 03/15/22 10/07/24 syringe (Nucala) levothyroxine 100 mcg tablet 100 mcg PO QDAC #30 tabs 03/22/22 10/07/24 prednisone 10 mg tablet 30 mg PO DAILY 02/22/23 10/07/24 bupropion HCl 150 mg 24 hr tablet, 150 mg PO ONCE 07/12/24 10/07/24 extended release mycophenolate mofetil 500 mg tablet 1,000 mg PO BID 07/12/24 10/07/24 acetaminophen 500 mg tablet 500 mg PO Q4H PRN fever or pain 10/07/24 10/07/24 albuterol sulfate 90 mcg/actuation 2 puff inhalation Q4H PRN 10/07/24 10/07/24 aerosol inhaler shortness of breath or wheezing azithromycin 250 mg tablet 250 mg PO DAILY 10/07/24 10/07/24 budesonide 0.5 mg/2 mL suspension 0.5 mg inhalation BID 10/07/24 10/07/24 for nebulization sulfamethoxazole 800 1 tab PO UD 10/07/24 10/07/24 mg-trimethoprim 160 mg tablet prednisone 20 mg tablet 60 mg (3 x 20 mg) PO DAILYWM 3 10/10/24 days #9 tabs PHYSICAL EXAM AT DISCHARGE General Appearance: positive No acute distress and Alert Eyes Bilateral: positive Normal inspection and PERRL ENT: positive ENT inspection nml Neck: positive Nml inspection Respiratory: positive Chest non-tender and Breath sounds nml (Diminished breath sounds) Cardiovascular: positive Regular rate & rhythm Peripheral Pulses: positive 2+ Abdomen: positive Non-tender Skin: positive Color nml Extremities: positive Non-tender Neurologic/Psychiatric: positive Oriented x3 LABS 10/10/24 05:10 10/10/24 05:10 FOLLOW UP Follow Up: With PCP TIME SPENT Time Spent in Discharge (Minutes): 35 Discharge Plan Discharge Patient Disposition: Home, Self Care Condition: Stable Medically Cleared Date:: 10/10/24 Prescriptions: New prednisone 20 mg Tablet 60 mg PO DAILYWM 3 Days Qty: 9 0RF Continued montelukast 10 MG tablet 10 mg PO QPM Patient Comments: take 1 tablet by mouth every evening azelastine 137 MCG/0.137 ML spray,non-aerosol 2 sprays NS BID Patient Comments: instill 1 spray into each nostril four times a day tiotropium bromide [Spiriva with HandiHaler] 18 MCG capsule, w/inhalation device 18 mcg inhalation DAILY Patient Comments: inhale contents of 1 capsule by mouth once daily alendronate 70 MG tablet 70 mg PO Q7D budesonide-formoterol [Symbicort] 10.2 GM HFA aerosol inhaler 2 puff inhalation BID Patient Comments: inhale 2 puffs by mouth twice a day Rinse mouth after use Nucala 100 MG/ML syringe 300 mg subcut Q28D calcium carbonate-vitamin D3 [Caltrate with Vitamin D3] 1 EACH tablet 1 ea PO DAILY levothyroxine 100 MCG tablet 100 mcg PO QDAC Qty: 30 0RF bupropion HCl 150 mg tablet extended release 24 hr 150 mg PO ONCE Patient Comments: TAKE 1 TABLET BY MOUTH DAILY mycophenolate mofetil 500 mg tablet 1,000 mg PO BID Patient Comments: TAKE 1 TABLET BY MOUTH TWICE DAILY WITH FOOD FOR 1 MONTH THEN TAKE 2 TABLETS BY MOUTH TWICE DAILY THEREAFTER Patient says her doctor told her to stop taking if she goes to hospital/takes high dose steroids. azithromycin 250 mg tablet 250 mg PO DAILY Patient Comments: for 5 days, picked up 10/04/24 sulfamethoxazole-trimethoprim 800-160 mg tablet 1 tab PO UD Patient Comments: 1 tablet mon, wed, thurs. albuterol sulfate 90 mcg/actuation HFA aerosol inhaler 2 puff INHALATION Q4H PRN (Reason: shortness of breath or wheezing) Patient Comments: INHALE 2 PUFFS BY MOUTH EVERY 4 TO 6 HOURS NEEDED FOR WHEEZING OR SHORTNESS OF BREATH. NOT TO EXCEED 12 PUFFS PER DAY budesonide 0.5 MG/2 ML suspension for nebulization 0.5 mg inhalation BID acetaminophen 500 mg tablet 500 mg PO Q4H PRN (Reason: fever or pain) Held prednisone 10 MG tablet 30 mg PO DAILY Hold Instructions: Resume on 10/12/24. Resume after the high-dose prednisone is done Activity Restrictions: No Restrictions Diet: Regular Health Concerns: He came into the hospital with difficulty breathing. You have history of COPD/asthma, and it appears you have contracted rhinovirus which has exacerbated both of these. You were held in the hospital for a few days while we watched you on an increased dose of steroid. Today, you are feeling much better, and your oxygen needs have decreased. I have had respiratory therapy work with you to determine the appropriate amount of oxygen to use at home. I am sending you home on another 3 days of the high-dose prednisone. I would like for you to finish that and then resume your home dose of prednisone the day after your you finish the higher dose. Please follow-up with your PCP Print Language: Yakut Patient Instructions: Chronic Lung Disease Oxygen Stand Alone Forms: PCP List Follow-up Care: ANA MARÍA MILLIGAN MD [Primary Care Provider] -
== END 2024-10-10 15:45 | disposition home or self-care (01) | DRG 189 ==
LOC: ED 12:39 → MS2 12:39
PROVIDERS: ADMIT Nurse Practitioner Acute Care; ATTEND Nurse Practitioner Acute Care

== ENCOUNTER 2024-11-14 04:39 | Inpatient (IN) ==
--- OUTSIDE RECORDS SUMMARY | 2024-11-14 04:49 | EXTERNAL MEDICAL SUMMARY RPT | Continuity of Care Document ---
Author Organization [place] Address [address] [place] [id number] Phone Problems date description facility 2024-10-08 15:14 Chronic obstructive pulmonary disease with (acute) exacerbation [facility] 2024-10-08 15:14 Unspecified asthma with (acute) exacerbation [facility] 2024-10-08 15:14 Acute and chronic respiratory f ailure with hypoxia [facility] 2024-10-08 15:14 Acute and chronic re spiratory failure with hypercapnia [facility] 2024-10-10 07:15 Chronic obstructive pulmonary disease with (acute) exacerbation [facility] 2024-10-10 07:15 Unspecified asthma with (acute) exacerbation [facility] 2024-10-10 07:15 Acute and chronic respiratory f ailure with hypoxia [facility] 2024-10-10 07:15 Acute and chronic re spiratory failure with hypercapnia [facility] 2024-10-10 09:15 Chronic obstructive pulmonary disease with (acute) exacerbation [facility] 2024-10-10 09:15 Unspecified asthma with (acute) exacerbation [facility] 2024-10-10 09:15 Acute and chronic respiratory f ailure with hypoxia [facility] 2024-10-10 09:15 Acute and chronic re spiratory failure with hypercapnia [facility] 2024-10-10 13:31 Chronic obstructive pulmonary disease with (acute) exacerbation [facility] 2024-10-10 13:31 Unspecified asthma with (acute) exacerbation [facility] 2024-10-10 13:31 Acute and chronic respiratory f ailure with hypoxia [facility] 2024-10-10 13:31 Acute and chronic re spiratory failure with hypercapnia [facility] 2024-10-10 14:02 Chronic obstructive pulmonary disease with (acute) exacerbation [facility] 2024-10-10 14:02 Unspecified asthma with (acute) exacerbation [facility] 2024-10-10 14:02 Acute and chronic respiratory f ailure with hypoxia [email or web address] 2024-10-10 14:02 Acute and chronic re spiratory failure with hypercapnia [facility] 2024-10-10 14:27 Chronic obstructive pulmonary disease with (acute) exacerbation [facility] 2024-10-10 14:27 Unspecified asthma with (acute) exacerbation [facility] 2024-10-10 14:27 Acute and chronic respiratory f ailure with hypoxia [facility] 2024-10-10 14:27 Acute and chronic re spiratory failure with hypercapnia [facility] 2024-10-10 16:22 Chronic obstructive pulmonary disease with (acute) exacerbation [facility] 2024-10-10 16:22 Unspecified asthma with (acute) exacerbation [facility] 2024-10-10 16:22 Acute and chronic respiratory f ailure with hypoxia [facility] 2024-10-10 16:22 Acute and chronic re spiratory failure with hypercapnia [facility] 2024-10-11 15:09 Chronic obstructive pulmonary disease with (acute) exacerbation [facility] 2024-10-11 15:09 Unspecified asthma with (acute) exacerbation [facility] 2024-10-11 15:09 Acute and chronic respiratory f ailure with hypoxia [facility] 2024-10-11 15:09 Acute and chronic re spiratory failure with hypercapnia [facility] 2024-10-11 15:09 Cough, unspecified [facility] 2024-10-11 15:09 Shortness of breath [facility] 2024-11-08 11:11 Hemangioma of intra-abdominal s [facility] 2024-11-08 11:11 Sarcoidosis of skin [facility] 2024-11-08 11:11 Other chronic pain [facility] 2024-11-08 11:11 Right upper quadrant pain [facility] 2024-11-08 11:11 Hepatomegaly, not elsewhere [facility] Results/Labs test date facility value unit notes Result panel 1 [facility] HCO3 2024-10-07 13:02 [facility] 29.5 mmol/l (missing) [facility] BASE EXCESS 2024-10-07 13:02 [facility] 3.4 mm ol/l (missing) [facility] TOTAL CO2 2024-10-07 13:02 [facility] 31.1 mmol /l (missing) [facility] PO2 2024-10-07 13:02 [facility] 37.5 mmhg (missing) [facility] OXYGEN SATURATION 2024-10-07 13:02 [facility] 50.0 % (missing) [facility] PCO2 2024-10-07 13:02 [facility] 54.8 mmhg (missing) [facility] PH 2024-10-07 13:02 [facility] 7.334 (missing ) (missing) Result panel 2 NUCLEATED RED BLOOD CELLS AUTO 2024-10-07 13:18 [facility] 0.0 /100wbc (missing) EOSINOPHILS # (AUTO) 2024-10-07 13:18 [facility] 0.0 10 3/ul (missing) NRBC ABSOLUTE COUNT (AUTO) 2024-10-07 13:18 [facility] 0.00 x10 3/ul (missing) BASOPHILS # (AUTO) 2024-10-07 13:18 [facility] 0.1 10 3/ul (missing) MONOCYTES # (AUTO) 2024-10-07 13:18 [facility] 0.3 10 3/ul (missing) BILIRUBIN,TOTAL 2024-10-07 13:18 [facility] 0.3 mg /dl As of January 2023 testing method has changed, this may include reference ranges. CREATININE 2024-10-07 13:18 [facility] 0.6 mg/dl As of January 2023 testing method has changed, this may include reference ranges. LYMPHOCYTES # (AUTO) 2024-10-07 13:18 [facility] 0.8 10 3/ul (missing) ALBUMIN/GLOBULIN RATIO 2024-10-07 13:18 [facility] 1.5 (missing) (missing) CALCIUM 2024-10-07 13:18 [facility] 10.0 mg/dl As of January 2023 testing method has changed, this may include reference ranges. CHLORIDE 2024-10-07 13:18 [facility] 100 mmol/l As of January 2023 testing method has changed, this may include reference ranges. GFR - MDRD 2024-10-07 13:18 [facility] 104 (buzz wilkins) Social History date description facility
--- NOTE | 2024-11-14 04:51 | ED Physician Documentation ---
PD HPI DYSPNEA Stated complaint Stated Complaint: SOA Chief complaint Chief Complaint: Resp Additional information Additional information: BIBA. HPI from EMS. Limited HPI/ROS from patient due to severe dyspnea. Patient complains of rapidly worsening dyspnea at rest above her baseline dyspnea earlier this morning while at home at rest without inciting event. Patient has COPD, asthma. Patient has baseline supplemental oxygen requirement of 1.5 L/minute. Patient given duoneb followed by two albuterol nebs en route by EMS along with 125mg IV solu-medrol. On ED arrival she is tripoding and only able to speak in one-word answers. She denies chest pain, leg swelling. Meds/Allgy Home Medications Ambulatory Orders Medication Instructions Recorded Confirmed azelastine 137 mcg (0.1 %) nasal 2 sprays NS BID 10/09/20 10/07/24 spray montelukast 10 mg tablet 10 mg PO QPM 10/09/20 10/07/24 tiotropium bromide 18 mcg capsule 18 mcg inhalation DAILY 10/01/21 10/07/24 with inhalation device (Spiriva with HandiHaler) alendronate 70 mg tablet 70 mg PO Q7D 03/15/22 10/07/24 budesonide-formoterol HFA 160 2 puff inhalation BID 03/15/22 10/07/24 mcg-4.5 mcg/actuation aerosol inhaler (Symbicort) calcium 600 mg (as 1 ea PO DAILY 03/15/22 10/07/24 carbonate)-vitamin D3 20 mcg (800 unit) tablet (Caltrate with Vitamin D3) mepolizumab 100 mg/mL subcutaneous 300 mg subcut Q28D 03/15/22 10/07/24 syringe (Nucala) levothyroxine 100 mcg tablet 100 mcg PO QDAC #30 tabs 03/22/22 10/07/24 prednisone 10 mg tablet 30 mg PO DAILY 02/22/23 10/07/24 bupropion HCl 150 mg 24 hr tablet, 150 mg PO ONCE 07/12/24 10/07/24 extended release mycophenolate mofetil 500 mg tablet 1,000 mg PO BID 07/12/24 10/07/24 acetaminophen 500 mg tablet 500 mg PO Q4H PRN fever or pain 10/07/24 10/07/24 albuterol sulfate 90 mcg/actuation 2 puff inhalation Q4H PRN 10/07/24 10/07/24 aerosol inhaler shortness of breath or wheezing azithromycin 250 mg tablet 250 mg PO DAILY 10/07/24 10/07/24 budesonide 0.5 mg/2 mL suspension 0.5 mg inhalation BID 10/07/24 10/07/24 for nebulization sulfamethoxazole 800 1 tab PO UD 10/07/24 10/07/24 mg-trimethoprim 160 mg tablet prednisone 20 mg tablet 60 mg (3 x 20 mg) PO DAILYWM 3 10/10/24 days #9 tabs Allergies Allergies Allergy/AdvReac Type Severity Reaction Status Date / Time cephalexin Allergy Severe Rash Verified 11/14/24 04:57 peanut Allergy Severe Anaphylaxis Verified 11/14/24 04:57 shellfish derived Allergy Severe Anaphylaxis Verified 11/14/24 04:57 Fish Containing Products Allergy Unknown Unknown Verified 11/14/24 04:57 Penicillins Allergy Unknown Verified 11/14/24 04:57 metoclopramide (From Reglan) AdvReac Unknown Unknown Verified 11/14/24 04:57 PFSH Active Problems All Active Problems (Updated 11/14/24 @ 08:45 by Cali Tai MD) Fever (Acute) Acute exacerbation of chronic obstructive pulmonary disease (Acute) Respiratory failure (Acute) Acute and chronic respiratory failure (Acute) Medical History Medical History (Updated 11/14/24 @ 08:45 by Cali Tai MD) Depression AMS (altered mental status) Anisocoria COPD, severe Anxiety Hypothyroidism Acute exacerbation of COPD with asthma Hypoxemia COPD with acute exacerbation Social History Social History Smoking Status: Former smoker If you are a former smoker, when did you quit? (Date/Year): 2001 Number of Years Smoked: 20 How many cigarettes a day do you smoke? (20 cigarettes=1 Pk): 20 Second hand tobacco smoke exposure: No Do you dip or chew tobacco?: No Do you vape?: No Patient requests smoking cessation consult: No Initiate information on smoking cessation: No Living arrangement: At home Living Condition: With spouse/s.o. and With family Relationship: Level: Independent Do you feel safe in your home environment?: Yes Suffered physical, verbal, emotional, or financial abuse?: No History of Abuse: No Substance Use: denies use Substance Use Details: edibles POLST Patient has POLST: No POLST Status: Full Code Exam Exam Vital Signs: Vital Signs x48h Temp Pulse Resp BP Pulse Ox 11/14/24 08:36 113 H 29 H 124/82 95 11/14/24 07:59 109 H 29 H 11/14/24 07:39 112 H 11/14/24 07:15 114 H 30 H 125/84 93 11/14/24 06:57 115 H 26 H 127/89 94 11/14/24 06:45 111 H 24 120/86 93 11/14/24 06:31 115 H 26 H 116/79 92 11/14/24 06:15 121 H 26 H 111/79 92 11/14/24 06:00 126 H 28 H 113/80 92 11/14/24 05:45 128 H 24 128/82 92 11/14/24 05:32 133 H 26 H 130/85 92 11/14/24 05:16 130 H 22 111/91 H 94 11/14/24 05:06 133 H 11/14/24 04:50 140 H 11/14/24 04:42 38 C H 143 H 26 H 176/104 H 87 L Constitutional normal general appearance, distress noted (severe) and (respiratory) and alert Respiratory abnormal respiratory effort (labored), auscultation abnormal (diminished breath sound) (poor air movement bilaterally), wheezing noted (expiratory wheezes) and use of accessory muscles noted Cardiovascular heart rate abnormal (tachycardic), regular rhythm noted, no JVD and no edema Gastrointestinal abdomen soft to palpation and nontender to palpation Psychiatry mental status grossly normal Results Vitals Vitals: Vital Signs - 24 hr 11/14/24 04:42 11/14/24 04:50 11/14/24 05:06 Temperature 38 C H Temperature Source Temporal Artery Scan Pulse Rate 143 H 140 H 133 H Respiratory Rate 26 H Blood Pressure 176/104 H O2 Saturation 87 L Oxygen Delivery Method O2 Source Room air Fraction of Inspired Oxygen (FIO2) 70 40 FiO2 (%) Pain Intensity 3 11/14/24 05:16 11/14/24 05:32 11/14/24 05:45 Temperature Temperature Source Pulse Rate 130 H 133 H 128 H Respiratory Rate 22 26 H 24 Blood Pressure 111/91 H 130/85 128/82 O2 Saturation 94 92 92 Oxygen Delivery Method O2 Source BIPAP BIPAP BIPAP Fraction of Inspired Oxygen (FIO2) FiO2 (%) 40 Pain Intensity 11/14/24 06:00 11/14/24 06:15 11/14/24 06:31 Temperature Temperature Source Pulse Rate 126 H 121 H 115 H Respiratory Rate 28 H 26 H 26 H Blood Pressure 113/80 111/79 116/79 O2 Saturation 92 92 92 Oxygen Delivery Method O2 Source BIPAP BIPAP Room air Fraction of Inspired Oxygen (FIO2) FiO2 (%) Pain Intensity 11/14/24 06:45 11/14/24 06:57 11/14/24 07:15 Temperature Temperature Source Pulse Rate 111 H 115 H 114 H Respiratory Rate 24 26 H 30 H Blood Pressure 120/86 127/89 125/84 O2 Saturation 93 94 93 Oxygen Delivery Method O2 Source BIPAP BIPAP BIPAP Fraction of Inspired Oxygen (FIO2) FiO2 (%) 40 Pain Intensity 11/14/24 07:39 11/14/24 07:59 11/14/24 08:14 Temperature Temperature Source Pulse Rate 112 H 109 H Respiratory Rate 29 H Blood Pressure O2 Saturation Oxygen Delivery Method Bi-pap O2 Source BIPAP Fraction of Inspired Oxygen (FIO2) 35 FiO2 (%) 35 Pain Intensity 11/14/24 08:36 Temperature Temperature Source Pulse Rate 113 H Respiratory Rate 29 H Blood Pressure 124/82 O2 Saturation 95 Oxygen Delivery Method O2 Source BIPAP Fraction of Inspired Oxygen (FIO2) FiO2 (%) 35 Pain Intensity 0 Oxygen O2 Source [With Activity] Nasal cannula O2 Source BIPAP Labs Labs: Laboratory Tests 11/14/24 11/14/24 04:55 05:33 WBC 18.1 H RBC 4.07 L Hgb 12.9 Hct 42.7 MCV 104.9 H MCH 31.7 H MCHC 30.2 L RDW 12.6 Plt Count 363 MPV 10.1 Neut # (Auto) 13.7 H Lymph # (Auto) 3.0 [place] # (Auto) 1.2 H Eos # (Auto) 0.1 Baso # (Auto) 0.1 Absolute Nucleated RBC 0.00 Nucleated RBC % 0.0 Bld Gas Analysis Time 0538 Sample Site RIGHT RADIAL ABG pH 7.39 ABG pCO2 52 H ABG pO2 72 L ABG HCO3 31.4 H ABG Total CO2 32.9 H ABG O2 Saturation 95 ABG Base Excess 6.1 H Flo Test POSITIVE Respiration Rate 14 O2 Delivery Device BiPAP FiO2 40.00 Tidal Volume 400 EPAP 5 IPAP 13 Sodium 137 Potassium 4.0 Chloride 102 Carbon Dioxide 27 Anion Gap 8.0 BUN 12 Creatinine 0.6 Estimated GFR (MDRD) 104 Glucose 188 H Lactic Acid 2.1 Calcium 9.5 Magnesium 1.8 Total Bilirubin 0.5 AST 49 H ALT 40 Alkaline Phosphatase 61 Total Protein 6.6 Albumin 4.2 Globulin 2.4 Albumin/Globulin Ratio 1.8 Lipase 24 Nasal Adenovirus (PCR) NOT DETECTED Nasal B. parapertussis DNA (PCR) NOT DETECTED Nasal Coronavir 229E PCR NOT DETECTED Nasal Coronavir HKU1 PCR NOT DETECTED Nasal Coronavir NL63 PCR NOT DETECTED Nasal Coronavir OC43 PCR NOT DETECTED Nasal Enterovir/Rhinovir PCR NOT DETECTED Nasal Influenza B PCR NOT DETECTED Nasal Influenza A PCR NOT DETECTED Nasal Parainfluen 1 PCR NOT DETECTED Nasal Parainfluen 2 PCR NOT DETECTED Nasal Parainfluen 3 PCR NOT DETECTED Nasal Parainfluen 4 PCR NOT DETECTED Nasal RSV (PCR) NOT DETECTED Nasal B.pertussis DNA PCR NOT DETECTED Nasal C.pneumoniae (PCR) NOT DETECTED [facility]ve Human Metapneumo PCR NOT DETECTED Nasal M.pneumoniae (PCR) NOT DETECTED Nasal SARS-CoV-2 (PCR) NOT DETECTED Rads (name of study) CXR: Relevant Findings:: Prelim report reviewed and See rad report PD Medical Decision Making ED course Complexity details: reviewed old records, reviewed results, re-evaluated patient, considered differential and d/w patient ED course: Early in ED stay, patient was placed on BiPAP. She was also given IV magnesium sulfate and 1 mg IV lorazepam. She had significant improvement in general appearance with these interventions with resolution of tripoding and significantly improved air movement on reevaluation. She had persistent bilateral expiratory wheezing. No acute abnormality on CXR, negative respiratory PCR panel. Leukocytosis (WBC 18.1), normal lactic acid level. No ICU beds available at [facility] on my overnight shift and thus care of patient turned over at end of my shift to oncoming ED physician (Dr. Hidalgo) Discharge Plan Discharge Patient Disposition: 66 [facility] DC/Xfer Condition: Stable Clinical Impression: Respiratory failure, COPD exacerbation, Fever
[2024-11-14 05:02] LABS: BASOPHILS # (AUTO) 0.1 10^3/uL (0.0-0.1); BASOPHILS % (AUTO) 0.4 %; EOSINOPHILS # (AUTO) 0.1 10^3/uL (0.0-0.7); EOSINOPHILS % (AUTO) 0.3 %; HCT - HEMATOCRIT 42.7 % (37.0-47.0); HGB - HEMOGLOBIN 12.9 g/dL (12.0-16.0); LYMPHOCYTES % (AUTO) 16.3 %; MEAN CORPUSCULAR HEMOGLOBIN 31.7 pg (27.0-31.0); MEAN CORPUSCULAR HGB CONC 30.2 g/dL (32.0-36.0); MEAN CORPUSCULAR VOLUME 104.9 fL (81.0-99.0); MEAN PLATELET VOLUME 10.1 fL (7.9-10.8); MONOCYTES # (AUTO) 1.2 10^3/uL (0.0-1.0); MONOCYTES % (AUTO) 6.7 %; NEUTROPHILS # (AUTO) 13.7 10^3/uL (1.5-6.6); NEUTROPHILS % (AUTO) 75.6 %; PLT - PLATELET COUNT 363 10^3/uL (130-450); RED BLOOD COUNT 4.07 10^6/uL (4.20-5.40); RED CELL DISTRIBUTION WIDTH 12.6 % (12.0-15.0); WHITE BLOOD COUNT 18.1 x10^3/uL (4.8-10.8)
[2024-11-14] MEDS: ACETAMINOPHEN 1,000 MG/100 ML 1,000 MG/100 ML BAG IV ONE (05:03)
[2024-11-14] MEDS: MAGNESIUM SULFATE 2 GRAM 2 GM/50 ML BAG IV ONE (05:07)
[2024-11-14] MEDS: LORazepam 2 MG/ML VIAL IVP STA (05:07)
[2024-11-14 05:21] LABS: ALBUMIN 4.2 g/dL (3.2-5.5); ALBUMIN/GLOBULIN RATIO 1.8 (1.0-2.2); BILIRUBIN,TOTAL 0.5 mg/dL (0.2-1.0); CALCIUM 9.5 mg/dL (8.5-10.3); CREATININE 0.6 mg/dL (0.6-1.3); MAGNESIUM 1.8 mg/dL (1.7-2.3); TOTAL PROTEIN 6.6 g/dL (6.4-8.9)
[2024-11-14 05:41] LABS: ABG BASE EXCESS 6.1 mmol/L (-2.0-3.0); ABG HCO3 31.4 mmol/L (22.0-26.0); ABG OXYGEN SATURATION 95 % (95-98); ABG PCO2 52 mmHg (34-45); ABG PH 7.39 (7.35-7.45); ABG PO2 72 mmHg (83-108); ABG TCO2 32.9 mmol/L (21.0-29.0); ALLEN TEST POSITIVE
[2024-11-14 05:42] LABS: ABG RESPIRATORY RATE 14 b/min
[2024-11-14 06:08] LABS: B. PARAPERTUSSIS- RESP PCR PAN NOT DETECTED; B. PERTUSSIS- RESP PCR PANEL NOT DETECTED; C. PNEUMONIAE- RESP PCR PANEL NOT DETECTED; CORONAVIRUS 229E-RESP PCR NOT DETECTED; CORONAVIRUS HKU1-RESP PCR NOT DETECTED; CORONAVIRUS NL63-RESP PCR NOT DETECTED; CORONAVIRUS OC43-RESP PCR NOT DETECTED; HUMAN METAPNEUMOVIRUS NOT DETECTED; INFLUENZA A- RESP PCR PANEL NOT DETECTED; INFLUENZA B - RESP PCR PANEL NOT DETECTED; M. PNEUMONIAE- RESP PCR PANEL NOT DETECTED; PARAINFLUENZA VIRUS 1 NOT DETECTED; PARAINFLUENZA VIRUS 2 NOT DETECTED; PARAINFLUENZA VIRUS 4 NOT DETECTED; RHINOVIRUS/ENTEROVIRUS NOT DETECTED; RSV- RESP PCR PANEL NOT DETECTED; SARS-CoV-2 -RESP PCR PANEL NOT DETECTED
[2024-11-14] MEDS: IPRATROPIUM/ALBUTEROL 3 ML NEB INH STA (07:55)
[2024-11-14] MEDS: levoFLOXacin 500 MG/100 ML 500 MG/100 ML BAG IV STA (08:04)
--- NOTE | 2024-11-14 08:52 | XRAY Report ---
PROCEDURE: XR Chest 1V INDICATIONS: dyspnea TECHNIQUE: One view of the chest was acquired. COMPARISON: 10/07/2024. FINDINGS: Surgical changes and devices: None. Lungs and pleura: No pleural effusions or pneumothorax. Mild chronic diffuse interstitial prominence . No consolidation. Mediastinum: Mediastinal contours appear normal. Heart size is normal. Bones and chest wall: No suspicious bony lesions. Overlying soft tissues appear unremarkable. IMPRESSION: Mild chronic diffuse interstitial prominence. Reviewed by: Canelo Gallagher MD on 11/14/2024 8:51 AM PDT Approved by: Canelo Gallagher MD on 11/14/2024 8:51 AM PDT Station ID: [id number]
--- OUTSIDE RECORDS SUMMARY | 2024-11-14 08:59 | EXTERNAL MEDICAL SUMMARY RPT | Continuity of Care Document ---
Author Organization [place] Address [address] [place] [id number] Phone Problems date description facility 2024-10-08 15:14 Chronic obstructive pulmonary disease with (acute) exacerbation [facility] 2024-10-08 15:14 Unspecified asthma with (acute) exacerbation [facility] 2024-10-08 15:14 Acute and chronic respiratory f ailure with hypoxia [facility] 2024-10-08 15:14 Acute and chronic re spiratory failure with hypercapnia [facility] 2024-10-10 07:15 Chronic obstructive pulmonary disease with (acute) exacerbation [facility] 2024-10-10 07:15 Unspecified asthma with (acute) exacerbation [facility] 2024-10-10 07:15 Acute and chronic respiratory f ailure with hypoxia [facility] 2024-10-10 07:15 Acute and chronic re spiratory failure with hypercapnia [facility] 2024-10-10 09:15 Chronic obstructive pulmonary disease with (acute) exacerbation [facility] 2024-10-10 09:15 Unspecified asthma with (acute) exacerbation [facility] 2024-10-10 09:15 Acute and chronic respiratory f ailure with hypoxia [facility] 2024-10-10 09:15 Acute and chronic re spiratory failure with hypercapnia [facility] 2024-10-10 13:31 Chronic obstructive pulmonary disease with (acute) exacerbation [facility] 2024-10-10 13:31 Unspecified asthma with (acute) exacerbation [facility] 2024-10-10 13:31 Acute and chronic respiratory f ailure with hypoxia [facility] 2024-10-10 13:31 Acute and chronic re spiratory failure with hypercapnia [facility] 2024-10-10 14:02 Chronic obstructive pulmonary disease with (acute) exacerbation [facility] 2024-10-10 14:02 Unspecified asthma with (acute) exacerbation [facility] 2024-10-10 14:02 Acute and chronic respiratory f ailure with hypoxia [facility] 2024-10-10 14:02 Acute and chronic re spiratory failure with hypercapnia [facility] 2024-10-10 14:27 Chronic obstructive pulmonary disease with (acute) exacerbation [facility] 2024-10-10 14:27 Unspecified asthma with (acute) exacerbation [facility] 2024-10-10 14:27 Acute and chronic respiratory f ailure with hypoxia [facility] 2024-10-10 14:27 Acute and chronic re spiratory failure with hypercapnia [facility] 2024-10-10 16:22 Chronic obstructive pulmonary disease with (acute) exacerbation [facility] 2024-10-10 16:22 Unspecified asthma with (acute) exacerbation [facility] 2024-10-10 16:22 Acute and chronic respiratory f ailure with hypoxia [facility] 2024-10-10 16:22 Acute and chronic re spiratory failure with hypercapnia [facility] 2024-10-11 15:09 Chronic obstructive pulmonary disease with (acute) exacerbation [facility] 2024-10-11 15:09 Unspecified asthma with (acute) exacerbation [facility] 2024-10-11 15:09 Acute and chronic respiratory f ailure with hypoxia [facility] 2024-10-11 15:09 Acute and chronic re spiratory failure with hypercapnia [facility] 2024-10-11 15:09 Cough, unspecified [facility] 2024-10-11 15:09 Shortness of breath [facility] 2024-11-08 11:11 Hemangioma of intra-abdominal s [facility] 2024-11-08 11:11 Sarcoidosis of skin [facility] 2024-11-08 11:11 Other chronic pain [facility] 2024-11-08 11:11 Right upper quadrant pain [facility] 2024-11-08 11:11 Hepatomegaly, not elsewhere [facility] Results/Labs test date facility value unit notes Result panel 1 [facility] HCO3 2024-10-07 13:02 [facility] 29.5 mmol/l (missing) [facility] BASE EXCESS 2024-10-07 13:02 [facility] 3.4 mm ol/l (missing) [facility] TOTAL CO2 2024-10-07 13:02 [facility] 31.1 mmol /l (missing) [facility] PO2 2024-10-07 13:02 [facility] 37.5 mmhg (missing) [facility] OXYGEN SATURATION 2024-10-07 13:02 [facility] 50.0 % (missing) [facility] PCO2 2024-10-07 13:02 [facility] 54.8 mmhg (missing) [facility] PH 2024-10-07 13:02 [facility] 7.334 (missing ) (missing) Result panel 2 NUCLEATED RED BLOOD CELLS AUTO 2024-10-07 13:18 [facility] 0.0 /100wbc (missing) EOSINOPHILS # (AUTO) 2024-10-07 13:18 [facility] 0.0 10 3/ul (missing) NRBC ABSOLUTE COUNT (AUTO) 2024-10-07 13:18 [facility] 0.00 x10 3/ul (missing) BASOPHILS # (AUTO) 2024-10-07 13:18 [facility] 0.1 10 3/ul (missing) MONOCYTES # (AUTO) 2024-10-07 13:18 [facility] 0.3 10 3/ul (missing) BILIRUBIN,TOTAL 2024-10-07 13:18 [facility] 0.3 mg /dl As of January 2023 testing method has changed, this may include reference ranges. CREATININE 2024-10-07 13:18 [facility] 0.6 mg/dl As of January 2023 testing method has changed, this may include reference ranges. LYMPHOCYTES # (AUTO) 2024-10-07 13:18 [facility] 0.8 10 3/ul (missing) ALBUMIN/GLOBULIN RATIO 2024-10-07 13:18 [facility] 1.5 (missing) (missing) CALCIUM 2024-10-07 13:18 [facility] 10.0 mg/dl As of January 2023 testing method has changed, this may include reference ranges. CHLORIDE 2024-10-07 13:18 [facility] 100 mmol/l As of January 2023 testing method has changed, this may include reference ranges. GFR - MDRD 2024-10-07 13:18 [facility] 104 (buzz wilkins) Social History date description facility
[2024-11-14] MEDS ORDERED: ONDANSETRON ODT 4 MG TABLET TL PRN (10:09)
[2024-11-14] MEDS ORDERED: SODIUM CHLORIDE FLUSH 0.9% 10 ML SYRINGE IVP PRN (10:09)
[2024-11-14] MEDS ORDERED: ONDANSETRON 4 MG/2 ML VIAL IVP PRN (10:09)
[2024-11-14 10:12] LABS: BILIRUBIN,URINE NEGATIVE (NEGATIVE); GLUCOSE, URINE (UA) NEGATIVE (NEGATIVE); KETONES,URINE (UA) 40 mg/dL (NEGATIVE); LEUKOCYTE ESTERASE, URINE NEGATIVE (NEGATIVE); NITRITE,URINE NEGATIVE (NEGATIVE); OCCULT BLOOD,URINE NEGATIVE (NEGATIVE); PROTEIN,URINE TRACE mg/dL (NEGATIVE); UROBILINOGEN,URINE 0.2 (NORMAL) E.U./dL (NORMAL)
[2024-11-14] MEDS: ENOXAPARIN 40 MG/0.4 ML SYRINGE SUBQ SCH (10:40)
[2024-11-14] MEDS: ACETAMINOPHEN 325 MG TABLET PO PRN (10:41)
[2024-11-14] MEDS: PANTOPRAZOLE 40 MG TABLET PO SCH (10:41)
[2024-11-14] MEDS: SODIUM CHLORIDE FLUSH 0.9% 10 ML SYRINGE IVP SCH (10:41)
[2024-11-14 10:42] LABS: CLARITY,URINE CLEAR (CLEAR)
[2024-11-14] MEDS: methylPREDNISolone SUCCINATE 40 MG/ML VIAL IVP SCH (11:40)
--- NOTE | 2024-11-14 14:22 | PHARMACY PROGRESS NOTE ---
[facility] Medication History Admit Date and Time: 11/14/24 [id number] Home Medications Medication Instructions Recorded Confirmed Type azelastine 137 mcg (0.1 %) nasal 2 sprays NS BID 10/09/20 11/14/24 History spray montelukast 10 mg tablet 10 mg PO QPM 10/09/20 11/14/24 History tiotropium bromide 18 mcg capsule 18 mcg inhalation DAILY 10/01/21 11/14/24 History with inhalation device (Spiriva with HandiHaler) alendronate 70 mg tablet 70 mg PO Q7D 03/15/22 11/14/24 History budesonide-formoterol HFA 160 2 puff inhalation BID 03/15/22 11/14/24 History mcg-4.5 mcg/actuation aerosol inhaler (Symbicort) calcium 600 mg (as 1 ea PO DAILY 03/15/22 11/14/24 History carbonate)-vitamin D3 20 mcg (800 unit) tablet (Caltrate with Vitamin D3) mepolizumab 100 mg/mL subcutaneous 300 mg subcut Q28D 03/15/22 11/14/24 History syringe (Nucala) levothyroxine 100 mcg tablet 100 mcg PO QDAC #30 tabs 03/22/22 11/14/24 Rx prednisone 10 mg tablet 20 mg PO DAILY 02/22/23 11/14/24 History bupropion HCl 150 mg 24 hr tablet, 150 mg PO DAILY 07/12/24 11/14/24 History extended release mycophenolate mofetil 500 mg tablet 1,000 mg PO BID 07/12/24 11/14/24 History acetaminophen 500 mg tablet 1,000 mg PO Q12H PRN fever or pain 10/07/24 11/14/24 History albuterol sulfate 90 mcg/actuation 2 puff inhalation Q4H PRN 10/07/24 11/14/24 History aerosol inhaler shortness of breath or wheezing budesonide 0.5 mg/2 mL suspension 0.5 mg inhalation BID 10/07/24 11/14/24 History for nebulization sulfamethoxazole 800 1 tab PO .three times weekly 10/07/24 11/14/24 History mg-trimethoprim 160 mg tablet Processed by: Pharmacy (Medication reconciliation completed by Tapper SupervisorJaye) Medications reviewed in ED?: No Medication History completed: Yes Patient Interview: Completed Secondary Source(s): Insurance records [facility] Statement: As the person ultimately responsible for medication therapy, providers are able to order a medication from an existing home medication list in [facility] via the "Reconcile Routine" prior to Confirmation of that medication by senior administrator support. Such practice is discouraged except when the physician, in their clinical judgment, deems that a medical need exists for a medication without regard to previous use.
--- NOTE | 2024-11-14 17:58 | HISTORY & PHYSICAL EXAMINATION ---
Chief Complaint Chief Complaint Chief Complaint: SOA, headache History of Present Illness Admitted From Admitted From:: Home History Obtained From Records Reviewed: [facility] History obtained from: Patient and ED provider Exam Limitations: none History of Present Illness HPI Comment/Other: Constance is a 54-year-old female with a history of COPD, asthma and anxiety presenting with severe shortness of breath and headache since yesterday. EMS brought her in severe distress, as she was tripoding. She was given Duonebs and albuterol nebulizer with EMS and was given 125mg IV solu-Medrol. The patient reports that her dyspnea began yesterday after 4pm. She states that her had a cold and she thinks that she caught it. She became increasingly short of breath yesterday evening and woke up 2x last night. When she woke up a second time, she told her that she needed to go to the hospital. She reports that she also had an 8/10 headache. She reports that she still has a headache now. The patient took Tylenol at home, but it did not give relief. Her baseline is 1.5 L nasal cannula at home. She sees Dr. Azra Rehman MD, a exercise scientist in [place]. In the ED, she was given Duoneb, IV levofloxacin, IV magnesium sulfate and lorazepam. Chest X-ray was negative for acute abnormalities. Nasal PCR was negative. The patient previously had chronic RUQ pain, but this resolved after she went to a pain clinic in [place] and received a shot in her spine, she states. 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 She has two children. Surgical hx: cholecystectomy Family hx: Father of lung CA. Mother of skin CA at age 50. Living situation: With her . They are originally from [place]. They live in a very old home that has dust/dander which exacerbates her COPD. Meds/Allgy Home Medications Ambulatory Orders Medication Instructions Recorded Confirmed azelastine 137 mcg (0.1 %) nasal 2 sprays NS BID 10/09/20 11/14/24 spray montelukast 10 mg tablet 10 mg PO QPM 10/09/20 11/14/24 tiotropium bromide 18 mcg capsule 18 mcg inhalation DAILY 10/01/21 11/14/24 with inhalation device (Spiriva with HandiHaler) alendronate 70 mg tablet 70 mg PO Q7D 03/15/22 11/14/24 budesonide-formoterol HFA 160 2 puff inhalation BID 03/15/22 11/14/24 mcg-4.5 mcg/actuation aerosol inhaler (Symbicort) calcium 600 mg (as 1 ea PO DAILY 03/15/22 11/14/24 carbonate)-vitamin D3 20 mcg (800 unit) tablet (Caltrate with Vitamin D3) mepolizumab 100 mg/mL subcutaneous 300 mg subcut Q28D 03/15/22 11/14/24 syringe (Nucala) levothyroxine 100 mcg tablet 100 mcg PO QDAC #30 tabs 03/22/22 11/14/24 prednisone 10 mg tablet 20 mg PO DAILY 02/22/23 11/14/24 bupropion HCl 150 mg 24 hr tablet, 150 mg PO DAILY 07/12/24 11/14/24 extended release mycophenolate mofetil 500 mg tablet 1,000 mg PO BID 07/12/24 11/14/24 acetaminophen 500 mg tablet 1,000 mg PO Q12H PRN fever or pain 10/07/24 11/14/24 albuterol sulfate 90 mcg/actuation 2 puff inhalation Q4H PRN 10/07/24 11/14/24 aerosol inhaler shortness of breath or wheezing budesonide 0.5 mg/2 mL suspension 0.5 mg inhalation BID 10/07/24 11/14/24 for nebulization sulfamethoxazole 800 1 tab PO .three times weekly 10/07/24 11/14/24 mg-trimethoprim 160 mg tablet Allergies Allergies Allergy/AdvReac Type Severity Reaction Status Date / Time cephalexin Allergy Severe Rash Verified 11/14/24 04:57 peanut Allergy Severe Anaphylaxis Verified 11/14/24 04:57 shellfish derived Allergy Severe Anaphylaxis Verified 11/14/24 04:57 Fish Containing Products Allergy Unknown Unknown Verified 11/14/24 04:57 Penicillins Allergy Unknown Verified 11/14/24 04:57 metoclopramide (From Reglan) AdvReac Unknown Unknown Verified 11/14/24 04:57 PFSH Active Problems All Active Problems (Updated 11/14/24 @ 14:47 by Cait Richter) Fever (Acute) Acute exacerbation of chronic obstructive pulmonary disease (Acute) Respiratory failure (Acute) Acute and chronic respiratory failure (Acute) Medical History Medical History (Updated 11/14/24 @ 14:47 by Cait Richter) Depression AMS (altered mental status) Anisocoria COPD, severe Anxiety Hypothyroidism Acute exacerbation of COPD with asthma Hypoxemia COPD with acute exacerbation Social History Social History Smoking Status: Former smoker If you are a former smoker, when did you quit? (Date/Year): 2001 Number of Years Smoked: 20 How many cigarettes a day do you smoke? (20 cigarettes=1 Pk): 20 Second hand tobacco smoke exposure: No Do you dip or chew tobacco?: No Do you vape?: No Patient requests smoking cessation consult: No Initiate information on smoking cessation: No Living arrangement: At home Living Condition: With spouse/s.o. and With family Relationship: Level: Independent Do you feel safe in your home environment?: Yes Suffered physical, verbal, emotional, or financial abuse?: No History of Abuse: No Substance Use: denies use Substance Use Details: edibles POLST Patient has POLST: No POLST Status: Full Code Review of Systems Constitutional Reports: Fever Eyes Denies: Blurry vision or Change in vision Ears, nose, mouth, and throat Reports: Dentures; Denies: Nasal discharge, Nasal congestion, Vertigo, Throat pain or Neck pain Cardiovascular Reports: shortness of breath with exertion; Denies: Irregular heart rate, chest pain, palpitations, edema or Syncope Respiratory Reports: Shortness of breath, Cough, Sputum production and Wheezing Gastrointestinal Denies: Abdominal pain, Nausea or Vomiting Genitourinary Denies: Painful urination, Urinary frequency or Urinary urgency Musculoskeletal Denies: Back pain, Neck pain, Joint swelling, Muscle pain, Muscle aches or Muscle weakness Integumentary/Breast Denies: Rash Neurological Reports: Headache (8/10 pain); Denies: General weakness, Dizziness or Vertigo Psychiatric Reports: Anxiety Endocrine Denies: Excessive urination or Excessive sweating Allergic/Immunologic Reports: Wheezing Prior Level of Functionality: Independent: able to do ADLs without DME. Oxygen machine and nebulizer at home. Exam Exam Vital Signs: Vital Signs x48h Temp Pulse Resp BP Pulse Ox O2 Flow Rate 11/14/24 17:00 95 24 136/93 H 95 2 11/14/24 16:27 37.0 C 11/14/24 15:00 95 22 118/79 94 2 11/14/24 14:00 94 24 119/80 95 3 11/14/24 13:00 95 22 122/78 96 3 11/14/24 12:34 3 11/14/24 12:25 3 11/14/24 12:22 94 3 11/14/24 12:00 37.2 C 94 28 H 116/83 95 Constitutional no apparent distress and no limitations HENMT normocephalic, head/scalp atraumatic and hearing grossly normal bilaterally Eyes PERRL and EOMs intact bilaterally Neck/C-Spine visual inspection normal Chest inspection of chest normal Respiratory clear to auscultation bilaterally Diminished breath sounds bilaterally. Cardiovascular normal heart rate noted, regular rhythm noted and peripheral pulses 2+ throughout Gastrointestinal abdomen normal to inspection, abdomen soft to palpation, nontender to palpation and nondistended Back/Pelvis spine normal to inspection Extremities normal to inspection, normal to palpation and no tenderness Neurology no movement abnormality noted, no focal motor deficit noted, no sensory deficits noted, gait normal and speech normal Psychiatry mental status grossly normal, oriented x3, thought process normal, cooperative and affect normal Skin no rash and no lesions Pallor and very dry skin Sepsis Event Note (H) Evaluation Current Stage of Sepsis: Ruled out Conclusion/Plan Problem List (1) Acute and chronic respiratory failure: Plan: The patient was brought in by EMS in severe respiratory distress, as she was tripoding and tachypneic. She was put on BiPAP and given Duonebs, albuterol nebulizer and 125mg IV solu-Medrol. Upon admission, a CXR was negative for acute abnormalities and a nasal PCR was negative. She has been given IV levofloxacin, magnesium sulfate, and lorazepam. She was transitioned from BiPAP to 2L NC. Her WBC count is elevated to 18.1. -Continue on 2L NC and transition to 1.5L NC, as this is the patient's baseline with at-home oxygen. -Continue 500mg IV levofloxacin Q24H. Transition to oral levofloxacin on discharge. -Trend WBC in am Qualifiers: Respiratory failure complication: hypoxia and hypercapnia Qualified Code(s): J96.21 - Acute and chronic respiratory failure with hypoxia; J96.22 - Acute and chronic respiratory failure with hypercapnia (2) Acute exacerbation of chronic obstructive pulmonary disease: Plan: The patient received 125mg IV solu-Medrol, Duonebs, and albuterol nebulizer with EMS and IV levofloxacin 500mg daily on admission. As above, she transitioned to 2L NC off BiPAP. She is clinically looking better--no tripoding, accessory muscle use, tachypneia. -Continue 500mg IV levofloxacin and 40mg solu-Medrol. -Trend WBC in am as above. (3) Anxiety: Plan: The patient is anxious normally, and she states that she is anxious during her hospital stay. She is taking Wellbutrin 150mg daily. -Recommend follow-up with primary care to reassess. -Recommend counseling. Lab Results Lab results reviewed: Yes 11/14/24 04:55 11/14/24 04:55 Diagnostic Imaging Results Diagnostic Imaging Results: positive Final report reviewed EKG Results EKG Interpreted Independently: No EKG Comparison: Unchanged from prior EKG
[2024-11-14] MEDS: oxyCODONE 5 MG TABLET PO PRN (20:00)
[2024-11-14] MEDS: IPRATROPIUM/ALBUTEROL 3 ML NEB INH PRN (20:06)
[2024-11-14] MEDS ORDERED: ALBUTEROL NEB 2.5 MG/3 ML INH PRN (20:13)
[2024-11-15 05:32] LABS: BASOPHILS % (AUTO) 0.2 %; HCT - HEMATOCRIT 39.6 % (37.0-47.0); HGB - HEMOGLOBIN 11.6 g/dL (12.0-16.0); LYMPHOCYTES # (AUTO) 0.4 10^3/uL (1.5-3.5); LYMPHOCYTES % (AUTO) 2.8 %; MEAN CORPUSCULAR HEMOGLOBIN 31.3 pg (27.0-31.0); MEAN CORPUSCULAR HGB CONC 29.3 g/dL (32.0-36.0); MEAN CORPUSCULAR VOLUME 106.7 fL (81.0-99.0); MEAN PLATELET VOLUME 10.2 fL (7.9-10.8); MONOCYTES # (AUTO) 0.4 10^3/uL (0.0-1.0); MONOCYTES % (AUTO) 3.4 %; NEUTROPHILS # (AUTO) 11.8 10^3/uL (1.5-6.6); NEUTROPHILS % (AUTO) 92.8 %; PLT - PLATELET COUNT 277 10^3/uL (130-450); RED BLOOD COUNT 3.71 10^6/uL (4.20-5.40); RED CELL DISTRIBUTION WIDTH 12.6 % (12.0-15.0); WHITE BLOOD COUNT 12.7 x10^3/uL (4.8-10.8)
[2024-11-15 05:47] LABS: CREATININE 0.5 mg/dL (0.6-1.3); POTASSIUM 4.3 mmol/L (3.5-4.5)
[2024-11-15] MEDS: levoFLOXacin 500 MG/100 ML 500 MG/100 ML BAG IV SCH (09:05)
--- NOTE | 2024-11-15 11:59 | PROVIDER PROGRESS NOTE ---
Current Medications Current Medications Current Medications: Current Medications Generic Name Dose Route Start Last Admin Trade Name Freq PRN Reason Stop Dose Admin Acetaminophen 650 mg 11/14/24 10:09 11/15/24 06:58 Acetaminophen 325 Mg Tablet PO 650 mg Q4HR PRN Administration Pain 1 to 4, or Fever Albuterol 2.5 mg 11/14/24 20:13 Albuterol Neb 2.5 Mg/3 Ml INH Q2HR PRN Wheezing Albuterol/Ipratropium 3 ml 11/14/24 19:55 11/15/24 09:12 Ipratropium/Albuterol 3 Ml Neb INH 3 ml RTQ4H PRN Administration Wheezing Enoxaparin Sodium 40 mg 11/14/24 10:09 11/15/24 09:02 Enoxaparin 40 Mg/0.4 Ml Syringe SUBQ 40 mg DAILY DEBBI Administration Levofloxacin 500 mg in 100 mls @ 100 mls/hr 11/15/24 09:00 11/15/24 10:15 Levaquin 500 Mg/100 Ml IV Infused Q24H DEBBI Infusion Methylprednisolone 40 mg 11/14/24 12:00 11/15/24 11:37 Methylprednisolone Succinate 40 Mg/Ml Vial IVP 40 mg Q6HR DEBBI Administration Ondansetron HCl 4 mg 11/14/24 10:09 Ondansetron Odt 4 Mg Tablet TL Q6HR PRN Nausea / Vomiting Ondansetron HCl 4 mg 11/14/24 10:09 Ondansetron 4 Mg/2 Ml Vial IVP Q6HR PRN Nausea / Vomiting Oxycodone HCl 5 mg 11/14/24 10:09 11/14/24 20:00 Oxycodone 5 Mg Tablet PO 5 mg Q4HR PRN Administration Pain 5 to 7 Pantoprazole Sodium 40 mg 11/14/24 10:09 11/15/24 06:53 Pantoprazole 40 Mg Tablet PO 40 mg QDAC DEBBI Administration Sodium Chloride 10 ml 11/14/24 10:09 11/15/24 09:53 Sodium Chloride Flush 0.9% 10 Ml Syringe IVP 10 ml 0100,0900,1700 DEBBI Administration Sodium Chloride 10 ml 11/14/24 10:09 Sodium Chloride Flush 0.9% 10 Ml Syringe IVP PRN PRN NEEDED PER PROVIDER ORDERS Objective Vital Signs/Intake & Output Reviewed Vital Signs: Yes Vital Signs: Vital Signs x48h Temp Pulse Pulse Resp BP Pulse Ox O2 Flow Rate 11/15/24 09:16 1.5 11/15/24 09:14 101 H 16 1.5 11/15/24 08:20 98.1 F 86 20 132/86 H 96 1.5 Intake & Output: Intake & Output 11/12/24 11/13/24 11/14/24 11/15/24 23:59 23:59 23:59 23:59 Intake Total 850 / 850 490 / 490 Output Total 870 / 870 Balance -20 / -20 490 / 490 Weight (kg) 44.5 kg Objective General Appearance: positive No acute distress and Alert Eyes Bilateral: positive Normal inspection ENT: positive ENT inspection nml Neck: positive Nml inspection Respiratory: positive Chest non-tender and No respiratory distress; negative Breath sounds nml (Improved aeration, still tight. Minimal wheezing) Cardiovascular: positive Regular rate & rhythm Abdomen: positive Non-tender and No distention Back: positive Nml inspection Skin: positive Color nml Extremities: positive Non-tender, No pedal edema and Other (nails are clubbed. ) Neurologic/Psychiatric: positive Oriented x3 Lab Results 11/15/24 05:08 11/15/24 05:08 Other Labs: Lab Results x24hrs 11/15/24 11/14/24 Range/Units 05:08 10:00 WBC 12.7 H (4.8-10.8) x10^3/uL RBC 3.71 L (4.20-5.40) 10^6/uL Hgb 11.6 L (12.0-16.0) g/dL Hct 39.6 (37.0-47.0) % MCV 106.7 H (81.0-99.0) fL MCH 31.3 H (27.0-31.0) pg MCHC 29.3 L (32.0-36.0) g/dL RDW 12.6 (12.0-15.0) % Plt Count 277 (130-450) 10^3/uL MPV 10.2 (7.9-10.8) fL Neut # (Auto) 11.8 H (1.5-6.6) 10^3/uL Lymph # (Auto) 0.4 L (1.5-3.5) 10^3/uL [place] # (Auto) 0.4 (0.0-1.0) 10^3/uL Eos # (Auto) 0.0 (0.0-0.7) 10^3/uL Baso # (Auto) 0.0 (0.0-0.1) 10^3/uL Absolute Nucleated RBC 0.00 x10^3/uL Nucleated RBC % 0.0 /100WBC Sodium 142 (135-145) mmol/L Potassium 4.3 (3.5-4.5) mmol/L Chloride 105 (101-111) mmol/L Carbon Dioxide 32 (21-32) mmol/L Anion Gap 5.0 L (6-13) BUN 13 (6-20) mg/dL Creatinine 0.5 L (0.6-1.3) mg/dL Estimated GFR (MDRD) 128 (>89) Glucose 156 H (74-104) mg/dL Calcium 9.0 (8.5-10.3) mg/dL Nasal Screen MRSA (PCR) NEGATIVE (NEGATIVE) Sepsis Event Note (H) Evaluation Current Stage of Sepsis: Ruled out Assessment/Plan Problem List (1) Acute and chronic respiratory failure: Qualifiers: Respiratory failure complication: hypoxia and hypercapnia Qualified Code(s): J96.21 - Acute and chronic respiratory failure with hypoxia; J96.22 - Acute and chronic respiratory failure with hypercapnia (2) Acute exacerbation of chronic obstructive pulmonary disease: (3) Anxiety: (4) Acute on chronic respiratory failure with hypoxia and hypercapnia: Impression: Her respiratory viral panel is positive for rhinovirus Manage COPD as below She is now on 4 L O2, trending back towards her baseline. Has improvement in symptoms with steroid burst and neb treatment 10/09/2024: She is down to 2 L oxygen today, but desaturates with any kind of activity. She reports no improvement in symptoms. I am giving her an additional 20 mg of prednisone today, and will start 60 mg prednisone tomorrow (5) Acute exacerbation of COPD with asthma: Impression: Day 3 of her steroids, increased dose today Continue DuoNeb RT 4 times daily scheduled Continue additional albuterol Continuing doxycycline 100 mg p.o. twice daily for atypical pneumonia coverage Continue additional albuterol every 4 hours as needed wheezing This is her second admission this year for COPD exacerbation triggered by viral pneumonia. ACP discussion in a separate note
--- NOTE | 2024-11-15 13:57 | ED Physician Documentation ---
ED Addendum Addendum Addendum: The patient was slated for admission at time of shift. Dr. Tai talked to hospitalist and orders were being written. Pt given another duoneb treatment in ED, and given dose of Levaquin IV for concerrn of bacterial source of infection. Pt wihtout problems here and was transferred to ICU on BiPAP awake and alert, interactive. Disposition: admitted in stable condition. Diagnosis: exac COPD acute respiratory insufficiency on BiPAP leukocytosis Discharge Plan Discharge Patient Disposition: [facility] DC/Xfer Condition: Stable Clinical Impression: Respiratory failure, COPD exacerbation, Fever Interventions: ED Admission Assessment Last Done: 11/14/24 09:59
--- NOTE | 2024-11-15 15:00 | PROVIDER PROGRESS NOTE ---
Subjective Prog Note Date Prog Note Date: 11/15/24 Prog Note Time: 14:05 Subjective Pt reports feeling: Improved Subjective: Constance is a 54-year-old female with a history of chronic COPD, anxiety, and hypothyroidism who was brought to the ED by EMS with severe dyspnea. The EMS team gave her 125mg IV solu-Medrol, Duoneb and albuterol nebulizer. In the ED, she was given IV levofloxacin, oxycodone, acetaminophen, and ondansetron. The patient was placed on BiPAP and admitted to the ICU. After the patient was on BiPAP, she was switched to nasal cannula 2L. Today, she is on 1.5L NC and feeling better. She reports that she still has some chest tightness. She states that her appetite is normal. Her voice is hoarse and congested as well. She denies chest pain, palpitations, nausea, vomiting, or pain. Current Medications Current Medications Current Medications: Current Medications Generic Name Dose Route Start Last Admin Trade Name Freq PRN Reason Stop Dose Admin Acetaminophen 650 mg 11/14/24 10:09 11/15/24 06:58 Acetaminophen 325 Mg Tablet PO 650 mg Q4HR PRN Administration Pain 1 to 4, or Fever Albuterol 2.5 mg 11/14/24 20:13 Albuterol Neb 2.5 Mg/3 Ml INH Q2HR PRN Wheezing Albuterol/Ipratropium 3 ml 11/14/24 19:55 11/15/24 09:12 Ipratropium/Albuterol 3 Ml Neb INH 3 ml RTQ4H PRN Administration Wheezing Enoxaparin Sodium 40 mg 11/14/24 10:09 11/15/24 09:02 Enoxaparin 40 Mg/0.4 Ml Syringe SUBQ 40 mg DAILY DEBBI Administration Levofloxacin 500 mg in 100 mls @ 100 mls/hr 11/15/24 09:00 11/15/24 10:15 Levaquin 500 Mg/100 Ml IV Infused Q24H DEBBI Infusion Methylprednisolone 40 mg 11/14/24 12:00 11/15/24 11:37 Methylprednisolone Succinate 40 Mg/Ml Vial IVP 40 mg Q6HR DEBBI Administration Ondansetron HCl 4 mg 11/14/24 10:09 Ondansetron Odt 4 Mg Tablet TL Q6HR PRN Nausea / Vomiting Ondansetron HCl 4 mg 05/05/25 10:09 Ondansetron 4 Mg/2 Ml Vial IVP Q6HR PRN Nausea / Vomiting Oxycodone HCl 5 mg 11/14/24 10:09 11/14/24 20:00 Oxycodone 5 Mg Tablet PO 5 mg Q4HR PRN Administration Pain 5 to 7 Pantoprazole Sodium 40 mg 11/14/24 10:09 11/15/24 06:53 Pantoprazole 40 Mg Tablet PO 40 mg QDAC DEBBI Administration Sodium Chloride 10 ml 11/14/24 10:09 11/15/24 09:53 Sodium Chloride Flush 0.9% 10 Ml Syringe IVP 10 ml 0100,0900,1700 DEBBI Administration Sodium Chloride 10 ml 11/14/24 10:09 Sodium Chloride Flush 0.9% 10 Ml Syringe IVP PRN PRN NEEDED PER PROVIDER ORDERS Objective Vital Signs/Intake & Output Reviewed Vital Signs: Yes Vital Signs: Vital Signs x48h Temp Pulse Pulse Resp BP Pulse Ox O2 Flow Rate 11/15/24 09:16 1.5 11/15/24 09:14 101 H 16 1.5 11/15/24 08:20 36.7 C 86 20 132/86 H 96 1.5 Intake & Output: Intake & Output 11/12/24 11/13/24 11/14/24 11/15/24 23:59 23:59 23:59 23:59 Intake Total 850 / 850 970 / 970 Output Total 870 / 870 Balance -20 / -20 970 / 970 Weight (kg) 44.5 kg Objective General Appearance: positive No acute distress and Alert; negative Anxious Eyes Bilateral: positive Normal inspection and PERRL ENT: positive ENT inspection nml, Pharynx nml and No signs of dehydration Neck: positive Nml inspection Respiratory: positive No respiratory distress and Other (Diminished breath sounds bilaterally) Cardiovascular: positive Regular rate & rhythm, No murmur and No gallop Abdomen: positive Non-tender, No organomegaly and Nml bowel sounds; negative No distention, Tenderness, Guarding or Rebound Skin: positive Color nml, No rash, Warm and Dry Extremities: positive Non-tender and Full ROM Neurologic/Psychiatric: positive Oriented x3, Motor nml and Mood/affect nml Lab Results 11/15/24 05:08 11/15/24 05:08 Other Labs: Lab Results x24hrs 11/15/24 Range/Units 05:08 WBC 12.7 H (4.8-10.8) x10^3/uL RBC 3.71 L (4.20-5.40) 10^6/uL Hgb 11.6 L (12.0-16.0) g/dL Hct 39.6 (37.0-47.0) % MCV 106.7 H (81.0-99.0) fL MCH 31.3 H (27.0-31.0) pg MCHC 29.3 L (32.0-36.0) g/dL RDW 12.6 (12.0-15.0) % Plt Count 277 (130-450) 10^3/uL MPV 10.2 (7.9-10.8) fL Neut # (Auto) 11.8 H (1.5-6.6) 10^3/uL Lymph # (Auto) 0.4 L (1.5-3.5) 10^3/uL [place] # (Auto) 0.4 (0.0-1.0) 10^3/uL Eos # (Auto) 0.0 (0.0-0.7) 10^3/uL Baso # (Auto) 0.0 (0.0-0.1) 10^3/uL Absolute Nucleated RBC 0.00 x10^3/uL Nucleated RBC % 0.0 /100WBC Sodium 142 (135-145) mmol/L Potassium 4.3 (3.5-4.5) mmol/L Chloride 105 (101-111) mmol/L Carbon Dioxide 32 (21-32) mmol/L Anion Gap 5.0 L (6-13) BUN 13 (6-20) mg/dL Creatinine 0.5 L (0.6-1.3) mg/dL Estimated GFR (MDRD) 128 (>89) Glucose 156 H (74-104) mg/dL Calcium 9.0 (8.5-10.3) mg/dL Diagnostic Imaging Diagnostic Imaging Results: positive Final report reviewed Sepsis Event Note (H) Evaluation Current Stage of Sepsis: Ruled out Assessment/Plan Problem List (1) Acute on chronic respiratory failure with hypoxia and hypercapnia: Impression: When the patient presented to the ED on 11/14, she was in acute respiratory failure with 87% oxygen saturation and 26 breaths/minute. She was put on oxygen and then BiPAP and transferred to the ICU. She had been given 125mg IV solu- Medrol, Duonebs, albuterol nebulizer. Once she was stable in the ICU, she was switched to 2L O2 NC. Her baseline at home is 1.5L O2 NC. On exam, breath sounds are still diminished bilaterally. 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 Sherie MD. On exam, her breath sounds are still diminished and she still has chest tightness. -Continue to monitor the patient overnight with 1.5L NC -Continue 500mg Q24H IV levofloxacin and transition to oral for d/c -Continue 40mg Q6H IV methylprednisolone until d/c. Patient will continue at- home oral and inhaler corticosteroid therapy along with other home medications. (3) Anxiety: Impression: The patient's anxiety is normally controlled with bupropion HCL 150mg daily. -Recommend follow-up with PCP
[2024-11-15] MEDS: CHOLECALCIFEROL 25 MCG TABLET PO SCH (16:53)
[2024-11-15] MEDS: CALCIUM CARBONATE CHEW 500 MG TABLET PO SCH (20:08)
[2024-11-16] MEDS: hydrOXYzine PAMOATE 25 MG CAPSULE PO ONE (00:42)
[2024-11-16 05:46] LABS: BASOPHILS % (AUTO) 0.2 %; HCT - HEMATOCRIT 36.6 % (37.0-47.0); LYMPHOCYTES # (AUTO) 0.3 10^3/uL (1.5-3.5); LYMPHOCYTES % (AUTO) 2.2 %; MEAN CORPUSCULAR HEMOGLOBIN 31.3 pg (27.0-31.0); MEAN CORPUSCULAR HGB CONC 30.1 g/dL (32.0-36.0); MEAN CORPUSCULAR VOLUME 104.3 fL (81.0-99.0); MEAN PLATELET VOLUME 10.1 fL (7.9-10.8); MONOCYTES # (AUTO) 0.4 10^3/uL (0.0-1.0); MONOCYTES % (AUTO) 3.3 %; NEUTROPHILS # (AUTO) 11.7 10^3/uL (1.5-6.6); NEUTROPHILS % (AUTO) 93.4 %; PLT - PLATELET COUNT 272 10^3/uL (130-450); RED BLOOD COUNT 3.51 10^6/uL (4.20-5.40); RED CELL DISTRIBUTION WIDTH 12.5 % (12.0-15.0); WHITE BLOOD COUNT 12.5 x10^3/uL (4.8-10.8)
[2024-11-16 06:19] LABS: CALCIUM 8.9 mg/dL (8.5-10.3); CREATININE 0.6 mg/dL (0.6-1.3); POTASSIUM 4.3 mmol/L (3.5-4.5)
[2024-11-16] MEDS: mycophenolate mofetiL 250 MG CAPSULE PO SCH (08:21)
[2024-11-16] MEDS: LEVOTHYROXINE 100 MCG TABLET PO SCH (08:22)
[2024-11-16] MEDS: predniSONE 20 MG TABLET PO SCH (08:22)
[2024-11-16] MEDS: buPROPion XL 150 MG TABLET PO SCH (08:22)
[2024-11-16] MEDS: MULTIVITAMIN W/MINERALS TABLET PO SCH (08:22)
[2024-11-16] MEDS: SULFAMETH/TRIMETH DS 800/160 MG TABLET PO SCH (09:12)
--- NOTE | 2024-11-16 10:08 | Discharge Summary ---
"Discharge Summary Admit Date: 11/14/24 Discharge Date: 11/19/24 Discharging Provider: Dr. Cookie Cornell Primary Care Provider: Meagan Castorena Code Status: Attempt Resuscitation Discharge Facility Name: Home DIAGNOSES Admission Diagnoses: Acute on chronic respiratory failure Acute exacerbation COPD Anxiety Discharge Diagnoses with Status of Each Condition: Acute on chronic respiratory failure with hypoxia and hypercapnia Acute exacerbation of chronic obstructive pulmonary disease Anxiety Eosinophilic granulomatosis with polyangiitis (EGPA) HPI History of Present Illness: GABY Jimenez student: Constance is a 54-year-old female with a history of COPD, asthma and anxiety presenting with severe shortness of breath and headache since yesterday. EMS brought her in severe distress, as she was tripoding. She was given Duonebs and albuterol nebulizer with EMS and was given 125mg IV solu-Medrol. The patient reports that her dyspnea began yesterday after 4pm. She states that her had a cold and she thinks that she caught it. She became increasingly short of breath yesterday evening and woke up 2x last night. When she woke up a second time, she told her that she needed to go to the hospital. She reports that she also had an 8/10 headache. She reports that she still has a headache now. The patient took Tylenol at home, but it did not give relief. Her baseline is 1.5 L nasal cannula at home. She sees Dr. Azra Rehman MD, a director speech in [place]. In the ED, she was given Duoneb, IV levofloxacin, IV magnesium sulfate and lorazepam. Chest X-ray was negative for acute abnormalities. Nasal PCR was negative. The patient previously had chronic RUQ pain, but this resolved after she went to a pain clinic in [place] and received a shot in her spine, she states. 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 She has two children. Surgical hx: cholecystectomy Family hx: Father of lung CA. Mother of skin CA at age 50. Living situation: With her . They are originally from [place]. They live in a very old home that has dust/dander which exacerbates her COPD. CONSULTS | PROCEDURES Consultations: - Procedures: Chest x-ray, CTA HOSPITAL COURSE Hospital Course: Patient is a 54-year-old female with a history of COPD, asthma, EGPA who presents with shortness of breath. On admission, she was in severe respiratory distress, and required BiPAP use. She was placed on IV steroids, scheduled breathing treatments, as well as levofloxacin. Initially, she was improving, and then her respiratory distress worsened. A CTA was completed, which showed no pulmonary embolism, but did show mild bronchiectasis. I also spoke with her director speech, who recommended continued treatment. She was advised to follow-up with her primary care provider as well as her director speech in the next few weeks. Will discharge her on a tapered dose of prednisone until she is back on her prednisone 20 daily. Her respiratory distress has improved. She is back on her 1.5 L. She has completed a course of antibiotics. She is safe to discharge home. ALLERGIES Allergies Allergy/AdvReac Type Severity Reaction Status Date / Time cephalexin Allergy Severe Rash Verified 11/14/24 04:57 peanut Allergy Severe Anaphylaxis Verified 11/14/24 04:57 shellfish derived Allergy Severe Anaphylaxis Verified 11/14/24 04:57 Fish Containing Products Allergy Unknown Unknown Verified 11/14/24 04:57 Penicillins Allergy Unknown Verified 11/14/24 04:57 metoclopramide (From Reglan) AdvReac Unknown Unknown Verified 11/14/24 04:57 MEDICATIONS Ambulatory Orders Medication Instructions Recorded Confirmed azelastine 137 mcg (0.1 %) nasal 2 sprays NS BID 10/0911/14/24 spray montelukast 10 mg tablet 10 mg PO QPM 10/09/20 tiotropium bromide 18 mcg capsule 18 mcg inhalation DA MOUNIKA 10/01/21 11/14/24 with inhalation device (Spiriva with HandiHaler) alendronate 70 mg tablet 70 mg PO Q7D 03/15/22 budesonide-formoterol HFA 160 2 puff inhalation BID 11/14/24 mcg-4.5 mcg/actuation aerosol inhaler (Symbicort) calcium 600 mg (as 1 ea PO DAILY 03/15/2211/14 carbonate)-vitamin D3 20 mcg (800 unit) tablet (Caltrate with Vitamin D3) mepolizumab 100 mg/mL subcutaneous 300 mg subcut Q28D 03/15/22 11/14/24 syringe (Nucala) levothyroxine 100 mcg tablet 100 mcg PO QDAC #30 tabs 03/22/22 11/14/24 prednisone 10 mg tablet 20 mg PO DAILY 02/22/2312/04 bupropion HCl 150 mg 24 hr tablet, 150 mg PO DAILY 11/14/24 extended release mycophenolate mofetil 500 mg tablet 1,000 mg PO BID 11/14/24 acetaminophen 500 mg tablet 1,000 mg PO Q12H PRN fever or pain 10/07/24 11/14/24 albuterol sulfate 90 mcg/actuation 2 puff inhalation Q 4H PRN 10/07/24 11/14/24 aerosol inhaler shortness of breath or wheez ing budesonide 0.5 mg/2 mL suspension 0.5 mg inhalation BI D 10/07/24 11/14/24 for nebulization sulfamethoxazole 800 1 tab PO .three times weekly 10/07/24 11/14/24 mg-trimethoprim 160 mg tablet prednisone 20 mg tablet 40 mg (2 x 20 mg) PO DAILY 3 days 11/16/24 #6 tabs codeine 10 mg-guaifenesin 100 mg/5 5 ml PO Q8HR #50 mL 11/19/24 mL oral liquid PHYSICAL EXAM AT DISCHARGE Vital Signs: Vital Signs x48h Temp Pulse Pulse Resp BP Pulse Ox O2 Flow Rate 11/19/24 11:57 113 H 16 1.5 11/19/24 07:54 1.5 11/19/24 07:52 74 16 1.5 11/19/24 07:46 98.2 F 72 18 124/83 97 1.5 General Appearance: positive No acute distress and Alert; negative Anxious Eyes Bilateral: positive Normal inspection, PERRL and EOMI ENT: positive ENT inspection nml, Pharynx nml and No signs of dehydration Neck: positive Nml inspection, Thyroid nml, No JVD and Trachea midline Respiratory: positive Chest non-tender, No respiratory distress and Breath sounds nml; negative Wheezes, Rales or Rhonchi Cardiovascular: positive No gallop and Tachycardia; negative Systolic murmur or Diastolic murmur Peripheral Pulses: positive 2+ Abdomen: positive Non-tender, No organomegaly and No distention; negative Tenderness, Guarding, Hepatomegaly or Splenomegaly Back: positive Nml inspection; negative CVA tenderness (R) or CVA tenderness (L) Skin: positive Color nml, No rash, Warm and Dry Extremities: positive Non-tender, Full ROM, Nml appearance and No pedal edema Neurologic/Psychiatric: positive Oriented x3, Sensation nml and Mood/affect nml LABS 11/19/24 05:04 11/19/24 05:04 SEPSIS Current Stage of Sepsis: Ruled out FOLLOW UP Follow Up: Follow up with director speech. Follow up with primary care provider. TIME SPENT Time Spent in Discharge (Minutes): 35 Discharge Plan Discharge Patient Disposition: Home, Self Care Condition: Stable Prescriptions: New prednisone 20 mg Tablet 40 mg PO DAILY 3 Days Qty: 6 0RF codeine-guaifenesin 10-100 mg/5 mL Liquid 5 ml PO Q8HR Qty: 50 0RF Continued montelukast 10 MG tablet 10 mg PO QPM Patient Comments: take 1 tablet by mouth every evening azelastine 137 MCG/0.137 ML spray,non-aerosol 2 sprays NS BID Patient Comments: instill 1 spray into each nostril four times a day tiotropium bromide [Spiriva with HandiHaler] 18 MCG capsule, w/inhalation device 18 mcg inhalation DAILY Patient Comments: inhale contents of 1 capsule by mouth once daily alendronate 70 MG tablet 70 mg PO Q7D budesonide-formoterol [Symbicort] 10.2 GM HFA aerosol inhaler 2 puff inhalation BID Patient Comments: inhale 2 puffs by mouth twice a day Rinse mouth after use Nucala 100 MG/ML syringe 300 mg subcut Q28D calcium carbonate-vitamin D3 [Caltrate with Vitamin D3] 1 EACH tablet 1 ea PO DAILY levothyroxine 100 MCG tablet 100 mcg PO QDAC Qty: 30 0RF prednisone 10 MG tablet 20 mg PO DAILY Patient Comments: PATIENT STATES THAT SHE HAS CUT DOWN TO 20MG DAILY bupropion HCl 150 mg tablet extended release 24 hr 150 mg PO DAILY Patient Comments: TAKE 1 TABLET BY MOUTH DAILY mycophenolate mofetil 500 mg tablet 1,000 mg PO BID Patient Comments: TAKE 1 TABLET BY MOUTH TWICE DAILY WITH FOOD FOR 1 MONTH THEN TAKE 2 TABLETS BY MOUTH TWICE DAILY THEREAFTER Patient says her doctor told her to stop taking if she goes to hospital/takes high dose steroids. sulfamethoxazole-trimethoprim 800-160 mg tablet 1 tab PO .three times weekly Patient Comments: 1 tablet thu, thu, . albuterol sulfate 90 mcg/actuation HFA aerosol inhaler 2 puff INHALATION Q4H PRN (Reason: shortness of breath or wheezing) Patient Comments: INHALE 2 PUFFS BY MOUTH EVERY 4 TO 6 HOURS NEEDED FOR WHEEZING OR SHORTNESS OF BREATH. NOT TO EXCEED 12 PUFFS PER DAY budesonide 0.5 MG/2 ML suspension for nebulization 0.5 mg inhalation BID acetaminophen 500 mg tablet 1,000 mg PO Q12H PRN (Reason: fever or pain) Activity Restrictions: Activity as Tolerated Diet: Regular Health Concerns: You came in because you were feeling short of breath. You were found to have acute exacerbation of your COPD and asthma. Likely this was triggered by an upper respiratory infection. You required IV steroids, as well as BiPAP initially. You now have been weaned down to 1.5 L of oxygen, as well as oral steroids and oral antibiotics that we want you to continue on discharge. We talked about the importance of following up with your primary care provider as well as your director speech. You will need continued close follow-up in the outpatient setting. We are glad you are feeling better, thanks for letting us take care of you. Print Language: [place] Patient Instructions: Pneumonia, Interstitial Lung Disease Infec, Pneumonia Dc Stand Alone Forms: PCP List"
--- NOTE | 2024-11-16 14:11 | PROVIDER PROGRESS NOTE ---
Subjective Prog Note Date Prog Note Date: 11/16/24 Prog Note Time: 12:54 Subjective Pt reports feeling: No change Subjective: Constance is a 54-year-old female with a history of chronic COPD, anxiety, and hypothyroidism who was brought to the ED by EMS with severe dyspnea. The EMS team gave her 125mg IV solu-Medrol, Duoneb and albuterol nebulizer. In the ED, she was given IV levofloxacin, oxycodone, acetaminophen, and ondansetron. The patient was placed on BiPAP and admitted to the ICU. She is now on Med-Surg floor on 1.5L NC and still has some dyspnea today. She reported that she did not sleep well last night and had increased anxiety. She states that she still has some chest tightness. She will stay another day in hospital and continue on IV levofloxacin, IV methylprednisolone, and oral TMP/SMX. Current Medications Current Medications Current Medications: Current Medications Generic Name Dose Route Start Last Admin Trade Name Freq PRN Reason Stop Dose Admin Acetaminophen 650 mg 11/14/24 10:11/16/24 00:03 Acetaminophen 325 Mg Tablet PO 650 mg Q4HR PRN Administration Pain 1 to 4, or Fever Albuterol 2.5 mg 11/14/24 20:13 Albuterol Neb 2.5 Mg/3 Ml INH Q2HR PRN Wheezing Albuterol/Ipratropium 3 ml 11/14/24 19:55 11/16/24 12:50 Ipratropium/Albuterol 3 Ml Neb INH 3 ml RTQ4H PRN Administration Wheezing Bupropion HCl 150 mg 11/16/24 09:00 11/16/24 08:22 Bupropion Xl 150 Mg Tablet PO 150 mg DAILY DEBBI Administration Calcium Carbonate/Glycine 500 mg 11/15/24 21:00 11/16/24 08:21 Calcium Carbonate Chew 500 Mg Tablet PO 500 mg BID DEBBI Administration Cholecalciferol 50 mcg 11/15/24 17:00 11/16/24 08:21 Cholecalciferol 25 Mcg Tablet PO 50 mcg DAILY DEBBI Administration Enoxaparin Sodium 40 mg 11/14/24 10:09 11/16/24 08:21 Enoxaparin 40 Mg/0.4 Ml Syringe SUBQ 40 mg DAILY DEBBI Administration Levofloxacin 500 mg in 100 mls @ 100 mls/hr 11/15/24 09:00 11/16/24 09:39 Levaquin 500 Mg/100 Ml IV Infused Q24H DEBBI Infusion Levothyroxine Sodium 100 mcg 11/17/24 07:00 Levothyroxine 100 Mcg Tablet PO QDAC DEBBI Methylprednisolone 40 mg 11/16/24 21:00 Methylprednisolone Succinate 40 Mg/Ml Vial IVP BID DEBBI Multivitamins/Minerals 1 tab 11/16/24 08:00 11/16/24 08:22 Multivitamin W/Minerals Tablet PO 1 tab DAILYWM DEBBI Administration Mycophenolate Mofetil 1,000 mg 11/16/24 09:00 11/16/24 08:21 Mycophenolate Mofetil 250 Mg Capsule PO 1,000 mg BID DEBBI Administration Ondansetron HCl 4 mg 11/14/24 10:09 Ondansetron Odt 4 Mg Tablet TL Q6HR PRN Nausea / Vomiting Ondansetron HCl 4 mg 11/14/24 10:09 Ondansetron 4 Mg/2 Ml Vial IVP Q6HR PRN Nausea / Vomiting Oxycodone HCl 5 mg 11/14/24 10:09 11/16/24 00:46 Oxycodone 5 Mg Tablet PO 5 mg Q4HR PRN Administration Pain 5 to 7 Pantoprazole Sodium 40 mg 11/14/24 10:09 11/16/24 06:18 Pantoprazole 40 Mg Tablet PO 40 mg QDAC DEBBI Administration Sodium Chloride 10 ml 11/14/24 10:09 11/16/24 09:38 Sodium Chloride Flush 0.9% 10 Ml Syringe IVP 10 ml 0100,0900,1700 DEBBI Administration Sodium Chloride 10 ml 11/14/24 10:09 Sodium Chloride Flush 0.9% 10 Ml Syringe IVP PRN PRN NEEDED PER PROVIDER ORDERS Trimethoprim/Sulfamethoxazole 1 tab 11/16/24 08:00 11/16/24 09:12 Sulfameth/Trimeth Ds 800/160 Mg Tablet PO 1 tab MoWeTh DEBBI Administration Objective Vital Signs/Intake & Output Reviewed Vital Signs: Yes Vital Signs: Vital Signs x48h Temp Pulse Pulse Resp BP Pulse Ox O2 Flow Rate 11/16/24 08:37 1.5 11/16/24 08:37 84 22 11/16/24 08:09 36.8 C 73 20 114/74 96 1.5 Intake & Output: Intake & Output 11/13/24 11/14/24 11/15/24 11/16/24 23:59 23:59 23:59 23:59 Intake Total 850 / 850 1806 / 1806 480 / 480 Output Total 870 / 870 Balance -20 / -20 180 / 1806 480 / 480 Weight (kg) 44.5 kg 44.5 kg Objective General Appearance: positive No acute distress and Alert Eyes Bilateral: positive Normal inspection ENT: positive ENT inspection nml, Pharynx nml and No signs of dehydration Neck: positive Nml inspection, Thyroid nml and No JVD Respiratory: positive Chest non-tender and Other (diffuse expiratory wheezing, diminished air entry bilaterally) Cardiovascular: positive Regular rate & rhythm, No murmur and No gallop; negative Tachycardia, Bradycardia, Systolic murmur or Diastolic murmur Abdomen: positive Non-tender; negative Guarding, Rebound, Hepatomegaly, Splenomegaly or Mass Back: positive Nml inspection; negative CVA tenderness (R) or CVA tenderness (L) Skin: positive Color nml, No rash and Dry (peeling; abrasion on nose from BIPAP machine) Extremities: positive Non-tender, Full ROM and No pedal edema Neurologic/Psychiatric: positive Oriented x3, Motor nml and Mood/affect nml Lab Results 11/16/24 05:27 11/16/24 05:27 Other Labs: Lab Results x24hrs 11/16/24 Range/Units 05:27 WBC 12.5 H (4.8-10.8) x10^3/uL RBC 3.51 L (4.20-5.40) 10^6/uL Hgb 11.0 L (12.0-16.0) g/dL Hct 36.6 L (37.0-47.0) % MCV 104.3 H (81.0-99.0) fL MCH 31.3 H (27.0-31.0) pg MCHC 30.1 L (32.0-36.0) g/dL RDW 12.5 (12.0-15.0) % Plt Count 272 (130-450) 10^3/uL MPV 10.1 (7.9-10.8) fL Neut # (Auto) 11.7 H (1.5-6.6) 10^3/uL Lymph # (Auto) 0.3 L (1.5-3.5) 10^3/uL [place] # (Auto) 0.4 (0.0-1.0) 10^3/uL Eos # (Auto) 0.0 (0.0-0.7) 10^3/uL Baso # (Auto) 0.0 (0.0-0.1) 10^3/uL Absolute Nucleated RBC 0.00 x10^3/uL Nucleated RBC % 0.0 /100WBC Sodium 141 (135-145) mmol/L Potassium 4.3 (3.5-4.5) mmol/L Chloride 107 (101-111) mmol/L Carbon Dioxide 30 (21-32) mmol/L Anion Gap 4.0 L (6-13) BUN 18 (6-20) mg/dL Creatinine 0.6 (0.6-1.3) mg/dL Estimated GFR (MDRD) 104 (>89) Glucose 160 H (74-104) mg/dL Calcium 8.9 (8.5-10.3) mg/dL Magnesium 2.0 (1.7-2.3) mg/dL Diagnostic Imaging Diagnostic Imaging Results: positive Final report reviewed ABX Reporting Has patient been on IV antibiotics over the past 48 hours?: Yes Sepsis Event Note (H) Evaluation Current Stage of Sepsis: Ruled out Assessment/Plan Problem List (1) Acute on chronic respiratory failure with hypoxia and hypercapnia: Impression: The patient is currently on 1.5 L NC, which is her baseline at home. She still complains of chest tightness. -Lung exam reveals diffuse expiratory wheezing and diminished air entry - patient still requires high doses of IV steroids, and therefore will require one more night in the hospital -Continue IV methylprednisolone 40mg BID. (2) Acute exacerbation of chronic obstructive pulmonary disease: Impression: -Continue IV methylprednisolone 40mg BID. Switch to oral prednisone 40mg daily on discharge. -Continue Duoneb and albuterol PRN. (3) Anxiety: Impression: Patient's anxiety is currently controlled with Wellbutrin 150mg daily and hydroxyzine HCl PRN, she reports. -Recommend follow-up with PCP Dr. Castorena in [place].
[2024-11-16] MEDS: methylPREDNISolone SUCCINATE 40 MG/ML VIAL IVP SCH (22:16)
[2024-11-17 05:30] LABS: BASOPHILS % (AUTO) 0.1 %; HCT - HEMATOCRIT 38.1 % (37.0-47.0); HGB - HEMOGLOBIN 11.2 g/dL (12.0-16.0); LYMPHOCYTES # (AUTO) 0.5 10^3/uL (1.5-3.5); LYMPHOCYTES % (AUTO) 3.9 %; MEAN CORPUSCULAR HEMOGLOBIN 30.9 pg (27.0-31.0); MEAN CORPUSCULAR HGB CONC 29.4 g/dL (32.0-36.0); MEAN PLATELET VOLUME 9.9 fL (7.9-10.8); MONOCYTES # (AUTO) 0.5 10^3/uL (0.0-1.0); MONOCYTES % (AUTO) 4.5 %; NEUTROPHILS # (AUTO) 10.3 10^3/uL (1.5-6.6); PLT - PLATELET COUNT 272 10^3/uL (130-450); RED BLOOD COUNT 3.63 10^6/uL (4.20-5.40); RED CELL DISTRIBUTION WIDTH 12.4 % (12.0-15.0); WHITE BLOOD COUNT 11.5 x10^3/uL (4.8-10.8)
[2024-11-17 05:51] LABS: CALCIUM 9.3 mg/dL (8.5-10.3); CREATININE 0.5 mg/dL (0.6-1.3); POTASSIUM 4.2 mmol/L (3.5-4.5)
[2024-11-17] MEDS: LEVOTHYROXINE 100 MCG TABLET PO SCH (06:17)
--- NOTE | 2024-11-17 09:32 | XRAY Report ---
PROCEDURE: XR Chest 1V INDICATIONS: AIRAM TECHNIQUE: One view of the chest was acquired. COMPARISON: 11/14/2024 and 10/07/2024. FINDINGS: Surgical changes and devices: None. Lungs and pleura: No pleural effusions or pneumothorax. Mild hyperinflation. No focal infiltrate. Mediastinum: Mediastinal contours appear normal. Heart size is normal. Bones and chest wall: No suspicious bony lesions. Overlying soft tissues appear unremarkable. IMPRESSION: COPD. No acute cardiopulmonary process. Reviewed by: Christian Pedraza MD on 11/17/2024 9:30 AM PDT Approved by: Christian Pedraza MD on 11/17/2024 9:30 AM PDT Station ID: [id number]
--- NOTE | 2024-11-17 10:25 | PROVIDER PROGRESS NOTE ---
Subjective Subjective Subjective: Patient continues to have significant dyspnea, and increased work of breathing this morning. She is on 2 L of oxygen. She feels as if it is hard to move air. She does feel better after breathing treatments, as well as her steroids. Current Medications Current Medications Current Medications: Current Medications Generic Name Dose Route Start Last Admin Trade Name Freq PRN Reason Stop Dose Admin Acetaminophen 650 mg 11/14/24 10:09 11/17/24 08:45 Acetaminophen 325 Mg Tablet PO 650 mg Q4HR PRN Administration Pain 1 to 4, or Fever Albuterol 2.5 mg 11/14/24 20:13 Albuterol Neb 2.5 Mg/3 Ml INH Q2HR PRN Wheezing Albuterol/Ipratropium 3 ml 11/14/24 19:55 11/17/24 08:09 Ipratropium/Albuterol 3 Ml Neb INH 3 ml RTQ4H PRN Administration Wheezing Albuterol/Ipratropium 3 ml 11/17/24 11:00 Ipratropium/Albuterol 3 Ml Neb INH RTQID DEBBI Bupropion HCl 150 mg 11/16/24 09:00 11/17/24 08:45 Bupropion Xl 150 Mg Tablet PO 150 mg DAILY DEBBI Administration Calcium Carbonate/Glycine 500 mg 11/15/24 21:00 11/17/24 08:45 Calcium Carbonate Chew 500 Mg Tablet PO 500 mg BID DEBBI Administration Cholecalciferol 50 mcg 11/15/24 17:00 11/17/24 08:45 Cholecalciferol 25 Mcg Tablet PO 50 mcg DAILY DEBBI Administration Enoxaparin Sodium 40 mg 11/14/24 10:09 11/17/24 08:44 Enoxaparin 40 Mg/0.4 Ml Syringe SUBQ 40 mg DAILY DEBBI Administration Guaifenesin 10 ml 11/17/24 12:00 Guaifenesin/Dextromethorphan 10 Ml Udc PO Q6HR DEBBI Hydroxyzine Pamoate 25 mg 11/16/24 13:53 Hydroxyzine Pamoate 25 Mg Capsule PO QPM PRN anxiety Levofloxacin 500 mg in 100 mls @ 100 mls/hr 11/15/24 09:00 11/17/24 09:55 Levaquin 500 Mg/100 Ml IV Infused Q24H DEBBI Infusion Levothyroxine Sodium 100 mcg 11/17/24 07:00 11/17/24 06:17 Levothyroxine 100 Mcg Tablet PO 100 mcg QDAC DEBBI Administration Methylprednisolone 40 mg 11/16/24 21:00 11/17/24 08:44 Methylprednisolone Succinate 40 Mg/Ml Vial IVP 40 mg BID DEBBI Administration Montelukast Sodium 10 mg 11/17/24 21:00 Montelukast 10 Mg Tablet PO QPM DEBBI Multivitamins/Minerals 1 tab 11/16/24 08:00 11/17/24 08:45 Multivitamin W/Minerals Tablet PO 1 tab DAILYWM DEBBI Administration Mycophenolate Mofetil 1,000 mg 11/16/24 09:00 11/17/24 08:45 Mycophenolate Mofetil 250 Mg Capsule PO 1,000 mg BID DEBBI Administration Ondansetron HCl 4 mg 11/14/24 10:09 Ondansetron Odt 4 Mg Tablet TL Q6HR PRN Nausea / Vomiting Ondansetron HCl 4 mg 11/14/24 10:09 Ondansetron 4 Mg/2 Ml Vial IVP Q6HR PRN Nausea / Vomiting Oxycodone HCl 5 mg 11/14/24 10:09 11/16/24 00:46 Oxycodone 5 Mg Tablet PO 5 mg Q4HR PRN Administration Pain 5 to 7 Pantoprazole Sodium 40 mg 11/14/24 10:09 11/17/24 06:17 Pantoprazole 40 Mg Tablet PO 40 mg QDAC DEBBI Administration Sodium Chloride 10 ml 11/14/24 10:09 11/17/24 08:46 Sodium Chloride Flush 0.9% 10 Ml Syringe IVP 10 ml 0100,0900,1700 DEBBI Administration Sodium Chloride 10 ml 11/14/24 10:09 Sodium Chloride Flush 0.9% 10 Ml Syringe IVP PRN PRN NEEDED PER PROVIDER ORDERS Trimethoprim/Sulfamethoxazole 1 tab 11/16/24 08:00 11/17/24 08:45 Sulfameth/Trimeth Ds 800/160 Mg Tablet PO 1 tab MoWeTh DEBBI Administration Objective Vital Signs/Intake & Output Reviewed Vital Signs: Yes Vital Signs: Vital Signs x48h Temp Pulse Pulse Resp BP Pulse Ox O2 Flow Rate 11/17/24 09:51 98.1 F 107 H 18 148/95 H 92 1.5 11/17/24 08:09 80 20 1.5 Intake & Output: Intake & Output 11/14/24 11/15/24 11/16/24 11/17/24 23:59 23:59 23:59 23:59 Intake Total 850 / 850 1805 / 1806 836 / 836 340 / 340 Output Total 870 / 870 Balance -20 / -20 1805 / 1805 836 / 836 340 / 340 Weight (kg) 44.5 kg 44.5 kg 45.5 kg Objective General Appearance: positive Alert and Mild distress Eyes Bilateral: positive Normal inspection ENT: positive ENT inspection nml, Pharynx nml and No signs of dehydration Neck: positive Nml inspection, Thyroid nml and No JVD Respiratory: positive Chest non-tender and Other (diffuse expiratory wheezing, diminished air entry bilaterally) Cardiovascular: positive Regular rate & rhythm, No murmur and No gallop; negative Tachycardia, Bradycardia, Systolic murmur or Diastolic murmur Abdomen: positive Non-tender; negative Guarding, Rebound, Hepatomegaly, Splenomegaly or Mass Back: positive Nml inspection; negative CVA tenderness (R) or CVA tenderness (L) Skin: positive Color nml, No rash and Dry (peeling; abrasion on nose from BIPAP machine) Extremities: positive Non-tender, Full ROM and No pedal edema Neurologic/Psychiatric: positive Oriented x3, Motor nml and Mood/affect nml Lab Results 11/17/24 05:08 11/17/24 05:08 Other Labs: Lab Results x24hrs 11/17/24 Range/Units 05:08 WBC 11.5 H (4.8-10.8) x10^3/uL RBC 3.63 L (4.20-5.40) 10^6/uL Hgb 11.2 L (12.0-16.0) g/dL Hct 38.1 (37.0-47.0) % MCV 105.0 H (81.0-99.0) fL MCH 30.9 (27.0-31.0) pg MCHC 29.4 L (32.0-36.0) g/dL RDW 12.4 (12.0-15.0) % Plt Count 272 (130-450) 10^3/uL MPV 9.9 (7.9-10.8) fL Neut # (Auto) 10.3 H (1.5-6.6) 10^3/uL Lymph # (Auto) 0.5 L (1.5-3.5) 10^3/uL [place] # (Auto) 0.5 (0.0-1.0) 10^3/uL Eos # (Auto) 0.0 (0.0-0.7) 10^3/uL Baso # (Auto) 0.0 (0.0-0.1) 10^3/uL Absolute Nucleated RBC 0.00 x10^3/uL Nucleated RBC % 0.0 /100WBC Sodium 140 (135-145) mmol/L Potassium 4.2 (3.5-4.5) mmol/L Chloride 104 (101-111) mmol/L Carbon Dioxide 32 (21-32) mmol/L Anion Gap 4.0 L (6-13) BUN 19 (6-20) mg/dL Creatinine 0.5 L (0.6-1.3) mg/dL Estimated GFR (MDRD) 128 (>89) Glucose 141 H (74-104) mg/dL Calcium 9.3 (8.5-10.3) mg/dL Diagnostic Imaging Diagnostic Imaging Results: positive Final report reviewed ABX Reporting Has patient been on IV antibiotics over the past 48 hours?: Yes Sepsis Event Note (H) Evaluation Current Stage of Sepsis: Ruled out Assessment/Plan Problem List (1) Acute on chronic respiratory failure with hypoxia and hypercapnia: Impression: Patient is on 2 L of oxygen at this time. At home, she usually requires 1.5 L. She has increased dyspnea, work of breathing, and some respiratory accessory muscle use this morning. Chest x-ray was repeated, and does not show any pneumothorax, worsening pneumonia. Does show hyperinflation consistent with COPD. Due to her subjective worsening of symptoms, I have increased her IV Solu- Medrol to 3 times daily dosing. DuoNebs are currently switched to scheduled. Continuing levofloxacin at this time. She does follow-up with a otc clerk in the outpatient setting. Medication review reveals that she is taking a biologicNucala for her severe COPD, and is also on mycophenolate mofetil, and chronic prednisone therapy of 20mg daily. If she continues to have worsening symptoms, she may require BiPAP use. (2) Acute exacerbation of chronic obstructive pulmonary disease: Impression: See above. (3) Anxiety: Impression: Patient's anxiety is currently controlled with Wellbutrin 150mg daily and hydroxyzine HCl PRN, she reports. Recommend follow-up with PCP Dr. Castorena in [place].
[2024-11-17] MEDS: hydrOXYzine PAMOATE 25 MG CAPSULE PO PRN ×2 (12:10→21:00)
[2024-11-17] MEDS: guaiFENesin/DEXTROMETHORPHAN 10 ML UDC PO SCH (12:10)
[2024-11-17] MEDS: IPRATROPIUM/ALBUTEROL 3 ML NEB INH SCH (12:17)
[2024-11-17] MEDS: methylPREDNISolone SUCCINATE 40 MG/ML VIAL IVP SCH (14:17)
[2024-11-17] MEDS: guaiFENesin/CODEINE 5 ML UDC PO PRN (20:58)
[2024-11-17] MEDS: CALCIUM CARBONATE CHEW 500 MG TABLET PO SCH (20:59)
[2024-11-17] MEDS: MONTELUKAST 10 MG TABLET PO SCH (21:00)
[2024-11-18 06:13] LABS: BASOPHILS % (AUTO) 0.2 %; EOSINOPHILS % (AUTO) 0.1 %; HCT - HEMATOCRIT 38.5 % (37.0-47.0); HGB - HEMOGLOBIN 11.7 g/dL (12.0-16.0); LYMPHOCYTES # (AUTO) 0.6 10^3/uL (1.5-3.5); LYMPHOCYTES % (AUTO) 4.4 %; MEAN CORPUSCULAR HGB CONC 30.4 g/dL (32.0-36.0); MEAN CORPUSCULAR VOLUME 101.9 fL (81.0-99.0); MEAN PLATELET VOLUME 10.1 fL (7.9-10.8); MONOCYTES # (AUTO) 0.8 10^3/uL (0.0-1.0); MONOCYTES % (AUTO) 6.4 %; NEUTROPHILS % (AUTO) 86.9 %; PLT - PLATELET COUNT 301 10^3/uL (130-450); RED BLOOD COUNT 3.78 10^6/uL (4.20-5.40); RED CELL DISTRIBUTION WIDTH 12.2 % (12.0-15.0); WHITE BLOOD COUNT 12.6 x10^3/uL (4.8-10.8)
[2024-11-18 06:35] LABS: CALCIUM 9.4 mg/dL (8.5-10.3); CREATININE 0.5 mg/dL (0.6-1.3); MAGNESIUM 2.2 mg/dL (1.7-2.3); POTASSIUM 4.1 mmol/L (3.5-4.5)
[2024-11-18] MEDS: levoFLOXacin 250 MG TABLET PO SCH (08:09)
--- NOTE | 2024-11-18 10:24 | PROVIDER PROGRESS NOTE ---
Subjective Subjective Subjective: Patient continues to have significant dyspnea, and increased work of breathing this morning. She is on 2 L of oxygen. She feels as if it is hard to move air. She does feel better after breathing treatments, as well as her steroids. Current Medications Current Medications Current Medications: Current Medications Generic Name Dose Route Start Last Admin Trade Name Freq PRN Reason Stop Dose Admin Acetaminophen 650 mg 11/14/24 10:09 11/18/24 08:07 Acetaminophen 325 Mg Tablet PO 650 mg Q4HR PRN Administration Pain 1 to 4, or Fever Albuterol 2.5 mg 11/14/24 20:13 Albuterol Neb 2.5 Mg/3 Ml INH Q2HR PRN Wheezing Albuterol/Ipratropium 3 ml 11/14/24 19:55 11/18/24 00:26 Ipratropium/Albuterol 3 Ml Neb INH 3 ml RTQ4H PRN Administration Wheezing Albuterol/Ipratropium 3 ml 11/17/24 11:00 11/18/24 07:39 Ipratropium/Albuterol 3 Ml Neb INH 3 ml RTQID DEBBI Administration Bupropion HCl 150 mg 11/16/24 09:00 11/18/24 08:09 Bupropion Xl 150 Mg Tablet PO 150 mg DAILY DEBBI Administration Calcium Carbonate/Glycine 500 mg 11/17/24 21:00 11/17/24 20:59 Calcium Carbonate Chew 500 Mg Tablet PO 500 mg 1200,2100 DEBBI Administration Cholecalciferol 50 mcg 11/15/24 17:00 11/18/24 08:09 Cholecalciferol 25 Mcg Tablet PO 50 mcg DAILY DEBBI Administration Enoxaparin Sodium 40 mg 11/14/24 10:09 11/18/24 08:10 Enoxaparin 40 Mg/0.4 Ml Syringe SUBQ 40 mg DAILY DEBBI Administration Guaifenesin/Codeine Phosphate 5 ml 11/18/24 14:00 Guaifenesin/Codeine 5 Ml Udc PO Q8HR DEBBI Hydroxyzine Pamoate 25 mg 11/17/24 12:24 11/17/24 21:00 Hydroxyzine Pamoate 25 Mg Capsule PO 25 mg QID PRN Administration Anxiety Levofloxacin 500 mg 11/18/24 09:00 11/18/24 08:09 Levofloxacin 250 Mg Tablet PO 500 mg DAILY DEBBI Administration Levothyroxine Sodium 100 mcg 11/17/24 07:00 11/18/24 06:41 Levothyroxine 100 Mcg Tablet PO 100 mcg QDAC DEBBI Administration Methylprednisolone 40 mg 11/17/24 14:00 11/18/24 06:41 Methylprednisolone Succinate 40 Mg/Ml Vial IVP 40 mg TID DEBBI Administration Montelukast Sodium 10 mg 11/17/24 21:00 11/17/24 21:00 Montelukast 10 Mg Tablet PO 10 mg QPM DEBBI Administration Multivitamins/Minerals 1 tab 11/16/24 08:00 11/18/24 08:09 Multivitamin W/Minerals Tablet PO 1 tab DAILYWM DEBBI Administration Mycophenolate Mofetil 1,000 mg 11/16/24 09:00 11/18/24 08:08 Mycophenolate Mofetil 250 Mg Capsule PO 1,000 mg BID DEBBI Administration Ondansetron HCl 4 mg 11/14/24 10:09 Ondansetron Odt 4 Mg Tablet TL Q6HR PRN Nausea / Vomiting Ondansetron HCl 4 mg 11/14/24 10:09 Ondansetron 4 Mg/2 Ml Vial IVP Q6HR PRN Nausea / Vomiting Oxycodone HCl 5 mg 11/14/24 10:09 11/16/24 00:46 Oxycodone 5 Mg Tablet PO 5 mg Q4HR PRN Administration Pain 5 to 7 Pantoprazole Sodium 40 mg 11/14/24 10:09 11/18/24 06:41 Pantoprazole 40 Mg Tablet PO 40 mg QDAC DEBBI Administration Sodium Chloride 10 ml 11/14/24 10:09 11/18/24 00:25 Sodium Chloride Flush 0.9% 10 Ml Syringe IVP 10 ml 0100,0900,1700 DEBBI Administration Sodium Chloride 10 ml 11/14/24 10:09 Sodium Chloride Flush 0.9% 10 Ml Syringe IVP PRN PRN NEEDED PER PROVIDER ORDERS Trimethoprim/Sulfamethoxazole 1 tab 11/16/24 08:00 11/17/24 08:45 Sulfameth/Trimeth Ds 800/160 Mg Tablet PO 1 tab MoWeTh DEBBI Administration Objective Vital Signs/Intake & Output Reviewed Vital Signs: Yes Vital Signs: Vital Signs x48h Temp Pulse Pulse Resp BP Pulse Ox O2 Flow Rate 11/18/24 07:54 97.9 F 80 20 136/91 H 94 1.5 11/18/24 07:41 95 18 1.5 11/18/24 07:38 1.5 Intake & Output: Intake & Output 11/15/24 11/16/24 11/17/24 11/18/24 23:59 23:59 23:59 23:59 Intake Total 1806 / 1806 836 / 836 940 / 940 360 / 360 Balance 1806 / 1806 836 / 836 940 / 940 360 / 360 Weight (kg) 44.5 kg 45.5 kg 45 kg Objective General Appearance: positive Alert and Mild distress Eyes Bilateral: positive Normal inspection ENT: positive ENT inspection nml, Pharynx nml and No signs of dehydration Neck: positive Nml inspection, Thyroid nml and No JVD Respiratory: positive Chest non-tender and Other (diffuse expiratory wheezing, diminished air entry bilaterally) Cardiovascular: positive Regular rate & rhythm, No murmur and No gallop; negative Tachycardia, Bradycardia, Systolic murmur or Diastolic murmur Abdomen: positive Non-tender; negative Guarding, Rebound, Hepatomegaly, Splenomegaly or Mass Back: positive Nml inspection; negative CVA tenderness (R) or CVA tenderness (L) Skin: positive Color nml, No rash and Dry (peeling; abrasion on nose from BIPAP machine) Extremities: positive Non-tender, Full ROM and No pedal edema Neurologic/Psychiatric: positive Oriented x3, Motor nml and Mood/affect nml Lab Results 11/18/24 05:29 11/18/24 05:29 Other Labs: Lab Results x24hrs 11/18/24 Range/Units 05:29 WBC 12.6 H (4.8-10.8) x10^3/uL RBC 3.78 L (4.20-5.40) 10^6/uL Hgb 11.7 L (12.0-16.0) g/dL Hct 38.5 (37.0-47.0) % MCV 101.9 H (81.0-99.0) fL MCH 31.0 (27.0-31.0) pg MCHC 30.4 L (32.0-36.0) g/dL RDW 12.2 (12.0-15.0) % Plt Count 301 (130-450) 10^3/uL MPV 10.1 (7.9-10.8) fL Neut # (Auto) 11.0 H (1.5-6.6) 10^3/uL Lymph # (Auto) 0.6 L (1.5-3.5) 10^3/uL [place] # (Auto) 0.8 (0.0-1.0) 10^3/uL Eos # (Auto) 0.0 (0.0-0.7) 10^3/uL Baso # (Auto) 0.0 (0.0-0.1) 10^3/uL Absolute Nucleated RBC 0.00 x10^3/uL Nucleated RBC % 0.0 /100WBC Sodium 140 (135-145) mmol/L Potassium 4.1 (3.5-4.5) mmol/L Chloride 101 (101-111) mmol/L Carbon Dioxide 33 H (21-32) mmol/L Anion Gap 6.0 (6-13) BUN 17 (6-20) mg/dL Creatinine 0.5 L (0.6-1.3) mg/dL Estimated GFR (MDRD) 128 (>89) Glucose 124 H (74-104) mg/dL Calcium 9.4 (8.5-10.3) mg/dL Magnesium 2.2 (1.7-2.3) mg/dL Diagnostic Imaging Diagnostic Imaging Results: positive Final report reviewed ABX Reporting Has patient been on IV antibiotics over the past 48 hours?: Yes Sepsis Event Note (H) Evaluation Current Stage of Sepsis: Ruled out Assessment/Plan Problem List (1) Acute on chronic respiratory failure with hypoxia and hypercapnia: Impression: Patient is on 2 L of oxygen at this time. At home, she usually requires 1.5 L. She has increased dyspnea, work of breathing, and some respiratory accessory muscle use this morning. Chest x-ray was repeated yesterday, and does not show any pneumothorax, worsening pneumonia. Does show hyperinflation consistent with COPD. Due to her subjective worsening of symptoms, I increased her IV Solu-Medrol to 3 times daily dosing yesterday, which I will continue today. DuoNebs are currently switched to scheduled. Continuing levofloxacin at this time. She does follow-up with a tablet machine operator in the outpatient setting, Dr. Tammy Rehman. I spoke with her partner today, Dr. Rebolledo. She said that she has EGPA. This is why she is on mycophenolate, as well as the Nucala. She advised continued treatment inpatient with aggressive pulmonary toilet, scheduled Duonebs, steroids, she may require a longer hospital stay. CTA is also ordered to rule out pulmonary embolisn with prolonged immobilization in hospital. If she continues to have worsening symptoms, she may require BiPAP use. (2) Acute exacerbation of chronic obstructive pulmonary disease: Impression: See above. (3) Anxiety: Impression: Patient's anxiety is currently controlled with Wellbutrin 150mg daily and hydroxyzine HCl PRN, she reports. Recommend follow-up with PCP Dr. Castorena in [place]. (4) Eosinophilic granulomatosis with polyangiitis (EGPA): Impression: She does follow-up with a tablet machine operator in the outpatient setting, Dr. Tammy Rehman. I spoke with her partner today, Dr. Rebolledo. She said that she has EGPA which is why her symptoms have continued to progress. This is why she is on mycophenolate, as well as the Nucala. She advised continued treatment inpatient, she may require a longer hospital stay.
[2024-11-18] MEDS ORDERED: iohexoL-300 100 ML VIAL ONE (11:46)
[2024-11-18] MEDS: guaiFENesin/CODEINE 5 ML UDC PO SCH (14:51)
[2024-11-18] MEDS: iohexoL-300 100 ML VIAL IVP ONE (14:56)
--- NOTE | 2024-11-18 18:34 | CT Report ---
PROCEDURE: CT Angio Chest INDICATIONS: AIRAM CONTRAST: 80 ML OMNI TECHNIQUE: After the administration of intravenous contrast, 2 mm axial images were acquired from the pulmonary apices to the posterior costophrenic angles during the arterial phase. In addition, 1 mm lung kernel and 5 mm soft tissue kernel reconstructions were performed. 3-dimensional coronal oblique maximum intensity projection (MIP) reformats, 8 mm axial MIP, and 5 mm coronal and sagittal MPR reformats were then performed through the thorax. For radiation dose reduction, the following was used: automated exposure control, adjustment of mA and/or kV according to patient size. COMPARISON: Correlation is made with prior chest radiograph, 11/17/2024. Correlation is also made with abdomen and pelvis CT, 08/15/2023. FINDINGS: Image quality: There is streak artifact seen through the level of the shoulders. Large vessels: No filling defects within the opacified pulmonary arteries, accounting for motion and contrast timing. No evidence of acute aortic syndrome or aortic aneurysm. Lungs and pleura: No consolidation. There is scarring change at the right lung apex. Bronchiectasis can be seen, which is worst involving the lower lobes. No pleural effusions. No pneumothorax. No suspicious pulmonary nodules which require follow up. Mediastinum: Heart size is normal. No pericardial effusion. No large vessel abnormality. No mediastinal adenopathy by size criteria. Chest wall and lower neck: Thyroid is unremarkable. No axillary or supraclavicular adenopathy by size. Bones: No aggressive osseous abnormality. Upper Abdomen: Mild biliary gas can be seen. The visualized portions of the upper abdominal structures are otherwise within normal limits. IMPRESSION: No pulmonary embolus. No focal infiltrate or suspicious pulmonary nodule can be seen. Note is made of mild bronchiectasis, primarily involving the lower lobes. Apparent scarring change can be seen at the right lung apex. Additional findings: Biliary gas is seen, which is regarded to be benign. Reviewed by: Ricardo Wright MD on 11/18/2024 5:33 PM ELIJAH Approved by: Ricardo Wright MD on 11/18/2024 5:33 PM ELIJAH Station ID: [id number]
[2024-11-19 05:18] LABS: BASOPHILS % (AUTO) 0.3 %; HCT - HEMATOCRIT 40.3 % (37.0-47.0); HGB - HEMOGLOBIN 12.5 g/dL (12.0-16.0); LYMPHOCYTES # (AUTO) 0.5 10^3/uL (1.5-3.5); LYMPHOCYTES % (AUTO) 3.8 %; MEAN CORPUSCULAR HEMOGLOBIN 31.6 pg (27.0-31.0); MONOCYTES # (AUTO) 0.7 10^3/uL (0.0-1.0); NEUTROPHILS # (AUTO) 12.5 10^3/uL (1.5-6.6); NEUTROPHILS % (AUTO) 88.6 %; PLT - PLATELET COUNT 305 10^3/uL (130-450); RED BLOOD COUNT 3.95 10^6/uL (4.20-5.40); RED CELL DISTRIBUTION WIDTH 12.3 % (12.0-15.0); WHITE BLOOD COUNT 14.1 x10^3/uL (4.8-10.8)
[2024-11-19 05:37] LABS: CALCIUM 9.9 mg/dL (8.5-10.3); CREATININE 0.5 mg/dL (0.6-1.3); MAGNESIUM 2.1 mg/dL (1.7-2.3); POTASSIUM 4.3 mmol/L (3.5-4.5)
[2024-11-19 14:36] VITALS: BP 149/95; TEMP 98.1; O2SAT 92
== END 2024-11-19 14:50 | disposition home or self-care (01) | DRG 190 ==
LOC: ED 04:39 → ICU 08:53 → MS2 21:54
PROVIDERS: ADMIT Specialist; ATTEND Specialist
DX: Z91.013 Allergy to seafood; M30.1 Polyarteritis with lung involvement [Churg-Strauss]; R00.0 Tachycardia, unspecified; Z99.81 Dependence on supplemental oxygen; Z20.828 Contact with and (suspected) exposure to other viral communicable diseases; R94.31 Abnormal electrocardiogram [ECG] [EKG]; Z79.899 Other long term (current) drug therapy; D72.829 Elevated white blood cell count, unspecified; Z79.52 Long term (current) use of systemic steroids; Z79.890 Hormone replacement therapy; Z20.822 Contact with and (suspected) exposure to COVID-19; Z88.8 Allergy status to other drugs, medicaments and biological substances; Z91.010 Allergy to peanuts; F41.9 Anxiety disorder, unspecified; J96.22 Acute and chronic respiratory failure with hypercapnia; R50.9 Fever, unspecified; J44.1 Chronic obstructive pulmonary disease with (acute) exacerbation; E03.9 Hypothyroidism, unspecified; J96.20 Acute and chronic respiratory failure, unspecified whether with hypoxia or hypercapnia; R51.9 Headache, unspecified; Z20.818 Contact with and (suspected) exposure to other bacterial communicable diseases; Z87.891 Personal history of nicotine dependence; Z88.0 Allergy status to penicillin; Z79.51 Long term (current) use of inhaled steroids